=== PATIENT | female | born 1955 | race Caucasian/White ===

== ENCOUNTER 2022-05-11 20:21 | Inpatient (IN) | payer MEDICARE, BC ==
[~2022-05-11] VITALS: Ht 167.6 cm; Wt 77.1 kg
[2022-05-11] MEDS ORDERED: PROCHLORPERAZINE EDISYLATE 10 MG/2 ML VIAL ONE (20:45)
[2022-05-11] MEDS ORDERED: PROCHLORPERAZINE EDISYLATE 10 MG/2 ML VIAL IV ONE (20:45)
[2022-05-11] MEDS ORDERED: IV NORMAL SALINE 1000 ML BAG IV ONE (20:45)
[2022-05-11] MEDS ORDERED: HYDROMORPHONE 1 MG/1 ML DISP.SYRIN IV ONE ×3 (21:00→23:15)
[2022-05-11 21:30] LABS: CREATININE 0.9 mg/dL (0.6-1.3); POTASSIUM 3.1 mmol/L (3.5-5.1)
[2022-05-11 21:34] LABS: HEMATOCRIT 36.8 % (31.2-41.9); MEAN CORPUSCULAR HEMOGLOBIN 27.7 uug (24.7-32.8); PLATELET COUNT (AUTO) 163 K/uL (179-408)
[2022-05-11 21:37] LABS: BILIRUBIN,DIRECT 0.1 mg/dL (0.0-0.2); BILIRUBIN,TOTAL 0.2 mg/dL (0.2-1.0); TOTAL PROTEIN, SERUM 6.8 g/dL (6.4-8.2)
[2022-05-11] MEDS ORDERED: HYDROMORPHONE 1 MG/1 ML DISP.SYRIN ONE ×2 (21:37→22:16)
[2022-05-11] MEDS ORDERED: ONDANSETRON 4 MG/2 ML VIAL ONE ×2 (21:43→23:36)
[2022-05-11] MEDS ORDERED: IV NS 1000 ML 1,000 ML IV ONE (21:45)
[2022-05-11] MEDS ORDERED: ONDANSETRON 4 MG/2 ML VIAL IV ONE ×2 (21:45→23:15)
[2022-05-11] MEDS ORDERED: POTASSIUM CHLORIDE 50 ML ONE (22:02)
[2022-05-11] MEDS: POTASSIUM CHLORIDE 50 ML IV SCH ×4 (22:45→23:55)
[2022-05-11] MEDS ORDERED: POTASSIUM BICARBONATE/CIT AC 25 MEQ TABLET.EFF PO ONE (23:30)
[2022-05-11] MEDS ORDERED: POTASSIUM BICARBONATE/CIT AC 25 MEQ TABLET.EFF ONE (23:36)
[2022-05-11] MEDS ORDERED: HYDROMORPHONE 2 MG/1 ML DISP.SYRIN ONE (23:36)
[2022-05-12] MEDS ORDERED: HYDR4TAB4 PO (01:14)
[2022-05-12] MEDS ORDERED: ONDA4TAB5 PO ×2 (01:14→01:55)
[2022-05-12] MEDS ORDERED: METOCLOPRAMIDE HCL 10 MG/2 ML VIAL IV ONE (01:30)
[2022-05-12] MEDS ORDERED: HYDROMORPHONE 1 MG/1 ML DISP.SYRIN IV ONE (01:30)
[2022-05-12] MEDS ORDERED: METOCLOPRAMIDE HCL 10 MG/2 ML VIAL ONE (01:41)
[2022-05-12] MEDS ORDERED: HYDROMORPHONE 2 MG/1 ML DISP.SYRIN ONE (01:41)
[2022-05-12] MEDS ORDERED: MAGNESIUM HYDROXIDE 30 ML LIQUID UDC PO PRN (01:45)
[2022-05-12] MEDS ORDERED: TEMAZEPAM 15 MG CAPSULE PO PRN (01:45)
[2022-05-12] MEDS ORDERED: ACETAMINOPHEN 325 MG TABLET PO PRN (01:45)
[2022-05-12] MEDS ORDERED: REMEDY ESSENTIAL ZINC PASTE 113 GM TP PRN (01:45)
[2022-05-12] MEDS ORDERED: ONDANSETRON 4 MG/2 ML VIAL IV PRN ×2 (01:45→14:00)
[2022-05-12] MEDS ORDERED: RIZA10TA27 PO (01:55)
[2022-05-12] MEDS ORDERED: DICY20TA11 PO (01:55)
[2022-05-12] MEDS ORDERED: TRAZ-257 PO (01:55)
[2022-05-12] MEDS ORDERED: ESOM40CA PO (01:55)
[2022-05-12] MEDS ORDERED: VENL150C2 PO (01:55)
[2022-05-12] MEDS ORDERED: ATOR20TA PO (01:55)
[2022-05-12] MEDS ORDERED: CETI-90 PO (01:55)
[2022-05-12] MEDS ORDERED: LEVO75TA PO (01:55)
[2022-05-12] MEDS ORDERED: DIPH1TAB PO (01:55)
[2022-05-12] MEDS: IV NS 1000 ML 1,000 ML IV PRN (04:20)
[2022-05-12 04:39] VITALS: BP 132/56
[2022-05-12] MEDS: HYDROMORPHONE 1 MG/1 ML DISP.SYRIN IV PRN ×3 (04:57→13:20)
[2022-05-12] MEDS ORDERED: DEXAMETHASONE 4 MG TABLET PO PRN (14:15)
[2022-05-12 16:00] VITALS: BP 127/61
[2022-05-12] MEDS ORDERED: HYDROMORPHONE 1 MG/1 ML DISP.SYRIN IV PRN (17:15)
[2022-05-12 19:52] LABS: *BILIRUBIN,URIN NEGATIVE (NEGATIVE); *BLOOD, URINE NEGATIVE (NEGATIVE); *CLARITY,URINE CLEAR (CLEAR); *COLOR,URINE YELLOW (YELLOW); *KETONES,URINE NEGATIVE (NEGATIVE); *UROBILINOGEN,URINE 0.2 E.U./dl (NORMAL); LEUKOCYTE ESTERASE ,URINE NEGATIVE (NEGATIVE); NITRITE, URINE NEGATIVE (NEGATIVE); PH,URINE 6.5 (5.0-8.0); UGLUCOSE NEGATIVE (NEGATIVE)
[2022-05-12 20:00] VITALS: BP 137/61
[2022-05-12] MEDS: HYDROMORPHONE 2 MG/1 ML DISP.SYRIN IV PRN (22:42)
[2022-05-12] MEDS ORDERED: VENLAFAXINE 25 MG TABLET PO SCH (23:45)
[2022-05-13] MEDS ORDERED: VENLAFAXINE XR 75 MG TAB.ER.24H PO ONE (00:28)
[2022-05-13] MEDS: VENLAFAXINE XR 150 MG CAP.SR.24H PO SCH ×2 (00:28→00:32)
[2022-05-13] MEDS ORDERED: VENLAFAXINE XR 150 MG CAP.SR.24H PO ONE (00:30)
[2022-05-13] MEDS: HYDROMORPHONE 2 MG/1 ML DISP.SYRIN IV PRN ×6 (03:09→23:48)
[2022-05-13 04:00] VITALS: BP 134/78
[2022-05-13] MEDS: IV NS 1000 ML 1,000 ML IV PRN (05:16)
[2022-05-13 06:51] LABS: HEMATOCRIT 30.4 % (31.2-41.9); MEAN CORPUSCULAR HEMOGLOBIN 27.9 uug (24.7-32.8); MEAN CORPUSCULAR VOLUME 84.7 fL (75.5-95.3); PLATELET COUNT (AUTO) 171 K/uL (179-408)
[2022-05-13 07:09] LABS: CREATININE 0.7 mg/dL (0.6-1.3); MAGNESIUM 1.9 mg/dL (1.8-2.4); PHOSPHOROUS 3.9 mg/dL (2.5-4.9); POTASSIUM 4.2 mmol/L (3.5-5.1)
[2022-05-13] MEDS: VENLAFAXINE XR 75 MG TAB.ER.24H PO SCH ×2 (08:29→21:45)
[2022-05-13] MEDS ORDERED: DIPHENOXYLATE HCL/ATROP SULF TABLET PO PRN (10:30)
[2022-05-13] MEDS ORDERED: DICYCLOMINE HCL 20 MG TABLET PO PRN (10:30)
[2022-05-13] MEDS ORDERED: ONDANSETRON HCL 4 MG TABLET PO PRN (10:30)
[2022-05-13] MEDS ORDERED: RIZATRIPTAN BENZOATE PO SCH (10:30)
[2022-05-13] MEDS: CETIRIZINE HCL 10 MG TABLET PO SCH ×2 (10:57→11:17)
[2022-05-13] MEDS: LEVOTHYROXINE SODIUM 75 MCG TABLET PO SCH (10:57)
[2022-05-13] MEDS: PANTOPRAZOLE SODIUM 40 MG TABLET.DR PO SCH (10:57)
[2022-05-13] MEDS: ONDANSETRON 4 MG/2 ML VIAL IV PRN ×2 (11:05→17:06)
[2022-05-13] MEDS: CIPROFLOXACIN IV 200 MG in PREMIXED 1 EACH IV SCH ×2 (11:05→23:01)
[2022-05-13 11:52] VITALS: BP 115/58
[2022-05-13] MEDS: METRONIDAZOLE 500 MG/NS 100ML 500 MG in PREMIXED 1 EACH IV SCH ×2 (13:22→21:48)
[2022-05-13 16:11] VITALS: BP 131/73
[2022-05-13 20:09] VITALS: BP 129/82
[2022-05-13] MEDS ORDERED: TRAZODONE 100 MG TABLET PO ONE (21:00)
[2022-05-14 02:06] LABS: CANCER ANTIGEN 15-3 14.3 U/mL (0.0-25.0)
[2022-05-14] MEDS: HYDROMORPHONE 2 MG/1 ML DISP.SYRIN IV PRN ×5 (03:53→22:06)
[2022-05-14] MEDS: ONDANSETRON 4 MG/2 ML VIAL IV PRN (04:12)
[2022-05-14 04:31] VITALS: BP 126/83
[2022-05-14] MEDS: IV NS 1000 ML 1,000 ML IV PRN ×2 (04:43→22:15)
[2022-05-14] MEDS: METRONIDAZOLE 500 MG/NS 100ML 500 MG in PREMIXED 1 EACH IV SCH (05:01)
[2022-05-14] MEDS: PANTOPRAZOLE SODIUM 40 MG TABLET.DR PO SCH (06:17)
[2022-05-14] MEDS: LEVOTHYROXINE SODIUM 75 MCG TABLET PO SCH (06:17)
[2022-05-14 06:51] LABS: HEMATOCRIT 28.3 % (31.2-41.9); MEAN CORPUSCULAR HEMOGLOBIN 28.2 uug (24.7-32.8); PLATELET COUNT (AUTO) 177 K/uL (179-408)
[2022-05-14 07:00] LABS: CREATININE 0.8 mg/dL (0.6-1.3); MAGNESIUM 1.9 mg/dL (1.8-2.4); PHOSPHOROUS 3.4 mg/dL (2.5-4.9); POTASSIUM 4.3 mmol/L (3.5-5.1)
[2022-05-14] MEDS: VENLAFAXINE XR 75 MG TAB.ER.24H PO SCH ×2 (08:50→20:49)
[2022-05-14] MEDS ORDERED: HYDROCODONE/APAP 10-325 MG TABLET PO PRN (11:15)
[2022-05-14 11:45] VITALS: BP 115/35
[2022-05-14] MEDS: METOCLOPRAMIDE HCL 10 MG/2 ML VIAL IV SCH ×2 (11:51→17:10)
[2022-05-14] MEDS ORDERED: DICYCLOMINE HCL 20 MG TABLET PO PRN (12:19)
[2022-05-14] MEDS ORDERED: ONDANSETRON 4 MG/2 ML VIAL IV PRN (16:00)
[2022-05-14 16:43] VITALS: BP 129/47
[2022-05-14] MEDS ORDERED: SWABABLE VALVE TRANSFER SET EA MC ONE (16:57)
[2022-05-14] MEDS ORDERED: IOHEXOL 300MG/ML 50 ML VIAL ONE (16:57)
[2022-05-14] MEDS ORDERED: IV NORMAL SALINE 0 ML IV ONE (16:57)
[2022-05-14] MEDS: DEXAMETHASONE 4 MG TABLET PO SCH (16:58)
[2022-05-14 20:18] VITALS: BP 115/55
[2022-05-14] MEDS ORDERED: ATORVASTATIN 20 MG TABLET PO SCH (21:00)
[2022-05-15] MEDS: METOCLOPRAMIDE HCL 10 MG/2 ML VIAL IV SCH ×3 (00:02→11:53)
[2022-05-15] MEDS: HYDROMORPHONE 2 MG/1 ML DISP.SYRIN IV PRN ×3 (02:13→10:40)
[2022-05-15] MEDS: PANTOPRAZOLE SODIUM 40 MG TABLET.DR PO SCH (06:19)
[2022-05-15] MEDS: LEVOTHYROXINE SODIUM 75 MCG TABLET PO SCH (06:20)
[2022-05-15 06:57] VITALS: BP 136/78
[2022-05-15 07:15] LABS: HEMATOCRIT 30.1 % (31.2-41.9); MEAN CORPUSCULAR HEMOGLOBIN 28.2 uug (24.7-32.8); MEAN CORPUSCULAR VOLUME 84.7 fL (75.5-95.3); PLATELET COUNT (AUTO) 200 K/uL (179-408)
[2022-05-15] MEDS ORDERED: ONDANSETRON INJ 8 MG in IV NORMAL SALINE 50 ML IV PRN (07:15)
[2022-05-15 07:39] LABS: ALANINE AMINOTRANSFERASE 10 U/L (14-59); ALKALINE PHOSPHATASE 108 U/L (50-136); ASPARTATE AMINOTRANSFERASE < 5 U/L (15-37); BILIRUBIN,TOTAL 0.1 mg/dL (0.2-1.0); CARBON DIOXIDE 25 mmol/L (21-32); CHLORIDE 104 mmol/L (98-107); CREATININE 0.8 mg/dL (0.6-1.3); GLUCOSE 149 mg/dL (74-106); POTASSIUM 4.3 mmol/L (3.5-5.1); TOTAL PROTEIN, SERUM 6.6 g/dL (6.4-8.2); UREA NITROGEN, BLOOD 8 mg/dL (7-18)
[2022-05-15] MEDS ORDERED: CIPR-263 PO (10:05)
[2022-05-15] MEDS ORDERED: HYDR-3980 PO (10:05)
[2022-05-15] MEDS ORDERED: METR500T PO (10:05)
[2022-05-15] MEDS ORDERED: DOCU250C14 PO (10:05)
[2022-05-15] MEDS ORDERED: METO-295 PO (10:05)
[2022-05-15] MEDS ORDERED: L. A1TAB16 PO (10:05)
[2022-05-15] MEDS: VENLAFAXINE XR 75 MG TAB.ER.24H PO SCH (10:08)
[2022-05-15] MEDS: DEXAMETHASONE 4 MG TABLET PO SCH (10:08)
[2022-05-15] MEDS: CETIRIZINE HCL 10 MG TABLET PO SCH (10:09)
[2022-05-15 11:52] VITALS: BP 129/61
[2022-05-15] MEDS: IV NS 1000 ML 1,000 ML IV PRN (11:52)
[2022-05-15 15:54] VITALS: BP 135/48
[2022-05-15] MEDS ORDERED: TRAZODONE 100 MG TABLET PO SCH (21:00)
== END 2022-05-15 17:30 | disposition home or self-care (01) | DRG 372 ==
LOC: ER 20:28 → MEDSURG3 05-12 03:11
PROVIDERS: ADMIT Registered Nurse; ATTEND Registered Nurse
PROC: 05HB33Z Insertion of Infusion Device into Right Basilic Vein, Percutaneous Approach (ICD-10-PCS; principal; 2022-05-12)
DX: A04.9 Bacterial intestinal infection, unspecified (principal); C79.9 Secondary malignant neoplasm of unspecified site; C50.911 Malignant neoplasm of unspecified site of right female breast; D84.821 Immunodeficiency due to drugs; E87.6 Hypokalemia; D64.9 Anemia, unspecified; D69.59 Other secondary thrombocytopenia; Z20.822 Contact with and (suspected) exposure to COVID-19; Z92.21 Personal history of antineoplastic chemotherapy; E03.9 Hypothyroidism, unspecified; T45.1X5A Adverse effect of antineoplastic and immunosuppressive drugs, initial encounter; Y92.89 Other specified places as the place of occurrence of the external cause; E78.5 Hyperlipidemia, unspecified; Z17.0 Estrogen receptor positive status [ER+]; Z88.0 Allergy status to penicillin; Z88.2 Allergy status to sulfonamides; E78.00 Pure hypercholesterolemia, unspecified; Z90.49 Acquired absence of other specified parts of digestive tract; Z88.5 Allergy status to narcotic agent
CPT/HCPCS: 36415; 82378; 83605; 83690; 83735; 84100; 85025; 86300; 86803; 87040; 87086; 87806; 93005; A4663; G0378; J0780; J1170; J2405; J2765; J3480; J3490; J7040; J8540; Q0162; Q9967

== ENCOUNTER 2022-05-19 18:36 | Emergency (ER) | payer MEDICARE, BC ==
[~2022-05-19] VITALS: Ht 167.6 cm; Wt 77.1 kg
[~2022-05-19 18:36] MED LIST: ATOR20TA PO; CETI-90 PO; CIPR-263 PO; DICY20TA11 PO; DIPH1TAB PO; DOCU250C14 PO; ESOM40CA PO; HYDR-3980 PO; HYDR4TAB4 PO; L. A1TAB16 PO; LEVO75TA PO; METO-295 PO; METR500T PO; RIZA10TA27 PO; TRAZ-257 PO; VENL150C2 PO
[2022-05-19] MEDS ORDERED: METOCLOPRAMIDE HCL 10 MG/2 ML VIAL IV ONE (18:45)
[2022-05-19] MEDS ORDERED: IV NORMAL SALINE 1000 ML BAG IV ONE (18:45)
[2022-05-19] MEDS ORDERED: HYDROMORPHONE 1 MG/1 ML DISP.SYRIN IV ONE ×3 (18:45→23:00)
[2022-05-19 19:20] LABS: CARBON DIOXIDE 23 mmol/L (21-32); CHLORIDE 104 mmol/L (98-107); CREATININE 0.9 mg/dL (0.6-1.3); GLUCOSE 126 mg/dL (74-106); POTASSIUM 3.4 mmol/L (3.5-5.1); UREA NITROGEN, BLOOD 13 mg/dL (7-18)
[2022-05-19 19:23] LABS: MEAN CORPUSCULAR HEMOGLOBIN 26.9 uug (24.7-32.8); MEAN CORPUSCULAR VOLUME 84.3 fL (75.5-95.3); PLATELET COUNT (AUTO) 174 K/uL (179-408)
[2022-05-19] MEDS ORDERED: HYDROMORPHONE 2 MG/1 ML DISP.SYRIN ONE ×3 (19:26→23:21)
[2022-05-19] MEDS ORDERED: METOCLOPRAMIDE HCL 10 MG/2 ML VIAL ONE (19:26)
[2022-05-19 19:31] LABS: ALANINE AMINOTRANSFERASE 20 U/L (14-59); ALKALINE PHOSPHATASE 119 U/L (50-136); ASPARTATE AMINOTRANSFERASE 9 U/L (15-37); BILIRUBIN,TOTAL 0.2 mg/dL (0.2-1.0); LIPASE 43 U/L (73-393)
[2022-05-19 19:43] LABS: BILIRUBIN,DIRECT < 0.1 mg/dL (0.0-0.2)
[2022-05-19 20:35] LABS: *BILIRUBIN,URIN NEGATIVE (NEGATIVE); *BLOOD, URINE 1+ (NEGATIVE); *CLARITY,URINE CLEAR (CLEAR); *COLOR,URINE LIGHT YELLOW (YELLOW); *KETONES,URINE NEGATIVE (NEGATIVE); *UROBILINOGEN,URINE 0.2 E.U./dl (NORMAL); LEUKOCYTE ESTERASE ,URINE NEGATIVE (NEGATIVE); NITRITE, URINE NEGATIVE (NEGATIVE); UGLUCOSE NEGATIVE (NEGATIVE)
[2022-05-19] MEDS ORDERED: POTASSIUM BICARBONATE/CIT AC 25 MEQ TABLET.EFF PO ONE (21:00)
[2022-05-19 21:03] LABS: BACTERIA,URINE NONE SEEN /HPF (NONE SEEN); WBC,URINE NONE SEEN /HPF (0-3)
[2022-05-19 21:04] LABS: SQUAMOUS EPITHELIAL CELL,UR FEW /HPF (NONE SEEN)
[2022-05-19] MEDS ORDERED: POTASSIUM BICARBONATE/CIT AC 25 MEQ TABLET.EFF ONE (21:10)
[2022-05-19] MEDS ORDERED: HYDR4TAB4 PO (23:02)
--- NOTE | 2022-05-19 23:26 | NUR ---
Patient discharged to home in stable condition. Written and verbal after care instructions given. Patient verbalizes understanding of instructions. Stressed follow up or return to ER for worsening s/s. Patient out of ER with steady gait, no acute signs of distress, VSS, all belongings taken, IV site discontinued, instructed not to drive, to be driven home by via private vehicle.
[2022-05-19 23:29] VITALS: BP 104/69
== END 2022-05-19 23:36 | disposition home or self-care (01) ==
LOC: ER 18:36
DX: R10.30 Lower abdominal pain, unspecified (principal); R19.7 Diarrhea, unspecified; E87.6 Hypokalemia; C50.919 Malignant neoplasm of unspecified site of unspecified female breast; C79.9 Secondary malignant neoplasm of unspecified site; Z79.899 Other long term (current) drug therapy; E78.00 Pure hypercholesterolemia, unspecified; E03.9 Hypothyroidism, unspecified; Z88.0 Allergy status to penicillin; Z88.2 Allergy status to sulfonamides
CPT/HCPCS: 99285; 96374; 96361; 96375; 87426; 80076; 80048; 81001; 83690; 85025; 36415; 93005; 74018; 96376; 83605 ×2; J2765; J1170 ×3; J7040; A4663

== ENCOUNTER 2022-05-28 21:16 | Emergency (ER) | payer BC, MEDICARE ==
--- NOTE | 2022-05-29 02:00 | NUR ---
Patient was just called at this time to be triaged due to short staffing and high acuity (3 ICU patient) with a full ER, but patient was not present. PATIENT WAS NOT TRIAGED OR SEEN BY ERMD.
== END 2022-05-29 02:00 | disposition left against medical advice (07) ==
LOC: ER 21:18
DX: Z53.21 Procedure and treatment not carried out due to patient leaving prior to being seen by health care provider (principal)

== ENCOUNTER 2023-01-05 19:23 | Emergency (ER) | payer MEDICARE, BC ==
[~2023-01-05] VITALS: Ht 167.6 cm; Wt 74.8 kg
--- NOTE | 2023-01-05 20:08 | NUR ---
Dr. Cole at bedside for MSE.
[2023-01-05] MEDS ORDERED: PROCHLORPERAZINE EDISYLATE 10 MG/2 ML VIAL IV ONE (20:15)
[2023-01-05] MEDS ORDERED: PROCHLORPERAZINE EDISYLATE 10 MG/2 ML VIAL ONE (20:26)
[2023-01-05] MEDS ORDERED: HYDROMORPHONE 1 MG/1 ML DISP.SYRIN ONE ×2 (20:26→22:17)
[2023-01-05] MEDS ORDERED: ONDANSETRON 4 MG/2 ML VIAL ONE ×2 (20:30→22:17)
[2023-01-05] MEDS: IV NORMAL SALINE 1000 ML BAG IV ONE (20:37)
[2023-01-05] MEDS: HYDROMORPHONE 1 MG/1 ML DISP.SYRIN IV ONE ×2 (20:37→22:20)
[2023-01-05] MEDS: ONDANSETRON 4 MG/2 ML VIAL IV ONE ×2 (20:37→22:21)
[2023-01-05 20:59] LABS: HEMATOCRIT 37.5 % (31.2-41.9); MEAN CORPUSCULAR HEMOGLOBIN 29.2 uug (24.7-32.8); MEAN CORPUSCULAR VOLUME 89.9 fL (75.5-95.3); PLATELET COUNT (AUTO) 191 K/uL (179-408)
[2023-01-05 21:12] LABS: BILIRUBIN,DIRECT 0.1 mg/dL (0.0-0.2); BILIRUBIN,TOTAL 0.3 mg/dL (0.2-1.0); CREATININE 0.7 mg/dL (0.6-1.3); POTASSIUM 3.8 mmol/L (3.5-5.1); TOTAL PROTEIN, SERUM 6.6 g/dL (6.4-8.2)
--- NOTE | 2023-01-05 21:25 | NUR ---
Pt out of ER for CT.
[2023-01-05] MEDS ORDERED: IOHEXOL 300MG/ML 100 ML INFUS..BTL ONE (21:42)
[2023-01-05] MEDS ORDERED: SWABABLE VALVE TRANSFER SET EA MC ONE (21:42)
[2023-01-05] MEDS ORDERED: IV NORMAL SALINE 250 ML IV ONE (21:42)
--- NOTE | 2023-01-05 22:01 | NUR ---
Pt back to ER from CT.
[2023-01-05 22:22] LABS: *BILIRUBIN,URIN NEGATIVE (NEGATIVE); *CLARITY,URINE CLEAR (CLEAR); *COLOR,URINE YELLOW (YELLOW); *KETONES,URINE NEGATIVE (NEGATIVE); *UROBILINOGEN,URINE 0.2 E.U./dl (NORMAL); LEUKOCYTE ESTERASE ,URINE NEGATIVE (NEGATIVE); NITRITE, URINE NEGATIVE (NEGATIVE); UGLUCOSE NEGATIVE (NEGATIVE)
[2023-01-05 22:23] LABS: *BLOOD, URINE NEGATIVE (NEGATIVE)
[2023-01-05] MEDS: IV NS 1000 ML 1,000 ML IV ONE (22:54)
[2023-01-06] MEDS ORDERED: BISA10SU61 RC (00:29)
[2023-01-06] MEDS ORDERED: DOCU-141 PO (00:29)
[2023-01-06] MEDS ORDERED: BISA-79 PO (00:29)
[2023-01-06] MEDS ORDERED: HYDR-3980 PO (00:29)
[2023-01-06] MEDS ORDERED: HYDROMORPHONE 1 MG/1 ML DISP.SYRIN ONE (00:38)
[2023-01-06] MEDS: HYDROMORPHONE 1 MG/1 ML DISP.SYRIN IV ONE (00:43)
[2023-01-06] MEDS ORDERED: ONDANSETRON 4 MG/2 ML VIAL ONE (00:51)
[2023-01-06] MEDS: ONDANSETRON 4 MG/2 ML VIAL IV ONE (01:04)
--- NOTE | 2023-01-06 01:04 | NUR ---
Patient discharged to home in stable condition. Written and verbal after care instructions given. Patient verbalizes understanding of instructions. Stressed follow up or return to ER for worsening s/s. Patient out of ER with steady gait, no acute signs of distress, VSS, all belongings taken, provided with copies of lab and CT results, IV discontinued, instructed not to drive, to be driven home by family via private vehicle.
[2023-01-06 01:05] VITALS: BP 115/100
[2023-01-06] MEDS ORDERED: ONDA4TAB5 PO (12:17)
== END 2023-01-06 01:06 | disposition home or self-care (01) ==
LOC: ER 19:25
DX: R10.84 Generalized abdominal pain (principal); R11.2 Nausea with vomiting, unspecified; K59.00 Constipation, unspecified; E78.5 Hyperlipidemia, unspecified; E03.9 Hypothyroidism, unspecified; Z90.49 Acquired absence of other specified parts of digestive tract; Z90.710 Acquired absence of both cervix and uterus; Z88.0 Allergy status to penicillin; Z88.2 Allergy status to sulfonamides; Z88.5 Allergy status to narcotic agent; Z79.899 Other long term (current) drug therapy
CPT/HCPCS: 99285; 74177; 96374; 96361; 96375; 80076; 80048; 81003; 85025; 36415; 96376 ×2; 83605; J2405 ×3; Q9967; J0780; J1170 ×3; J7040 ×2; A4663

== ENCOUNTER 2023-01-06 11:25 | Emergency (ER) | payer MEDICARE, BC ==
[~2023-01-06] VITALS: Ht 167.6 cm; Wt 77.1 kg
[~2023-01-06 11:25] MED LIST changes: +BISA-79 PO; +BISA10SU61 RC; +DOCU-141 PO
[2023-01-06] MEDS ORDERED: ONDA4TAB5 PO (12:17)
--- NOTE | 2023-01-06 12:20 | NUR ---
Patient seen by physician.
[2023-01-06 13:09] LABS: HEMATOCRIT 32.6 % (31.2-41.9); MEAN CORPUSCULAR HEMOGLOBIN 29.6 uug (24.7-32.8); MEAN CORPUSCULAR VOLUME 87.8 fL (75.5-95.3); PLATELET COUNT (AUTO) 187 K/uL (179-408)
[2023-01-06 13:22] LABS: BILIRUBIN,DIRECT 0.1 mg/dL (0.0-0.2); BILIRUBIN,TOTAL 0.3 mg/dL (0.2-1.0); CREATININE 0.7 mg/dL (0.6-1.3); POTASSIUM 3.5 mmol/L (3.5-5.1); TOTAL PROTEIN, SERUM 6.6 g/dL (6.4-8.2)
[2023-01-06] MEDS ORDERED: ONDANSETRON 4 MG/2 ML VIAL ONE (13:28)
[2023-01-06] MEDS: ONDANSETRON 4 MG/2 ML VIAL IV ONE (13:34)
[2023-01-06] MEDS: DICYCLOMINE HCL 20 MG/2 ML AMPUL IM SCH (13:34)
--- NOTE | 2023-01-06 14:06 | NUR ---
Pt. with c/of unrelived pain and educated as recommend by physician to wait for Bentyl to work, and then if pain remains unrelived she can get Dilaudid as requested. Patient stated that she would rather have the IV line dcd and go to [facility]. Patient educated on possible consequences of leving AMA Dr. Stevens informed that pt. is willing to leave AMA. IV line dcd and pt. left AMA.
== END 2023-01-06 14:13 | disposition left against medical advice (07) ==
LOC: ER 11:25
DX: R10.30 Lower abdominal pain, unspecified (principal); R19.7 Diarrhea, unspecified; E78.5 Hyperlipidemia, unspecified; E03.9 Hypothyroidism, unspecified; Z90.49 Acquired absence of other specified parts of digestive tract; Z90.710 Acquired absence of both cervix and uterus; Z88.0 Allergy status to penicillin; Z88.2 Allergy status to sulfonamides; Z88.5 Allergy status to narcotic agent; Z79.899 Other long term (current) drug therapy; Z79.1 Long term (current) use of non-steroidal anti-inflammatories (NSAID); Z79.2 Long term (current) use of antibiotics
CPT/HCPCS: 99284; 96374; 80076; 80048; 83690; 85025; 36415; 96372; J0500; J2405; A4663

== ENCOUNTER 2023-01-31 11:50 | Inpatient (IN) | payer MEDICARE, BC ==
[~2023-01-31] VITALS: Ht 167.6 cm; Wt 74.8 kg
[~2023-01-31 11:50] MED LIST changes: -BISA-79 PO; -BISA10SU61 RC; -CIPR-263 PO; -DOCU-141 PO; -DOCU250C14 PO; -HYDR-3980 PO; -HYDR4TAB4 PO; -METO-295 PO; -METR500T PO; +ONDA4TAB5 PO; +OXYC-128 PO; +PROC-11 PO; +ZOLP10TA2 PO
--- NOTE | 2023-01-31 12:00 | NUR ---
Pt ambulatory to ER room 3. Pt c/o abdominal pain and nausea, pt states she recently started chemotherapy for breast cancer. Pt seen and evaluated by ER physician. VS: BP 125/89, HR 76, RR 18, PULSE OX 97%, Temp 98.0 (oral), PAIN 8/10.
[2023-01-31] MEDS ORDERED: HYDROMORPHONE 1 MG/1 ML DISP.SYRIN IV ONE ×2 (12:30→16:00)
[2023-01-31] MEDS ORDERED: ONDANSETRON 4 MG/2 ML VIAL IV ONE (12:30)
[2023-01-31] MEDS ORDERED: IV NORMAL SALINE 500 ML BAG IV ONE (12:30)
[2023-01-31] MEDS ORDERED: ONDANSETRON 4 MG/2 ML VIAL ONE ×2 (12:33→20:36)
[2023-01-31] MEDS ORDERED: HYDROMORPHONE 1 MG/1 ML DISP.SYRIN ONE ×2 (12:33→20:37)
[2023-01-31 12:49] LABS: HEMATOCRIT 39.9 % (31.2-41.9); MEAN CORPUSCULAR HEMOGLOBIN 29.9 uug (24.7-32.8); MEAN CORPUSCULAR VOLUME 89.8 fL (75.5-95.3); PLATELET COUNT (AUTO) 239 K/uL (179-408)
[2023-01-31 13:05] LABS: CREATININE 0.8 mg/dL (0.6-1.3); POTASSIUM 3.9 mmol/L (3.5-5.1)
[2023-01-31] MEDS ORDERED: diphenhydrAMINE 50 MG/1 ML VIAL ONE ×2 (13:09→16:30)
[2023-01-31] MEDS ORDERED: diphenhydrAMINE 50 MG/1 ML VIAL IV ONE ×2 (13:15→16:00)
[2023-01-31 13:17] LABS: BILIRUBIN,TOTAL 0.3 mg/dL (0.2-1.0); TOTAL PROTEIN, SERUM 7.9 g/dL (6.4-8.2)
--- NOTE | 2023-01-31 16:15 | NUR ---
Midline placed to RUE by Arron Masters DNP.
[2023-01-31] MEDS ORDERED: IV NS 1000 ML 1,000 ML IV PRN (16:30)
[2023-01-31] MEDS ORDERED: TEMAZEPAM 15 MG CAPSULE PO PRN (16:30)
[2023-01-31] MEDS ORDERED: REMEDY ESSENTIAL ZINC PASTE 113 GM TP PRN (16:30)
[2023-01-31] MEDS ORDERED: ACETAMINOPHEN 325 MG TABLET PO PRN (16:30)
[2023-01-31] MEDS ORDERED: MAGNESIUM HYDROXIDE 30 ML LIQUID UDC PO PRN (16:30)
[2023-01-31] MEDS ORDERED: PANTOPRAZOLE SODIUM IV 40 MG in IV DEXTROSE 5% 100 ML IV ONE (16:30)
--- NOTE | 2023-01-31 16:30 | NUR ---
Pt admitted to med/surg Accepting: DAVID Kahn Dx: Abd pain Bed assignment: pending Plan of care discussed with patient by ER physician and nursing staff.
[2023-01-31] MEDS ORDERED: PANTOPRAZOLE SODIUM 40 MG VIAL ONE (16:31)
[2023-01-31] MEDS ORDERED: OXYCODONE/APAP 5-325 MG TABLET PO PRN ×2 (17:30)
--- NOTE | 2023-01-31 19:19 | NUR ---
Nursing SBAR given to ER project associate Arjun, pending available medical-surgical floor bed & [email or web address] [email or web address]
[2023-01-31] MEDS: ONDANSETRON 4 MG/2 ML VIAL IV PRN (20:39)
[2023-01-31] MEDS: HYDROMORPHONE 1 MG/1 ML DISP.SYRIN IV PRN (20:39)
[2023-02-01] MEDS ORDERED: diphenhydrAMINE 50 MG/1 ML VIAL ONE ×2 (01:41→10:38)
[2023-02-01] MEDS ORDERED: ONDANSETRON 4 MG/2 ML VIAL ONE ×2 (01:41→10:37)
[2023-02-01] MEDS ORDERED: HYDROMORPHONE 1 MG/1 ML DISP.SYRIN ONE ×3 (01:42→10:38)
[2023-02-01] MEDS: HYDROMORPHONE 1 MG/1 ML DISP.SYRIN IV PRN ×6 (01:45→23:51)
[2023-02-01] MEDS: ONDANSETRON 4 MG/2 ML VIAL IV PRN ×3 (01:45→20:04)
[2023-02-01] MEDS: diphenhydrAMINE 50 MG/1 ML VIAL IV PRN ×3 (01:45→20:04)
[2023-02-01 06:07] LABS: HEMATOCRIT 35.4 % (31.2-41.9); MEAN CORPUSCULAR HEMOGLOBIN 30.2 uug (24.7-32.8); PLATELET COUNT (AUTO) 194 K/uL (179-408)
[2023-02-01 06:32] LABS: CREATININE 0.9 mg/dL (0.6-1.3); PHOSPHOROUS 3.5 mg/dL (2.5-4.9); POTASSIUM 4.3 mmol/L (3.5-5.1)
--- NOTE | 2023-02-01 06:38 | NUR ---
Shannan rees in ED - 02/01/23 at 0639 by ARSENIO Patient c/o 03/24 lower abd pain. Patient given dilaudid 1mg given.
--- NOTE | 2023-02-01 06:39 | NUR ---
Patient c/o 8/10 lower abd pain. Dilaudid 1mg given
[2023-02-01] MEDS ORDERED: PANTOPRAZOLE SODIUM 40 MG TABLET.DR PO ONE (07:02)
[2023-02-01] MEDS: PANTOPRAZOLE SODIUM 40 MG TABLET.DR PO SCH (07:05)
[2023-02-01] MEDS ORDERED: OXYCODONE/APAP 5-325 MG TABLET ONE ×2 (08:55→09:01)
--- NOTE | 2023-02-01 09:02 | NUR ---
Patient provided with a meal tray.
--- NOTE | 2023-02-01 10:33 | NUR ---
Report given to LESLIE Santana.
--- NOTE | 2023-02-01 11:15 | NUR ---
Pt. admitted to [facility], under care of Zach Betancourt NP [employer] brinda Santana RN aware of patients arrival to unit.
--- NOTE | 2023-02-01 11:20 | NUR ---
ADMISSION ENDORSEMENT: 1) Received, A0x4, no sign of SOB - RA, pain or discomfort ob served on arrival. 2) IV site dry, patent, clean and no sign of infection or inflammation observed. 3) No skin issues - self turning, BPR, call [facility] close by, room cleared of clutters, bed at a low position. 4) Admission intervention and care plans completed. 5) Discuss pain management plan and refilled water nd ice. 6) Will continue to assess, plan, implement, and treat accordingly
--- NOTE | 2023-02-01 14:13 | NUR ---
COMFORT - Offered iced water, pillow and made comfortable.
--- NOTE | 2023-02-01 15:48 | NUR ---
HYGIENE; Asked for toiletries and provided as needed
--- NOTE | 2023-02-01 18:55 | NUR ---
CITY [employer]ER ENDORSEMENT - WILL ENDORSE CARE TO NIGHT STAFF ACCORDINGLY.
[2023-02-01 20:32] VITALS: BP 132/65
[2023-02-02 04:05] VITALS: BP 151/78
[2023-02-02] MEDS: ONDANSETRON 4 MG/2 ML VIAL IV PRN (04:10)
[2023-02-02] MEDS: diphenhydrAMINE 50 MG/1 ML VIAL IV PRN (04:10)
[2023-02-02] MEDS: HYDROMORPHONE 1 MG/1 ML DISP.SYRIN IV PRN ×2 (04:11→06:49)
[2023-02-02] MEDS: PANTOPRAZOLE SODIUM 40 MG TABLET.DR PO SCH (06:34)
[2023-02-02] MEDS ORDERED: OXYC-133 PO (07:35)
--- NOTE | 2023-02-02 08:58 | NUR ---
DISCHARGE PLANNIN) Patient did not want to leave in the morning because has a meeting and no one to pick her up 2) Will inform casework manager
--- NOTE | 2023-02-02 09:13 | NUR ---
DISCHARGE PLANNIN) Case ,[employer] project manager will provide a voucher.
--- NOTE | 2023-02-02 09:21 | NUR ---
DISCHARGE PLANIN) Went to patient room to advise about taxi voucher - however, patient informed RN that she will Uber to [facility] in [place] 2) GAYLA informed
--- NOTE | 2023-02-02 09:27 | NUR ---
DISCHARGE PLANNIN) iv access removed - pressure applied, and no bleeding observed 2) Discharge papers completed, but patient left in a hurry - knowing that its being printed. 3) GAYLA informed
== END 2023-02-02 09:35 | disposition home or self-care (01) | DRG 395 ==
LOC: ER 11:50 → TRANSITION 19:46 → MED 02-01 10:56 → MEDSURG3 02-01 17:54
PROVIDERS: ADMIT Nurse Practitioner Acute Care; ATTEND Nurse Practitioner Acute Care
PROC: 05HB33Z Insertion of Infusion Device into Right Basilic Vein, Percutaneous Approach (ICD-10-PCS; principal; 2023-01-31)
DX: K52.1 Toxic gastroenteritis and colitis (principal); T45.1X5A Adverse effect of antineoplastic and immunosuppressive drugs, initial encounter; Y92.89 Other specified places as the place of occurrence of the external cause; G89.4 Chronic pain syndrome; C50.911 Malignant neoplasm of unspecified site of right female breast; E03.9 Hypothyroidism, unspecified; E78.5 Hyperlipidemia, unspecified; K21.9 Gastro-esophageal reflux disease without esophagitis; M79.7 Fibromyalgia; F32.A Depression, unspecified; Z88.2 Allergy status to sulfonamides; Z88.0 Allergy status to penicillin; Z79.890 Hormone replacement therapy; Z79.899 Other long term (current) drug therapy
CPT/HCPCS: 36415; 83690; 83735; 84100; 84484; 85025; A4663; C9113; G0378; J1170; J1200; J2405; J7040

== ENCOUNTER 2023-02-06 14:30 | Emergency (ER) | payer MEDICARE, BC ==
[~2023-02-06] VITALS: Ht 167.6 cm; Wt 79.4 kg
[~2023-02-06 14:30] MED LIST changes: +OXYC-133 PO
[2023-02-06] MEDS ORDERED: ONDANSETRON 4 MG/2 ML VIAL IV ONE (15:45)
[2023-02-06] MEDS ORDERED: IV NORMAL SALINE 1000 ML BAG IV ONE (15:45)
[2023-02-06] MEDS ORDERED: HYDROMORPHONE 1 MG/1 ML DISP.SYRIN IV ONE (15:45)
[2023-02-06] MEDS ORDERED: HYDROMORPHONE 1 MG/1 ML DISP.SYRIN ONE ×2 (15:48→17:53)
[2023-02-06] MEDS ORDERED: ONDANSETRON 4 MG/2 ML VIAL ONE (15:48)
[2023-02-06] MEDS ORDERED: diphenhydrAMINE 50 MG/1 ML VIAL ONE (16:10)
[2023-02-06] MEDS ORDERED: diphenhydrAMINE 50 MG/1 ML VIAL IV ONE (16:15)
[2023-02-06] MEDS ORDERED: HYDROMORPHONE 1 MG/1 ML DISP.SYRIN IM ONE (18:00)
--- NOTE | 2023-02-06 18:20 | NUR ---
Patient discharged to home in stable condition. Written and verbal after care instructions given. Patient verbalizes understanding of instructions. Stressed follow up or return to ER for worsening s/s.
--- NOTE | 2023-02-06 18:20 | NUR ---
IV removed. Catheter intact and site benign. Pressure and 4x4 gauze applied to site. No bleeding noted.
[2023-02-07] MEDS ORDERED: ONDA4TAB5 PO (14:53)
== END 2023-02-06 18:21 | disposition home or self-care (01) ==
LOC: ER 14:30
DX: R10.9 Unspecified abdominal pain (principal); R11.2 Nausea with vomiting, unspecified; T45.1X5A Adverse effect of antineoplastic and immunosuppressive drugs, initial encounter; E78.5 Hyperlipidemia, unspecified; Z90.49 Acquired absence of other specified parts of digestive tract; Z90.710 Acquired absence of both cervix and uterus; Z88.0 Allergy status to penicillin; Z88.2 Allergy status to sulfonamides; Z88.5 Allergy status to narcotic agent; Z79.899 Other long term (current) drug therapy; Y92.89 Other specified places as the place of occurrence of the external cause
CPT/HCPCS: 99284; 96374; 96375; 96361; 96372; J1200; J2405; J1170 ×2; J7040; A4663

== ENCOUNTER 2023-02-07 13:52 | Emergency (ER) | payer MEDICARE, BC ==
[~2023-02-07] VITALS: Ht 167.6 cm; Wt 79.4 kg
[2023-02-07] MEDS ORDERED: ONDANSETRON 4 MG/2 ML VIAL ONE (14:15)
[2023-02-07] MEDS ORDERED: diphenhydrAMINE 50 MG/1 ML VIAL IM ONE (14:15)
[2023-02-07] MEDS ORDERED: ONDANSETRON 4 MG/2 ML VIAL IM ONE (14:15)
[2023-02-07] MEDS ORDERED: diphenhydrAMINE 50 MG/1 ML VIAL ONE (14:15)
--- NOTE | 2023-02-07 14:20 | NUR ---
Pt seen by MD for bedside Eval. Safety measures in place. Will continue to monitor.
[2023-02-07] MEDS ORDERED: ONDA4TAB5 PO (14:53)
--- NOTE | 2023-02-07 15:01 | NUR ---
Patient discharged to home in stable condition. Patient did not want to wait for discharge information and left without signing. Stressed follow up or return to ER for worsening s/s.
[2023-02-07 15:02] VITALS: BP 153/94
== END 2023-02-07 15:02 | disposition home or self-care (01) ==
LOC: ER 13:52
DX: R11.2 Nausea with vomiting, unspecified (principal); E78.5 Hyperlipidemia, unspecified; Z90.49 Acquired absence of other specified parts of digestive tract; Z90.710 Acquired absence of both cervix and uterus; Z88.0 Allergy status to penicillin; Z88.2 Allergy status to sulfonamides; Z88.5 Allergy status to narcotic agent; Z79.899 Other long term (current) drug therapy
CPT/HCPCS: 99284; 96372 ×2; J1200; J2405; A4663

== ENCOUNTER 2023-06-08 03:07 | Inpatient (IN) | payer MEDICARE, BC ==
[~2023-06-08] VITALS: Ht 167.6 cm; Wt 77.1 kg
[2023-06-08] MEDS ORDERED: IV NORMAL SALINE 1000 ML BAG IV ONE (03:30)
[2023-06-08] MEDS ORDERED: HYDROMORPHONE 1 MG/1 ML DISP.SYRIN IV ONE (03:30)
[2023-06-08] MEDS ORDERED: diphenhydrAMINE 50 MG/1 ML VIAL ONE (03:55)
[2023-06-08] MEDS ORDERED: ONDANSETRON 4 MG/2 ML VIAL ONE ×2 (03:55→05:09)
[2023-06-08] MEDS ORDERED: HYDROMORPHONE 2 MG/1 ML DISP.SYRIN ONE ×2 (03:55→05:10)
[2023-06-08] MEDS ORDERED: diphenhydrAMINE 50 MG/1 ML VIAL IV ONE (04:00)
[2023-06-08] MEDS ORDERED: ONDANSETRON 4 MG/2 ML VIAL IV ONE ×2 (04:00→05:00)
[2023-06-08 04:28] LABS: CALCIUM 9.7 mg/dL (8.5-10.1); CREATININE 0.8 mg/dL (0.6-1.3); POTASSIUM 3.6 mmol/L (3.5-5.1)
[2023-06-08 04:32] LABS: BASOPHILS % (AUTO) 0.6 % (0.0-2.0); EOSINOPHILS # (AUTO) 0.2 K/uL (0.0-0.7); EOSINOPHILS % (AUTO) 2.6 % (0.0-7.0); HEMATOCRIT 34.2 % (31.2-41.9); HEMOGLOBIN 11.7 g/dL (10.9-14.3); LYMPHOCYTES # (AUTO) 1.8 K/uL (0.8-4.8); LYMPHOCYTES % (AUTO) 26.4 % (20.5-51.5); MEAN CORPUSCULAR HEMOGLOBIN 30.1 uug (24.7-32.8); MEAN CORPUSCULAR HGB CONC 34 g/dL (32.3-35.6); MEAN CORPUSCULAR VOLUME 87.8 fL (75.5-95.3); MONOCYTES # (AUTO) 0.6 K/uL (0.1-1.30); MONOCYTES % (AUTO) 8.3 % (0.0-11.0); NEUTROPHILS # (AUTO) 4.2 K/uL (1.8-8.9); NEUTROPHILS % (AUTO) 62.1 % (38.5-71.5); PLATELET COUNT (AUTO) 167 K/uL (179-408); RED CELL DISTRIBUTION WIDTH 15.4 % (12.3-17.7); WHITE BLOOD COUNT (AUTO) 6.7 K/uL (3.8-11.8)
[2023-06-08 04:35] LABS: DIFFERENTIAL COMMENT 1
[2023-06-08] MEDS ORDERED: HYDROMORPHONE 1 MG/1 ML DISP.SYRIN IM ONE (05:00)
[2023-06-08] MEDS ORDERED: RALO60TA PO (05:13)
[2023-06-08] MEDS ORDERED: ONDANSETRON 4 MG/2 ML VIAL IV PRN (06:00)
[2023-06-08] MEDS ORDERED: HYDROMORPHONE 1 MG/1 ML DISP.SYRIN IV PRN (06:00)
[2023-06-08] MEDS ORDERED: ACETAMINOPHEN 325 MG TABLET PO PRN (06:00)
[2023-06-08] MEDS ORDERED: OXYCODONE/APAP 5-325 MG TABLET PO PRN (06:00)
[2023-06-08] MEDS ORDERED: LEVOTHYROXINE SODIUM 75 MCG TABLET PO SCH (07:00)
[2023-06-08] MEDS ORDERED: LEVOTHYROXINE SODIUM 50 MCG TABLET ONE (07:27)
[2023-06-08] MEDS ORDERED: PANTOPRAZOLE SODIUM 40 MG TABLET.DR PO ONE (07:27)
[2023-06-08] MEDS ORDERED: LEVOTHYROXINE SODIUM 75 MCG TABLET ONE (07:29)
[2023-06-08] MEDS ORDERED: FAMOTIDINE 20 MG TABLET PO ONE (07:30)
[2023-06-08] MEDS: PANTOPRAZOLE SODIUM 40 MG TABLET.DR PO SCH (07:31)
[2023-06-08] MEDS: LEVOTHYROXINE SODIUM 75 MCG TABLET PO SCH (07:31)
[2023-06-08] MEDS ORDERED: FAMOTIDINE 20 MG TABLET ONE (07:32)
[2023-06-08] MEDS ORDERED: HYDROMORPHONE 1 MG/1 ML DISP.SYRIN ONE (09:11)
[2023-06-08 11:06] VITALS: BP 139/86; TEMP 98.2; O2SAT 97
[2023-06-08] MEDS: CETIRIZINE HCL 10 MG TABLET PO SCH (11:55)
[2023-06-08] MEDS: HYDROMORPHONE 1 MG/1 ML DISP.SYRIN IV PRN ×3 (13:35→22:19)
[2023-06-08] MEDS: VENLAFAXINE XR 150 MG CAP.SR.24H PO SCH ×2 (13:51→16:49)
[2023-06-08] MEDS: diphenhydrAMINE 50 MG/1 ML VIAL IV PRN ×2 (14:09→22:18)
[2023-06-08 15:07] VITALS: BP 101/37; TEMP 98.4; O2SAT 97
[2023-06-08] MEDS: RALOXIFENE HCL 60 MG TABLET PO SCH (21:00)
[2023-06-08] MEDS: TRAZODONE 100 MG TABLET PO SCH (21:54)
[2023-06-08] MEDS: ATORVASTATIN 20 MG TABLET PO SCH (21:57)
[2023-06-09] MEDS: HYDROMORPHONE 1 MG/1 ML DISP.SYRIN IV PRN ×4 (03:23→20:26)
[2023-06-09 05:28] VITALS: BP 111/52; TEMP 98.7; O2SAT 96
[2023-06-09 07:13] LABS: BASOPHILS # (AUTO) 0.1 K/UL (0.0-0.2); BASOPHILS % (AUTO) 1.1 % (0.0-2.0); EOSINOPHILS # (AUTO) 0.2 K/uL (0.0-0.7); HEMATOCRIT 29.4 % (31.2-41.9); LYMPHOCYTES # (AUTO) 1.8 K/uL (0.8-4.8); LYMPHOCYTES % (AUTO) 32.2 % (20.5-51.5); MEAN CORPUSCULAR HEMOGLOBIN 30.4 uug (24.7-32.8); MEAN CORPUSCULAR HGB CONC 34 g/dL (32.3-35.6); MEAN CORPUSCULAR VOLUME 89.6 fL (75.5-95.3); MONOCYTES # (AUTO) 0.6 K/uL (0.1-1.30); MONOCYTES % (AUTO) 10.3 % (0.0-11.0); NEUTROPHILS % (AUTO) 52.4 % (38.5-71.5); PLATELET COUNT (AUTO) 148 K/uL (179-408); RED BLOOD CELL COUNT(AUTO) 3.28 MIL/uL (3.63-4.92); RED CELL DISTRIBUTION WIDTH 15.6 % (12.3-17.7); WHITE BLOOD COUNT (AUTO) 5.7 K/uL (3.8-11.8)
[2023-06-09 07:16] LABS: DIFFERENTIAL COMMENT 1
[2023-06-09 07:43] LABS: ALBUMIN 2.9 g/dL (3.4-5.0); BILIRUBIN,TOTAL 0.2 mg/dL (0.2-1.0); CREATININE 0.9 mg/dL (0.6-1.3); PHOSPHOROUS 3.9 mg/dL (2.5-4.9); POTASSIUM 4.4 mmol/L (3.5-5.1); TOTAL PROTEIN, SERUM 5.8 g/dL (6.4-8.2)
[2023-06-09] MEDS: LEVOTHYROXINE SODIUM 75 MCG TABLET PO SCH (07:44)
[2023-06-09] MEDS: PANTOPRAZOLE SODIUM 40 MG TABLET.DR PO SCH (07:44)
[2023-06-09] MEDS: diphenhydrAMINE 50 MG/1 ML VIAL IV PRN ×2 (07:49→20:21)
[2023-06-09] MEDS: VENLAFAXINE XR 150 MG CAP.SR.24H PO SCH ×2 (09:00→16:21)
[2023-06-09] MEDS: CETIRIZINE HCL 10 MG TABLET PO SCH (09:00)
[2023-06-09 11:42] VITALS: BP 127/50; TEMP 97.7; O2SAT 96
[2023-06-09] MEDS: OXYCODONE/APAP 5-325 MG TABLET PO PRN ×3 (12:55→23:11)
[2023-06-09 15:38] VITALS: BP 118/44; TEMP 98.4; O2SAT 96
[2023-06-09] MEDS: MORPHINE SULFATE SR 30 MG TABLET.SA PO SCH ×2 (16:21→23:00)
[2023-06-09 20:07] VITALS: BP 104/82; TEMP 98.2; O2SAT 95
[2023-06-09] MEDS: ATORVASTATIN 20 MG TABLET PO SCH (20:43)
[2023-06-09] MEDS: RALOXIFENE HCL 60 MG TABLET PO SCH (20:43)
[2023-06-09] MEDS: TRAZODONE 100 MG TABLET PO SCH (20:44)
[2023-06-10 00:26] LABS: *BILIRUBIN,URIN NEGATIVE (NEGATIVE); *BLOOD, URINE NEGATIVE (NEGATIVE); *CLARITY,URINE CLEAR (CLEAR); *COLOR,URINE YELLOW (YELLOW); *KETONES,URINE NEGATIVE (NEGATIVE); *PROTEIN,URINE NEGATIVE (NEGATIVE); *UROBILINOGEN,URINE 0.2 E.U./dl (NORMAL); LEUKOCYTE ESTERASE ,URINE NEGATIVE (NEGATIVE); NITRITE, URINE NEGATIVE (NEGATIVE); PH,URINE 5.5 (5.0-8.0); UGLUCOSE NEGATIVE (NEGATIVE)
[2023-06-10] MEDS: HYDROMORPHONE 1 MG/1 ML DISP.SYRIN IV PRN ×5 (02:59→21:47)
[2023-06-10] MEDS: diphenhydrAMINE 50 MG/1 ML VIAL IV PRN ×3 (04:32→21:57)
[2023-06-10] MEDS: OXYCODONE/APAP 5-325 MG TABLET PO PRN ×4 (04:39→23:57)
[2023-06-10] MEDS: LEVOTHYROXINE SODIUM 75 MCG TABLET PO SCH (06:34)
[2023-06-10] MEDS: PANTOPRAZOLE SODIUM 40 MG TABLET.DR PO SCH (06:34)
[2023-06-10] MEDS: CETIRIZINE HCL 10 MG TABLET PO SCH (08:30)
[2023-06-10] MEDS: MORPHINE SULFATE SR 30 MG TABLET.SA PO SCH ×2 (08:30→20:55)
[2023-06-10] MEDS: VENLAFAXINE XR 150 MG CAP.SR.24H PO SCH ×2 (08:30→17:34)
[2023-06-10 11:30] VITALS: BP 128/45; TEMP 98; O2SAT 97
[2023-06-10 16:38] VITALS: BP 134/59; TEMP 97.9; O2SAT 98
[2023-06-10 20:00] VITALS: BP 110/80; TEMP 98.6; O2SAT 100
[2023-06-10] MEDS: TRAZODONE 100 MG TABLET PO SCH (20:55)
[2023-06-10] MEDS: ATORVASTATIN 20 MG TABLET PO SCH (20:55)
[2023-06-10] MEDS: RALOXIFENE HCL 60 MG TABLET PO SCH (21:01)
[2023-06-11] MEDS: HYDROMORPHONE 1 MG/1 ML DISP.SYRIN IV PRN ×5 (03:26→21:23)
[2023-06-11] MEDS: diphenhydrAMINE 50 MG/1 ML VIAL IV PRN ×3 (03:57→18:54)
[2023-06-11 04:20] VITALS: BP 141/74; TEMP 98.5; O2SAT 96
[2023-06-11] MEDS: PANTOPRAZOLE SODIUM 40 MG TABLET.DR PO SCH (06:14)
[2023-06-11] MEDS: LEVOTHYROXINE SODIUM 75 MCG TABLET PO SCH (06:14)
[2023-06-11] MEDS: VENLAFAXINE XR 150 MG CAP.SR.24H PO SCH ×2 (08:58→17:07)
[2023-06-11] MEDS: MORPHINE SULFATE SR 30 MG TABLET.SA PO SCH ×2 (08:59→20:51)
[2023-06-11] MEDS: CETIRIZINE HCL 10 MG TABLET PO SCH (08:59)
[2023-06-11] MEDS: OXYCODONE/APAP 5-325 MG TABLET PO PRN (09:48)
[2023-06-11 12:01] VITALS: BP 123/69; TEMP 98.7; O2SAT 98
[2023-06-11 16:07] VITALS: BP 133/39; TEMP 98.4; O2SAT 96
[2023-06-11 20:00] VITALS: BP 95/60; TEMP 98.6; O2SAT 96
[2023-06-11] MEDS: ATORVASTATIN 20 MG TABLET PO SCH (20:50)
[2023-06-11] MEDS: TRAZODONE 100 MG TABLET PO SCH (20:51)
[2023-06-11] MEDS: RALOXIFENE HCL 60 MG TABLET PO SCH (20:54)
[2023-06-12] MEDS: diphenhydrAMINE 50 MG/1 ML VIAL IV PRN ×3 (01:22→22:23)
[2023-06-12] MEDS: HYDROMORPHONE 1 MG/1 ML DISP.SYRIN IV PRN ×5 (01:28→22:22)
[2023-06-12] MEDS: OXYCODONE/APAP 5-325 MG TABLET PO PRN ×2 (03:59→18:38)
[2023-06-12 04:00] VITALS: BP 135/74; TEMP 98.4; O2SAT 96
[2023-06-12] MEDS: LEVOTHYROXINE SODIUM 75 MCG TABLET PO SCH (06:05)
[2023-06-12] MEDS: PANTOPRAZOLE SODIUM 40 MG TABLET.DR PO SCH (06:05)
[2023-06-12] MEDS: VENLAFAXINE XR 150 MG CAP.SR.24H PO SCH ×2 (08:52→16:10)
[2023-06-12] MEDS: CETIRIZINE HCL 10 MG TABLET PO SCH (08:52)
[2023-06-12] MEDS: MORPHINE SULFATE SR 30 MG TABLET.SA PO SCH ×3 (08:52→21:11)
[2023-06-12 11:30] VITALS: BP 96/50; TEMP 97.9; O2SAT 94
[2023-06-12 16:29] VITALS: BP 105/47; TEMP 97.8; O2SAT 98
[2023-06-12] MEDS: TRAZODONE 100 MG TABLET PO SCH (20:42)
[2023-06-12] MEDS: ATORVASTATIN 20 MG TABLET PO SCH (20:42)
[2023-06-12] MEDS: RALOXIFENE HCL 60 MG TABLET PO SCH (20:43)
[2023-06-12 20:45] VITALS: BP 112/45; TEMP 97.9; O2SAT 97
[2023-06-13] MEDS: OXYCODONE/APAP 5-325 MG TABLET PO PRN ×2 (00:42→08:53)
[2023-06-13] MEDS: diphenhydrAMINE 50 MG/1 ML VIAL IV PRN ×2 (04:48→11:00)
[2023-06-13] MEDS: HYDROMORPHONE 1 MG/1 ML DISP.SYRIN IV PRN ×2 (04:49→11:00)
[2023-06-13 05:00] VITALS: BP 109/49; TEMP 98; O2SAT 97
[2023-06-13] MEDS: LEVOTHYROXINE SODIUM 75 MCG TABLET PO SCH (06:31)
[2023-06-13] MEDS: PANTOPRAZOLE SODIUM 40 MG TABLET.DR PO SCH (06:31)
[2023-06-13] MEDS: MORPHINE SULFATE SR 30 MG TABLET.SA PO SCH ×2 (06:31→14:00)
[2023-06-13] MEDS: VENLAFAXINE XR 150 MG CAP.SR.24H PO SCH (08:53)
[2023-06-13] MEDS: CETIRIZINE HCL 10 MG TABLET PO SCH (08:53)
[2023-06-13 11:51] VITALS: BP 98/46; TEMP 98; O2SAT 96
[2023-06-13] MEDS ORDERED: RALO60TA PO (12:00)
[2023-06-13] MEDS ORDERED: MORP30TA59 PO (12:00)
[2023-06-13] MEDS ORDERED: OXYC-133 PO (12:00)
[2023-06-13] MEDS ORDERED: ACET325T53 PO (12:00)
[2023-06-13] MEDS ORDERED: LEVO75TA7 PO (12:00)
[2023-06-13] MEDS ORDERED: PANT40TA49 PO (12:00)
== END 2023-06-13 15:45 | disposition home or self-care (01) | DRG 394 ==
LOC: ER 03:10 → MEDSURG3 10:03
PROVIDERS: ADMIT Internal Medicine; ATTEND Nurse Practitioner Acute Care
DX: K52.1 Toxic gastroenteritis and colitis (principal); E44.0 Moderate protein-calorie malnutrition; T45.1X5A Adverse effect of antineoplastic and immunosuppressive drugs, initial encounter; Y92.89 Other specified places as the place of occurrence of the external cause; C50.911 Malignant neoplasm of unspecified site of right female breast; Z88.2 Allergy status to sulfonamides; Z88.0 Allergy status to penicillin; M79.7 Fibromyalgia; G89.4 Chronic pain syndrome; E03.9 Hypothyroidism, unspecified; E78.5 Hyperlipidemia, unspecified; F32.A Depression, unspecified; Z90.11 Acquired absence of right breast and nipple; R63.4 Abnormal weight loss; K21.9 Gastro-esophageal reflux disease without esophagitis; Z92.3 Personal history of irradiation; K59.03 Drug induced constipation; Z79.899 Other long term (current) drug therapy; Z68.27 Body mass index [BMI] 27.0-27.9, adult
CPT/HCPCS: 36415; 74018; 84100; 85025; A4663; G0378; J1170; J1200; J2405; J7040

== ENCOUNTER 2023-06-21 03:10 | Inpatient (IN) | payer MEDICARE, BC ==
[~2023-06-21] VITALS: Ht 167.6 cm; Wt 77.1 kg
[~2023-06-21 03:10] MED LIST changes: +ACET325T53 PO; -L. A1TAB16 PO; +LEVO75TA7 PO; +MORP30TA59 PO; -OXYC-128 PO; +PANT40TA49 PO; -PROC-11 PO; +RALO60TA PO; -ZOLP10TA2 PO
[2023-06-21] MEDS ORDERED: ONDANSETRON 4 MG/2 ML VIAL IV ONE ×2 (03:45→06:30)
[2023-06-21] MEDS ORDERED: IV NORMAL SALINE 1000 ML BAG IV ONE (03:45)
[2023-06-21] MEDS ORDERED: diphenhydrAMINE 50 MG/1 ML VIAL IV ONE ×4 (03:45→20:30)
[2023-06-21] MEDS ORDERED: KETAMINE HCL 500 MG/10 ML INJ IV ONE (03:45)
[2023-06-21] MEDS ORDERED: HYDROMORPHONE 1 MG/1 ML DISP.SYRIN IV ONE ×5 (03:45→20:30)
[2023-06-21] MEDS ORDERED: HYDROMORPHONE 2 MG/1 ML DISP.SYRIN ONE ×6 (04:06→20:19)
[2023-06-21] MEDS ORDERED: ONDANSETRON 4 MG/2 ML VIAL ONE ×3 (04:06→12:23)
[2023-06-21] MEDS ORDERED: diphenhydrAMINE 50 MG/1 ML VIAL ONE ×4 (04:06→20:35)
[2023-06-21 04:18] LABS: BASOPHILS # (AUTO) 0.1 K/UL (0.0-0.2); BASOPHILS % (AUTO) 0.8 % (0.0-2.0); EOSINOPHILS # (AUTO) 0.1 K/uL (0.0-0.7); EOSINOPHILS % (AUTO) 2.2 % (0.0-7.0); HEMATOCRIT 32.4 % (31.2-41.9); HEMOGLOBIN 10.9 g/dL (10.9-14.3); LYMPHOCYTES # (AUTO) 1.3 K/uL (0.8-4.8); LYMPHOCYTES % (AUTO) 19.5 % (20.5-51.5); MEAN CORPUSCULAR HEMOGLOBIN 29.6 uug (24.7-32.8); MEAN CORPUSCULAR HGB CONC 34 g/dL (32.3-35.6); MEAN CORPUSCULAR VOLUME 88.1 fL (75.5-95.3); MONOCYTES # (AUTO) 0.5 K/uL (0.1-1.30); MONOCYTES % (AUTO) 8.1 % (0.0-11.0); NEUTROPHILS # (AUTO) 4.7 K/uL (1.8-8.9); NEUTROPHILS % (AUTO) 69.4 % (38.5-71.5); PLATELET COUNT (AUTO) 167 K/uL (179-408); RED BLOOD CELL COUNT(AUTO) 3.67 MIL/uL (3.63-4.92); RED CELL DISTRIBUTION WIDTH 15.4 % (12.3-17.7); WHITE BLOOD COUNT (AUTO) 6.7 K/uL (3.8-11.8)
[2023-06-21 04:34] LABS: CALCIUM 9.3 mg/dL (8.5-10.1); CARBON DIOXIDE 24 mmol/L (21-32); CHLORIDE 106 mmol/L (98-107); CREATININE 0.8 mg/dL (0.6-1.3); GLUCOSE 110 mg/dL (74-106); POTASSIUM 3.2 mmol/L (3.5-5.1); SODIUM SERUM 140 mmol/L (136-145); UREA NITROGEN, BLOOD 8 mg/dL (7-18)
[2023-06-21 04:38] LABS: DIFFERENTIAL COMMENT 1
[2023-06-21 04:43] LABS: ALANINE AMINOTRANSFERASE 22 U/L (14-59); ALBUMIN 3.1 g/dL (3.4-5.0); ALKALINE PHOSPHATASE 79 U/L (50-136); ASPARTATE AMINOTRANSFERASE 17 U/L (15-37); BILIRUBIN,DIRECT 0.1 mg/dL (0.0-0.2); BILIRUBIN,TOTAL 0.3 mg/dL (0.2-1.0); TOTAL PROTEIN, SERUM 6.1 g/dL (6.4-8.2)
[2023-06-21] MEDS ORDERED: METOCLOPRAMIDE HCL 10 MG/2 ML VIAL ONE (05:28)
[2023-06-21] MEDS ORDERED: POTASSIUM CHLORIDE 50 ML IV SCH (06:30)
[2023-06-21] MEDS ORDERED: ONDANSETRON INJ 8 MG in IV NORMAL SALINE 50 ML IV PRN (07:30)
[2023-06-21] MEDS ORDERED: POTASSIUM CHLORIDE 20 MEQ TAB.PRT.SR PO ONE (07:30)
[2023-06-21] MEDS ORDERED: POTASSIUM CHLORIDE 20 MEQ TAB.PRT.SR ONE (08:06)
[2023-06-21] MEDS ORDERED: DIPHENOXYLATE HCL/ATROP SULF TABLET PO PRN (13:15)
[2023-06-21] MEDS ORDERED: ACETAMINOPHEN 325 MG TABLET PO PRN (13:15)
[2023-06-21] MEDS ORDERED: DICYCLOMINE HCL 20 MG TABLET PO PRN (13:15)
[2023-06-21] MEDS: HYDROMORPHONE 1 MG/1 ML DISP.SYRIN IV PRN (16:31)
[2023-06-21] MEDS: VENLAFAXINE XR 150 MG CAP.SR.24H PO SCH (17:00)
[2023-06-21] MEDS ORDERED: TRAZODONE 100 MG TABLET PO SCH (18:00)
[2023-06-21] MEDS ORDERED: TRAZODONE 50 MG TABLET ONE (18:10)
[2023-06-21] MEDS ORDERED: VENLAFAXINE XR 37.5 MG CAP.SR.24H ONE (20:19)
[2023-06-21] MEDS ORDERED: VENLAFAXINE 25 MG TABLET PO SCH (20:30)
[2023-06-21] MEDS ORDERED: VENLAFAXINE XR 150 MG CAP.SR.24H PO SCH (20:45)
[2023-06-22] MEDS ORDERED: HYDROMORPHONE 2 MG/1 ML DISP.SYRIN ONE ×3 (00:39→10:45)
[2023-06-22] MEDS ORDERED: diphenhydrAMINE 50 MG/1 ML VIAL ONE ×3 (00:39→10:55)
[2023-06-22] MEDS: HYDROMORPHONE 1 MG/1 ML DISP.SYRIN IV PRN ×5 (01:01→20:37)
[2023-06-22] MEDS: diphenhydrAMINE 50 MG/1 ML VIAL IV PRN ×3 (01:01→20:37)
[2023-06-22] MEDS ORDERED: PANTOPRAZOLE SODIUM 40 MG TABLET.DR PO ONE (05:32)
[2023-06-22] MEDS ORDERED: LEVOTHYROXINE SODIUM 75 MCG TABLET ONE (05:33)
[2023-06-22] MEDS: LEVOTHYROXINE SODIUM 75 MCG TABLET PO SCH (05:34)
[2023-06-22] MEDS: PANTOPRAZOLE SODIUM 40 MG TABLET.DR PO SCH (05:34)
[2023-06-22 06:47] LABS: BASOPHILS % (AUTO) 0.5 % (0.0-2.0); EOSINOPHILS # (AUTO) 0.2 K/uL (0.0-0.7); EOSINOPHILS % (AUTO) 4.5 % (0.0-7.0); HEMATOCRIT 29.7 % (31.2-41.9); HEMOGLOBIN 10.1 g/dL (10.9-14.3); LYMPHOCYTES # (AUTO) 1.5 K/uL (0.8-4.8); LYMPHOCYTES % (AUTO) 27.3 % (20.5-51.5); MEAN CORPUSCULAR HEMOGLOBIN 29.9 uug (24.7-32.8); MEAN CORPUSCULAR HGB CONC 34 g/dL (32.3-35.6); MEAN CORPUSCULAR VOLUME 88.4 fL (75.5-95.3); MONOCYTES # (AUTO) 0.5 K/uL (0.1-1.30); MONOCYTES % (AUTO) 9.2 % (0.0-11.0); NEUTROPHILS # (AUTO) 3.3 K/uL (1.8-8.9); NEUTROPHILS % (AUTO) 58.5 % (38.5-71.5); PLATELET COUNT (AUTO) 172 K/uL (179-408); RED BLOOD CELL COUNT(AUTO) 3.36 MIL/uL (3.63-4.92); RED CELL DISTRIBUTION WIDTH 15.5 % (12.3-17.7); WHITE BLOOD COUNT (AUTO) 5.6 K/uL (3.8-11.8)
[2023-06-22 06:55] LABS: DIFFERENTIAL COMMENT 1
[2023-06-22 07:14] LABS: BILIRUBIN,TOTAL 0.2 mg/dL (0.2-1.0); CALCIUM 9.3 mg/dL (8.5-10.1); CREATININE 0.9 mg/dL (0.6-1.3); PHOSPHOROUS 3.7 mg/dL (2.5-4.9); TOTAL PROTEIN, SERUM 6.2 g/dL (6.4-8.2)
[2023-06-22 08:06] LABS: *BILIRUBIN,URIN NEGATIVE (NEGATIVE); *BLOOD, URINE NEGATIVE (NEGATIVE); *CLARITY,URINE SLIGHTLY CLOUDY (CLEAR); *COLOR,URINE Other (YELLOW); *KETONES,URINE NEGATIVE (NEGATIVE); *PROTEIN,URINE NEGATIVE (NEGATIVE); *UROBILINOGEN,URINE 0.2 E.U./dl (NORMAL); LEUKOCYTE ESTERASE ,URINE NEGATIVE (NEGATIVE); NITRITE, URINE NEGATIVE (NEGATIVE); PH,URINE 5.5 (5.0-8.0); UGLUCOSE NEGATIVE (NEGATIVE)
[2023-06-22 08:22] LABS: RBC,URINE NONE SEEN /HPF (0-3); WBC,URINE 0-3 /HPF (0-3)
[2023-06-22 08:23] LABS: BACTERIA,URINE FEW /HPF (NONE SEEN); SQUAMOUS EPITHELIAL CELL,UR MODERATE /HPF (NONE SEEN)
[2023-06-22] MEDS ORDERED: ATORVASTATIN 20 MG TABLET PO SCH (09:00)
[2023-06-22] MEDS: CETIRIZINE HCL 10 MG TABLET PO SCH (10:50)
[2023-06-22] MEDS: VENLAFAXINE XR 150 MG CAP.SR.24H PO SCH ×2 (10:50→17:03)
[2023-06-22] MEDS ORDERED: CETIRIZINE HCL 10 MG TABLET ONE (10:52)
[2023-06-22] MEDS ORDERED: diphenhydrAMINE 50 MG/1 ML VIAL IV PRN (11:30)
[2023-06-22] MEDS: ONDANSETRON 4 MG/2 ML VIAL IV PRN (15:58)
[2023-06-22 16:02] VITALS: BP 121/56; TEMP 98.4; O2SAT 98
[2023-06-22] MEDS: ATORVASTATIN 20 MG TABLET PO SCH (20:36)
[2023-06-22 20:54] VITALS: BP 101/40; TEMP 98.2
[2023-06-22] MEDS: TRAZODONE 100 MG TABLET PO SCH (22:30)
[2023-06-23] MEDS: HYDROMORPHONE 1 MG/1 ML DISP.SYRIN IV PRN ×7 (00:05→21:35)
[2023-06-23 06:17] VITALS: BP 125/92; TEMP 98; O2SAT 99
[2023-06-23] MEDS: LEVOTHYROXINE SODIUM 75 MCG TABLET PO SCH (07:08)
[2023-06-23] MEDS: PANTOPRAZOLE SODIUM 40 MG TABLET.DR PO SCH (07:08)
[2023-06-23] MEDS: diphenhydrAMINE 50 MG/1 ML VIAL IV PRN ×2 (07:10→18:35)
[2023-06-23] MEDS: RALOXIFENE HCL 60 MG TABLET PO SCH (09:07)
[2023-06-23] MEDS: CETIRIZINE HCL 10 MG TABLET PO SCH (09:07)
[2023-06-23] MEDS: VENLAFAXINE XR 150 MG CAP.SR.24H PO SCH ×2 (09:08→16:59)
[2023-06-23 09:41] VITALS: BP 111/49; TEMP 98.2
[2023-06-23 10:34] VITALS: BP 113/46; TEMP 98.6; O2SAT 95
[2023-06-23 16:00] VITALS: TEMP 98.2
[2023-06-23 17:53] VITALS: BP 109/46; TEMP 98.2; O2SAT 100
[2023-06-23 20:00] VITALS: BP 106/56; TEMP 98.4; O2SAT 95
[2023-06-23] MEDS: TRAZODONE 100 MG TABLET PO SCH (21:10)
[2023-06-23] MEDS: ATORVASTATIN 20 MG TABLET PO SCH (21:10)
[2023-06-24] MEDS: HYDROMORPHONE 1 MG/1 ML DISP.SYRIN IV PRN ×7 (00:37→23:26)
[2023-06-24 04:00] VITALS: BP 101/55; TEMP 98.1; O2SAT 98
[2023-06-24] MEDS: diphenhydrAMINE 50 MG/1 ML VIAL IV PRN ×2 (04:21→16:15)
[2023-06-24] MEDS: LEVOTHYROXINE SODIUM 75 MCG TABLET PO SCH (06:19)
[2023-06-24] MEDS: PANTOPRAZOLE SODIUM 40 MG TABLET.DR PO SCH (06:19)
[2023-06-24] MEDS: RALOXIFENE HCL 60 MG TABLET PO SCH (08:20)
[2023-06-24] MEDS: CETIRIZINE HCL 10 MG TABLET PO SCH (08:20)
[2023-06-24] MEDS: VENLAFAXINE XR 150 MG CAP.SR.24H PO SCH ×2 (08:20→16:11)
[2023-06-24 12:00] VITALS: BP 127/46; TEMP 98.6; O2SAT 97
[2023-06-24] MEDS: ONDANSETRON 4 MG/2 ML VIAL IV PRN (12:28)
[2023-06-24] MEDS ORDERED: MIRALAX 17 GM POWD.PACK PO ONE (13:00)
[2023-06-24] MEDS ORDERED: BISACODYL 10 MG SUPP.RECT RC PRN ×2 (13:00)
[2023-06-24 16:00] VITALS: BP 103/35; TEMP 99.9; O2SAT 97
[2023-06-24] MEDS ORDERED: HYDROMORPHONE 1 MG/1 ML DISP.SYRIN IV PRN (19:30)
[2023-06-24] MEDS: TRAZODONE 100 MG TABLET PO SCH (21:54)
[2023-06-24] MEDS: ATORVASTATIN 20 MG TABLET PO SCH (21:59)
[2023-06-25] MEDS: HYDROMORPHONE 1 MG/1 ML DISP.SYRIN IV PRN ×4 (02:41→13:07)
[2023-06-25] MEDS: diphenhydrAMINE 50 MG/1 ML VIAL IV PRN (02:51)
[2023-06-25] MEDS: PANTOPRAZOLE SODIUM 40 MG TABLET.DR PO SCH (06:06)
[2023-06-25] MEDS: LEVOTHYROXINE SODIUM 75 MCG TABLET PO SCH (06:07)
[2023-06-25 07:44] LABS: BASOPHILS % (AUTO) 0.6 % (0.0-2.0); EOSINOPHILS # (AUTO) 0.3 K/uL (0.0-0.7); EOSINOPHILS % (AUTO) 4.2 % (0.0-7.0); HEMATOCRIT 30.5 % (31.2-41.9); HEMOGLOBIN 10.4 g/dL (10.9-14.3); LYMPHOCYTES # (AUTO) 1.7 K/uL (0.8-4.8); LYMPHOCYTES % (AUTO) 27.1 % (20.5-51.5); MEAN CORPUSCULAR HGB CONC 34 g/dL (32.3-35.6); MEAN CORPUSCULAR VOLUME 87.9 fL (75.5-95.3); MONOCYTES # (AUTO) 0.6 K/uL (0.1-1.30); MONOCYTES % (AUTO) 10.1 % (0.0-11.0); NEUTROPHILS # (AUTO) 3.6 K/uL (1.8-8.9); PLATELET COUNT (AUTO) 182 K/uL (179-408); RED BLOOD CELL COUNT(AUTO) 3.47 MIL/uL (3.63-4.92); WHITE BLOOD COUNT (AUTO) 6.1 K/uL (3.8-11.8)
[2023-06-25 08:11] LABS: THYROID STIMULATING HORMONE 2.081 mIU/mL (0.358-3.740)
[2023-06-25 08:12] LABS: DIFFERENTIAL COMMENT 1
[2023-06-25 08:28] LABS: CALCIUM 9.5 mg/dL (8.5-10.1); CREATININE 0.8 mg/dL (0.6-1.3); MAGNESIUM 2.2 mg/dL (1.8-2.4); POTASSIUM 4.2 mmol/L (3.5-5.1)
[2023-06-25 08:50] VITALS: TEMP 98.3
[2023-06-25 09:20] LABS: BILIRUBIN,TOTAL 0.2 mg/dL (0.2-1.0); PHOSPHOROUS 4.1 mg/dL (2.5-4.9); TOTAL PROTEIN, SERUM 6.1 g/dL (6.4-8.2)
[2023-06-25] MEDS: CETIRIZINE HCL 10 MG TABLET PO SCH (09:27)
[2023-06-25] MEDS: RALOXIFENE HCL 60 MG TABLET PO SCH (09:27)
[2023-06-25] MEDS: VENLAFAXINE XR 150 MG CAP.SR.24H PO SCH (09:27)
[2023-06-25 13:00] VITALS: TEMP 98.5
[2023-06-25] MEDS ORDERED: BISA10SU12 RC (14:32)
[2023-06-25] MEDS ORDERED: ATOR20TA PO (14:32)
[2023-06-25 15:07] LABS: *BILIRUBIN,URIN NEGATIVE (NEGATIVE); *BLOOD, URINE NEGATIVE (NEGATIVE); *CLARITY,URINE CLEAR (CLEAR); *COLOR,URINE YELLOW (YELLOW); *KETONES,URINE NEGATIVE (NEGATIVE); *PROTEIN,URINE NEGATIVE (NEGATIVE); *UROBILINOGEN,URINE 0.2 E.U./dl (NORMAL); LEUKOCYTE ESTERASE ,URINE NEGATIVE (NEGATIVE); NITRITE, URINE NEGATIVE (NEGATIVE); PH,URINE 7.5 (5.0-8.0); UGLUCOSE NEGATIVE (NEGATIVE)
== END 2023-06-25 18:32 | disposition home or self-care (01) | DRG 389 ==
LOC: ER 03:12 → TRANSITION 20:19 → TELE3 06-22 14:35 → MEDSURG3 06-22 15:15
PROVIDERS: ADMIT Internal Medicine; ATTEND Internal Medicine
PROC: 05H633Z Insertion of Infusion Device into Left Subclavian Vein, Percutaneous Approach (ICD-10-PCS; principal; 2023-06-21)
PROC: B547ZZA Ultrasonography of Left Subclavian Vein, Guidance (ICD-10-PCS; 2023-06-21)
DX: K56.41 Fecal impaction (principal); E44.1 Mild protein-calorie malnutrition; C50.919 Malignant neoplasm of unspecified site of unspecified female breast; E87.6 Hypokalemia; E88.09 Other disorders of plasma-protein metabolism, not elsewhere classified; E66.9 Obesity, unspecified; E03.9 Hypothyroidism, unspecified; D64.9 Anemia, unspecified; E78.5 Hyperlipidemia, unspecified; Z79.891 Long term (current) use of opiate analgesic; G89.4 Chronic pain syndrome; M79.7 Fibromyalgia; Z88.2 Allergy status to sulfonamides; Z79.899 Other long term (current) drug therapy; F32.A Depression, unspecified; Z68.27 Body mass index [BMI] 27.0-27.9, adult; Z88.0 Allergy status to penicillin
CPT/HCPCS: 36415; 74018; 83550; 83735; 84100; 84443; 84484; 85025; 93005; G0378; J1170; J1200; J2405; J2765; J7040

== ENCOUNTER 2023-08-24 09:30 | Inpatient (IN) | payer MEDICARE, BC ==
[~2023-08-24] VITALS: Ht 165.1 cm; Wt 72.6 kg
[~2023-08-24 09:30] MED LIST changes: -ACET325T53 PO; +BISA10SU12 RC; -LEVO75TA7 PO; -MORP30TA59 PO; -OXYC-133 PO; -PANT40TA49 PO
[2023-08-24] MEDS ORDERED: ONDANSETRON 4 MG/2 ML VIAL IV ONE ×2 (10:00→11:15)
[2023-08-24] MEDS ORDERED: HYDROMORPHONE 1 MG/1 ML DISP.SYRIN IV ONE ×2 (10:00→11:15)
[2023-08-24] MEDS ORDERED: DICYCLOMINE HCL 20 MG TABLET ONE (10:16)
[2023-08-24] MEDS ORDERED: ONDANSETRON 4 MG/2 ML VIAL ONE ×3 (10:16→18:15)
[2023-08-24] MEDS ORDERED: HYDROMORPHONE 1 MG/1 ML DISP.SYRIN ONE ×4 (10:17→19:46)
[2023-08-24 10:43] LABS: BASOPHILS % (AUTO) 0.3 % (0.0-2.0); DIFFERENTIAL COMMENT 0; EOSINOPHILS # (AUTO) 0.1 K/uL (0.0-0.7); EOSINOPHILS % (AUTO) 1.1 % (0.0-7.0); HEMATOCRIT 39.9 % (31.2-41.9); HEMOGLOBIN 12.9 g/dL (10.9-14.3); LYMPHOCYTES # (AUTO) 1.4 K/uL (0.8-4.8); LYMPHOCYTES % (AUTO) 15.5 % (20.5-51.5); MEAN CORPUSCULAR HGB CONC 33 g/dL (32.3-35.6); MEAN CORPUSCULAR VOLUME 86.4 fL (75.5-95.3); MONOCYTES # (AUTO) 0.6 K/uL (0.1-1.30); MONOCYTES % (AUTO) 6.9 % (0.0-11.0); NEUTROPHILS % (AUTO) 76.2 % (38.5-71.5); PLATELET COUNT (AUTO) 294 K/uL (179-408); RED BLOOD CELL COUNT(AUTO) 4.61 MIL/uL (3.63-4.92); RED CELL DISTRIBUTION WIDTH 16.1 % (12.3-17.7); WHITE BLOOD COUNT (AUTO) 9.2 K/uL (3.8-11.8)
[2023-08-24] MEDS: DICYCLOMINE HCL 20 MG/2 ML AMPUL IM SCH ×2 (10:45→11:25)
[2023-08-24 11:03] LABS: ALBUMIN 3.8 g/dL (3.4-5.0); BILIRUBIN,TOTAL 0.5 mg/dL (0.2-1.0); CALCIUM 10.3 mg/dL (8.5-10.1); POTASSIUM 3.7 mmol/L (3.5-5.1); TOTAL PROTEIN, SERUM 7.6 g/dL (6.4-8.2)
[2023-08-24 11:11] LABS: *BILIRUBIN,URIN NEGATIVE (NEGATIVE); *BLOOD, URINE NEGATIVE (NEGATIVE); *CLARITY,URINE CLEAR (CLEAR); *COLOR,URINE YELLOW (YELLOW); *KETONES,URINE NEGATIVE (NEGATIVE); *PROTEIN,URINE NEGATIVE (NEGATIVE); LEUKOCYTE ESTERASE ,URINE NEGATIVE (NEGATIVE); NITRITE, URINE NEGATIVE (NEGATIVE); PH,URINE 6.5 (5.0-8.0); UGLUCOSE NEGATIVE (NEGATIVE)
[2023-08-24 11:18] LABS: LACTIC ACID 3.2 mmol/L (0.4-2.0)
[2023-08-24] MEDS ORDERED: levoFLOXacin 500 MG/D5W 100ML PIGGYBACK IV ONE (11:30)
[2023-08-24] MEDS ORDERED: IV NORMAL SALINE 1000 ML BAG IV ONE (11:30)
[2023-08-24] MEDS ORDERED: levoFLOXacin 500 MG/D5W 100 ML ONE (12:24)
[2023-08-24] MEDS ORDERED: ACETAMINOPHEN 325 MG TABLET PO PRN (13:45)
[2023-08-24] MEDS ORDERED: MAGNESIUM HYDROXIDE 30 ML LIQUID UDC PO PRN (13:45)
[2023-08-24] MEDS ORDERED: REMEDY ESSENTIAL ZINC PASTE 113 GM TP PRN (13:45)
[2023-08-24 14:11] LABS: BACTERIA,URINE NONE SEEN /HPF (NONE SEEN); RBC,URINE 0-3 /HPF (0-3); SQUAMOUS EPITHELIAL CELL,UR MODERATE /HPF (NONE SEEN); WBC,URINE 0-3 /HPF (0-3)
[2023-08-24] MEDS: HYDROMORPHONE 1 MG/1 ML DISP.SYRIN IV PRN ×2 (16:00→19:49)
[2023-08-24] MEDS ORDERED: PANTOPRAZOLE SODIUM 40 MG VIAL ONE (18:15)
[2023-08-24] MEDS: ONDANSETRON 4 MG/2 ML VIAL IV PRN (18:24)
[2023-08-24] MEDS ORDERED: PANTOPRAZOLE SODIUM 40 MG VIAL IV SCH (18:30)
[2023-08-24 22:00] VITALS: BP 150/66; TEMP 98.2; O2SAT 94
[2023-08-24] MEDS: OXYCODONE/APAP 5-325 MG TABLET PO PRN (22:06)
[2023-08-25] MEDS: HYDROMORPHONE 1 MG/1 ML DISP.SYRIN IV PRN ×6 (00:01→22:28)
[2023-08-25] MEDS: ONDANSETRON 4 MG/2 ML VIAL IV PRN ×2 (00:09→13:58)
[2023-08-25 04:00] VITALS: BP 122/90; TEMP 98.7; O2SAT 95
[2023-08-25] MEDS: OXYCODONE/APAP 5-325 MG TABLET PO PRN ×3 (06:02→20:16)
[2023-08-25] MEDS: PANTOPRAZOLE SODIUM 40 MG TABLET.DR PO SCH (06:02)
[2023-08-25 06:56] LABS: BASOPHILS # (AUTO) 0.1 K/UL (0.0-0.2); BASOPHILS % (AUTO) 1.2 % (0.0-2.0); EOSINOPHILS # (AUTO) 0.3 K/uL (0.0-0.7); EOSINOPHILS % (AUTO) 3.4 % (0.0-7.0); HEMATOCRIT 33.7 % (31.2-41.9); HEMOGLOBIN 11.1 g/dL (10.9-14.3); LYMPHOCYTES # (AUTO) 2.6 K/uL (0.8-4.8); LYMPHOCYTES % (AUTO) 29.9 % (20.5-51.5); MEAN CORPUSCULAR HEMOGLOBIN 27.9 uug (24.7-32.8); MEAN CORPUSCULAR HGB CONC 33 g/dL (32.3-35.6); MONOCYTES # (AUTO) 0.8 K/uL (0.1-1.30); MONOCYTES % (AUTO) 9.2 % (0.0-11.0); NEUTROPHILS # (AUTO) 4.8 K/uL (1.8-8.9); NEUTROPHILS % (AUTO) 56.3 % (38.5-71.5); PLATELET COUNT (AUTO) 220 K/uL (179-408); RED BLOOD CELL COUNT(AUTO) 3.96 MIL/uL (3.63-4.92); RED CELL DISTRIBUTION WIDTH 16.1 % (12.3-17.7); WHITE BLOOD COUNT (AUTO) 8.6 K/uL (3.8-11.8)
[2023-08-25 07:02] LABS: DIFFERENTIAL COMMENT 1
[2023-08-25 07:09] LABS: CALCIUM 9.6 mg/dL (8.5-10.1); PHOSPHOROUS 3.2 mg/dL (2.5-4.9); POTASSIUM 3.6 mmol/L (3.5-5.1)
[2023-08-25] MEDS ORDERED: POLYVINYL ALCOHOL OPHT DROPS 15 ML BOTTLE EACHEYE PRN (08:30)
[2023-08-25 11:31] VITALS: BP 107/47; TEMP 98.2; O2SAT 99
[2023-08-25 15:50] VITALS: BP 137/50; TEMP 98.3; O2SAT 98
[2023-08-25] MEDS ORDERED: HOME MED MISCELLANEOUS XX SCH (17:00)
[2023-08-25] MEDS ORDERED: DICYCLOMINE HCL 20 MG TABLET PO PRN (17:00)
[2023-08-25] MEDS: VENLAFAXINE XR 150 MG CAP.SR.24H PO SCH (17:56)
[2023-08-25] MEDS ORDERED: SUMATRIPTAN SUCCINATE 50 MG TABLET PO PRN (18:30)
[2023-08-25 20:00] VITALS: BP 128/64; TEMP 98.6; O2SAT 97
[2023-08-25] MEDS ORDERED: ATORVASTATIN 20 MG TABLET PO SCH (21:00)
[2023-08-25] MEDS ORDERED: TRAZODONE 50 MG TABLET PO SCH (21:00)
[2023-08-26] MEDS: OXYCODONE/APAP 5-325 MG TABLET PO PRN ×2 (02:19→08:35)
[2023-08-26] MEDS: HYDROMORPHONE 1 MG/1 ML DISP.SYRIN IV PRN ×2 (03:36→10:01)
[2023-08-26 04:00] VITALS: BP 102/64; TEMP 97.7; O2SAT 97
[2023-08-26] MEDS ORDERED: LEVOTHYROXINE SODIUM 75 MCG TABLET PO SCH (06:00)
[2023-08-26] MEDS: PANTOPRAZOLE SODIUM 40 MG TABLET.DR PO SCH (06:54)
[2023-08-26] MEDS: VENLAFAXINE XR 150 MG CAP.SR.24H PO SCH (08:34)
[2023-08-26] MEDS ORDERED: CETIRIZINE HCL 10 MG TABLET PO SCH (09:00)
[2023-08-26] MEDS ORDERED: RALOXIFENE HCL 60 MG TABLET PO SCH (09:00)
[2023-08-26 11:33] VITALS: BP 105/61; TEMP 97.7; O2SAT 96
[2023-08-26] MEDS ORDERED: HYDROMORPHONE 1 MG/1 ML DISP.SYRIN IV ONE (13:15)
[2023-09-01] MEDS ORDERED: TRAM100T23 PO (08:50)
== END 2023-08-26 14:45 | disposition home or self-care (01) | DRG 392 ==
LOC: ER 09:32 → TRANSITION 15:05 → MEDSURG3 21:15
PROVIDERS: ADMIT Nurse Practitioner Acute Care; ATTEND Nurse Practitioner Acute Care
PROC: 05HB33Z Insertion of Infusion Device into Right Basilic Vein, Percutaneous Approach (ICD-10-PCS; principal; 2023-08-24)
DX: R10.84 Generalized abdominal pain (principal); T45.1X5A Adverse effect of antineoplastic and immunosuppressive drugs, initial encounter; Y92.89 Other specified places as the place of occurrence of the external cause; C50.911 Malignant neoplasm of unspecified site of right female breast; M79.7 Fibromyalgia; G89.4 Chronic pain syndrome; K21.9 Gastro-esophageal reflux disease without esophagitis; E03.9 Hypothyroidism, unspecified; Z79.899 Other long term (current) drug therapy; S32.10XD Unspecified fracture of sacrum, subsequent encounter for fracture with routine healing; W19.XXXD Unspecified fall, subsequent encounter; Z88.2 Allergy status to sulfonamides; Z88.0 Allergy status to penicillin; F32.A Depression, unspecified; E78.5 Hyperlipidemia, unspecified; Z79.890 Hormone replacement therapy
CPT/HCPCS: 36415; 71045; 83605; 83690; 83735; 84100; 84484; 85025; 87040; A4606; A4663; C9113; G0378; J0500; J1170; J1956; J2405; J7040

== ENCOUNTER 2023-08-29 16:32 | Inpatient (IN) | payer MEDICARE, BC ==
[~2023-08-29] VITALS: Ht 162.6 cm; Wt 77.1 kg
[~2023-08-29 16:32] MED LIST changes: -BISA10SU12 RC
[2023-08-29] MEDS ORDERED: IV NORMAL SALINE 1000 ML BAG IV ONE (19:45)
[2023-08-29] MEDS ORDERED: HYDROMORPHONE 1 MG/1 ML DISP.SYRIN IV ONE (19:45)
[2023-08-29] MEDS ORDERED: ONDANSETRON 4 MG/2 ML VIAL IV ONE (19:45)
[2023-08-29 20:51] LABS: BASOPHILS # (AUTO) 0.1 K/UL (0.0-0.2); BASOPHILS % (AUTO) 0.7 % (0.0-2.0); EOSINOPHILS # (AUTO) 0.2 K/uL (0.0-0.7); EOSINOPHILS % (AUTO) 2.6 % (0.0-7.0); HEMATOCRIT 32.4 % (31.2-41.9); HEMOGLOBIN 10.8 g/dL (10.9-14.3); LYMPHOCYTES # (AUTO) 2.4 K/uL (0.8-4.8); LYMPHOCYTES % (AUTO) 30.1 % (20.5-51.5); MEAN CORPUSCULAR HEMOGLOBIN 28.3 uug (24.7-32.8); MEAN CORPUSCULAR HGB CONC 33 g/dL (32.3-35.6); MEAN CORPUSCULAR VOLUME 84.6 fL (75.5-95.3); MONOCYTES # (AUTO) 0.6 K/uL (0.1-1.30); MONOCYTES % (AUTO) 7.9 % (0.0-11.0); NEUTROPHILS # (AUTO) 4.7 K/uL (1.8-8.9); NEUTROPHILS % (AUTO) 58.7 % (38.5-71.5); PLATELET COUNT (AUTO) 249 K/uL (179-408); RED BLOOD CELL COUNT(AUTO) 3.83 MIL/uL (3.63-4.92); WHITE BLOOD COUNT (AUTO) 8.1 K/uL (3.8-11.8)
[2023-08-29] MEDS ORDERED: diphenhydrAMINE 50 MG/1 ML VIAL ONE (21:08)
[2023-08-29 21:15] LABS: DIFFERENTIAL COMMENT 1
[2023-08-29] MEDS ORDERED: diphenhydrAMINE 50 MG/1 ML VIAL IV ONE (21:15)
[2023-08-29 21:20] LABS: CALCIUM 9.4 mg/dL (8.5-10.1); CREATININE 0.8 mg/dL (0.6-1.3)
[2023-08-29 21:38] LABS: POTASSIUM 3.8 mmol/L (3.5-5.1)
[2023-08-29] MEDS ORDERED: MAGNESIUM HYDROXIDE 30 ML LIQUID UDC PO PRN (23:30)
[2023-08-29] MEDS ORDERED: IV NS 1000 ML 1,000 ML IV PRN (23:30)
[2023-08-29] MEDS ORDERED: REMEDY ESSENTIAL ZINC PASTE 113 GM TP PRN (23:30)
[2023-08-29] MEDS ORDERED: DEXAMETHASONE 4 MG TABLET PO ONE (23:30)
[2023-08-29] MEDS ORDERED: ACETAMINOPHEN 325 MG TABLET PO PRN (23:30)
[2023-08-29] MEDS ORDERED: DIPHENOXYLATE HCL/ATROP SULF TABLET PO PRN (23:45)
[2023-08-29] MEDS ORDERED: DICYCLOMINE HCL 20 MG TABLET PO PRN (23:45)
[2023-08-30] MEDS: ENOXAPARIN SODIUM 40 MG/0.4 ML DISP.SYRIN SQ SCH ×2 (00:21→20:10)
[2023-08-30] MEDS: HYDROMORPHONE 1 MG/1 ML DISP.SYRIN IV PRN ×8 (00:22→23:44)
[2023-08-30] MEDS: LEVOTHYROXINE SODIUM 75 MCG TABLET PO SCH (03:40)
[2023-08-30] MEDS ORDERED: ONDANSETRON 4 MG/2 ML VIAL ONE (04:03)
[2023-08-30] MEDS ORDERED: DICYCLOMINE HCL 20 MG TABLET ONE (04:03)
[2023-08-30] MEDS: ONDANSETRON 4 MG/2 ML VIAL IV PRN (04:19)
[2023-08-30] MEDS ORDERED: HYDROMORPHONE 1 MG/1 ML DISP.SYRIN ONE ×2 (04:22→08:24)
[2023-08-30 07:23] LABS: BASOPHILS % (AUTO) 0.6 % (0.0-2.0); EOSINOPHILS % (AUTO) 0.1 % (0.0-7.0); HEMATOCRIT 32.5 % (31.2-41.9); HEMOGLOBIN 10.7 g/dL (10.9-14.3); LYMPHOCYTES # (AUTO) 0.6 K/uL (0.8-4.8); MEAN CORPUSCULAR HEMOGLOBIN 28.2 uug (24.7-32.8); MEAN CORPUSCULAR HGB CONC 33 g/dL (32.3-35.6); MONOCYTES % (AUTO) 0.5 % (0.0-11.0); NEUTROPHILS # (AUTO) 4.4 K/uL (1.8-8.9); NEUTROPHILS % (AUTO) 86.8 % (38.5-71.5); PLATELET COUNT (AUTO) 210 K/uL (179-408); RED BLOOD CELL COUNT(AUTO) 3.78 MIL/uL (3.63-4.92); RED CELL DISTRIBUTION WIDTH 15.9 % (12.3-17.7); WHITE BLOOD COUNT (AUTO) 5.1 K/uL (3.8-11.8)
[2023-08-30 07:31] LABS: DIFFERENTIAL COMMENT 1
[2023-08-30 07:38] LABS: CALCIUM 9.1 mg/dL (8.5-10.1); MAGNESIUM 1.8 mg/dL (1.8-2.4); PHOSPHOROUS 2.2 mg/dL (2.5-4.9); POTASSIUM 4.2 mmol/L (3.5-5.1)
[2023-08-30 09:00] VITALS: BP 123/58; TEMP 98; O2SAT 95
[2023-08-30] MEDS: PANTOPRAZOLE SODIUM 40 MG VIAL IV SCH (09:42)
[2023-08-30] MEDS: IV NS 1000 ML 1,000 ML IV SCH ×2 (09:48→17:57)
[2023-08-30] MEDS: CETIRIZINE HCL 10 MG TABLET PO SCH (10:16)
[2023-08-30] MEDS: VENLAFAXINE XR 150 MG CAP.SR.24H PO SCH ×2 (10:16→17:56)
[2023-08-30] MEDS ORDERED: NEUTRA PHOS PACKET PO ONE (16:00)
[2023-08-30] MEDS: TRAZODONE 100 MG TABLET PO SCH (18:01)
[2023-08-30] MEDS: diphenhydrAMINE 50 MG/1 ML VIAL IV PRN (18:24)
[2023-08-30 20:00] VITALS: BP 138/76; TEMP 98.5; O2SAT 97
[2023-08-30] MEDS: ATORVASTATIN 20 MG TABLET PO SCH (20:13)
[2023-08-31] MEDS: HYDROMORPHONE 1 MG/1 ML DISP.SYRIN IV PRN ×7 (04:05→22:32)
[2023-08-31] MEDS: IV NS 1000 ML 1,000 ML IV SCH ×2 (04:24→13:54)
[2023-08-31 06:00] VITALS: BP 135/75; TEMP 98; O2SAT 99
[2023-08-31] MEDS: LEVOTHYROXINE SODIUM 75 MCG TABLET PO SCH (06:14)
[2023-08-31 07:15] LABS: BASOPHILS % (AUTO) 0.3 % (0.0-2.0); EOSINOPHILS % (AUTO) 0.6 % (0.0-7.0); HEMOGLOBIN 10.8 g/dL (10.9-14.3); LYMPHOCYTES # (AUTO) 2.3 K/uL (0.8-4.8); LYMPHOCYTES % (AUTO) 26.7 % (20.5-51.5); MEAN CORPUSCULAR HEMOGLOBIN 28.1 uug (24.7-32.8); MEAN CORPUSCULAR HGB CONC 33 g/dL (32.3-35.6); MEAN CORPUSCULAR VOLUME 85.7 fL (75.5-95.3); MONOCYTES # (AUTO) 0.8 K/uL (0.1-1.30); MONOCYTES % (AUTO) 9.2 % (0.0-11.0); NEUTROPHILS # (AUTO) 5.4 K/uL (1.8-8.9); NEUTROPHILS % (AUTO) 63.2 % (38.5-71.5); PLATELET COUNT (AUTO) 236 K/uL (179-408); RED BLOOD CELL COUNT(AUTO) 3.85 MIL/uL (3.63-4.92); WHITE BLOOD COUNT (AUTO) 8.5 K/uL (3.8-11.8)
[2023-08-31 07:29] LABS: CALCIUM 9.4 mg/dL (8.5-10.1); CREATININE 0.7 mg/dL (0.6-1.3); PHOSPHOROUS 3.8 mg/dL (2.5-4.9); POTASSIUM 3.7 mmol/L (3.5-5.1)
[2023-08-31 07:35] LABS: DIFFERENTIAL COMMENT 1
[2023-08-31] MEDS: diphenhydrAMINE 50 MG/1 ML VIAL IV PRN ×3 (08:36→22:30)
[2023-08-31] MEDS: ONDANSETRON 4 MG/2 ML VIAL IV PRN (08:36)
[2023-08-31] MEDS: PANTOPRAZOLE SODIUM 40 MG VIAL IV SCH (08:36)
[2023-08-31] MEDS: VENLAFAXINE XR 150 MG CAP.SR.24H PO SCH ×2 (08:37→17:39)
[2023-08-31] MEDS: CETIRIZINE HCL 10 MG TABLET PO SCH (08:37)
[2023-08-31 11:58] VITALS: BP 118/49; TEMP 97.6; O2SAT 92
[2023-08-31 12:12] VITALS: BP 117/63; TEMP 97.2; O2SAT 97
[2023-08-31 12:58] VITALS: BP 117/63
[2023-08-31 15:31] VITALS: BP_SYST 111; BP_SYST 129; BP_DIAS 59; BP_DIAS 64; TEMP 98.8; O2SAT 94; O2SAT 98
[2023-08-31] MEDS: TRAZODONE 100 MG TABLET PO SCH (17:39)
[2023-08-31 19:40] VITALS: BP 116/70; TEMP 98.1; O2SAT 99
[2023-08-31] MEDS: ENOXAPARIN SODIUM 40 MG/0.4 ML DISP.SYRIN SQ SCH (21:00)
[2023-08-31] MEDS: ATORVASTATIN 20 MG TABLET PO SCH (22:27)
[2023-09-01] MEDS: HYDROMORPHONE 1 MG/1 ML DISP.SYRIN IV PRN ×6 (05:49→22:48)
[2023-09-01] MEDS: diphenhydrAMINE 50 MG/1 ML VIAL IV PRN ×4 (05:49→22:53)
[2023-09-01 06:00] VITALS: BP 102/72; TEMP 97.4; O2SAT 99
[2023-09-01] MEDS: PANTOPRAZOLE SODIUM 40 MG TABLET.DR PO SCH (06:31)
[2023-09-01] MEDS: LEVOTHYROXINE SODIUM 75 MCG TABLET PO SCH (06:31)
[2023-09-01] MEDS ORDERED: TRAM100T23 PO (08:50)
[2023-09-01] MEDS: CETIRIZINE HCL 10 MG TABLET PO SCH (08:54)
[2023-09-01] MEDS: VENLAFAXINE XR 150 MG CAP.SR.24H PO SCH ×2 (08:54→17:32)
[2023-09-01] MEDS: IV NS 1000 ML 1,000 ML IV SCH ×3 (10:00→22:00)
[2023-09-01] MEDS: TRAZODONE 100 MG TABLET PO SCH (17:29)
[2023-09-01 20:32] VITALS: BP 105/42; TEMP 98.3; O2SAT 92
[2023-09-01] MEDS: ATORVASTATIN 20 MG TABLET PO SCH (22:45)
[2023-09-01] MEDS: ENOXAPARIN SODIUM 40 MG/0.4 ML DISP.SYRIN SQ SCH (22:48)
[2023-09-02] MEDS: HYDROMORPHONE 1 MG/1 ML DISP.SYRIN IV PRN ×4 (01:34→12:06)
[2023-09-02 04:30] VITALS: BP 146/51; TEMP 98; O2SAT 98
[2023-09-02] MEDS: diphenhydrAMINE 50 MG/1 ML VIAL IV PRN ×2 (04:40→12:13)
[2023-09-02] MEDS: IV NS 1000 ML 1,000 ML IV SCH (06:00)
[2023-09-02] MEDS: LEVOTHYROXINE SODIUM 75 MCG TABLET PO SCH (06:22)
[2023-09-02] MEDS: PANTOPRAZOLE SODIUM 40 MG TABLET.DR PO SCH (06:22)
[2023-09-02] MEDS: VENLAFAXINE XR 150 MG CAP.SR.24H PO SCH (08:31)
[2023-09-02] MEDS: CETIRIZINE HCL 10 MG TABLET PO SCH (08:31)
[2023-09-02 12:00] VITALS: BP 133/59; TEMP 98; O2SAT 98
== END 2023-09-02 14:15 | disposition home or self-care (01) | DRG 948 ==
LOC: ER 16:32 → TRANSITION 08-30 00:08 → MED 08-30 08:18 → MEDSURG3 08-31 07:17
PROVIDERS: ADMIT Nurse Practitioner Family; ATTEND Internal Medicine
DX: G89.3 Neoplasm related pain (acute) (chronic) (principal); C78.7 Secondary malignant neoplasm of liver and intrahepatic bile duct; C50.911 Malignant neoplasm of unspecified site of right female breast; E03.9 Hypothyroidism, unspecified; F32.9 Major depressive disorder, single episode, unspecified; G89.4 Chronic pain syndrome; E78.5 Hyperlipidemia, unspecified; M79.7 Fibromyalgia; Z88.2 Allergy status to sulfonamides; Z88.0 Allergy status to penicillin; Z88.5 Allergy status to narcotic agent; Z90.49 Acquired absence of other specified parts of digestive tract; Z79.890 Hormone replacement therapy; Z79.899 Other long term (current) drug therapy
CPT/HCPCS: 36415; 83735; 84100; 85025; C9113; G0378; J1170; J1200; J1650; J2405; J7040; J8540

== ENCOUNTER 2023-09-08 11:42 | Emergency (ER) | payer MEDICARE, BC ==
[~2023-09-08] VITALS: Ht 167.6 cm; Wt 77.1 kg
[~2023-09-08 11:42] MED LIST changes: +TRAM100T23 PO
[2023-09-08] MEDS ORDERED: ONDANSETRON 4 MG/2 ML VIAL IV ONE (12:15)
[2023-09-08] MEDS ORDERED: IV NORMAL SALINE 500 ML BAG IV ONE (12:15)
[2023-09-08] MEDS ORDERED: diphenhydrAMINE 50 MG/1 ML VIAL IV ONE (12:15)
[2023-09-08] MEDS ORDERED: HYDROMORPHONE 1 MG/1 ML DISP.SYRIN IV ONE ×2 (12:15→17:15)
[2023-09-08] MEDS ORDERED: LORAZEPAM 2 MG/1 ML VIAL IV ONE (12:15)
[2023-09-08 12:47] LABS: BASOPHILS # (AUTO) 0.1 K/UL (0.0-0.2); BASOPHILS % (AUTO) 0.7 % (0.0-2.0); DIFFERENTIAL COMMENT 0; EOSINOPHILS # (AUTO) 0.1 K/uL (0.0-0.7); HEMATOCRIT 39.1 % (31.2-41.9); HEMOGLOBIN 12.8 g/dL (10.9-14.3); LYMPHOCYTES % (AUTO) 25.2 % (20.5-51.5); MEAN CORPUSCULAR HEMOGLOBIN 27.8 uug (24.7-32.8); MEAN CORPUSCULAR HGB CONC 33 g/dL (32.3-35.6); MONOCYTES # (AUTO) 0.7 K/uL (0.1-1.30); MONOCYTES % (AUTO) 9.4 % (0.0-11.0); NEUTROPHILS % (AUTO) 63.7 % (38.5-71.5); PLATELET COUNT (AUTO) 204 K/uL (179-408); WHITE BLOOD COUNT (AUTO) 7.8 K/uL (3.8-11.8)
[2023-09-08 12:59] LABS: ALANINE AMINOTRANSFERASE 25 U/L (14-59); ALBUMIN 3.8 g/dL (3.4-5.0); ALKALINE PHOSPHATASE 164 U/L (50-136); ASPARTATE AMINOTRANSFERASE 23 U/L (15-37); BILIRUBIN,TOTAL 0.4 mg/dL (0.2-1.0); CALCIUM 10.1 mg/dL (8.5-10.1); CARBON DIOXIDE 20 mmol/L (21-32); CREATININE 0.8 mg/dL (0.6-1.3); GLUCOSE 114 mg/dL (74-106); TOTAL PROTEIN, SERUM 7.7 g/dL (6.4-8.2); UREA NITROGEN, BLOOD 12 mg/dL (7-18)
[2023-09-08] MEDS ORDERED: LIDOCAINE 1%-EPI 1:100,000 20 ML VIAL ONE (13:00)
[2023-09-08] MEDS ORDERED: LIDOCAINE 2%-EPI 1:100,000 20 ML VIAL IJ ONE (13:00)
[2023-09-08] MEDS ORDERED: ONDANSETRON 4 MG/2 ML VIAL ONE (13:24)
[2023-09-08] MEDS ORDERED: LORAZEPAM 2 MG/1 ML VIAL ONE (13:25)
[2023-09-08] MEDS ORDERED: diphenhydrAMINE 50 MG/1 ML VIAL ONE (13:25)
[2023-09-08] MEDS ORDERED: HYDROMORPHONE 1 MG/1 ML DISP.SYRIN ONE ×2 (13:25→17:18)
[2023-09-08 13:39] LABS: BILIRUBIN,DIRECT < 0.1 mg/dL (0.0-0.2); CHLORIDE 104 mmol/L (98-107); POTASSIUM 4.5 mmol/L (3.5-5.1); SODIUM SERUM 138 mmol/L (136-145)
[2023-09-08] MEDS ORDERED: ONDA4TAB5 PO (17:09)
[2023-09-08] MEDS ORDERED: OXYC-133 PO (17:09)
[2023-09-08] MEDS ORDERED: ONDANSETRON ODT 4 MG TAB.RAPDIS SL ONE (17:15)
[2023-09-08] MEDS ORDERED: OXYCODONE/APAP 5-325 MG TABLET PO ONE (17:15)
[2023-09-08] MEDS ORDERED: ONDANSETRON ODT 4 MG TAB.RAPDIS ONE (17:17)
[2023-09-08] MEDS ORDERED: OXYCODONE/APAP 5-325 MG TABLET ONE (17:18)
[2023-09-08 17:37] VITALS: BP 139/71; O2SAT 98
== END 2023-09-08 17:38 | disposition home or self-care (01) ==
LOC: ER 11:44
DX: R10.13 Epigastric pain (principal); F32.A Depression, unspecified; Z98.890 Other specified postprocedural states; Z79.899 Other long term (current) drug therapy; Z60.2 Problems related to living alone; Z88.2 Allergy status to sulfonamides; Z88.5 Allergy status to narcotic agent; Z88.0 Allergy status to penicillin
CPT/HCPCS: 99284; 96374; 96375; 80076; 80048; 85025; 36415; 74018; 96376; J1200; J2060; J2405; J1170 ×2; J7040; A4606; A4663; J3490; Q0162

== ENCOUNTER 2023-09-17 14:27 | Emergency (ER) | payer MEDICARE, BC ==
[~2023-09-17] VITALS: Ht 167.6 cm; Wt 77.1 kg
[~2023-09-17 14:27] MED LIST changes: +OXYC-133 PO; -RALO60TA PO
[2023-09-17 15:31] VITALS: O2SAT 96
== END 2023-09-17 21:35 | disposition left against medical advice (07) ==
LOC: ER 14:33
DX: R10.9 Unspecified abdominal pain (principal); R11.2 Nausea with vomiting, unspecified; Z53.21 Procedure and treatment not carried out due to patient leaving prior to being seen by health care provider
CPT/HCPCS: A4606; A4663

== ENCOUNTER 2023-09-18 16:44 | Inpatient (IN) | payer MEDICARE, BC ==
[~2023-09-18] VITALS: Ht 165.1 cm; Wt 77.1 kg
[2023-09-18] MEDS ORDERED: ONDANSETRON 4 MG/2 ML VIAL IV ONE (19:30)
[2023-09-18] MEDS ORDERED: FAMOTIDINE. 20 MG/2 ML VIAL IV ONE ×2 (19:30→19:58)
[2023-09-18] MEDS ORDERED: HYDROMORPHONE 1 MG/1 ML DISP.SYRIN IV ONE ×2 (19:30→22:15)
[2023-09-18] MEDS ORDERED: IV NORMAL SALINE 1000 ML BAG IV ONE (19:30)
[2023-09-18] MEDS ORDERED: ONDANSETRON 4 MG/2 ML VIAL ONE (19:58)
[2023-09-18] MEDS ORDERED: HYDROMORPHONE 2 MG/1 ML DISP.SYRIN ONE ×2 (19:58→22:10)
[2023-09-18 20:29] LABS: BASOPHILS % (AUTO) 0.5 % (0.0-2.0); DIFFERENTIAL COMMENT 0; EOSINOPHILS # (AUTO) 0.1 K/uL (0.0-0.7); EOSINOPHILS % (AUTO) 1.6 % (0.0-7.0); HEMATOCRIT 34.7 % (31.2-41.9); HEMOGLOBIN 11.6 g/dL (10.9-14.3); LYMPHOCYTES % (AUTO) 26.8 % (20.5-51.5); MEAN CORPUSCULAR HEMOGLOBIN 28.1 uug (24.7-32.8); MEAN CORPUSCULAR HGB CONC 33 g/dL (32.3-35.6); MEAN CORPUSCULAR VOLUME 84.1 fL (75.5-95.3); MONOCYTES # (AUTO) 0.6 K/uL (0.1-1.30); MONOCYTES % (AUTO) 7.5 % (0.0-11.0); NEUTROPHILS # (AUTO) 4.7 K/uL (1.8-8.9); NEUTROPHILS % (AUTO) 63.6 % (38.5-71.5); PLATELET COUNT (AUTO) 171 K/uL (179-408); RED BLOOD CELL COUNT(AUTO) 4.13 MIL/uL (3.63-4.92); RED CELL DISTRIBUTION WIDTH 15.7 % (12.3-17.7); WHITE BLOOD COUNT (AUTO) 7.4 K/uL (3.8-11.8)
[2023-09-18 20:29] LABS: CALCIUM 9.7 mg/dL (8.5-10.1); CREATININE 0.7 mg/dL (0.6-1.3); POTASSIUM 3.6 mmol/L (3.5-5.1)
[2023-09-18] MEDS ORDERED: diphenhydrAMINE 50 MG/1 ML VIAL IV ONE (20:30)
[2023-09-18 20:35] LABS: ALBUMIN 3.5 g/dL (3.4-5.0); BILIRUBIN,DIRECT 0.1 mg/dL (0.0-0.2); BILIRUBIN,TOTAL 0.2 mg/dL (0.2-1.0)
[2023-09-18] MEDS ORDERED: diphenhydrAMINE 50 MG/1 ML VIAL ONE (20:45)
[2023-09-18] MEDS ORDERED: ONDANSETRON 4 MG/2 ML VIAL IV PRN (21:30)
[2023-09-18] MEDS ORDERED: HYDROCODONE/APAP 5-325MG TABLET PO PRN (21:30)
[2023-09-18] MEDS ORDERED: DICYCLOMINE HCL 20 MG TABLET PO PRN (21:30)
[2023-09-18] MEDS ORDERED: ACETAMINOPHEN 325 MG TABLET PO PRN (21:30)
[2023-09-18 23:47] VITALS: BP 101/73; TEMP 98.1; O2SAT 96
[2023-09-19] VITALS: BP 111/63; TEMP 98.6; O2SAT 97
[2023-09-19] MEDS: HYDROMORPHONE 1 MG/1 ML DISP.SYRIN IV PRN ×6 (01:25→21:15)
[2023-09-19 04:00] VITALS: BP 114/33; TEMP 98.6; O2SAT 96
[2023-09-19] MEDS ORDERED: ONDANSETRON INJ 8 MG in IV NORMAL SALINE 50 ML IV PRN (06:00)
[2023-09-19 06:13] LABS: BASOPHILS % (AUTO) 0.5 % (0.0-2.0); EOSINOPHILS # (AUTO) 0.1 K/uL (0.0-0.7); EOSINOPHILS % (AUTO) 2.5 % (0.0-7.0); HEMATOCRIT 29.1 % (31.2-41.9); HEMOGLOBIN 9.7 g/dL (10.9-14.3); LYMPHOCYTES # (AUTO) 1.9 K/uL (0.8-4.8); LYMPHOCYTES % (AUTO) 32.1 % (20.5-51.5); MEAN CORPUSCULAR HEMOGLOBIN 28.3 uug (24.7-32.8); MEAN CORPUSCULAR HGB CONC 34 g/dL (32.3-35.6); MEAN CORPUSCULAR VOLUME 84.5 fL (75.5-95.3); MONOCYTES # (AUTO) 0.5 K/uL (0.1-1.30); NEUTROPHILS # (AUTO) 3.3 K/uL (1.8-8.9); NEUTROPHILS % (AUTO) 56.9 % (38.5-71.5); PLATELET COUNT (AUTO) 141 K/uL (179-408); RED BLOOD CELL COUNT(AUTO) 3.45 MIL/uL (3.63-4.92); RED CELL DISTRIBUTION WIDTH 15.7 % (12.3-17.7); WHITE BLOOD COUNT (AUTO) 5.8 K/uL (3.8-11.8)
[2023-09-19 06:29] LABS: DIFFERENTIAL COMMENT 1
[2023-09-19 06:49] LABS: ALBUMIN 2.7 g/dL (3.4-5.0); BILIRUBIN,TOTAL 0.3 mg/dL (0.2-1.0); CALCIUM 8.8 mg/dL (8.5-10.1); CREATININE 0.9 mg/dL (0.6-1.3); MAGNESIUM 2.1 mg/dL (1.8-2.4); PHOSPHOROUS 4.3 mg/dL (2.5-4.9); POTASSIUM 3.7 mmol/L (3.5-5.1); TOTAL PROTEIN, SERUM 5.9 g/dL (6.4-8.2)
[2023-09-19] MEDS ORDERED: LEVOTHYROXINE SODIUM 75 MCG TABLET PO SCH (07:30)
[2023-09-19] MEDS: CETIRIZINE HCL 10 MG TABLET PO SCH (08:18)
[2023-09-19] MEDS: PANTOPRAZOLE SODIUM 40 MG VIAL IV SCH (08:18)
[2023-09-19] MEDS: VENLAFAXINE XR 150 MG CAP.SR.24H PO SCH ×2 (08:18→17:02)
[2023-09-19] MEDS: LEVOTHYROXINE SODIUM 75 MCG TABLET PO SCH (11:25)
[2023-09-19] MEDS ORDERED: HYDROMORPHONE 1 MG/1 ML DISP.SYRIN IV PRN (11:30)
[2023-09-19 11:51] VITALS: BP 113/38; TEMP 98.2; O2SAT 98
[2023-09-19] MEDS: diphenhydrAMINE 50 MG/1 ML VIAL IV PRN ×2 (14:54→21:14)
[2023-09-19 20:18] VITALS: BP 102/39; TEMP 98.9; O2SAT 98
[2023-09-19] MEDS ORDERED: TRAZODONE 100 MG TABLET PO SCH (21:00)
[2023-09-20] MEDS: HYDROMORPHONE 1 MG/1 ML DISP.SYRIN IV PRN ×5 (00:22→14:50)
[2023-09-20] MEDS: diphenhydrAMINE 50 MG/1 ML VIAL IV PRN ×3 (03:42→14:50)
[2023-09-20 04:10] VITALS: BP 102/42; TEMP 98.1; O2SAT 98
[2023-09-20] MEDS: LEVOTHYROXINE SODIUM 75 MCG TABLET PO SCH (06:13)
[2023-09-20 08:16] VITALS: TEMP 98.7
[2023-09-20] MEDS: CETIRIZINE HCL 10 MG TABLET PO SCH (08:54)
[2023-09-20] MEDS: VENLAFAXINE XR 150 MG CAP.SR.24H PO SCH (08:54)
[2023-09-20] MEDS: PANTOPRAZOLE SODIUM 40 MG VIAL IV SCH (09:30)
== END 2023-09-20 16:12 | disposition home or self-care (01) | DRG 948 ==
LOC: ER 16:47 → MEDSURG3 23:32
PROVIDERS: ADMIT Internal Medicine; ATTEND Nurse Practitioner Acute Care
DX: G89.3 Neoplasm related pain (acute) (chronic) (principal); C78.7 Secondary malignant neoplasm of liver and intrahepatic bile duct; E44.0 Moderate protein-calorie malnutrition; R11.2 Nausea with vomiting, unspecified; G89.4 Chronic pain syndrome; M79.7 Fibromyalgia; E88.09 Other disorders of plasma-protein metabolism, not elsewhere classified; E03.9 Hypothyroidism, unspecified; E78.00 Pure hypercholesterolemia, unspecified; T45.1X5A Adverse effect of antineoplastic and immunosuppressive drugs, initial encounter; Y92.009 Unspecified place in unspecified non-institutional (private) residence as the place of occurrence of the external cause; R62.7 Adult failure to thrive; Z85.3 Personal history of malignant neoplasm of breast; Z79.890 Hormone replacement therapy; Z88.0 Allergy status to penicillin; Z88.2 Allergy status to sulfonamides; Z88.5 Allergy status to narcotic agent; Z90.11 Acquired absence of right breast and nipple; Z90.710 Acquired absence of both cervix and uterus; Z90.49 Acquired absence of other specified parts of digestive tract; F32.9 Major depressive disorder, single episode, unspecified; Z68.28 Body mass index [BMI] 28.0-28.9, adult
CPT/HCPCS: 36415; 71045; 83690; 83735; 84100; 85025; A4663; C9113; G0378; J1170; J1200; J2405; J3490; J7040

== ENCOUNTER 2023-09-30 14:58 | Inpatient (IN) | payer MEDICARE, BC ==
[~2023-09-30] VITALS: Ht 167.6 cm; Wt 77.1 kg
[2023-09-30] MEDS ORDERED: HYDROMORPHONE 1 MG/1 ML DISP.SYRIN IM ONE (16:30)
[2023-09-30] MEDS ORDERED: diphenhydrAMINE 50 MG/1 ML VIAL IM ONE (16:30)
[2023-09-30] MEDS ORDERED: HYDROMORPHONE 2 MG/1 ML DISP.SYRIN ONE ×2 (16:58→18:17)
[2023-09-30] MEDS ORDERED: diphenhydrAMINE 50 MG/1 ML VIAL ONE ×3 (16:58→21:55)
[2023-09-30] MEDS ORDERED: PANTOPRAZOLE SODIUM 40 MG VIAL ONE (17:22)
[2023-09-30] MEDS ORDERED: ONDANSETRON 4 MG/2 ML VIAL ONE ×3 (17:22→21:47)
[2023-09-30] MEDS ORDERED: PANTOPRAZOLE SODIUM 40 MG VIAL IV ONE (17:30)
[2023-09-30] MEDS ORDERED: ONDANSETRON 4 MG/2 ML VIAL IV ONE ×3 (17:30→21:00)
[2023-09-30] MEDS ORDERED: IV NORMAL SALINE 1000 ML BAG IV ONE (17:30)
[2023-09-30] MEDS ORDERED: diphenhydrAMINE 50 MG/1 ML VIAL IV ONE ×2 (18:15→22:00)
[2023-09-30] MEDS ORDERED: HYDROMORPHONE 1 MG/1 ML DISP.SYRIN IV ONE ×2 (18:15→21:00)
[2023-09-30 21:14] LABS: BASOPHILS % (AUTO) 0.3 % (0.0-2.0); EOSINOPHILS # (AUTO) 0.1 K/uL (0.0-0.7); EOSINOPHILS % (AUTO) 1.5 % (0.0-7.0); HEMATOCRIT 32.5 % (31.2-41.9); HEMOGLOBIN 10.8 g/dL (10.9-14.3); LYMPHOCYTES # (AUTO) 1.9 K/uL (0.8-4.8); LYMPHOCYTES % (AUTO) 24.7 % (20.5-51.5); MEAN CORPUSCULAR HEMOGLOBIN 27.8 uug (24.7-32.8); MEAN CORPUSCULAR HGB CONC 33 g/dL (32.3-35.6); MEAN CORPUSCULAR VOLUME 83.6 fL (75.5-95.3); MONOCYTES # (AUTO) 0.7 K/uL (0.1-1.30); MONOCYTES % (AUTO) 8.7 % (0.0-11.0); NEUTROPHILS % (AUTO) 64.8 % (38.5-71.5); PLATELET COUNT (AUTO) 212 K/uL (179-408); RED BLOOD CELL COUNT(AUTO) 3.89 MIL/uL (3.63-4.92); RED CELL DISTRIBUTION WIDTH 16.1 % (12.3-17.7); WHITE BLOOD COUNT (AUTO) 7.7 K/uL (3.8-11.8)
[2023-09-30 21:18] LABS: DIFFERENTIAL COMMENT 1
[2023-09-30 21:25] LABS: CALCIUM 9.2 mg/dL (8.5-10.1); CARBON DIOXIDE 23 mmol/L (21-32); CHLORIDE 106 mmol/L (98-107); CREATININE 0.9 mg/dL (0.6-1.3); GLUCOSE 102 mg/dL (74-106); POTASSIUM 3.3 mmol/L (3.5-5.1); SODIUM SERUM 140 mmol/L (136-145); UREA NITROGEN, BLOOD 9 mg/dL (7-18)
[2023-09-30 21:43] LABS: ALANINE AMINOTRANSFERASE 16 U/L (14-59); ALBUMIN 3.3 g/dL (3.4-5.0); ALKALINE PHOSPHATASE 123 U/L (50-136); ASPARTATE AMINOTRANSFERASE 15 U/L (15-37); BILIRUBIN,TOTAL 0.2 mg/dL (0.2-1.0); LIPASE < 10 U/L (16-77); TOTAL PROTEIN, SERUM 6.7 g/dL (6.4-8.2)
[2023-09-30] MEDS ORDERED: HYDROMORPHONE 1 MG/1 ML DISP.SYRIN ONE ×2 (21:47→21:48)
[2023-09-30] MEDS ORDERED: POTASSIUM CHLORIDE 20 MEQ TAB.PRT.SR PO ONE (22:30)
[2023-09-30] MEDS ORDERED: POTASSIUM CHLORIDE 20 MEQ TAB.PRT.SR ONE (23:17)
[2023-10-01] MEDS ORDERED: HYDROMORPHONE 1 MG/1 ML DISP.SYRIN IV ONE (02:00)
[2023-10-01] MEDS ORDERED: diphenhydrAMINE 50 MG/1 ML VIAL IV ONE (02:00)
[2023-10-01] MEDS ORDERED: diphenhydrAMINE 50 MG/1 ML VIAL ONE (02:08)
[2023-10-01] MEDS ORDERED: HYDROMORPHONE 1 MG/1 ML DISP.SYRIN ONE (02:09)
[2023-10-01] MEDS ORDERED: HYDROMORPHONE 1 MG/1 ML DISP.SYRIN IV PRN (03:30)
[2023-10-01] MEDS ORDERED: REMEDY ESSENTIAL ZINC PASTE 113 GM TP PRN (03:30)
[2023-10-01] MEDS ORDERED: IV NS 1000 ML 1,000 ML IV PRN (03:30)
[2023-10-01] MEDS ORDERED: MAGNESIUM HYDROXIDE 30 ML LIQUID UDC PO PRN (03:30)
[2023-10-01] MEDS ORDERED: ACETAMINOPHEN 325 MG TABLET PO PRN (03:30)
[2023-10-01] MEDS ORDERED: ONDANSETRON 4 MG/2 ML VIAL IV PRN (03:30)
[2023-10-01] MEDS ORDERED: DICYCLOMINE HCL 20 MG TABLET PO PRN (03:30)
[2023-10-01 05:14] VITALS: O2SAT 97
[2023-10-01] MEDS ORDERED: LEVOTHYROXINE SODIUM 75 MCG TABLET PO SCH (07:00)
[2023-10-01] MEDS ORDERED: PANTOPRAZOLE SODIUM 40 MG VIAL IV SCH (09:00)
[2023-10-01] MEDS ORDERED: VENLAFAXINE XR 150 MG CAP.SR.24H PO SCH (09:00)
[2023-10-01] MEDS ORDERED: TRAZODONE 50 MG TABLET PO SCH (21:00)
== END 2023-10-01 06:00 | disposition left against medical advice (07) | DRG 948 ==
LOC: ER 14:58 → TRANSITION 10-01 04:19
PROVIDERS: ADMIT Nurse Practitioner Acute Care; ATTEND Nurse Practitioner Acute Care
DX: G89.3 Neoplasm related pain (acute) (chronic) (principal); C78.7 Secondary malignant neoplasm of liver and intrahepatic bile duct; E44.0 Moderate protein-calorie malnutrition; F11.20 Opioid dependence, uncomplicated; R10.30 Lower abdominal pain, unspecified; R11.15 Cyclical vomiting syndrome unrelated to migraine; Z79.899 Other long term (current) drug therapy; G89.4 Chronic pain syndrome; Z53.29 Procedure and treatment not carried out because of patient's decision for other reasons; E88.09 Other disorders of plasma-protein metabolism, not elsewhere classified; E87.6 Hypokalemia; F32.9 Major depressive disorder, single episode, unspecified; M79.7 Fibromyalgia; Z85.3 Personal history of malignant neoplasm of breast; Z90.710 Acquired absence of both cervix and uterus; Z88.2 Allergy status to sulfonamides; Z88.5 Allergy status to narcotic agent; Z88.0 Allergy status to penicillin; E03.9 Hypothyroidism, unspecified; Z79.890 Hormone replacement therapy; E78.00 Pure hypercholesterolemia, unspecified
CPT/HCPCS: 36415; 83605; 83690; 85025; C9113; G0378; J1170; J1200; J2405; J7040

== ENCOUNTER 2023-10-03 03:52 | Emergency (ER) | payer MEDICARE, BC ==
[~2023-10-03] VITALS: Ht 167.6 cm; Wt 77.1 kg
[2023-10-03] MEDS ORDERED: ONDANSETRON 4 MG/2 ML VIAL IV ONE (05:00)
[2023-10-03] MEDS ORDERED: HYDROMORPHONE 1 MG/1 ML DISP.SYRIN IV ONE (05:00)
[2023-10-03] MEDS ORDERED: diphenhydrAMINE 50 MG/1 ML VIAL IV ONE (05:00)
[2023-10-03] MEDS ORDERED: HYDROMORPHONE 1 MG/1 ML DISP.SYRIN ONE (05:16)
[2023-10-03] MEDS ORDERED: diphenhydrAMINE 50 MG/1 ML VIAL ONE (05:16)
[2023-10-03] MEDS ORDERED: ONDANSETRON 4 MG/2 ML VIAL ONE (05:16)
[2023-10-03 05:34] LABS: BASOPHILS # (AUTO) 0.1 K/UL (0.0-0.2); BASOPHILS % (AUTO) 0.7 % (0.0-2.0); EOSINOPHILS # (AUTO) 0.1 K/uL (0.0-0.7); EOSINOPHILS % (AUTO) 1.2 % (0.0-7.0); HEMATOCRIT 32.6 % (31.2-41.9); HEMOGLOBIN 11.1 g/dL (10.9-14.3); LYMPHOCYTES # (AUTO) 1.9 K/uL (0.8-4.8); LYMPHOCYTES % (AUTO) 22.1 % (20.5-51.5); MEAN CORPUSCULAR HGB CONC 34 g/dL (32.3-35.6); MEAN CORPUSCULAR VOLUME 82.2 fL (75.5-95.3); MONOCYTES # (AUTO) 0.8 K/uL (0.1-1.30); MONOCYTES % (AUTO) 9.2 % (0.0-11.0); NEUTROPHILS # (AUTO) 5.8 K/uL (1.8-8.9); NEUTROPHILS % (AUTO) 66.8 % (38.5-71.5); PLATELET COUNT (AUTO) 196 K/uL (179-408); RED BLOOD CELL COUNT(AUTO) 3.96 MIL/uL (3.63-4.92); RED CELL DISTRIBUTION WIDTH 15.9 % (12.3-17.7); WHITE BLOOD COUNT (AUTO) 8.7 K/uL (3.8-11.8)
[2023-10-03 05:41] LABS: DIFFERENTIAL COMMENT 1
[2023-10-03 06:05] LABS: CALCIUM 9.4 mg/dL (8.5-10.1); CREATININE 0.8 mg/dL (0.6-1.3); POTASSIUM 3.6 mmol/L (3.5-5.1)
[2023-10-03 06:11] LABS: ALBUMIN 3.5 g/dL (3.4-5.0); BILIRUBIN,DIRECT 0.1 mg/dL (0.0-0.2); BILIRUBIN,TOTAL 0.3 mg/dL (0.2-1.0); TOTAL PROTEIN, SERUM 6.9 g/dL (6.4-8.2)
[2023-10-03 06:13] VITALS: O2SAT 99
[2023-10-03] MEDS ORDERED: IV NORMAL SALINE 1000 ML BAG IV ONE (06:30)
[2023-10-03] MEDS ORDERED: KETOROLAC TROMETHAMINE 30 MG INJ IVP ONE (06:30)
[2023-10-03] MEDS ORDERED: KETOROLAC TROMETHAMINE 30 MG INJ ONE (06:32)
== END 2023-10-03 07:59 | disposition home or self-care (01) ==
LOC: ER 03:54
DX: R10.9 Unspecified abdominal pain (principal); R11.2 Nausea with vomiting, unspecified; R19.7 Diarrhea, unspecified; E78.00 Pure hypercholesterolemia, unspecified; F32.A Depression, unspecified; Z79.899 Other long term (current) drug therapy; Z98.890 Other specified postprocedural states; Z60.2 Problems related to living alone; Z88.0 Allergy status to penicillin; Z88.2 Allergy status to sulfonamides; Z88.5 Allergy status to narcotic agent
CPT/HCPCS: 99284; 96374; 96375; 80076; 80048; 83690; 85025; 36415; J1200; J1885; J2405; J1170; J7040; A4606; A4663

== ENCOUNTER 2023-11-17 12:52 | Emergency (ER) | payer MEDICARE, BC ==
[~2023-11-17] VITALS: Ht 167.6 cm; Wt 77.1 kg
[2023-11-17] MEDS ORDERED: ONDANSETRON 4 MG/2 ML VIAL ONE (13:26)
[2023-11-17] MEDS: IV NORMAL SALINE 1000 ML BAG IV ONE (13:26)
[2023-11-17] MEDS ORDERED: HYDROMORPHONE 2 MG/1 ML DISP.SYRIN ONE ×2 (13:26→14:15)
[2023-11-17] MEDS: ONDANSETRON 4 MG/2 ML VIAL IV ONE (13:26)
[2023-11-17] MEDS: HYDROMORPHONE 1 MG/1 ML DISP.SYRIN IV ONE ×3 (13:28→15:16)
[2023-11-17] MEDS ORDERED: diphenhydrAMINE 50 MG/1 ML VIAL ONE ×2 (13:42→14:14)
[2023-11-17 13:43] LABS: BASOPHILS % (AUTO) 0.3 % (0.0-2.0); EOSINOPHILS # (AUTO) 0.1 K/uL (0.0-0.7); EOSINOPHILS % (AUTO) 1.1 % (0.0-7.0); HEMATOCRIT 32.9 % (31.2-41.9); LYMPHOCYTES # (AUTO) 1.1 K/uL (0.8-4.8); LYMPHOCYTES % (AUTO) 15.4 % (20.5-51.5); MEAN CORPUSCULAR HEMOGLOBIN 27.7 uug (24.7-32.8); MEAN CORPUSCULAR HGB CONC 33 g/dL (32.3-35.6); MEAN CORPUSCULAR VOLUME 82.7 fL (75.5-95.3); MONOCYTES # (AUTO) 0.6 K/uL (0.1-1.30); MONOCYTES % (AUTO) 8.6 % (0.0-11.0); NEUTROPHILS # (AUTO) 5.5 K/uL (1.8-8.9); NEUTROPHILS % (AUTO) 74.6 % (38.5-71.5); PLATELET COUNT (AUTO) 192 K/uL (179-408); RED BLOOD CELL COUNT(AUTO) 3.98 MIL/uL (3.63-4.92); RED CELL DISTRIBUTION WIDTH 16.8 % (12.3-17.7); WHITE BLOOD COUNT (AUTO) 7.3 K/uL (3.8-11.8)
[2023-11-17 13:45] LABS: DIFFERENTIAL COMMENT 1
[2023-11-17] MEDS: diphenhydrAMINE 50 MG/1 ML VIAL IV ONE ×2 (13:45→14:15)
[2023-11-17 13:56] LABS: CALCIUM 9.4 mg/dL (8.5-10.1); CARBON DIOXIDE 22 mmol/L (21-32); CHLORIDE 105 mmol/L (98-107); CREATININE 0.9 mg/dL (0.6-1.3); GLUCOSE 115 mg/dL (74-106); POTASSIUM 3.3 mmol/L (3.5-5.1); SODIUM SERUM 140 mmol/L (136-145); UREA NITROGEN, BLOOD 8 mg/dL (7-18)
[2023-11-17 14:04] LABS: ALANINE AMINOTRANSFERASE 21 U/L (14-59); ALBUMIN 3.5 g/dL (3.4-5.0); ALKALINE PHOSPHATASE 115 U/L (50-136); ASPARTATE AMINOTRANSFERASE 12 U/L (15-37); BILIRUBIN,DIRECT 0.1 mg/dL (0.0-0.2); BILIRUBIN,TOTAL 0.3 mg/dL (0.2-1.0); LIPASE 10 U/L (16-77); TOTAL PROTEIN, SERUM 6.8 g/dL (6.4-8.2)
[2023-11-17] MEDS ORDERED: POTASSIUM BICARBONATE/CIT AC 25 MEQ TABLET.EFF ONE (14:14)
[2023-11-17] MEDS: POTASSIUM BICARBONATE/CIT AC 25 MEQ TABLET.EFF PO ONE (14:15)
[2023-11-17] MEDS ORDERED: HYDR4TAB4 PO (14:18)
[2023-11-17] MEDS ORDERED: POTA25TA7 PO (14:18)
[2023-11-17 15:15] VITALS: O2SAT 99
[2023-11-17] MEDS ORDERED: HYDROMORPHONE 1 MG/1 ML DISP.SYRIN ONE (15:16)
== END 2023-11-17 15:32 | disposition home or self-care (01) ==
LOC: ER 12:52
DX: R10.30 Lower abdominal pain, unspecified (principal); T66.XXXA Radiation sickness, unspecified, initial encounter; E78.00 Pure hypercholesterolemia, unspecified; F32.A Depression, unspecified; Z79.899 Other long term (current) drug therapy; Z98.890 Other specified postprocedural states; Z60.2 Problems related to living alone; Z88.0 Allergy status to penicillin; Z88.2 Allergy status to sulfonamides; Y84.2 Radiological procedure and radiotherapy as the cause of abnormal reaction of the patient, or of later complication, without mention of misadventure at the time of the procedure; Y92.89 Other specified places as the place of occurrence of the external cause
CPT/HCPCS: 99284; 96374; 96361; 96375; 80076; 80048; 83690; 85025; 84484; 93005; 96376; J1200 ×2; J2405; J1170 ×3; J7040; 36415; A4606; A4663

== ENCOUNTER → 2023-12-11 | Emergency (ER) | payer MEDICARE, BC ==
[~2023-12-11] MED LIST changes: -DICY20TA11 PO; -DIPH1TAB PO; +HYDR4TAB4 PO; +HYDROMORPHONE 2 MG/1 ML DISP.SYRIN ONE; -ONDA4TAB5 PO; +ONDANSETRON ODT 4 MG TAB.RAPDIS ONE; -RIZA10TA27 PO; -TRAM100T23 PO; +diphenhydrAMINE 50 MG/1 ML VIAL ONE
== END | disposition home or self-care (01) ==
LOC: ER 09:52
DX: G89.4 Chronic pain syndrome (principal); G89.18 Other acute postprocedural pain
CPT/HCPCS: 99284; 96372 ×2; J1200; J1170; Q0162

== ENCOUNTER 2023-12-26 18:44 | Inpatient (IN) | payer MEDICARE, BC ==
[~2023-12-26] VITALS: Ht 167.6 cm; Wt 77.1 kg
[~2023-12-26 18:44] MED LIST changes: -HYDROMORPHONE 2 MG/1 ML DISP.SYRIN ONE; -ONDANSETRON ODT 4 MG TAB.RAPDIS ONE; -diphenhydrAMINE 50 MG/1 ML VIAL ONE
[2023-12-26] MEDS ORDERED: diphenhydrAMINE 50 MG/1 ML VIAL ONE (19:40)
[2023-12-26] MEDS ORDERED: ONDANSETRON ODT 4 MG TAB.RAPDIS ONE (19:40)
[2023-12-26] MEDS ORDERED: HYDROMORPHONE 2 MG/1 ML DISP.SYRIN ONE (19:41)
[2023-12-26] MEDS: diphenhydrAMINE 50 MG/1 ML VIAL IM ONE (19:53)
[2023-12-26] MEDS: HYDROMORPHONE 1 MG/1 ML DISP.SYRIN IM ONE (19:54)
[2023-12-26] MEDS: ONDANSETRON ODT 4 MG TAB.RAPDIS SL ONE (19:54)
[2023-12-26 19:55] LABS: *BILIRUBIN,URIN NEGATIVE (NEGATIVE); *BLOOD, URINE NEGATIVE (NEGATIVE); *CLARITY,URINE CLEAR (CLEAR); *COLOR,URINE YELLOW (YELLOW); *KETONES,URINE NEGATIVE (NEGATIVE); *PROTEIN,URINE NEGATIVE (NEGATIVE); *UROBILINOGEN,URINE 0.2 E.U./dl (NORMAL); LEUKOCYTE ESTERASE ,URINE NEGATIVE (NEGATIVE); NITRITE, URINE NEGATIVE (NEGATIVE); UGLUCOSE NEGATIVE (NEGATIVE)
[2023-12-26] MEDS: IV D5/ 0.9% NACL 1,000 ML IV ONE (20:24)
[2023-12-26 20:27] LABS: CALCIUM 9.4 mg/dL (8.5-10.1); CREATININE 0.8 mg/dL (0.6-1.3); POTASSIUM 3.8 mmol/L (3.5-5.1)
[2023-12-26 20:28] LABS: BASOPHILS % (AUTO) 0.6 % (0.0-2.0); DIFFERENTIAL COMMENT 0; EOSINOPHILS # (AUTO) 0.2 K/uL (0.0-0.7); HEMATOCRIT 30.6 % (31.2-41.9); LYMPHOCYTES # (AUTO) 1.8 K/uL (0.8-4.8); LYMPHOCYTES % (AUTO) 28.4 % (20.5-51.5); MEAN CORPUSCULAR HGB CONC 33 g/dL (32.3-35.6); MEAN CORPUSCULAR VOLUME 82.5 fL (75.5-95.3); MONOCYTES # (AUTO) 0.5 K/uL (0.1-1.30); MONOCYTES % (AUTO) 7.5 % (0.0-11.0); NEUTROPHILS # (AUTO) 3.8 K/uL (1.8-8.9); NEUTROPHILS % (AUTO) 60.5 % (38.5-71.5); PLATELET COUNT (AUTO) 209 K/uL (179-408); RED BLOOD CELL COUNT(AUTO) 3.71 MIL/uL (3.63-4.92); RED CELL DISTRIBUTION WIDTH 16.1 % (12.3-17.7); WHITE BLOOD COUNT (AUTO) 6.2 K/uL (3.8-11.8)
[2023-12-26 20:32] LABS: ALBUMIN 3.5 g/dL (3.4-5.0); BILIRUBIN,TOTAL 0.2 mg/dL (0.2-1.0)
[2023-12-26] MEDS ORDERED: HYDROMORPHONE 1 MG/1 ML DISP.SYRIN ONE (21:07)
[2023-12-26] MEDS ORDERED: ONDANSETRON 4 MG/2 ML VIAL ONE (21:07)
[2023-12-26] MEDS: ONDANSETRON 4 MG/2 ML VIAL IV ONE (21:08)
[2023-12-26] MEDS: HYDROMORPHONE 1 MG/1 ML DISP.SYRIN IV ONE (21:09)
[2023-12-26] MEDS ORDERED: ACETAMINOPHEN 325 MG TABLET PO PRN (22:00)
[2023-12-26] MEDS ORDERED: ONDANSETRON 4 MG/2 ML VIAL IV PRN (22:00)
[2023-12-26] MEDS ORDERED: HYDROMORPHONE 1 MG/1 ML DISP.SYRIN IV PRN (22:00)
[2023-12-26] MEDS ORDERED: IV D5W-0.45% NS +20 KCL 1,000 ML IV PRN (22:00)
[2023-12-26] MEDS ORDERED: MAGNESIUM HYDROXIDE 30 ML LIQUID UDC PO PRN (22:00)
[2023-12-26] MEDS ORDERED: REMEDY ESSENTIAL ZINC PASTE 113 GM TP PRN (22:00)
[2023-12-27 00:09] VITALS: BP 122/67; TEMP 98.7; O2SAT 97
[2023-12-27] MEDS ORDERED: LEVOTHYROXINE SODIUM 75 MCG TABLET PO SCH (06:00)
[2023-12-27] MEDS ORDERED: ENOXAPARIN SODIUM 40 MG/0.4 ML DISP.SYRIN SQ SCH (09:00)
[2023-12-27] MEDS ORDERED: PANTOPRAZOLE SODIUM 40 MG VIAL IV SCH (09:00)
== END 2023-12-27 01:35 | disposition left against medical advice (07) | DRG 392 ==
LOC: ER 18:45 → MEDSURG3 21:00
PROVIDERS: ADMIT Nurse Practitioner Acute Care; ATTEND Nurse Practitioner Acute Care
DX: R10.84 Generalized abdominal pain (principal); C79.9 Secondary malignant neoplasm of unspecified site; R11.2 Nausea with vomiting, unspecified; T45.1X5A Adverse effect of antineoplastic and immunosuppressive drugs, initial encounter; Y92.89 Other specified places as the place of occurrence of the external cause; G89.3 Neoplasm related pain (acute) (chronic); M79.7 Fibromyalgia; D64.9 Anemia, unspecified; E78.00 Pure hypercholesterolemia, unspecified; E03.9 Hypothyroidism, unspecified; G89.4 Chronic pain syndrome; C50.911 Malignant neoplasm of unspecified site of right female breast; Z90.710 Acquired absence of both cervix and uterus; Z88.5 Allergy status to narcotic agent; Z88.0 Allergy status to penicillin; Z88.2 Allergy status to sulfonamides; Z90.11 Acquired absence of right breast and nipple; Z79.890 Hormone replacement therapy; Z79.899 Other long term (current) drug therapy
CPT/HCPCS: 36415; 83690; 85025; A4663; G0378; J1170; J1200; J2405; J7042; Q0162

== ENCOUNTER 2023-12-30 12:44 | Emergency (ER) | payer MEDICARE, BC ==
[~2023-12-30] VITALS: Ht 160 cm; Wt 68.0 kg
[2023-12-30] MEDS ORDERED: diphenhydrAMINE 50 MG/1 ML VIAL ONE (13:03)
[2023-12-30] MEDS ORDERED: ONDANSETRON 4 MG/2 ML VIAL ONE (13:03)
[2023-12-30] MEDS ORDERED: HYDROMORPHONE 1 MG/1 ML DISP.SYRIN ONE (13:03)
[2023-12-30] MEDS: IV NORMAL SALINE 1000 ML BAG IV ONE (13:06)
[2023-12-30] MEDS: ONDANSETRON 4 MG/2 ML VIAL IV ONE (13:06)
[2023-12-30] MEDS: HYDROMORPHONE 1 MG/1 ML DISP.SYRIN IV ONE (13:07)
[2023-12-30] MEDS: diphenhydrAMINE 50 MG/1 ML VIAL IV ONE (13:07)
[2023-12-30 13:20] LABS: BASOPHILS # (AUTO) 0.2 K/UL (0.0-0.2); BASOPHILS % (AUTO) 2.7 % (0.0-2.0); DIFFERENTIAL COMMENT 1; EOSINOPHILS # (AUTO) 0.2 K/uL (0.0-0.7); EOSINOPHILS % (AUTO) 3.5 % (0.0-7.0); HEMATOCRIT 28.1 % (31.2-41.9); HEMOGLOBIN 9.4 g/dL (10.9-14.3); LYMPHOCYTES # (AUTO) 0.6 K/uL (0.8-4.8); MEAN CORPUSCULAR HGB CONC 34 g/dL (32.3-35.6); MEAN CORPUSCULAR VOLUME 80.5 fL (75.5-95.3); MONOCYTES # (AUTO) 0.4 K/uL (0.1-1.30); MONOCYTES % (AUTO) 6.9 % (0.0-11.0); NEUTROPHILS # (AUTO) 4.9 K/uL (1.8-8.9); NEUTROPHILS % (AUTO) 77.9 % (38.5-71.5); PLATELET COUNT (AUTO) 189 K/uL (179-408); RED BLOOD CELL COUNT(AUTO) 3.49 MIL/uL (3.63-4.92); RED CELL DISTRIBUTION WIDTH 16.4 % (12.3-17.7); WHITE BLOOD COUNT (AUTO) 6.3 K/uL (3.8-11.8)
[2023-12-30 13:30] LABS: CALCIUM 8.9 mg/dL (8.5-10.1); CARBON DIOXIDE 24 mmol/L (21-32); CHLORIDE 108 mmol/L (98-107); CREATININE 0.7 mg/dL (0.6-1.3); GLUCOSE 102 mg/dL (74-106); POTASSIUM 3.6 mmol/L (3.5-5.1); SODIUM SERUM 141 mmol/L (136-145); UREA NITROGEN, BLOOD 7 mg/dL (7-18)
[2023-12-30 13:35] LABS: ALANINE AMINOTRANSFERASE 15 U/L (14-59); ALBUMIN 3.2 g/dL (3.4-5.0); ALKALINE PHOSPHATASE 98 U/L (50-136); ASPARTATE AMINOTRANSFERASE < 5 U/L (15-37); BILIRUBIN,TOTAL 0.3 mg/dL (0.2-1.0); LIPASE 10 U/L (16-77); TOTAL PROTEIN, SERUM 6.4 g/dL (6.4-8.2)
[2023-12-30 13:39] LABS: BILIRUBIN,DIRECT < 0.1 mg/dL (0.0-0.2)
[2023-12-30 14:31] VITALS: BP 156/46; O2SAT 97
[2023-12-30 15:05] LABS: ANISOCYTOSIS 1+; EOSINOPHILS % (MANUAL) 2 % (0-8); LYMPHOCYTES % (MANUAL) 12 % (20-40); MONOCYTES % (MANUAL) 9 % (2-10); NEUTROPHILS % (MANUAL) 77 % (42-75); PLATELET ESTIMATE ADEQUATE
== END 2023-12-30 14:32 | disposition home or self-care (01) ==
LOC: ER 12:44
DX: T88.7XXA Unspecified adverse effect of drug or medicament, initial encounter (principal); Z79.899 Other long term (current) drug therapy; Y92.89 Other specified places as the place of occurrence of the external cause; Z88.0 Allergy status to penicillin; Z88.2 Allergy status to sulfonamides; Z88.5 Allergy status to narcotic agent
CPT/HCPCS: 99284; 96374; 96375; 96361; 80076; 80048; 83690; 85025; 36415; 85007; J1200; J2405; J1170; J7040; 70030-TC; A4606; A4663

== ENCOUNTER 2024-01-03 09:24 | Emergency (ER) | payer MEDICARE, BC ==
[~2024-01-03] VITALS: Ht 167.6 cm; Wt 77.1 kg
[2024-01-03] MEDS ORDERED: ONDANSETRON HCL 4 MG TABLET ONE (10:19)
[2024-01-03] MEDS ORDERED: HYDROMORPHONE 1 MG/1 ML DISP.SYRIN ONE (10:20)
[2024-01-03] MEDS ORDERED: diphenhydrAMINE 50 MG/1 ML VIAL ONE ×2 (10:20→12:24)
[2024-01-03] MEDS ORDERED: HYDROMORPHONE 2 MG/1 ML DISP.SYRIN ONE ×2 (10:33→12:23)
[2024-01-03] MEDS: diphenhydrAMINE 50 MG/1 ML VIAL IM ONE (11:04)
[2024-01-03] MEDS: HYDROMORPHONE 1 MG/1 ML DISP.SYRIN IM ONE (11:06)
[2024-01-03] MEDS: ONDANSETRON ODT 4 MG TAB.RAPDIS SL ONE (11:06)
[2024-01-03] MEDS: IV NS 1000 ML 1,000 ML IV ONE (11:06)
[2024-01-03 11:11] LABS: BASOPHILS % (AUTO) 0.7 % (0.0-2.0); EOSINOPHILS # (AUTO) 0.3 K/uL (0.0-0.7); EOSINOPHILS % (AUTO) 5.7 % (0.0-7.0); HEMATOCRIT 26.3 % (31.2-41.9); HEMOGLOBIN 8.7 g/dL (10.9-14.3); LYMPHOCYTES # (AUTO) 0.9 K/uL (0.8-4.8); LYMPHOCYTES % (AUTO) 19.7 % (20.5-51.5); MEAN CORPUSCULAR HEMOGLOBIN 27.2 uug (24.7-32.8); MEAN CORPUSCULAR HGB CONC 33 g/dL (32.3-35.6); MEAN CORPUSCULAR VOLUME 81.9 fL (75.5-95.3); MONOCYTES # (AUTO) 0.5 K/uL (0.1-1.30); MONOCYTES % (AUTO) 10.1 % (0.0-11.0); NEUTROPHILS # (AUTO) 2.9 K/uL (1.8-8.9); NEUTROPHILS % (AUTO) 63.8 % (38.5-71.5); PLATELET COUNT (AUTO) 174 K/uL (179-408); RED BLOOD CELL COUNT(AUTO) 3.21 MIL/uL (3.63-4.92); RED CELL DISTRIBUTION WIDTH 16.7 % (12.3-17.7); WHITE BLOOD COUNT (AUTO) 4.5 K/uL (3.8-11.8)
[2024-01-03 11:14] LABS: DIFFERENTIAL COMMENT 1
[2024-01-03] MEDS: ONDANSETRON 4 MG/2 ML VIAL IV ONE (11:15)
[2024-01-03 11:18] LABS: CALCIUM 8.6 mg/dL (8.5-10.1); CREATININE 0.7 mg/dL (0.6-1.3); POTASSIUM 3.6 mmol/L (3.5-5.1)
[2024-01-03] MEDS ORDERED: ONDANSETRON 4 MG/2 ML VIAL ONE (12:01)
[2024-01-03] MEDS: diphenhydrAMINE 50 MG/1 ML VIAL IV ONE (12:25)
[2024-01-03] MEDS: HYDROMORPHONE 1 MG/1 ML DISP.SYRIN IV ONE (12:25)
[2024-01-03] MEDS ORDERED: ONDA4TAB5 PO (12:27)
[2024-01-03] MEDS ORDERED: HYDR-3980 PO (12:27)
[2024-01-03 13:24] VITALS: BP 153/81; TEMP 207.7; O2SAT 96
== END 2024-01-03 13:25 | disposition home or self-care (01) ==
LOC: ER 09:25
DX: R10.30 Lower abdominal pain, unspecified (principal); C50.919 Malignant neoplasm of unspecified site of unspecified female breast; C78.7 Secondary malignant neoplasm of liver and intrahepatic bile duct; R11.2 Nausea with vomiting, unspecified; F11.90 Opioid use, unspecified, uncomplicated; E78.00 Pure hypercholesterolemia, unspecified; F32.A Depression, unspecified; E03.9 Hypothyroidism, unspecified; D64.9 Anemia, unspecified; Z90.49 Acquired absence of other specified parts of digestive tract; Z79.899 Other long term (current) drug therapy; Z60.2 Problems related to living alone; Z88.0 Allergy status to penicillin; Z88.2 Allergy status to sulfonamides
CPT/HCPCS: 99284; 96374; 96375; 96361; 80048; 85025; 36415; 96372; J1200 ×2; J2405; J1170 ×2; J7040; A4606; A4663; Q0162

== ENCOUNTER 2024-01-05 02:02 | Emergency (ER) | payer MEDICARE, BC ==
[~2024-01-05] VITALS: Ht 167.6 cm; Wt 77.1 kg
[~2024-01-05 02:02] MED LIST changes: +HYDR-3980 PO; +ONDA4TAB5 PO
[2024-01-05] MEDS ORDERED: diphenhydrAMINE 50 MG/1 ML VIAL ONE (02:43)
[2024-01-05] MEDS ORDERED: ONDANSETRON 4 MG/2 ML VIAL ONE (02:43)
[2024-01-05] MEDS ORDERED: HYDROMORPHONE 1 MG/1 ML DISP.SYRIN ONE (02:44)
[2024-01-05 02:47] LABS: BASOPHILS # (AUTO) 0.1 K/UL (0.0-0.2); BASOPHILS % (AUTO) 0.6 % (0.0-2.0); EOSINOPHILS % (AUTO) 0.2 % (0.0-7.0); HEMATOCRIT 25.6 % (31.2-41.9); HEMOGLOBIN 8.7 g/dL (10.9-14.3); LYMPHOCYTES # (AUTO) 1.2 K/uL (0.8-4.8); LYMPHOCYTES % (AUTO) 14.3 % (20.5-51.5); MEAN CORPUSCULAR HGB CONC 34 g/dL (32.3-35.6); MEAN CORPUSCULAR VOLUME 79.9 fL (75.5-95.3); MONOCYTES # (AUTO) 0.5 K/uL (0.1-1.30); MONOCYTES % (AUTO) 5.6 % (0.0-11.0); NEUTROPHILS # (AUTO) 6.7 K/uL (1.8-8.9); NEUTROPHILS % (AUTO) 79.3 % (38.5-71.5); PLATELET COUNT (AUTO) 203 K/uL (179-408); RED BLOOD CELL COUNT(AUTO) 3.21 MIL/uL (3.63-4.92); RED CELL DISTRIBUTION WIDTH 16.5 % (12.3-17.7); WHITE BLOOD COUNT (AUTO) 8.4 K/uL (3.8-11.8)
[2024-01-05] MEDS: diphenhydrAMINE 50 MG/1 ML VIAL IV ONE (02:54)
[2024-01-05] MEDS: HYDROMORPHONE 1 MG/1 ML DISP.SYRIN IV ONE (02:54)
[2024-01-05] MEDS: ONDANSETRON 4 MG/2 ML VIAL IV ONE (02:54)
[2024-01-05] MEDS: IV NS 1000 ML 1,000 ML IV ONE (02:55)
[2024-01-05 03:08] LABS: DIFFERENTIAL COMMENT 1
[2024-01-05 03:15] LABS: CALCIUM 9.6 mg/dL (8.5-10.1); CREATININE 0.8 mg/dL (0.6-1.3); POTASSIUM 3.9 mmol/L (3.5-5.1)
[2024-01-05 04:05] VITALS: BP 140/82; TEMP 98; O2SAT 99
[2024-01-05 04:31] LABS: *BILIRUBIN,URIN NEGATIVE (NEGATIVE); *CLARITY,URINE CLEAR (CLEAR); *COLOR,URINE YELLOW (YELLOW); *KETONES,URINE NEGATIVE (NEGATIVE); *PROTEIN,URINE NEGATIVE (NEGATIVE); *UROBILINOGEN,URINE 0.2 E.U./dl (NORMAL); LEUKOCYTE ESTERASE ,URINE NEGATIVE (NEGATIVE); NITRITE, URINE NEGATIVE (NEGATIVE); UGLUCOSE NEGATIVE (NEGATIVE)
[2024-01-05 06:01] LABS: *BLOOD, URINE NEGATIVE (NEGATIVE)
== END 2024-01-05 04:05 | disposition home or self-care (01) ==
LOC: ER 02:06
DX: R10.84 Generalized abdominal pain (principal); E78.00 Pure hypercholesterolemia, unspecified; F32.A Depression, unspecified; E03.9 Hypothyroidism, unspecified; D64.9 Anemia, unspecified; Z79.899 Other long term (current) drug therapy; Z60.2 Problems related to living alone; Z88.0 Allergy status to penicillin; Z88.2 Allergy status to sulfonamides; Z88.5 Allergy status to narcotic agent
CPT/HCPCS: 99284; 96374; 96375; 96361; 80048; 81003; 85025; 36415; J1200; J2405; J1170; J7040; A4606; A4663

== ENCOUNTER 2024-01-29 20:14 | Emergency (ER) | payer MEDICARE, BC ==
[~2024-01-29] VITALS: Ht 167.6 cm; Wt 77.1 kg
[~2024-01-29 20:14] MED LIST changes: +DICY20TA11 PO; +TAMO10TA6 PO
[2024-01-29 20:27] VITALS: O2SAT 96
[2024-01-29] MEDS ORDERED: ONDANSETRON ODT 4 MG TAB.RAPDIS ONE (21:10)
[2024-01-29] MEDS ORDERED: HYDROMORPHONE HCL 2 MG TABLET ONE (21:10)
[2024-01-29] MEDS: HYDROMORPHONE HCL 2 MG TABLET PO ONE (21:13)
[2024-01-29] MEDS ORDERED: ONDANSETRON 4 MG/2 ML VIAL ONE (21:14)
[2024-01-29] MEDS ORDERED: ONDANSETRON ODT 4 MG TAB.RAPDIS SL ONE (21:15)
[2024-01-29] MEDS: ONDANSETRON 4 MG/2 ML VIAL IM ONE (21:23)
== END 2024-01-29 21:40 | disposition left against medical advice (07) ==
LOC: ER 20:16
DX: G89.29 Other chronic pain (principal); R10.9 Unspecified abdominal pain; R11.2 Nausea with vomiting, unspecified; F11.20 Opioid dependence, uncomplicated; Z76.5 Malingerer [conscious simulation]; E78.00 Pure hypercholesterolemia, unspecified; F32.A Depression, unspecified; E03.9 Hypothyroidism, unspecified; D64.9 Anemia, unspecified; Z98.890 Other specified postprocedural states; Z79.899 Other long term (current) drug therapy; Z60.2 Problems related to living alone
CPT/HCPCS: 99283; 96372; J2405; A4606; A4663; Q0162

== ENCOUNTER 2024-02-16 02:35 | Emergency (ER) | payer MEDICARE, BC ==
[~2024-02-16] VITALS: Ht 167.6 cm; Wt 77.1 kg
[2024-02-16] MEDS ORDERED: diphenhydrAMINE 50 MG/1 ML VIAL ONE (03:36)
[2024-02-16] MEDS ORDERED: ONDANSETRON 4 MG/2 ML VIAL ONE (03:36)
[2024-02-16] MEDS ORDERED: HYDROMORPHONE 1 MG/1 ML DISP.SYRIN ONE (03:37)
[2024-02-16 03:47] LABS: BASOPHILS % (AUTO) 0.6 % (0.0-2.0); DIFFERENTIAL COMMENT 0; EOSINOPHILS # (AUTO) 0.2 K/uL (0.0-0.7); EOSINOPHILS % (AUTO) 2.8 % (0.0-7.0); HEMATOCRIT 35.8 % (31.2-41.9); HEMOGLOBIN 11.9 g/dL (10.9-14.3); LYMPHOCYTES # (AUTO) 2.1 K/uL (0.8-4.8); LYMPHOCYTES % (AUTO) 24.6 % (20.5-51.5); MEAN CORPUSCULAR HEMOGLOBIN 28.2 uug (24.7-32.8); MEAN CORPUSCULAR HGB CONC 33 g/dL (32.3-35.6); MEAN CORPUSCULAR VOLUME 84.8 fL (75.5-95.3); MONOCYTES # (AUTO) 0.7 K/uL (0.1-1.30); MONOCYTES % (AUTO) 7.8 % (0.0-11.0); NEUTROPHILS # (AUTO) 5.4 K/uL (1.8-8.9); NEUTROPHILS % (AUTO) 64.2 % (38.5-71.5); PLATELET COUNT (AUTO) 180 K/uL (179-408); RED BLOOD CELL COUNT(AUTO) 4.22 MIL/uL (3.63-4.92); RED CELL DISTRIBUTION WIDTH 20.3 % (12.3-17.7); WHITE BLOOD COUNT (AUTO) 8.4 K/uL (3.8-11.8)
[2024-02-16] MEDS: HYDROMORPHONE 1 MG/1 ML DISP.SYRIN IV ONE (04:01)
[2024-02-16] MEDS: diphenhydrAMINE 50 MG/1 ML VIAL IV ONE (04:01)
[2024-02-16] MEDS: ONDANSETRON 4 MG/2 ML VIAL IV ONE (04:01)
[2024-02-16] MEDS: IV NS 1000 ML 1,000 ML IV ONE (04:01)
[2024-02-16 04:21] LABS: CALCIUM 9.5 mg/dL (8.5-10.1); CREATININE 0.9 mg/dL (0.6-1.3); POTASSIUM 3.6 mmol/L (3.5-5.1)
[2024-02-16 04:26] LABS: ALBUMIN 3.6 g/dL (3.4-5.0); BILIRUBIN,TOTAL 0.3 mg/dL (0.2-1.0); TOTAL PROTEIN, SERUM 7.1 g/dL (6.4-8.2)
[2024-02-16 07:39] VITALS: BP 131/68; TEMP 98.3; O2SAT 97
== END 2024-02-16 07:41 | disposition home or self-care (01) ==
LOC: ER 02:45
DX: R10.9 Unspecified abdominal pain (principal); E03.9 Hypothyroidism, unspecified; Z79.899 Other long term (current) drug therapy; Z60.2 Problems related to living alone; E88.2 Lipomatosis, not elsewhere classified; Z88.0 Allergy status to penicillin; Z88.5 Allergy status to narcotic agent
CPT/HCPCS: 99284; 96374; 96361; 96375; 80053; 83690; 85025; 36415; J1200; J2405; J1170; J7040; A4606; A4663

== ENCOUNTER 2024-02-18 09:49 | Emergency (ER) | payer MEDICARE, BC ==
[~2024-02-18] VITALS: Ht 167.6 cm; Wt 77.1 kg
[2024-02-18] MEDS ORDERED: HYDROMORPHONE 2 MG/1 ML DISP.SYRIN ONE ×3 (10:46→14:32)
[2024-02-18] MEDS ORDERED: diphenhydrAMINE 50 MG/1 ML VIAL ONE ×3 (10:47→17:30)
[2024-02-18] MEDS ORDERED: ONDANSETRON 4 MG/2 ML VIAL ONE ×2 (10:47→14:32)
[2024-02-18] MEDS: ONDANSETRON 4 MG/2 ML VIAL IV ONE ×2 (10:52→14:33)
[2024-02-18] MEDS: diphenhydrAMINE 50 MG/1 ML VIAL IV ONE ×3 (10:52→17:31)
[2024-02-18] MEDS: IV NS 1000 ML 1,000 ML IV ONE (10:52)
[2024-02-18] MEDS: HYDROMORPHONE 1 MG/1 ML DISP.SYRIN IV ONE ×4 (10:52→17:31)
[2024-02-18 11:07] LABS: BASOPHILS % (AUTO) 0.4 % (0.0-2.0); EOSINOPHILS # (AUTO) 0.2 K/uL (0.0-0.7); EOSINOPHILS % (AUTO) 2.8 % (0.0-7.0); HEMATOCRIT 30.9 % (31.2-41.9); LYMPHOCYTES # (AUTO) 1.6 K/uL (0.8-4.8); LYMPHOCYTES % (AUTO) 22.6 % (20.5-51.5); MEAN CORPUSCULAR HEMOGLOBIN 27.7 uug (24.7-32.8); MEAN CORPUSCULAR HGB CONC 32 g/dL (32.3-35.6); MEAN CORPUSCULAR VOLUME 85.4 fL (75.5-95.3); MONOCYTES # (AUTO) 0.6 K/uL (0.1-1.30); NEUTROPHILS # (AUTO) 4.7 K/uL (1.8-8.9); NEUTROPHILS % (AUTO) 65.2 % (38.5-71.5); PLATELET COUNT (AUTO) 157 K/uL (179-408); RED BLOOD CELL COUNT(AUTO) 3.62 MIL/uL (3.63-4.92); RED CELL DISTRIBUTION WIDTH 20.6 % (12.3-17.7); WHITE BLOOD COUNT (AUTO) 7.2 K/uL (3.8-11.8)
[2024-02-18 11:14] LABS: CALCIUM 8.5 mg/dL (8.5-10.1); CREATININE 0.6 mg/dL (0.6-1.3); POTASSIUM 3.6 mmol/L (3.5-5.1)
[2024-02-18 11:58] LABS: DIFFERENTIAL COMMENT 1
[2024-02-18] MEDS ORDERED: HYDROMORPHONE 1 MG/1 ML DISP.SYRIN ONE ×2 (17:30→17:31)
[2024-02-18 18:45] VITALS: O2SAT 98
== END 2024-02-18 18:54 | disposition home or self-care (01) ==
LOC: ER 09:49
DX: R10.30 Lower abdominal pain, unspecified (principal); R11.0 Nausea; R19.7 Diarrhea, unspecified; T45.1X5A Adverse effect of antineoplastic and immunosuppressive drugs, initial encounter; R63.0 Anorexia; E03.9 Hypothyroidism, unspecified; Z68.27 Body mass index [BMI] 27.0-27.9, adult; Z86.2 Personal history of diseases of the blood and blood-forming organs and certain disorders involving the immune mechanism; Z88.0 Allergy status to penicillin; Z88.2 Allergy status to sulfonamides; Z88.5 Allergy status to narcotic agent; Z79.899 Other long term (current) drug therapy; Y92.89 Other specified places as the place of occurrence of the external cause
CPT/HCPCS: 36415; 83735; 85025; A4606; A4663; J1170; J1200; J2405; J7040

== ENCOUNTER 2024-02-23 03:36 | Emergency (ER) | payer MEDICARE, BC ==
[~2024-02-23] VITALS: Ht 167.6 cm; Wt 77.1 kg
[2024-02-23] MEDS: IV NORMAL SALINE 1000 ML BAG IV ONE (04:38)
[2024-02-23] MEDS ORDERED: diphenhydrAMINE 50 MG/1 ML VIAL ONE (04:41)
[2024-02-23] MEDS ORDERED: ONDANSETRON 4 MG/2 ML VIAL ONE (04:41)
[2024-02-23] MEDS ORDERED: HYDROMORPHONE 1 MG/1 ML DISP.SYRIN ONE (04:41)
[2024-02-23] MEDS: diphenhydrAMINE 50 MG/1 ML VIAL IV ONE (04:43)
[2024-02-23] MEDS: HYDROMORPHONE 1 MG/1 ML DISP.SYRIN IV ONE (04:46)
[2024-02-23] MEDS: ONDANSETRON 4 MG/2 ML VIAL IV ONE (04:47)
[2024-02-23 04:52] LABS: BASOPHILS % (AUTO) 0.8 % (0.0-2.0); EOSINOPHILS # (AUTO) 0.2 K/uL (0.0-0.7); EOSINOPHILS % (AUTO) 4.5 % (0.0-7.0); HEMOGLOBIN 10.7 g/dL (10.9-14.3); LYMPHOCYTES # (AUTO) 1.4 K/uL (0.8-4.8); LYMPHOCYTES % (AUTO) 25.9 % (20.5-51.5); MEAN CORPUSCULAR HEMOGLOBIN 28.7 uug (24.7-32.8); MEAN CORPUSCULAR HGB CONC 34 g/dL (32.3-35.6); MEAN CORPUSCULAR VOLUME 85.8 fL (75.5-95.3); MONOCYTES # (AUTO) 0.5 K/uL (0.1-1.30); MONOCYTES % (AUTO) 9.9 % (0.0-11.0); NEUTROPHILS # (AUTO) 3.2 K/uL (1.8-8.9); NEUTROPHILS % (AUTO) 58.9 % (38.5-71.5); PLATELET COUNT (AUTO) 174 K/uL (179-408); RED BLOOD CELL COUNT(AUTO) 3.73 MIL/uL (3.63-4.92); RED CELL DISTRIBUTION WIDTH 20.8 % (12.3-17.7); WHITE BLOOD COUNT (AUTO) 5.4 K/uL (3.8-11.8)
[2024-02-23 05:09] LABS: CALCIUM 9.1 mg/dL (8.5-10.1); CREATININE 0.8 mg/dL (0.6-1.3); POTASSIUM 3.6 mmol/L (3.5-5.1)
[2024-02-23 05:15] LABS: ALBUMIN 3.3 g/dL (3.4-5.0); BILIRUBIN,DIRECT 0.1 mg/dL (0.0-0.2); BILIRUBIN,TOTAL 0.3 mg/dL (0.2-1.0); DIFFERENTIAL COMMENT 1; TOTAL PROTEIN, SERUM 6.7 g/dL (6.4-8.2)
[2024-02-23 06:16] LABS: *BILIRUBIN,URIN NEGATIVE (NEGATIVE); *CLARITY,URINE CLEAR (CLEAR); *COLOR,URINE YELLOW (YELLOW); *KETONES,URINE NEGATIVE (NEGATIVE); *PROTEIN,URINE NEGATIVE (NEGATIVE); *UROBILINOGEN,URINE 0.2 E.U./dl (NORMAL); LEUKOCYTE ESTERASE ,URINE NEGATIVE (NEGATIVE); NITRITE, URINE NEGATIVE (NEGATIVE); UGLUCOSE NEGATIVE (NEGATIVE)
[2024-02-23 06:20] LABS: *BLOOD, URINE NEGATIVE (NEGATIVE)
[2024-02-23 08:04] VITALS: BP 144/95; TEMP 208.2; O2SAT 97
== END 2024-02-23 08:05 | disposition home or self-care (01) ==
LOC: ER 03:44
DX: G89.29 Other chronic pain (principal); R10.9 Unspecified abdominal pain; T66.XXXA Radiation sickness, unspecified, initial encounter; Z76.5 Malingerer [conscious simulation]; R03.0 Elevated blood-pressure reading, without diagnosis of hypertension; E03.9 Hypothyroidism, unspecified; D64.9 Anemia, unspecified; Z79.899 Other long term (current) drug therapy; Z60.2 Problems related to living alone; Z88.0 Allergy status to penicillin; Z88.2 Allergy status to sulfonamides; Z88.5 Allergy status to narcotic agent
CPT/HCPCS: 99285; 74176; 96374; 96375; 96361; 80076; 80048; 81003; 83690; 85025; 85730; 36415; J1200; J2405; J1170; J7040; A4606; A4663

== ENCOUNTER 2024-02-29 13:42 | Emergency (ER) | payer MEDICARE, BC ==
[~2024-02-29] VITALS: Ht 167.6 cm; Wt 77.1 kg
[2024-02-29 13:44] VITALS: O2SAT 99
== END 2024-02-29 15:02 | disposition left against medical advice (07) ==
LOC: ER 13:45
DX: G89.4 Chronic pain syndrome (principal); Z53.21 Procedure and treatment not carried out due to patient leaving prior to being seen by health care provider; E78.5 Hyperlipidemia, unspecified; E03.9 Hypothyroidism, unspecified; Z79.899 Other long term (current) drug therapy; Z60.2 Problems related to living alone; Z88.0 Allergy status to penicillin; Z88.2 Allergy status to sulfonamides
CPT/HCPCS: A4606; A4663

== ENCOUNTER 2024-03-15 06:00 | Emergency (ER) | payer MEDICARE, BC ==
[~2024-03-15] VITALS: Ht 167.6 cm; Wt 77.1 kg
[2024-03-15] MEDS ORDERED: diphenhydrAMINE 50 MG/1 ML VIAL ONE ×3 (07:17→12:14)
[2024-03-15] MEDS ORDERED: ONDANSETRON 4 MG/2 ML VIAL ONE ×2 (07:17→10:28)
[2024-03-15] MEDS ORDERED: HYDROMORPHONE 1 MG/1 ML DISP.SYRIN ONE ×2 (07:18→08:55)
[2024-03-15] MEDS: diphenhydrAMINE 50 MG/1 ML VIAL IV ONE ×3 (07:49→12:20)
[2024-03-15] MEDS: IV NORMAL SALINE 1000 ML BAG IV ONE (07:49)
[2024-03-15] MEDS: ONDANSETRON 4 MG/2 ML VIAL IV ONE ×2 (07:50→10:33)
[2024-03-15] MEDS: HYDROMORPHONE 1 MG/1 ML DISP.SYRIN IV ONE ×3 (07:51→12:20)
[2024-03-15 08:17] LABS: *BILIRUBIN,URIN NEGATIVE (NEGATIVE); *CLARITY,URINE CLEAR (CLEAR); *COLOR,URINE YELLOW (YELLOW); *KETONES,URINE NEGATIVE (NEGATIVE); *PROTEIN,URINE NEGATIVE (NEGATIVE); *UROBILINOGEN,URINE 0.2 E.U./dl (NORMAL); LEUKOCYTE ESTERASE ,URINE NEGATIVE (NEGATIVE); NITRITE, URINE NEGATIVE (NEGATIVE); PH,URINE 5.5 (5.0-8.0); UGLUCOSE NEGATIVE (NEGATIVE)
[2024-03-15 08:20] LABS: *BLOOD, URINE TRACE (NEGATIVE)
[2024-03-15 08:26] LABS: RBC,URINE 0-3 /HPF (0-3); WBC,URINE 0-3 /HPF (0-3)
[2024-03-15 08:27] LABS: BACTERIA,URINE NONE SEEN /HPF (NONE SEEN); SQUAMOUS EPITHELIAL CELL,UR FEW /HPF (NONE SEEN)
[2024-03-15] MEDS ORDERED: OXYC-133 PO (10:25)
[2024-03-15] MEDS ORDERED: FLAS1EAC2 TP (11:54)
[2024-03-15] MEDS ORDERED: FLAS1KIT2 TP (11:54)
[2024-03-15] MEDS ORDERED: HYDROMORPHONE 2 MG/1 ML DISP.SYRIN ONE (12:15)
[2024-03-15 12:30] VITALS: BP 123/92; TEMP 98.5; O2SAT 98
== END 2024-03-15 13:00 | disposition home or self-care (01) ==
LOC: ER 06:03
DX: G89.4 Chronic pain syndrome (principal); T45.1X5A Adverse effect of antineoplastic and immunosuppressive drugs, initial encounter; C79.81 Secondary malignant neoplasm of breast; E78.5 Hyperlipidemia, unspecified; E03.9 Hypothyroidism, unspecified; Z86.2 Personal history of diseases of the blood and blood-forming organs and certain disorders involving the immune mechanism; Z88.0 Allergy status to penicillin; Z88.2 Allergy status to sulfonamides; Z88.5 Allergy status to narcotic agent; Z79.899 Other long term (current) drug therapy; Y92.89 Other specified places as the place of occurrence of the external cause
CPT/HCPCS: 99284; 96374; 96375; 96361; 81001; 96376; J1200 ×3; J2405 ×2; J1170 ×3; J7040; A4606; A4663

== ENCOUNTER 2024-03-28 17:57 | Emergency (ER) | payer MEDICARE, BC ==
[~2024-03-28] VITALS: Ht 167.6 cm; Wt 77.1 kg
[~2024-03-28 17:57] MED LIST changes: +FLAS1EAC2 TP; +FLAS1KIT2 TP
[2024-03-28 18:17] VITALS: O2SAT 98
[2024-03-28] MEDS ORDERED: ONDANSETRON ODT 4 MG TAB.RAPDIS ONE (19:35)
[2024-03-28] MEDS ORDERED: LOPERAMIDE HCL 2 MG CAPSULE ONE (19:36)
[2024-03-28] MEDS ORDERED: OXYCODONE/APAP 5-325 MG TABLET ONE (19:36)
[2024-03-28] MEDS: ONDANSETRON ODT 4 MG TAB.RAPDIS SL ONE (19:38)
[2024-03-28] MEDS: OXYCODONE/APAP 5-325 MG TABLET PO ONE (19:38)
[2024-03-28] MEDS ORDERED: OXYC-128 PO (19:38)
[2024-03-28] MEDS: LOPERAMIDE HCL 2 MG CAPSULE PO ONE (19:38)
== END 2024-03-28 19:40 | disposition left against medical advice (07) ==
LOC: ER 18:01
DX: G89.4 Chronic pain syndrome (principal); E78.5 Hyperlipidemia, unspecified; E03.9 Hypothyroidism, unspecified; D64.9 Anemia, unspecified; Z98.890 Other specified postprocedural states; Z79.899 Other long term (current) drug therapy; Z79.891 Long term (current) use of opiate analgesic; Z60.2 Problems related to living alone; Z88.2 Allergy status to sulfonamides; Z88.0 Allergy status to penicillin
CPT/HCPCS: A4606; A4663; Q0162

== ENCOUNTER 2024-04-18 13:57 | Emergency (ER) | payer MEDICARE, BC ==
[~2024-04-18] VITALS: Ht 167.6 cm; Wt 77.1 kg
[~2024-04-18 13:57] MED LIST changes: +OXYC-128 PO; -OXYC-133 PO
[2024-04-18] MEDS ORDERED: ONDANSETRON 4 MG/2 ML VIAL ONE (15:14)
[2024-04-18] MEDS ORDERED: HYDROMORPHONE 2 MG/1 ML DISP.SYRIN ONE ×2 (15:15→17:17)
[2024-04-18] MEDS ORDERED: diphenhydrAMINE 50 MG/1 ML VIAL ONE ×2 (15:15→17:17)
[2024-04-18] MEDS: diphenhydrAMINE 50 MG/1 ML VIAL IV ONE ×2 (15:22→17:21)
[2024-04-18] MEDS: HYDROMORPHONE 1 MG/1 ML DISP.SYRIN IV ONE ×3 (15:22→18:25)
[2024-04-18] MEDS: ONDANSETRON 4 MG/2 ML VIAL IV ONE (15:22)
[2024-04-18 15:43] LABS: BASOPHILS % (AUTO) 0.5 % (0.0-2.0); DIFFERENTIAL COMMENT 1; EOSINOPHILS # (AUTO) 0.2 K/uL (0.0-0.7); EOSINOPHILS % (AUTO) 3.3 % (0.0-7.0); HEMATOCRIT 34.1 % (31.2-41.9); LYMPHOCYTES # (AUTO) 1.7 K/uL (0.8-4.8); LYMPHOCYTES % (AUTO) 23.1 % (20.5-51.5); MEAN CORPUSCULAR HEMOGLOBIN 28.8 uug (24.7-32.8); MEAN CORPUSCULAR HGB CONC 32 g/dL (32.3-35.6); MEAN CORPUSCULAR VOLUME 89.1 fL (75.5-95.3); MONOCYTES # (AUTO) 0.7 K/uL (0.1-1.30); MONOCYTES % (AUTO) 9.7 % (0.0-11.0); NEUTROPHILS # (AUTO) 4.8 K/uL (1.8-8.9); NEUTROPHILS % (AUTO) 63.4 % (38.5-71.5); PLATELET COUNT (AUTO) 162 K/uL (179-408); RED BLOOD CELL COUNT(AUTO) 3.83 MIL/uL (3.63-4.92); RED CELL DISTRIBUTION WIDTH 15.4 % (12.3-17.7); WHITE BLOOD COUNT (AUTO) 7.5 K/uL (3.8-11.8)
[2024-04-18 15:52] LABS: CALCIUM 9.3 mg/dL (8.5-10.1); CREATININE 0.7 mg/dL (0.6-1.3); POTASSIUM 4.6 mmol/L (3.5-5.1)
[2024-04-18] MEDS ORDERED: HYDR-3980 PO (18:13)
[2024-04-18] MEDS ORDERED: HYDROMORPHONE 1 MG/1 ML DISP.SYRIN ONE (18:17)
[2024-04-18 18:26] VITALS: O2SAT 99
== END 2024-04-18 18:28 | disposition home or self-care (01) ==
LOC: ER 13:59
DX: R10.30 Lower abdominal pain, unspecified (principal); E78.5 Hyperlipidemia, unspecified; E03.9 Hypothyroidism, unspecified; D64.9 Anemia, unspecified; Z98.890 Other specified postprocedural states; Z88.2 Allergy status to sulfonamides; Z88.5 Allergy status to narcotic agent; Z88.0 Allergy status to penicillin; Z60.2 Problems related to living alone; Z79.891 Long term (current) use of opiate analgesic; Z79.899 Other long term (current) drug therapy
CPT/HCPCS: 99284; 96374; 96375; 80048; 85025; 36415; 96376; J1200 ×2; J2405; J1170 ×3; A4606; A4663

== ENCOUNTER 2024-04-26 07:02 | Emergency (ER) | payer MEDICARE, BC ==
[~2024-04-26] VITALS: Ht 167.6 cm; Wt 77.1 kg
[2024-04-26] MEDS ORDERED: HYDROMORPHONE 2 MG/1 ML DISP.SYRIN ONE ×5 (07:36→14:17)
[2024-04-26] MEDS ORDERED: ONDANSETRON 4 MG/2 ML VIAL ONE ×3 (07:36→11:23)
[2024-04-26] MEDS ORDERED: diphenhydrAMINE 50 MG/1 ML VIAL ONE ×4 (07:36→14:17)
[2024-04-26] MEDS: diphenhydrAMINE 50 MG/1 ML VIAL IV ONE ×4 (07:42→14:21)
[2024-04-26] MEDS: HYDROMORPHONE 1 MG/1 ML DISP.SYRIN IV ONE ×5 (07:43→14:22)
[2024-04-26] MEDS: IV NORMAL SALINE 1000 ML BAG IV ONE (07:43)
[2024-04-26] MEDS: ONDANSETRON 4 MG/2 ML VIAL IV ONE ×3 (07:43→11:31)
[2024-04-26 08:07] LABS: BASOPHILS % (AUTO) 0.4 % (0.0-2.0); EOSINOPHILS # (AUTO) 0.2 K/uL (0.0-0.7); EOSINOPHILS % (AUTO) 3.9 % (0.0-7.0); HEMATOCRIT 31.4 % (31.2-41.9); HEMOGLOBIN 10.4 g/dL (10.9-14.3); LYMPHOCYTES # (AUTO) 0.9 K/uL (0.8-4.8); LYMPHOCYTES % (AUTO) 15.3 % (20.5-51.5); MEAN CORPUSCULAR HEMOGLOBIN 29.1 uug (24.7-32.8); MEAN CORPUSCULAR HGB CONC 33 g/dL (32.3-35.6); MEAN CORPUSCULAR VOLUME 87.8 fL (75.5-95.3); MONOCYTES # (AUTO) 0.5 K/uL (0.1-1.30); MONOCYTES % (AUTO) 7.9 % (0.0-11.0); NEUTROPHILS # (AUTO) 4.2 K/uL (1.8-8.9); NEUTROPHILS % (AUTO) 72.5 % (38.5-71.5); PLATELET COUNT (AUTO) 179 K/uL (179-408); RED BLOOD CELL COUNT(AUTO) 3.57 MIL/uL (3.63-4.92); RED CELL DISTRIBUTION WIDTH 15.5 % (12.3-17.7); WHITE BLOOD COUNT (AUTO) 5.8 K/uL (3.8-11.8)
[2024-04-26 08:12] LABS: DIFFERENTIAL COMMENT 1
[2024-04-26 08:17] LABS: CALCIUM 9.1 mg/dL (8.5-10.1); CREATININE 0.8 mg/dL (0.6-1.3); POTASSIUM 3.6 mmol/L (3.5-5.1)
[2024-04-26 14:38] VITALS: O2SAT 97
== END 2024-04-26 14:53 | disposition home or self-care (01) ==
LOC: ER 07:02
DX: R10.9 Unspecified abdominal pain (principal); E78.5 Hyperlipidemia, unspecified; E03.9 Hypothyroidism, unspecified; D64.9 Anemia, unspecified; Z88.2 Allergy status to sulfonamides; Z88.0 Allergy status to penicillin; Z88.5 Allergy status to narcotic agent; Z60.2 Problems related to living alone; Z79.899 Other long term (current) drug therapy; Z79.891 Long term (current) use of opiate analgesic
CPT/HCPCS: 36415; 85025; A4606; A4663; J1170; J1200; J2405; J7040

== ENCOUNTER 2024-05-10 09:08 | Emergency (ER) | payer MEDICARE, BC ==
[~2024-05-10] VITALS: Ht 167.6 cm; Wt 77.1 kg
[2024-05-10] MEDS: HYDROMORPHONE 1 MG/1 ML DISP.SYRIN IV ONE ×3 (09:57→15:31)
[2024-05-10] MEDS: ONDANSETRON 4 MG/2 ML VIAL IV ONE ×3 (09:58→15:31)
[2024-05-10] MEDS ORDERED: ONDANSETRON 4 MG/2 ML VIAL ONE ×3 (09:58→15:17)
[2024-05-10] MEDS: IV NORMAL SALINE 1000 ML BAG IV ONE (09:58)
[2024-05-10] MEDS ORDERED: HYDROMORPHONE 2 MG/1 ML DISP.SYRIN ONE ×4 (09:58→15:20)
[2024-05-10] MEDS: diphenhydrAMINE 50 MG/1 ML VIAL IV ONE ×3 (10:15→15:31)
[2024-05-10] MEDS ORDERED: diphenhydrAMINE 50 MG/1 ML VIAL ONE ×3 (10:17→15:24)
[2024-05-10 10:18] LABS: CALCIUM 9.2 mg/dL (8.5-10.1); CREATININE 0.8 mg/dL (0.6-1.3); POTASSIUM 3.9 mmol/L (3.5-5.1)
[2024-05-10 10:27] LABS: BASOPHILS % (AUTO) 0.5 % (0.0-2.0); EOSINOPHILS # (AUTO) 0.2 K/uL (0.0-0.7); EOSINOPHILS % (AUTO) 2.6 % (0.0-7.0); HEMATOCRIT 27.3 % (31.2-41.9); LYMPHOCYTES # (AUTO) 1.2 K/uL (0.8-4.8); LYMPHOCYTES % (AUTO) 17.9 % (20.5-51.5); MEAN CORPUSCULAR HEMOGLOBIN 29.2 uug (24.7-32.8); MEAN CORPUSCULAR HGB CONC 33 g/dL (32.3-35.6); MEAN CORPUSCULAR VOLUME 88.4 fL (75.5-95.3); MONOCYTES # (AUTO) 0.6 K/uL (0.1-1.30); NEUTROPHILS # (AUTO) 4.8 K/uL (1.8-8.9); PLATELET COUNT (AUTO) 150 K/uL (179-408); RED BLOOD CELL COUNT(AUTO) 3.09 MIL/uL (3.63-4.92); RED CELL DISTRIBUTION WIDTH 14.7 % (12.3-17.7); WHITE BLOOD COUNT (AUTO) 6.8 K/uL (3.8-11.8)
[2024-05-10 10:36] LABS: DIFFERENTIAL COMMENT 1
[2024-05-10 12:27] LABS: *BILIRUBIN,URIN NEGATIVE (NEGATIVE); *BLOOD, URINE NEGATIVE (NEGATIVE); *CLARITY,URINE CLEAR (CLEAR); *COLOR,URINE YELLOW (YELLOW); *KETONES,URINE NEGATIVE (NEGATIVE); *PROTEIN,URINE NEGATIVE (NEGATIVE); *UROBILINOGEN,URINE 0.2 E.U./dl (NORMAL); LEUKOCYTE ESTERASE ,URINE NEGATIVE (NEGATIVE); NITRITE, URINE NEGATIVE (NEGATIVE); UGLUCOSE NEGATIVE (NEGATIVE)
[2024-05-10 15:45] VITALS: O2SAT 99
== END 2024-05-10 16:09 | disposition home or self-care (01) ==
LOC: ER 09:08
DX: R10.31 Right lower quadrant pain (principal); R10.32 Left lower quadrant pain; E78.5 Hyperlipidemia, unspecified; E03.9 Hypothyroidism, unspecified; D64.9 Anemia, unspecified; Z79.891 Long term (current) use of opiate analgesic; Z79.899 Other long term (current) drug therapy; Z60.2 Problems related to living alone; Z88.2 Allergy status to sulfonamides; Z88.5 Allergy status to narcotic agent; Z88.1 Allergy status to other antibiotic agents
CPT/HCPCS: 99284; 96374; 96375; 96361; 80048; 81003; 85025; 36415; 96376; J1200 ×3; J2405 ×3; J1170 ×3; J7040; A4606; A4663

== ENCOUNTER 2024-05-13 11:14 | Emergency (ER) | payer MEDICARE, BC ==
--- NOTE | 2024-05-13 11:36 | NUR ---
I called the patient for triage. While patient and I were walking towards ER room 2A, this patient asked,"Who is the ER doctor today?" I gave the ER doctor's name. Patient said, "I'm not going to stay." Patient walked out of ER immediately.
== END 2024-05-13 11:37 | disposition left against medical advice (07) ==
LOC: ER 11:14
DX: I11.0 Hypertensive heart disease with heart failure (principal); Z53.21 Procedure and treatment not carried out due to patient leaving prior to being seen by health care provider

== ENCOUNTER 2024-05-29 17:17 | Emergency (ER) | payer MEDICARE, BC ==
[~2024-05-29] VITALS: Ht 167.6 cm; Wt 77.1 kg
[2024-05-29] MEDS: IV NORMAL SALINE 1000 ML BAG IV ONE (17:42)
[2024-05-29] MEDS ORDERED: HYDROMORPHONE 1 MG/1 ML DISP.SYRIN ONE ×2 (17:51→18:15)
[2024-05-29] MEDS ORDERED: ONDANSETRON 4 MG/2 ML VIAL ONE (17:51)
[2024-05-29] MEDS ORDERED: diphenhydrAMINE 50 MG/1 ML VIAL ONE ×2 (17:51→18:15)
[2024-05-29] MEDS: diphenhydrAMINE 50 MG/1 ML VIAL IV ONE ×2 (17:53→18:27)
[2024-05-29] MEDS: HYDROMORPHONE 1 MG/1 ML DISP.SYRIN IV ONE ×2 (17:53→18:27)
[2024-05-29] MEDS: ONDANSETRON 4 MG/2 ML VIAL IV ONE (17:53)
[2024-05-29 18:10] LABS: CALCIUM 9.6 mg/dL (8.5-10.1); CREATININE 0.7 mg/dL (0.6-1.3); POTASSIUM 3.8 mmol/L (3.5-5.1)
[2024-05-29 18:16] LABS: ALBUMIN 3.4 g/dL (3.4-5.0); BILIRUBIN,TOTAL 0.3 mg/dL (0.2-1.0)
[2024-05-29 18:17] LABS: BASOPHILS % (AUTO) 0.5 % (0.0-2.0); DIFFERENTIAL COMMENT 0; EOSINOPHILS # (AUTO) 0.1 K/uL (0.0-0.7); EOSINOPHILS % (AUTO) 1.3 % (0.0-7.0); HEMATOCRIT 26.6 % (31.2-41.9); HEMOGLOBIN 8.7 g/dL (10.9-14.3); LYMPHOCYTES # (AUTO) 1.5 K/uL (0.8-4.8); LYMPHOCYTES % (AUTO) 19.5 % (20.5-51.5); MEAN CORPUSCULAR HEMOGLOBIN 27.7 uug (24.7-32.8); MEAN CORPUSCULAR HGB CONC 33 g/dL (32.3-35.6); MEAN CORPUSCULAR VOLUME 84.6 fL (75.5-95.3); MONOCYTES # (AUTO) 0.7 K/uL (0.1-1.30); MONOCYTES % (AUTO) 8.7 % (0.0-11.0); NEUTROPHILS # (AUTO) 5.4 K/uL (1.8-8.9); PLATELET COUNT (AUTO) 197 K/uL (179-408); RED BLOOD CELL COUNT(AUTO) 3.15 MIL/uL (3.63-4.92); RED CELL DISTRIBUTION WIDTH 15.2 % (12.3-17.7); WHITE BLOOD COUNT (AUTO) 7.7 K/uL (3.8-11.8)
[2024-05-29] MEDS ORDERED: OXYC-133 PO (18:33)
[2024-05-29 18:47] VITALS: BP 133/80; O2SAT 98
== END 2024-05-29 19:01 | disposition home or self-care (01) ==
LOC: ER 17:18
DX: R10.9 Unspecified abdominal pain (principal); E78.5 Hyperlipidemia, unspecified; E03.9 Hypothyroidism, unspecified; Z98.890 Other specified postprocedural states; Z79.891 Long term (current) use of opiate analgesic; Z79.899 Other long term (current) drug therapy; Z60.2 Problems related to living alone; Z88.0 Allergy status to penicillin; Z88.2 Allergy status to sulfonamides; Z88.5 Allergy status to narcotic agent
CPT/HCPCS: 99284; 96374; 96375; 96361; 80053; 83690; 85025; 36415; 96376; J1200 ×2; J2405; J1170 ×2; J7040; A4606; A4663

== ENCOUNTER 2024-05-31 08:43 | Emergency (ER) | payer MEDICARE, BC ==
[~2024-05-31] VITALS: Ht 167.6 cm; Wt 77.1 kg
[~2024-05-31 08:43] MED LIST changes: +OXYC-133 PO
[2024-05-31] MEDS ORDERED: diphenhydrAMINE 50 MG/1 ML VIAL ONE ×4 (09:27→12:22)
[2024-05-31] MEDS ORDERED: HYDROMORPHONE 2 MG/1 ML DISP.SYRIN ONE ×4 (09:27→12:22)
[2024-05-31] MEDS ORDERED: ONDANSETRON 4 MG/2 ML VIAL ONE (09:27)
[2024-05-31] MEDS: diphenhydrAMINE 50 MG/1 ML VIAL IV ONE ×4 (09:34→12:19)
[2024-05-31] MEDS: HYDROMORPHONE 1 MG/1 ML DISP.SYRIN IV ONE ×4 (09:34→12:19)
[2024-05-31] MEDS: ONDANSETRON 4 MG/2 ML VIAL IV ONE (09:35)
[2024-05-31 12:24] VITALS: O2SAT 98
== END 2024-05-31 12:25 | disposition home or self-care (01) ==
LOC: ER 08:43
DX: R10.31 Right lower quadrant pain (principal); R10.32 Left lower quadrant pain; F11.20 Opioid dependence, uncomplicated; E78.5 Hyperlipidemia, unspecified; E03.9 Hypothyroidism, unspecified; D64.9 Anemia, unspecified; Z79.899 Other long term (current) drug therapy; Z60.2 Problems related to living alone; Z88.0 Allergy status to penicillin; Z88.2 Allergy status to sulfonamides; Z88.5 Allergy status to narcotic agent
CPT/HCPCS: 99285; 96374; 96375; 96376; J1200 ×4; J2405; J1170 ×4; J7040; A4606; A4663

== ENCOUNTER 2024-06-12 07:20 | Emergency (ER) | payer MEDICARE, BC ==
[~2024-06-12] VITALS: Ht 170.2 cm; Wt 77.1 kg
[2024-06-12] MEDS ORDERED: ONDANSETRON 4 MG/2 ML VIAL ONE ×3 (07:46→11:25)
[2024-06-12] MEDS ORDERED: diphenhydrAMINE 50 MG/1 ML VIAL ONE ×4 (07:47→12:57)
[2024-06-12] MEDS ORDERED: HYDROMORPHONE 2 MG/1 ML DISP.SYRIN ONE ×4 (07:47→12:58)
[2024-06-12] MEDS: diphenhydrAMINE 50 MG/1 ML VIAL IV ONE ×4 (08:33→12:58)
[2024-06-12] MEDS: ONDANSETRON 4 MG/2 ML VIAL IV ONE ×3 (08:33→11:32)
[2024-06-12] MEDS: HYDROMORPHONE 1 MG/1 ML DISP.SYRIN IV ONE ×4 (08:33→12:58)
[2024-06-12] MEDS: IV NS 1000 ML 1,000 ML IV ONE ×2 (08:34)
[2024-06-12] MEDS ORDERED: OXYC-133 PO (13:05)
[2024-06-12 13:09] VITALS: O2SAT 97
== END 2024-06-12 13:19 | disposition home or self-care (01) ==
LOC: ER 07:21
DX: R10.31 Right lower quadrant pain (principal); R10.32 Left lower quadrant pain; R19.7 Diarrhea, unspecified; R11.2 Nausea with vomiting, unspecified; E78.5 Hyperlipidemia, unspecified; M79.7 Fibromyalgia; E03.9 Hypothyroidism, unspecified; D64.9 Anemia, unspecified; Z79.891 Long term (current) use of opiate analgesic; Z98.890 Other specified postprocedural states; Z79.899 Other long term (current) drug therapy; Z60.2 Problems related to living alone; Z88.0 Allergy status to penicillin; Z88.5 Allergy status to narcotic agent; Z88.2 Allergy status to sulfonamides
CPT/HCPCS: 99285; 96374; 96375; 96361; 96376; J1200 ×4; J2405 ×3; J1170 ×4; J7040 ×2; A4606; A4663

== ENCOUNTER 2024-06-16 10:38 | Emergency (ER) | payer MEDICARE, BC ==
[~2024-06-16] VITALS: Ht 167.6 cm; Wt 77.1 kg
[2024-06-16] MEDS ORDERED: diphenhydrAMINE 50 MG/1 ML VIAL ONE ×4 (11:04→14:22)
[2024-06-16] MEDS ORDERED: HYDROMORPHONE 2 MG/1 ML DISP.SYRIN ONE ×4 (11:04→14:23)
[2024-06-16] MEDS ORDERED: ONDANSETRON 4 MG/2 ML VIAL ONE ×2 (11:04→14:22)
[2024-06-16] MEDS: IV NS 1000 ML 1,000 ML IV ONE (11:08)
[2024-06-16] MEDS: ONDANSETRON 4 MG/2 ML VIAL IV ONE ×2 (11:08→14:23)
[2024-06-16] MEDS: diphenhydrAMINE 50 MG/1 ML VIAL IV ONE ×4 (11:09→14:23)
[2024-06-16] MEDS: HYDROMORPHONE 1 MG/1 ML DISP.SYRIN IV ONE ×4 (11:09→14:23)
[2024-06-16 11:39] LABS: ALBUMIN 3.5 g/dL (3.4-5.0); BILIRUBIN,DIRECT 0.1 mg/dL (0.0-0.2); BILIRUBIN,TOTAL 0.4 mg/dL (0.2-1.0); CALCIUM 9.2 mg/dL (8.5-10.1); CREATININE 0.9 mg/dL (0.6-1.3); POTASSIUM 3.7 mmol/L (3.5-5.1); TOTAL PROTEIN, SERUM 6.8 g/dL (6.4-8.2)
[2024-06-16 11:43] LABS: BASOPHILS # (AUTO) 0.1 K/UL (0.0-0.2); BASOPHILS % (AUTO) 2.4 % (0.0-2.0); DIFFERENTIAL COMMENT 0; EOSINOPHILS # (AUTO) 0.1 K/uL (0.0-0.7); HEMATOCRIT 25.6 % (31.2-41.9); HEMOGLOBIN 8.2 g/dL (10.9-14.3); LYMPHOCYTES # (AUTO) 0.6 K/uL (0.8-4.8); LYMPHOCYTES % (AUTO) 10.9 % (20.5-51.5); MEAN CORPUSCULAR HEMOGLOBIN 25.8 uug (24.7-32.8); MEAN CORPUSCULAR HGB CONC 32 g/dL (32.3-35.6); MEAN CORPUSCULAR VOLUME 80.4 fL (75.5-95.3); MONOCYTES # (AUTO) 0.3 K/uL (0.1-1.30); MONOCYTES % (AUTO) 5.6 % (0.0-11.0); NEUTROPHILS # (AUTO) 4.4 K/uL (1.8-8.9); NEUTROPHILS % (AUTO) 79.1 % (38.5-71.5); PLATELET COUNT (AUTO) 187 K/uL (179-408); RED BLOOD CELL COUNT(AUTO) 3.19 MIL/uL (3.63-4.92); RED CELL DISTRIBUTION WIDTH 16.7 % (12.3-17.7); WHITE BLOOD COUNT (AUTO) 5.6 K/uL (3.8-11.8)
[2024-06-16] MEDS ORDERED: PANTOPRAZOLE SODIUM 40 MG VIAL ONE (11:46)
[2024-06-16] MEDS ORDERED: MAG HYDROX/AL HYDROX/SIMETH 30 ML LIQUID UDC ONE (11:46)
[2024-06-16] MEDS ORDERED: LIDOCAINE VISCUS 2% 15 ML UDC ONE (11:46)
[2024-06-16] MEDS: LIDOCAINE VISCUS 2% 15 ML UDC MM ONE (11:53)
[2024-06-16] MEDS: MAG HYDROX/AL HYDROX/SIMETH 30 ML LIQUID UDC PO ONE (11:53)
[2024-06-16] MEDS: PANTOPRAZOLE SODIUM 40 MG VIAL IV ONE (12:01)
[2024-06-16 15:35] VITALS: O2SAT 98
[2024-06-16] MEDS ORDERED: PANT20TA2 PO (15:35)
[2024-06-16] MEDS ORDERED: PROC-11 PO (15:35)
[2024-06-16] MEDS ORDERED: COMPAZINE RC (15:35)
== END 2024-06-16 15:39 | disposition home or self-care (01) ==
LOC: ER 10:38
DX: G89.29 Other chronic pain (principal); R10.31 Right lower quadrant pain; R10.32 Left lower quadrant pain; R10.13 Epigastric pain; R19.7 Diarrhea, unspecified; E78.5 Hyperlipidemia, unspecified; M79.7 Fibromyalgia; E03.9 Hypothyroidism, unspecified; D64.9 Anemia, unspecified; Z85.3 Personal history of malignant neoplasm of breast; Z90.11 Acquired absence of right breast and nipple; Z88.0 Allergy status to penicillin; Z88.2 Allergy status to sulfonamides; Z88.5 Allergy status to narcotic agent
CPT/HCPCS: 99285; 96374; 96375; 96361; 80076; 80048; 85025; 36415; 96376; J1200 ×4; J2405 ×2; J2470; J1171 ×4; J7040; A4606; A4663

== ENCOUNTER 2024-06-26 09:28 | Emergency (ER) | payer MEDICARE, BC ==
[~2024-06-26] VITALS: Ht 167.6 cm; Wt 77.1 kg
[~2024-06-26 09:28] MED LIST changes: +COMPAZINE RC; +PANT20TA2 PO; +PROC-11 PO
[2024-06-26 10:15] LABS: BASOPHILS % (AUTO) 0.3 % (0.0-2.0); EOSINOPHILS # (AUTO) 0.2 K/uL (0.0-0.7); EOSINOPHILS % (AUTO) 2.9 % (0.0-7.0); HEMATOCRIT 34.2 % (31.2-41.9); HEMOGLOBIN 10.9 g/dL (10.9-14.3); LYMPHOCYTES # (AUTO) 0.8 K/uL (0.8-4.8); LYMPHOCYTES % (AUTO) 13.7 % (20.5-51.5); MEAN CORPUSCULAR HEMOGLOBIN 26.7 uug (24.7-32.8); MEAN CORPUSCULAR HGB CONC 32 g/dL (32.3-35.6); MEAN CORPUSCULAR VOLUME 83.6 fL (75.5-95.3); MONOCYTES # (AUTO) 0.5 K/uL (0.1-1.30); MONOCYTES % (AUTO) 7.4 % (0.0-11.0); NEUTROPHILS # (AUTO) 4.6 K/uL (1.8-8.9); NEUTROPHILS % (AUTO) 75.7 % (38.5-71.5); PLATELET COUNT (AUTO) 166 K/uL (179-408); RED BLOOD CELL COUNT(AUTO) 4.09 MIL/uL (3.63-4.92); RED CELL DISTRIBUTION WIDTH 16.9 % (12.3-17.7); WHITE BLOOD COUNT (AUTO) 6.1 K/uL (3.8-11.8)
[2024-06-26 10:24] LABS: DIFFERENTIAL COMMENT 1
[2024-06-26] MEDS ORDERED: ONDANSETRON 4 MG/2 ML VIAL ONE (10:27)
[2024-06-26] MEDS ORDERED: diphenhydrAMINE 50 MG/1 ML VIAL ONE ×2 (10:27→12:22)
[2024-06-26] MEDS ORDERED: HYDROMORPHONE 1 MG/1 ML DISP.SYRIN ONE ×2 (10:28→12:23)
[2024-06-26] MEDS: ONDANSETRON 4 MG/2 ML VIAL IV ONE (10:33)
[2024-06-26] MEDS: diphenhydrAMINE 50 MG/1 ML VIAL IV ONE ×2 (10:33→12:31)
[2024-06-26 10:37] LABS: ALBUMIN 3.3 g/dL (3.4-5.0); BILIRUBIN,DIRECT 0.1 mg/dL (0.0-0.2); BILIRUBIN,TOTAL 0.3 mg/dL (0.2-1.0); CALCIUM 9.8 mg/dL (8.5-10.1); CREATININE 0.8 mg/dL (0.6-1.3); POTASSIUM 4.3 mmol/L (3.5-5.1)
[2024-06-26] MEDS: HYDROMORPHONE 1 MG/1 ML DISP.SYRIN IV ONE ×2 (10:37→12:31)
[2024-06-26] MEDS: IV NORMAL SALINE 1000 ML BAG IV ONE (10:38)
[2024-06-26] MEDS ORDERED: OXYC-133 PO ×2 (11:21→11:55)
[2024-06-26 12:18] LABS: *BILIRUBIN,URIN NEGATIVE (NEGATIVE); *BLOOD, URINE NEGATIVE (NEGATIVE); *CLARITY,URINE CLEAR (CLEAR); *COLOR,URINE YELLOW (YELLOW); *KETONES,URINE NEGATIVE (NEGATIVE); *PROTEIN,URINE NEGATIVE (NEGATIVE); *UROBILINOGEN,URINE 0.2 E.U./dl (NORMAL); LEUKOCYTE ESTERASE ,URINE NEGATIVE (NEGATIVE); NITRITE, URINE NEGATIVE (NEGATIVE); UGLUCOSE NEGATIVE (NEGATIVE)
[2024-06-26 13:02] VITALS: BP 124/77; O2SAT 97
[2024-06-27] MEDS ORDERED: OXYC-133 PO (17:42)
== END 2024-06-26 13:00 | disposition home or self-care (01) ==
LOC: ER 09:41
DX: R11.2 Nausea with vomiting, unspecified (principal); R19.7 Diarrhea, unspecified; R10.9 Unspecified abdominal pain; M79.7 Fibromyalgia; E78.5 Hyperlipidemia, unspecified; E03.9 Hypothyroidism, unspecified; C50.919 Malignant neoplasm of unspecified site of unspecified female breast; Z79.899 Other long term (current) drug therapy; Z79.890 Hormone replacement therapy; Z60.2 Problems related to living alone; Z88.0 Allergy status to penicillin; Z88.2 Allergy status to sulfonamides; Z88.5 Allergy status to narcotic agent
CPT/HCPCS: 99284; 96374; 96361; 96375; 80076; 80048; 81003; 83690; 85025; 36415; 96376; J1200 ×2; J2405; J1171 ×2; J7040; A4606; A4663

== ENCOUNTER 2024-06-27 13:32 | Emergency (ER) | payer MEDICARE, BC ==
[~2024-06-27] VITALS: Ht 167.6 cm; Wt 77.1 kg
[2024-06-27] MEDS ORDERED: HYDROMORPHONE 2 MG/1 ML DISP.SYRIN ONE ×3 (14:30→17:20)
[2024-06-27] MEDS ORDERED: ONDANSETRON 4 MG/2 ML VIAL ONE ×3 (14:30→17:20)
[2024-06-27] MEDS ORDERED: diphenhydrAMINE 50 MG/1 ML VIAL ONE ×3 (14:30→17:20)
[2024-06-27] MEDS: HYDROMORPHONE 1 MG/1 ML DISP.SYRIN IV ONE ×4 (14:44→17:24)
[2024-06-27] MEDS: ONDANSETRON 4 MG/2 ML VIAL IV ONE ×3 (14:44→17:32)
[2024-06-27] MEDS: IV NS 1000 ML 1,000 ML IV ONE (14:45)
[2024-06-27] MEDS ORDERED: HYDROMORPHONE 1 MG/1 ML DISP.SYRIN ONE ×2 (14:47→15:48)
[2024-06-27] MEDS: diphenhydrAMINE 50 MG/1 ML VIAL IV ONE ×4 (14:51→17:24)
[2024-06-27 14:52] LABS: *BILIRUBIN,URIN NEGATIVE (NEGATIVE); *CLARITY,URINE CLEAR (CLEAR); *COLOR,URINE YELLOW (YELLOW); *KETONES,URINE 1+ (NEGATIVE); *PROTEIN,URINE 2+ (NEGATIVE); *UROBILINOGEN,URINE 0.2 E.U./dl (NORMAL); LEUKOCYTE ESTERASE ,URINE NEGATIVE (NEGATIVE); NITRITE, URINE NEGATIVE (NEGATIVE); UGLUCOSE NEGATIVE (NEGATIVE)
[2024-06-27 14:53] LABS: *BLOOD, URINE TRACE (NEGATIVE)
[2024-06-27 14:59] LABS: BACTERIA,URINE FEW /HPF (NONE SEEN); SQUAMOUS EPITHELIAL CELL,UR FEW /HPF (NONE SEEN)
[2024-06-27 17:41] VITALS: BP 109/63; O2SAT 98
[2024-06-27] MEDS ORDERED: OXYC-133 PO (17:42)
== END 2024-06-27 17:42 | disposition home or self-care (01) ==
LOC: ER 13:42
DX: R10.31 Right lower quadrant pain (principal); R10.32 Left lower quadrant pain; T45.1X5A Adverse effect of antineoplastic and immunosuppressive drugs, initial encounter; F11.20 Opioid dependence, uncomplicated; D64.9 Anemia, unspecified; M79.7 Fibromyalgia; E78.5 Hyperlipidemia, unspecified; Z79.890 Hormone replacement therapy; Z79.899 Other long term (current) drug therapy; Z60.2 Problems related to living alone; Z88.0 Allergy status to penicillin; Z88.2 Allergy status to sulfonamides; Z88.5 Allergy status to narcotic agent
CPT/HCPCS: 99285; 96374; 96375; 96361; 81001; 96376; J1200 ×3; J2405 ×3; J1171 ×5; J7040; A4606; A4663

== ENCOUNTER 2024-07-02 09:29 | Emergency (ER) | payer MEDICARE, BC ==
[~2024-07-02] VITALS: Ht 167.6 cm; Wt 77.1 kg
[2024-07-02 10:29] LABS: BASOPHILS % (AUTO) 1.1 % (0.0-2.0); EOSINOPHILS # (AUTO) 0.2 K/uL (0.0-0.7); EOSINOPHILS % (AUTO) 4.1 % (0.0-7.0); HEMATOCRIT 31.5 % (31.2-41.9); HEMOGLOBIN 10.3 g/dL (10.9-14.3); LYMPHOCYTES % (AUTO) 21.7 % (20.5-51.5); MEAN CORPUSCULAR HEMOGLOBIN 27.5 uug (24.7-32.8); MEAN CORPUSCULAR HGB CONC 33 g/dL (32.3-35.6); MEAN CORPUSCULAR VOLUME 84.3 fL (75.5-95.3); MONOCYTES # (AUTO) 0.3 K/uL (0.1-1.30); MONOCYTES % (AUTO) 6.8 % (0.0-11.0); NEUTROPHILS % (AUTO) 66.3 % (38.5-71.5); PLATELET COUNT (AUTO) 194 K/uL (179-408); RED BLOOD CELL COUNT(AUTO) 3.74 MIL/uL (3.63-4.92); WHITE BLOOD COUNT (AUTO) 4.6 K/uL (3.8-11.8)
[2024-07-02 10:34] LABS: DIFFERENTIAL COMMENT 1
[2024-07-02 10:40] LABS: CALCIUM 9.9 mg/dL (8.5-10.1); CREATININE 0.8 mg/dL (0.6-1.3); POTASSIUM 4.5 mmol/L (3.5-5.1)
[2024-07-02] MEDS ORDERED: HYDROMORPHONE 1 MG/1 ML DISP.SYRIN ONE ×2 (10:43→12:29)
[2024-07-02] MEDS: diphenhydrAMINE 50 MG/1 ML VIAL IV ONE ×2 (10:43→12:29)
[2024-07-02] MEDS ORDERED: diphenhydrAMINE 50 MG/1 ML VIAL ONE ×2 (10:43→12:28)
[2024-07-02] MEDS: HYDROMORPHONE 1 MG/1 ML DISP.SYRIN IV ONE ×2 (10:45→12:33)
[2024-07-02] MEDS: IV NORMAL SALINE 1000 ML BAG IV ONE (10:45)
[2024-07-02 10:46] LABS: ALBUMIN 3.4 g/dL (3.4-5.0); BILIRUBIN,TOTAL 0.2 mg/dL (0.2-1.0); TOTAL PROTEIN, SERUM 6.9 g/dL (6.4-8.2)
[2024-07-02] MEDS ORDERED: ONDANSETRON 4 MG/2 ML VIAL ONE (12:28)
[2024-07-02] MEDS: ONDANSETRON 4 MG/2 ML VIAL IV ONE (12:31)
[2024-07-02 12:35] VITALS: O2SAT 96
== END 2024-07-02 12:58 | disposition home or self-care (01) ==
LOC: ER 09:29
DX: R10.9 Unspecified abdominal pain (principal); Z76.5 Malingerer [conscious simulation]; M79.7 Fibromyalgia; E78.5 Hyperlipidemia, unspecified; E03.9 Hypothyroidism, unspecified; D64.9 Anemia, unspecified; Z79.890 Hormone replacement therapy; Z79.899 Other long term (current) drug therapy; Z60.2 Problems related to living alone; Z88.0 Allergy status to penicillin; Z88.2 Allergy status to sulfonamides; Z88.5 Allergy status to narcotic agent
CPT/HCPCS: 99284; 96374; 96375; 96361; 80053; 85025; 36415; 96376; J1200 ×2; J2405; J1171 ×2; J7040; A4606; A4663

== ENCOUNTER 2024-07-03 12:23 | Emergency (ER) | payer MEDICARE, BC ==
[~2024-07-03] VITALS: Ht 167.6 cm; Wt 77.1 kg
[2024-07-03] MEDS ORDERED: HYDROMORPHONE 2 MG/1 ML DISP.SYRIN ONE ×4 (12:48→16:21)
[2024-07-03] MEDS ORDERED: ONDANSETRON 4 MG/2 ML VIAL ONE ×2 (12:48→15:28)
[2024-07-03] MEDS ORDERED: diphenhydrAMINE 50 MG/1 ML VIAL ONE ×4 (12:48→16:21)
[2024-07-03] MEDS: HYDROMORPHONE 1 MG/1 ML DISP.SYRIN IV ONE ×5 (13:12→16:27)
[2024-07-03] MEDS: ONDANSETRON 4 MG/2 ML VIAL IV ONE ×2 (13:12→15:27)
[2024-07-03] MEDS: diphenhydrAMINE 50 MG/1 ML VIAL IV ONE ×4 (13:12→16:29)
[2024-07-03] MEDS ORDERED: HYDROMORPHONE 1 MG/1 ML DISP.SYRIN ONE ×3 (13:13→15:21)
[2024-07-03 13:35] LABS: CALCIUM 9.7 mg/dL (8.5-10.1); CREATININE 0.9 mg/dL (0.6-1.3); POTASSIUM 4.1 mmol/L (3.5-5.1)
[2024-07-03 13:54] LABS: BASOPHILS % (AUTO) 0.7 % (0.0-2.0); DIFFERENTIAL COMMENT 0; EOSINOPHILS # (AUTO) 0.1 K/uL (0.0-0.7); EOSINOPHILS % (AUTO) 2.5 % (0.0-7.0); HEMATOCRIT 35.3 % (31.2-41.9); HEMOGLOBIN 11.6 g/dL (10.9-14.3); LYMPHOCYTES # (AUTO) 0.9 K/uL (0.8-4.8); LYMPHOCYTES % (AUTO) 17.7 % (20.5-51.5); MEAN CORPUSCULAR HEMOGLOBIN 27.6 uug (24.7-32.8); MEAN CORPUSCULAR HGB CONC 33 g/dL (32.3-35.6); MEAN CORPUSCULAR VOLUME 83.8 fL (75.5-95.3); MONOCYTES # (AUTO) 0.4 K/uL (0.1-1.30); MONOCYTES % (AUTO) 6.9 % (0.0-11.0); NEUTROPHILS # (AUTO) 3.9 K/uL (1.8-8.9); NEUTROPHILS % (AUTO) 72.2 % (38.5-71.5); PLATELET COUNT (AUTO) 213 K/uL (179-408); RED BLOOD CELL COUNT(AUTO) 4.22 MIL/uL (3.63-4.92); RED CELL DISTRIBUTION WIDTH 18.1 % (12.3-17.7); WHITE BLOOD COUNT (AUTO) 5.4 K/uL (3.8-11.8)
[2024-07-03 16:30] VITALS: O2SAT 97
== END 2024-07-03 16:31 | disposition home or self-care (01) ==
LOC: ER 12:23
DX: F11.20 Opioid dependence, uncomplicated (principal); R19.7 Diarrhea, unspecified; T45.1X5A Adverse effect of antineoplastic and immunosuppressive drugs, initial encounter; R10.30 Lower abdominal pain, unspecified; M79.7 Fibromyalgia; E78.5 Hyperlipidemia, unspecified; Z60.2 Problems related to living alone; Z79.890 Hormone replacement therapy; Z79.899 Other long term (current) drug therapy; Z88.0 Allergy status to penicillin; Z88.2 Allergy status to sulfonamides; Z88.5 Allergy status to narcotic agent; Y92.89 Other specified places as the place of occurrence of the external cause
CPT/HCPCS: 99285; 96374; 96375; 80048; 85025; 36415; 96376 ×2; J1200 ×4; J2405 ×2; J1171 ×7; A4606; A4663; J7040

== ENCOUNTER 2024-07-07 12:56 | Emergency (ER) | payer MEDICARE, BC ==
[~2024-07-07] VITALS: Ht 167.6 cm; Wt 77.1 kg
[2024-07-07] MEDS ORDERED: diphenhydrAMINE 50 MG/1 ML VIAL ONE ×4 (13:55→18:40)
[2024-07-07] MEDS ORDERED: ONDANSETRON 4 MG/2 ML VIAL ONE ×3 (13:55→17:35)
[2024-07-07] MEDS ORDERED: HYDROMORPHONE 2 MG/1 ML DISP.SYRIN ONE ×4 (13:55→18:40)
[2024-07-07] MEDS: ONDANSETRON 4 MG/2 ML VIAL IV ONE ×3 (14:31→17:45)
[2024-07-07] MEDS: HYDROMORPHONE 1 MG/1 ML DISP.SYRIN IV ONE ×4 (14:31→18:46)
[2024-07-07] MEDS: IV NS 1000 ML 1,000 ML IV ONE (14:31)
[2024-07-07] MEDS: diphenhydrAMINE 50 MG/1 ML VIAL IV ONE ×4 (14:31→18:45)
[2024-07-07] MEDS ORDERED: VENL150C2 PO (18:41)
[2024-07-07 18:53] VITALS: O2SAT 99
== END 2024-07-07 18:54 | disposition home or self-care (01) ==
LOC: ER 12:56
DX: R11.2 Nausea with vomiting, unspecified (principal); R10.31 Right lower quadrant pain; R10.32 Left lower quadrant pain; T45.1X6A Underdosing of antineoplastic and immunosuppressive drugs, initial encounter; M79.7 Fibromyalgia; E78.5 Hyperlipidemia, unspecified; E03.9 Hypothyroidism, unspecified; D64.9 Anemia, unspecified; Z79.890 Hormone replacement therapy; Z85.3 Personal history of malignant neoplasm of breast; Z60.2 Problems related to living alone; Z88.0 Allergy status to penicillin; Z88.2 Allergy status to sulfonamides; Z88.5 Allergy status to narcotic agent; Y92.89 Other specified places as the place of occurrence of the external cause
CPT/HCPCS: 99284; 96374; 96375; 96361; 96376; J1200 ×4; J2405 ×3; J1171 ×4; J7040; A4606; A4663

== ENCOUNTER 2024-07-15 07:52 | Emergency (ER) | payer MEDICARE, BC ==
[~2024-07-15] VITALS: Ht 167.6 cm; Wt 77.1 kg
[2024-07-15] MEDS: diphenhydrAMINE 50 MG/1 ML VIAL IV ONE ×4 (08:25→12:33)
[2024-07-15] MEDS: HYDROMORPHONE 1 MG/1 ML DISP.SYRIN IV ONE ×4 (08:26→12:33)
[2024-07-15] MEDS: IV NS 1000 ML 1,000 ML IV ONE (08:26)
[2024-07-15] MEDS: ONDANSETRON 4 MG/2 ML VIAL IV ONE ×2 (08:26→10:08)
[2024-07-15] MEDS ORDERED: ONDANSETRON 4 MG/2 ML VIAL ONE ×2 (08:27→09:59)
[2024-07-15] MEDS ORDERED: diphenhydrAMINE 50 MG/1 ML VIAL ONE ×4 (08:27→12:31)
[2024-07-15] MEDS ORDERED: HYDROMORPHONE 2 MG/1 ML DISP.SYRIN ONE ×4 (08:27→12:28)
[2024-07-15] MEDS ORDERED: LIDOCAINE VISCUS 2% 15 ML UDC ONE (08:56)
[2024-07-15] MEDS ORDERED: MAG HYDROX/AL HYDROX/SIMETH 30 ML LIQUID UDC ONE (08:56)
[2024-07-15] MEDS: MAG HYDROX/AL HYDROX/SIMETH 30 ML LIQUID UDC PO ONE (08:57)
[2024-07-15] MEDS: LIDOCAINE VISCUS 2% 15 ML UDC MM ONE (08:57)
[2024-07-15 12:59] VITALS: O2SAT 97
== END 2024-07-15 13:00 | disposition home or self-care (01) ==
LOC: ER 07:52
DX: R10.30 Lower abdominal pain, unspecified (principal); E78.5 Hyperlipidemia, unspecified; M79.7 Fibromyalgia; Z79.899 Other long term (current) drug therapy; Z79.890 Hormone replacement therapy; Z85.3 Personal history of malignant neoplasm of breast; Z88.0 Allergy status to penicillin; Z88.2 Allergy status to sulfonamides; Z88.5 Allergy status to narcotic agent
CPT/HCPCS: A4606; A4663; J1171; J1200; J2405; J7040

== ENCOUNTER 2024-07-18 11:15 | Emergency (ER) | payer MEDICARE, BC ==
[~2024-07-18] VITALS: Ht 167.6 cm; Wt 77.1 kg
[2024-07-18] MEDS ORDERED: ONDANSETRON 4 MG/2 ML VIAL ONE ×4 (11:41→17:29)
[2024-07-18] MEDS ORDERED: HYDROMORPHONE 2 MG/1 ML DISP.SYRIN ONE ×5 (11:42→17:29)
[2024-07-18] MEDS ORDERED: diphenhydrAMINE 50 MG/1 ML VIAL ONE ×5 (11:42→17:29)
[2024-07-18] MEDS: diphenhydrAMINE 50 MG/1 ML VIAL IV ONE ×5 (12:13→17:35)
[2024-07-18] MEDS: IV NS 1000 ML 1,000 ML IV ONE (12:14)
[2024-07-18] MEDS: ONDANSETRON 4 MG/2 ML VIAL IV ONE ×4 (12:14→17:35)
[2024-07-18] MEDS: HYDROMORPHONE 1 MG/1 ML DISP.SYRIN IV ONE ×5 (12:14→17:35)
[2024-07-18 12:29] LABS: BASOPHILS % (AUTO) 0.4 % (0.0-2.0); EOSINOPHILS # (AUTO) 0.1 K/uL (0.0-0.7); EOSINOPHILS % (AUTO) 2.1 % (0.0-7.0); HEMATOCRIT 36.2 % (31.2-41.9); HEMOGLOBIN 11.8 g/dL (10.9-14.3); LYMPHOCYTES % (AUTO) 15.8 % (20.5-51.5); MEAN CORPUSCULAR HEMOGLOBIN 27.7 uug (24.7-32.8); MEAN CORPUSCULAR HGB CONC 33 g/dL (32.3-35.6); MEAN CORPUSCULAR VOLUME 85.3 fL (75.5-95.3); MONOCYTES # (AUTO) 0.5 K/uL (0.1-1.30); NEUTROPHILS # (AUTO) 4.9 K/uL (1.8-8.9); NEUTROPHILS % (AUTO) 74.7 % (38.5-71.5); PLATELET COUNT (AUTO) 156 K/uL (179-408); RED BLOOD CELL COUNT(AUTO) 4.25 MIL/uL (3.63-4.92); RED CELL DISTRIBUTION WIDTH 20.1 % (12.3-17.7); WHITE BLOOD COUNT (AUTO) 6.5 K/uL (3.8-11.8)
[2024-07-18 12:40] LABS: DIFFERENTIAL COMMENT 1
[2024-07-18 12:46] LABS: ALBUMIN 3.6 g/dL (3.4-5.0); BILIRUBIN,DIRECT 0.1 mg/dL (0.0-0.2); BILIRUBIN,TOTAL 0.2 mg/dL (0.2-1.0); CALCIUM 9.9 mg/dL (8.5-10.1); CREATININE 0.8 mg/dL (0.6-1.3); POTASSIUM 4.6 mmol/L (3.5-5.1); TOTAL PROTEIN, SERUM 7.2 g/dL (6.4-8.2)
[2024-07-18 15:18] LABS: *BILIRUBIN,URIN NEGATIVE (NEGATIVE); *CLARITY,URINE CLEAR (CLEAR); *COLOR,URINE YELLOW (YELLOW); *KETONES,URINE NEGATIVE (NEGATIVE); *PROTEIN,URINE NEGATIVE (NEGATIVE); *UROBILINOGEN,URINE 0.2 E.U./dl (NORMAL); LEUKOCYTE ESTERASE ,URINE NEGATIVE (NEGATIVE); NITRITE, URINE NEGATIVE (NEGATIVE); UGLUCOSE NEGATIVE (NEGATIVE)
[2024-07-18 15:21] LABS: *BLOOD, URINE NEGATIVE (NEGATIVE)
[2024-07-18] MEDS ORDERED: LIDOCAINE VISCUS 2% 15 ML UDC ONE (17:37)
[2024-07-18] MEDS ORDERED: MAG HYDROX/AL HYDROX/SIMETH 30 ML LIQUID UDC ONE (17:37)
[2024-07-18] MEDS: LIDOCAINE VISCUS 2% 15 ML UDC MM ONE (17:38)
[2024-07-18] MEDS: MAG HYDROX/AL HYDROX/SIMETH 30 ML LIQUID UDC PO ONE (17:38)
[2024-07-18 18:00] VITALS: O2SAT 98
== END 2024-07-18 18:26 | disposition home or self-care (01) ==
LOC: ER 11:17
DX: R11.2 Nausea with vomiting, unspecified (principal); T45.1X5A Adverse effect of antineoplastic and immunosuppressive drugs, initial encounter; R19.7 Diarrhea, unspecified; R10.9 Unspecified abdominal pain; M79.7 Fibromyalgia; E78.5 Hyperlipidemia, unspecified; E03.9 Hypothyroidism, unspecified; Z85.3 Personal history of malignant neoplasm of breast; Z90.11 Acquired absence of right breast and nipple; Z88.5 Allergy status to narcotic agent; Z88.2 Allergy status to sulfonamides; Z88.0 Allergy status to penicillin; Z79.890 Hormone replacement therapy; Z60.2 Problems related to living alone; Y92.89 Other specified places as the place of occurrence of the external cause
CPT/HCPCS: 99284; 96374; 96375; 96361; 80076; 80048; 81003; 85025; 36415; 74018; 96376; J1200 ×5; J2405 ×4; J1171 ×5; J7040; A4606; A4663

== ENCOUNTER 2024-07-21 11:01 | Emergency (ER) | payer MEDICARE, BC ==
[~2024-07-21] VITALS: Ht 167.6 cm; Wt 77.1 kg
[2024-07-21] MEDS ORDERED: ONDANSETRON 4 MG/2 ML VIAL ONE (11:50)
[2024-07-21] MEDS: HYDROMORPHONE 1 MG/1 ML DISP.SYRIN IV ONE ×4 (11:50→16:04)
[2024-07-21] MEDS: diphenhydrAMINE 50 MG/1 ML VIAL IV ONE ×4 (11:50→16:04)
[2024-07-21] MEDS ORDERED: HYDROMORPHONE 2 MG/1 ML DISP.SYRIN ONE ×4 (11:50→15:57)
[2024-07-21] MEDS: ONDANSETRON 4 MG/2 ML VIAL IV ONE (11:50)
[2024-07-21] MEDS ORDERED: diphenhydrAMINE 50 MG/1 ML VIAL ONE ×4 (11:50→15:57)
[2024-07-21] MEDS: IV NS 1000 ML 1,000 ML IV ONE (11:51)
[2024-07-21 16:08] VITALS: O2SAT 98
== END 2024-07-21 16:09 | disposition home or self-care (01) ==
LOC: ER 11:01
DX: R10.30 Lower abdominal pain, unspecified (principal); R11.2 Nausea with vomiting, unspecified; T45.1X5A Adverse effect of antineoplastic and immunosuppressive drugs, initial encounter; C50.919 Malignant neoplasm of unspecified site of unspecified female breast; C78.7 Secondary malignant neoplasm of liver and intrahepatic bile duct; E78.5 Hyperlipidemia, unspecified; M79.7 Fibromyalgia; E03.9 Hypothyroidism, unspecified; Z79.890 Hormone replacement therapy; Z60.2 Problems related to living alone; Z88.5 Allergy status to narcotic agent; Z88.2 Allergy status to sulfonamides; Z88.0 Allergy status to penicillin; Z85.3 Personal history of malignant neoplasm of breast
CPT/HCPCS: 99284; 96374; 96375; 96361; 96376; J1200 ×4; J2405; J1171 ×4; J7040; A4606; A4663

== ENCOUNTER 2024-08-05 11:51 | Emergency (ER) | payer MEDICARE, BC ==
[~2024-08-05] VITALS: Ht 167.6 cm; Wt 77.1 kg
[2024-08-05] MEDS ORDERED: ONDANSETRON 4 MG/2 ML VIAL ONE (12:10)
[2024-08-05] MEDS ORDERED: HYDROMORPHONE 2 MG/1 ML DISP.SYRIN ONE ×5 (12:10→17:46)
[2024-08-05] MEDS ORDERED: diphenhydrAMINE 50 MG/1 ML VIAL ONE ×5 (12:10→17:45)
[2024-08-05] MEDS: diphenhydrAMINE 50 MG/1 ML VIAL IV ONE ×5 (12:15→17:50)
[2024-08-05] MEDS: HYDROMORPHONE 1 MG/1 ML DISP.SYRIN IV ONE ×5 (12:15→17:48)
[2024-08-05] MEDS: ONDANSETRON 4 MG/2 ML VIAL IV ONE (12:15)
[2024-08-05] MEDS: IV NORMAL SALINE 1000 ML BAG IV ONE (12:42)
[2024-08-05 18:05] VITALS: O2SAT 98
== END 2024-08-05 18:06 | disposition home or self-care (01) ==
LOC: ER 11:51
DX: G89.29 Other chronic pain (principal); T45.1X5A Adverse effect of antineoplastic and immunosuppressive drugs, initial encounter; R10.31 Right lower quadrant pain; R10.32 Left lower quadrant pain; R11.0 Nausea; F11.20 Opioid dependence, uncomplicated; E78.5 Hyperlipidemia, unspecified; M79.7 Fibromyalgia; Z79.890 Hormone replacement therapy; Z85.3 Personal history of malignant neoplasm of breast; Z88.0 Allergy status to penicillin; Z88.2 Allergy status to sulfonamides; Z88.5 Allergy status to narcotic agent; Z60.2 Problems related to living alone; X58.XXXA Exposure to other specified factors, initial encounter
CPT/HCPCS: 99285; 96374; 96361; 96375; 96376; J1200 ×5; J2405; J1171 ×5; J7040; A4606; A4663

== ENCOUNTER 2024-08-09 07:24 | Emergency (ER) | payer MEDICARE, BC ==
[~2024-08-09] VITALS: Ht 167.6 cm; Wt 77.1 kg
[2024-08-09] MEDS ORDERED: diphenhydrAMINE 50 MG/1 ML VIAL ONE ×6 (07:38→13:35)
[2024-08-09] MEDS ORDERED: ONDANSETRON 4 MG/2 ML VIAL ONE ×4 (07:38→12:09)
[2024-08-09] MEDS ORDERED: HYDROMORPHONE 2 MG/1 ML DISP.SYRIN ONE ×6 (07:39→13:35)
[2024-08-09] MEDS: diphenhydrAMINE 50 MG/1 ML VIAL IV ONE ×6 (07:42→13:39)
[2024-08-09] MEDS: ONDANSETRON 4 MG/2 ML VIAL IV ONE ×4 (07:43→12:18)
[2024-08-09] MEDS: HYDROMORPHONE 1 MG/1 ML DISP.SYRIN IV ONE ×6 (07:43→13:39)
[2024-08-09] MEDS: IV NS 1000 ML 1,000 ML IV ONE (08:42)
[2024-08-09 14:03] VITALS: O2SAT 97
== END 2024-08-09 14:04 | disposition home or self-care (01) ==
LOC: ER 07:24
DX: R10.32 Left lower quadrant pain (principal); R10.31 Right lower quadrant pain; R19.7 Diarrhea, unspecified; E78.5 Hyperlipidemia, unspecified; M79.7 Fibromyalgia; Z79.890 Hormone replacement therapy; C80.1 Malignant (primary) neoplasm, unspecified; Z79.899 Other long term (current) drug therapy; Z88.0 Allergy status to penicillin; Z88.5 Allergy status to narcotic agent; Z88.2 Allergy status to sulfonamides
CPT/HCPCS: 99285; 96374; 96375; 96376; J1200 ×6; J2405 ×4; J1171 ×6; J7040; A4606; A4663

== ENCOUNTER 2024-08-14 14:58 | Emergency (ER) | payer MEDICARE, BC ==
[~2024-08-14] VITALS: Ht 167.6 cm; Wt 77.1 kg
[2024-08-14 15:03] VITALS: O2SAT 98
[2024-08-14] MEDS ORDERED: HYDR2TAB4 PO (15:29)
[2024-08-14] MEDS ORDERED: ONDA4TAB11 PO (15:29)
[2024-08-14] MEDS ORDERED: diphenhydrAMINE 50 MG CAPSULE ONE (15:38)
[2024-08-14] MEDS ORDERED: ONDANSETRON ODT 4 MG TAB.RAPDIS ONE (15:38)
[2024-08-14] MEDS ORDERED: HYDROMORPHONE HCL 2 MG TABLET ONE (15:40)
[2024-08-14] MEDS: diphenhydrAMINE 50 MG CAPSULE PO ONE (15:58)
[2024-08-14] MEDS: HYDROMORPHONE HCL 2 MG TABLET PO ONE (15:59)
[2024-08-14] MEDS: ONDANSETRON ODT 4 MG TAB.RAPDIS SL ONE (15:59)
== END 2024-08-14 16:00 | disposition home or self-care (01) ==
LOC: ER 14:58
DX: C50.919 Malignant neoplasm of unspecified site of unspecified female breast (principal); M79.7 Fibromyalgia; Z79.890 Hormone replacement therapy; Z90.710 Acquired absence of both cervix and uterus; Z92.21 Personal history of antineoplastic chemotherapy; Z88.0 Allergy status to penicillin; Z88.2 Allergy status to sulfonamides; Z88.5 Allergy status to narcotic agent; Z88.7 Allergy status to serum and vaccine
CPT/HCPCS: 99284; Q0163; A4606; A4663; Q0162

== ENCOUNTER 2024-08-20 07:22 | Emergency (ER) | payer MEDICARE, BC ==
[~2024-08-20] VITALS: Ht 167.6 cm; Wt 77.1 kg
[~2024-08-20 07:22] MED LIST changes: +HYDR2TAB4 PO; +ONDA4TAB11 PO
[2024-08-20] MEDS ORDERED: ONDANSETRON 4 MG/2 ML VIAL ONE ×2 (07:39→10:34)
[2024-08-20] MEDS ORDERED: diphenhydrAMINE 50 MG/1 ML VIAL ONE ×7 (07:39→14:43)
[2024-08-20] MEDS ORDERED: HYDROMORPHONE 2 MG/1 ML DISP.SYRIN ONE ×7 (07:39→14:43)
[2024-08-20] MEDS: diphenhydrAMINE 50 MG/1 ML VIAL IV ONE ×7 (07:48→14:45)
[2024-08-20] MEDS: ONDANSETRON 4 MG/2 ML VIAL IV ONE ×2 (07:48→10:43)
[2024-08-20] MEDS: HYDROMORPHONE 1 MG/1 ML DISP.SYRIN IV ONE ×7 (07:48→14:45)
[2024-08-20] MEDS: IV NS 1000 ML 1,000 ML IV ONE (08:29)
[2024-08-20 13:40] LABS: *BILIRUBIN,URIN NEGATIVE (NEGATIVE); *BLOOD, URINE 2+ (NEGATIVE); *CLARITY,URINE CLEAR (CLEAR); *COLOR,URINE YELLOW (YELLOW); *KETONES,URINE NEGATIVE (NEGATIVE); *PROTEIN,URINE NEGATIVE (NEGATIVE); *UROBILINOGEN,URINE 0.2 E.U./dl (NORMAL); LEUKOCYTE ESTERASE ,URINE NEGATIVE (NEGATIVE); NITRITE, URINE NEGATIVE (NEGATIVE); PH,URINE 5.5 (5.0-8.0); UGLUCOSE NEGATIVE (NEGATIVE)
[2024-08-20 13:56] LABS: BACTERIA,URINE MODERATE /HPF (NONE SEEN); SQUAMOUS EPITHELIAL CELL,UR MANY /HPF (NONE SEEN); WBC,URINE 0-3 /HPF (0-3)
[2024-08-20 15:09] VITALS: O2SAT 98
[2024-08-23] MEDS ORDERED: PROC25SU29 RC (14:56)
== END 2024-08-20 15:16 | disposition home or self-care (01) ==
LOC: ER 07:22
DX: R10.31 Right lower quadrant pain (principal); R10.32 Left lower quadrant pain; T45.1X5A Adverse effect of antineoplastic and immunosuppressive drugs, initial encounter; M79.7 Fibromyalgia; Z79.890 Hormone replacement therapy; Z85.3 Personal history of malignant neoplasm of breast; Z90.49 Acquired absence of other specified parts of digestive tract; Z90.710 Acquired absence of both cervix and uterus; Z88.0 Allergy status to penicillin; Z88.2 Allergy status to sulfonamides; Z88.5 Allergy status to narcotic agent; Z88.7 Allergy status to serum and vaccine; Y92.89 Other specified places as the place of occurrence of the external cause
CPT/HCPCS: 99285; 96374; 96375; 96361; 81001; 96376; J1200 ×7; J2405 ×2; J1171 ×7; J7040; A4606; A4663

== ENCOUNTER 2024-08-27 09:14 | Emergency (ER) | payer MEDICARE, BC ==
[~2024-08-27] VITALS: Ht 167.6 cm; Wt 77.1 kg
[~2024-08-27 09:14] MED LIST changes: +PROC25SU29 RC
[2024-08-27] MEDS ORDERED: diphenhydrAMINE 50 MG/1 ML VIAL ONE ×5 (10:06→15:25)
[2024-08-27] MEDS ORDERED: ONDANSETRON 4 MG/2 ML VIAL ONE ×2 (10:06→11:25)
[2024-08-27] MEDS ORDERED: HYDROMORPHONE 2 MG/1 ML DISP.SYRIN ONE ×5 (10:06→15:26)
[2024-08-27] MEDS: HYDROMORPHONE 1 MG/1 ML DISP.SYRIN IV ONE ×5 (10:27→15:30)
[2024-08-27] MEDS: diphenhydrAMINE 50 MG/1 ML VIAL IV ONE ×5 (10:27→15:30)
[2024-08-27] MEDS: ONDANSETRON 4 MG/2 ML VIAL IV ONE ×2 (10:28→11:32)
[2024-08-27 16:04] VITALS: O2SAT 98
== END 2024-08-27 16:05 | disposition home or self-care (01) ==
LOC: ER 09:14
DX: R10.30 Lower abdominal pain, unspecified (principal); R11.2 Nausea with vomiting, unspecified; T45.1X5A Adverse effect of antineoplastic and immunosuppressive drugs, initial encounter; M79.7 Fibromyalgia; Z79.890 Hormone replacement therapy; Z79.899 Other long term (current) drug therapy; Z90.710 Acquired absence of both cervix and uterus; Z60.2 Problems related to living alone; Z88.0 Allergy status to penicillin; Z88.2 Allergy status to sulfonamides; Z88.5 Allergy status to narcotic agent; Z88.7 Allergy status to serum and vaccine; Y92.89 Other specified places as the place of occurrence of the external cause
CPT/HCPCS: 99285; 96374; 96375; 96376; J1200 ×5; J2405 ×2; J1171 ×5; A4606; A4663

== ENCOUNTER 2024-09-01 09:18 | Emergency (ER) | payer MEDICARE, BC ==
[~2024-09-01] VITALS: Ht 170.2 cm; Wt 77.1 kg
[2024-09-01] MEDS ORDERED: ONDANSETRON 4 MG/2 ML VIAL ONE ×3 (09:40→12:05)
[2024-09-01] MEDS ORDERED: diphenhydrAMINE 50 MG/1 ML VIAL ONE ×7 (09:41→17:05)
[2024-09-01] MEDS ORDERED: HYDROMORPHONE 2 MG/1 ML DISP.SYRIN ONE ×7 (09:41→17:05)
[2024-09-01] MEDS: diphenhydrAMINE 50 MG/1 ML VIAL IV ONE ×7 (09:48→17:09)
[2024-09-01] MEDS: HYDROMORPHONE 1 MG/1 ML DISP.SYRIN IV ONE ×7 (09:49→17:10)
[2024-09-01] MEDS: ONDANSETRON 4 MG/2 ML VIAL IV ONE ×3 (09:49→12:13)
[2024-09-01 17:17] VITALS: O2SAT 97
== END 2024-09-01 17:18 | disposition home or self-care (01) ==
LOC: ER 09:18
DX: R10.9 Unspecified abdominal pain (principal); T45.1X5A Adverse effect of antineoplastic and immunosuppressive drugs, initial encounter; R11.2 Nausea with vomiting, unspecified; R19.7 Diarrhea, unspecified; M79.7 Fibromyalgia; Z79.890 Hormone replacement therapy; Z85.3 Personal history of malignant neoplasm of breast; Z90.710 Acquired absence of both cervix and uterus; Z79.899 Other long term (current) drug therapy; Z60.2 Problems related to living alone; Z88.0 Allergy status to penicillin; Z88.2 Allergy status to sulfonamides; Z88.5 Allergy status to narcotic agent; Z88.7 Allergy status to serum and vaccine; Y92.89 Other specified places as the place of occurrence of the external cause
CPT/HCPCS: A4606; A4663; J1171; J1200; J2405

== ENCOUNTER 2024-09-05 07:11 | Emergency (ER) | payer MEDICARE, BC ==
[~2024-09-05] VITALS: Ht 170.2 cm; Wt 77.1 kg
[2024-09-05] MEDS ORDERED: HYDROMORPHONE 2 MG/1 ML DISP.SYRIN ONE ×7 (07:41→15:02)
[2024-09-05] MEDS ORDERED: ONDANSETRON 4 MG/2 ML VIAL ONE ×2 (07:41→09:10)
[2024-09-05] MEDS ORDERED: diphenhydrAMINE 50 MG/1 ML VIAL ONE ×7 (07:41→15:02)
[2024-09-05] MEDS: ONDANSETRON 4 MG/2 ML VIAL IV ONE ×2 (08:00→09:13)
[2024-09-05] MEDS: diphenhydrAMINE 50 MG/1 ML VIAL IV ONE ×7 (08:00→15:02)
[2024-09-05] MEDS: HYDROMORPHONE 1 MG/1 ML DISP.SYRIN IV ONE ×7 (08:00→15:03)
[2024-09-05 15:12] VITALS: O2SAT 98
== END 2024-09-05 15:34 | disposition home or self-care (01) ==
LOC: ER 07:11
DX: R10.30 Lower abdominal pain, unspecified (principal); R11.2 Nausea with vomiting, unspecified; R19.7 Diarrhea, unspecified; T45.1X5A Adverse effect of antineoplastic and immunosuppressive drugs, initial encounter; F11.20 Opioid dependence, uncomplicated; M79.7 Fibromyalgia; Z79.890 Hormone replacement therapy; Z90.710 Acquired absence of both cervix and uterus; Z85.3 Personal history of malignant neoplasm of breast; Z88.0 Allergy status to penicillin; Z88.2 Allergy status to sulfonamides; Z88.5 Allergy status to narcotic agent; Z88.7 Allergy status to serum and vaccine
CPT/HCPCS: 36569; 99285; 96374; 96375; 96376; J1200 ×7; J2405 ×2; J1171 ×7; A4606; A4663

== ENCOUNTER 2024-09-07 13:20 | Emergency (ER) | payer MEDICARE, BC ==
[~2024-09-07] VITALS: Ht 170.2 cm; Wt 77.1 kg
[2024-09-07] MEDS: HYDROMORPHONE 1 MG/1 ML DISP.SYRIN IV ONE ×6 (14:05→18:54)
[2024-09-07] MEDS: diphenhydrAMINE 50 MG/1 ML VIAL IV ONE ×6 (14:05→18:54)
[2024-09-07] MEDS: ONDANSETRON 4 MG/2 ML VIAL IV ONE ×4 (14:06→17:04)
[2024-09-07] MEDS ORDERED: ONDANSETRON 4 MG/2 ML VIAL ONE ×4 (14:07→17:00)
[2024-09-07] MEDS ORDERED: HYDROMORPHONE 2 MG/1 ML DISP.SYRIN ONE ×6 (14:07→18:49)
[2024-09-07] MEDS ORDERED: diphenhydrAMINE 50 MG/1 ML VIAL ONE ×6 (14:07→18:49)
[2024-09-07] MEDS ORDERED: PANTOPRAZOLE SODIUM 40 MG VIAL ONE (15:08)
[2024-09-07] MEDS: PANTOPRAZOLE SODIUM IV 40 MG in IV DEXTROSE 5% 100 ML IV ONE (15:16)
[2024-09-07 18:58] VITALS: O2SAT 98
== END 2024-09-07 19:00 | disposition home or self-care (01) ==
LOC: ER 13:20
DX: R10.30 Lower abdominal pain, unspecified (principal); R11.2 Nausea with vomiting, unspecified; T45.1X5A Adverse effect of antineoplastic and immunosuppressive drugs, initial encounter; R19.7 Diarrhea, unspecified; M79.7 Fibromyalgia; Z79.890 Hormone replacement therapy; Z79.899 Other long term (current) drug therapy; Z85.3 Personal history of malignant neoplasm of breast; Z90.11 Acquired absence of right breast and nipple; Z90.710 Acquired absence of both cervix and uterus; Z88.0 Allergy status to penicillin; Z88.2 Allergy status to sulfonamides; Z88.5 Allergy status to narcotic agent; Z88.7 Allergy status to serum and vaccine; Y92.89 Other specified places as the place of occurrence of the external cause
CPT/HCPCS: 99285; 96365; 96375; 96376; J1200 ×6; J2405 ×4; J2470 ×2; J1171 ×6; A4606; A4663

== ENCOUNTER 2024-09-12 07:33 | Emergency (ER) | payer MEDICARE, BC ==
[~2024-09-12] VITALS: Ht 170.2 cm; Wt 77.1 kg
[2024-09-12] MEDS ORDERED: HYDROMORPHONE 2 MG/1 ML DISP.SYRIN ONE ×6 (08:11→15:25)
[2024-09-12] MEDS ORDERED: ONDANSETRON 4 MG/2 ML VIAL ONE ×3 (08:11→10:52)
[2024-09-12] MEDS ORDERED: diphenhydrAMINE 50 MG/1 ML VIAL ONE ×7 (08:11→15:25)
[2024-09-12] MEDS: ONDANSETRON 4 MG/2 ML VIAL IV ONE ×3 (08:16→10:55)
[2024-09-12] MEDS: HYDROMORPHONE 1 MG/1 ML DISP.SYRIN IV ONE ×6 (08:16→15:38)
[2024-09-12] MEDS: diphenhydrAMINE 50 MG/1 ML VIAL IV ONE ×6 (08:16→15:39)
[2024-09-12 15:35] VITALS: O2SAT 98
== END 2024-09-12 15:37 | disposition home or self-care (01) ==
LOC: ER 07:58
DX: R10.30 Lower abdominal pain, unspecified (principal); R11.2 Nausea with vomiting, unspecified; R19.7 Diarrhea, unspecified; T45.1X5A Adverse effect of antineoplastic and immunosuppressive drugs, initial encounter; M79.7 Fibromyalgia; Z79.890 Hormone replacement therapy; Z79.899 Other long term (current) drug therapy; Z85.3 Personal history of malignant neoplasm of breast; Z90.11 Acquired absence of right breast and nipple; Z90.49 Acquired absence of other specified parts of digestive tract; Z90.710 Acquired absence of both cervix and uterus; Z88.0 Allergy status to penicillin; Z88.2 Allergy status to sulfonamides; Z88.5 Allergy status to narcotic agent; Z88.7 Allergy status to serum and vaccine; Y92.89 Other specified places as the place of occurrence of the external cause
CPT/HCPCS: 99284; 96374; 96375; 96376; J1200 ×7; J2405 ×3; J1171 ×6; A4606; A4663

== ENCOUNTER 2024-09-21 06:00 | Emergency (ER) | payer MEDICARE, BC ==
[~2024-09-21] VITALS: Ht 170.2 cm; Wt 77.1 kg
[2024-09-21] MEDS ORDERED: diphenhydrAMINE 50 MG/1 ML VIAL ONE (07:42)
[2024-09-21] MEDS ORDERED: ONDANSETRON 4 MG/2 ML VIAL ONE (07:42)
[2024-09-21 07:45] LABS: BASOPHILS % (AUTO) 0.8 % (0.0-2.0); EOSINOPHILS # (AUTO) 0.2 K/uL (0.0-0.7); EOSINOPHILS % (AUTO) 3.7 % (0.0-7.0); HEMATOCRIT 29.6 % (31.2-41.9); LYMPHOCYTES # (AUTO) 1.4 K/uL (0.8-4.8); MEAN CORPUSCULAR HEMOGLOBIN 28.5 uug (24.7-32.8); MEAN CORPUSCULAR HGB CONC 34 g/dL (32.3-35.6); MEAN CORPUSCULAR VOLUME 84.4 fL (75.5-95.3); MONOCYTES # (AUTO) 0.5 K/uL (0.1-1.30); MONOCYTES % (AUTO) 8.3 % (0.0-11.0); NEUTROPHILS % (AUTO) 64.2 % (38.5-71.5); PLATELET COUNT (AUTO) 175 K/uL (179-408); RED BLOOD CELL COUNT(AUTO) 3.51 MIL/uL (3.63-4.92); RED CELL DISTRIBUTION WIDTH 15.6 % (12.3-17.7); WHITE BLOOD COUNT (AUTO) 6.2 K/uL (3.8-11.8)
[2024-09-21] MEDS: IV NORMAL SALINE 1000 ML BAG IV ONE (07:45)
[2024-09-21] MEDS: ONDANSETRON 4 MG/2 ML VIAL IV ONE (07:46)
[2024-09-21 07:51] LABS: DIFFERENTIAL COMMENT 1
[2024-09-21] MEDS: HYDROMORPHONE 1 MG/1 ML DISP.SYRIN IV ONE (08:00)
[2024-09-21] MEDS: diphenhydrAMINE 50 MG/1 ML VIAL IV ONE (08:25)
[2024-09-21 08:43] LABS: ALBUMIN 3.4 g/dL (3.4-5.0); BILIRUBIN,TOTAL 0.2 mg/dL (0.2-1.0); CALCIUM 9.3 mg/dL (8.5-10.1); CREATININE 0.9 mg/dL (0.6-1.3); POTASSIUM 3.9 mmol/L (3.5-5.1); TOTAL PROTEIN, SERUM 6.7 g/dL (6.4-8.2)
[2024-09-21] MEDS ORDERED: HYDROMORPHONE 1 MG/1 ML DISP.SYRIN ONE (08:51)
[2024-09-21 09:35] LABS: BILIRUBIN,DIRECT 0.1 mg/dL (0.0-0.2)
[2024-09-21] MEDS ORDERED: OXYC-133 PO (10:18)
[2024-09-21 10:49] VITALS: BP 119/81; TEMP 98.3; O2SAT 97
== END 2024-09-21 10:50 | disposition home or self-care (01) ==
LOC: ER 06:15
DX: S70.02XA Contusion of left hip, initial encounter (principal); M79.7 Fibromyalgia; T45.1X5A Adverse effect of antineoplastic and immunosuppressive drugs, initial encounter; Z79.890 Hormone replacement therapy; Z79.899 Other long term (current) drug therapy; Z90.710 Acquired absence of both cervix and uterus; Z88.0 Allergy status to penicillin; Z88.2 Allergy status to sulfonamides; Z88.5 Allergy status to narcotic agent; Z88.7 Allergy status to serum and vaccine; W18.39XA Other fall on same level, initial encounter; Y93.89 Activity, other specified; Y92.89 Other specified places as the place of occurrence of the external cause; Y99.8 Other external cause status
CPT/HCPCS: 99284; 96374; 96361; 96375; 80076; 80048; 85025; 36415; 73502; 83605; J1200; J2405; J1171; J7040; A4606; A4663

== ENCOUNTER 2024-10-02 07:38 | Emergency (ER) | payer MEDICARE, BC ==
[~2024-10-02] VITALS: Ht 167.6 cm; Wt 77.1 kg
[2024-10-02] MEDS ORDERED: diphenhydrAMINE 50 MG/1 ML VIAL ONE ×6 (07:55→14:12)
[2024-10-02] MEDS ORDERED: ONDANSETRON 4 MG/2 ML VIAL ONE ×5 (07:55→14:12)
[2024-10-02] MEDS ORDERED: HYDROMORPHONE 2 MG/1 ML DISP.SYRIN ONE ×6 (07:56→14:12)
[2024-10-02] MEDS: diphenhydrAMINE 50 MG/1 ML VIAL IV ONE ×6 (08:04→14:23)
[2024-10-02] MEDS: HYDROMORPHONE 1 MG/1 ML DISP.SYRIN IV ONE ×6 (08:04→14:23)
[2024-10-02] MEDS: ONDANSETRON 4 MG/2 ML VIAL IV ONE ×6 (08:04→14:23)
[2024-10-02] MEDS: IV NS 1000 ML 1,000 ML IV ONE (08:04)
[2024-10-02] MEDS ORDERED: TRAM50TA2 PO (14:23)
[2024-10-02 14:26] VITALS: O2SAT 98
== END 2024-10-02 14:27 | disposition home or self-care (01) ==
LOC: ER 07:39
DX: R11.2 Nausea with vomiting, unspecified (principal); R10.30 Lower abdominal pain, unspecified; T45.1X5A Adverse effect of antineoplastic and immunosuppressive drugs, initial encounter; M79.7 Fibromyalgia; Z90.710 Acquired absence of both cervix and uterus; Z79.890 Hormone replacement therapy; Z79.899 Other long term (current) drug therapy; Z60.2 Problems related to living alone; Z88.0 Allergy status to penicillin; Z88.2 Allergy status to sulfonamides; Z88.5 Allergy status to narcotic agent; Z88.7 Allergy status to serum and vaccine; Y92.89 Other specified places as the place of occurrence of the external cause
CPT/HCPCS: 99285; 96374; 96361; 96375; 96376; J1171 ×6; J1200 ×6; J2405 ×5

== ENCOUNTER 2024-10-06 09:51 | Emergency (ER) | payer MEDICARE, BC ==
[~2024-10-06] VITALS: Ht 167.6 cm; Wt 63.5 kg
[~2024-10-06 09:51] MED LIST changes: +TRAM50TA2 PO
[2024-10-06] MEDS ORDERED: ONDANSETRON 4 MG/2 ML VIAL ONE ×3 (10:51→13:10)
[2024-10-06] MEDS ORDERED: HYDROMORPHONE 2 MG/1 ML DISP.SYRIN ONE ×7 (10:51→17:09)
[2024-10-06] MEDS ORDERED: diphenhydrAMINE 50 MG/1 ML VIAL ONE ×7 (10:51→17:09)
[2024-10-06] MEDS: HYDROMORPHONE 1 MG/1 ML DISP.SYRIN IV ONE ×7 (10:56→17:14)
[2024-10-06] MEDS: diphenhydrAMINE 50 MG/1 ML VIAL IV ONE ×7 (10:56→17:14)
[2024-10-06] MEDS: ONDANSETRON 4 MG/2 ML VIAL IV ONE ×3 (10:56→13:07)
[2024-10-06] MEDS ORDERED: PANTOPRAZOLE SODIUM 40 MG VIAL ONE (13:55)
[2024-10-06] MEDS: PANTOPRAZOLE SODIUM 40 MG VIAL IV ONE (13:56)
[2024-10-06] MEDS ORDERED: TRAZ150T75 PO (16:22)
[2024-10-06 17:15] VITALS: O2SAT 98
== END 2024-10-06 17:18 | disposition home or self-care (01) ==
LOC: ER 09:51
DX: R11.2 Nausea with vomiting, unspecified (principal); T45.1X5A Adverse effect of antineoplastic and immunosuppressive drugs, initial encounter; R19.7 Diarrhea, unspecified; R10.32 Left lower quadrant pain; R10.31 Right lower quadrant pain; F11.20 Opioid dependence, uncomplicated; M79.7 Fibromyalgia; Z79.890 Hormone replacement therapy; Z79.899 Other long term (current) drug therapy; Z85.3 Personal history of malignant neoplasm of breast; Z88.0 Allergy status to penicillin; Z88.2 Allergy status to sulfonamides; Z88.5 Allergy status to narcotic agent; Z88.7 Allergy status to serum and vaccine; Z90.49 Acquired absence of other specified parts of digestive tract; Z90.710 Acquired absence of both cervix and uterus; Y92.89 Other specified places as the place of occurrence of the external cause
CPT/HCPCS: 99285; 96374; 96375; 96376; J1171 ×7; J1200 ×7; J2405 ×3; J2470; A4606; A4663

== ENCOUNTER 2024-10-11 07:21 | Emergency (ER) | payer MEDICARE, BC ==
[~2024-10-11] VITALS: Ht 167.6 cm; Wt 63.5 kg
[~2024-10-11 07:21] MED LIST changes: +TRAZ150T75 PO
[2024-10-11] MEDS: HYDROMORPHONE 1 MG/1 ML DISP.SYRIN IV ONE ×5 (08:06→13:51)
[2024-10-11] MEDS: diphenhydrAMINE 50 MG/1 ML VIAL IV ONE ×5 (08:06→13:51)
[2024-10-11] MEDS ORDERED: diphenhydrAMINE 50 MG/1 ML VIAL ONE ×5 (08:07→13:53)
[2024-10-11] MEDS: ONDANSETRON 4 MG/2 ML VIAL IV ONE ×5 (08:07→13:51)
[2024-10-11] MEDS ORDERED: ONDANSETRON 4 MG/2 ML VIAL ONE ×5 (08:07→13:53)
[2024-10-11] MEDS ORDERED: HYDROMORPHONE 2 MG/1 ML DISP.SYRIN ONE ×5 (08:08→13:52)
[2024-10-11 14:06] VITALS: O2SAT 98
== END 2024-10-11 14:39 | disposition home or self-care (01) ==
LOC: ER 07:21
DX: R10.9 Unspecified abdominal pain (principal); R19.7 Diarrhea, unspecified; T45.1X5A Adverse effect of antineoplastic and immunosuppressive drugs, initial encounter; C79.9 Secondary malignant neoplasm of unspecified site; M79.7 Fibromyalgia; Z79.890 Hormone replacement therapy; Z79.899 Other long term (current) drug therapy; Z90.710 Acquired absence of both cervix and uterus; Z88.0 Allergy status to penicillin; Z88.2 Allergy status to sulfonamides; Z88.5 Allergy status to narcotic agent; Z88.7 Allergy status to serum and vaccine
CPT/HCPCS: 99284; 96374; 96375; 96376; J1171 ×5; J1200 ×5; J2405 ×5; A4606; A4663

== ENCOUNTER 2024-10-14 12:21 | Emergency (ER) | payer MEDICARE, BC ==
[~2024-10-14] VITALS: Ht 167.6 cm; Wt 63.5 kg
[2024-10-14] MEDS ORDERED: ONDANSETRON 4 MG/2 ML VIAL ONE ×6 (12:43→18:06)
[2024-10-14] MEDS ORDERED: diphenhydrAMINE 50 MG/1 ML VIAL ONE ×6 (12:44→18:06)
[2024-10-14] MEDS ORDERED: HYDROMORPHONE 2 MG/1 ML DISP.SYRIN ONE ×6 (12:44→18:06)
[2024-10-14] MEDS: HYDROMORPHONE 1 MG/1 ML DISP.SYRIN IV ONE ×6 (13:00→18:03)
[2024-10-14] MEDS: diphenhydrAMINE 50 MG/1 ML VIAL IV ONE ×6 (13:00→18:03)
[2024-10-14] MEDS: ONDANSETRON 4 MG/2 ML VIAL IV ONE ×6 (13:00→18:03)
[2024-10-14 18:12] VITALS: O2SAT 98
== END 2024-10-14 18:14 | disposition home or self-care (01) ==
LOC: ER 12:21
DX: R11.2 Nausea with vomiting, unspecified (principal); T45.1X5A Adverse effect of antineoplastic and immunosuppressive drugs, initial encounter; C50.919 Malignant neoplasm of unspecified site of unspecified female breast; C78.7 Secondary malignant neoplasm of liver and intrahepatic bile duct; E86.0 Dehydration; F11.20 Opioid dependence, uncomplicated; M79.7 Fibromyalgia; Z79.890 Hormone replacement therapy; Z79.899 Other long term (current) drug therapy; Z85.3 Personal history of malignant neoplasm of breast; Z90.49 Acquired absence of other specified parts of digestive tract; Z90.710 Acquired absence of both cervix and uterus; Y92.89 Other specified places as the place of occurrence of the external cause; Z88.0 Allergy status to penicillin; Z88.2 Allergy status to sulfonamides; Z88.5 Allergy status to narcotic agent; Z88.7 Allergy status to serum and vaccine
CPT/HCPCS: 99284; 96374; 96375; 96376; J1171 ×6; J1200 ×6; J2405 ×6; A4606; A4663

== ENCOUNTER 2024-10-23 07:15 | Emergency (ER) | payer MEDICARE, BC ==
[~2024-10-23] VITALS: Ht 167.6 cm; Wt 63.5 kg
[2024-10-23] MEDS: diphenhydrAMINE 50 MG/1 ML VIAL IV ONE ×6 (07:48→14:09)
[2024-10-23] MEDS: HYDROMORPHONE 1 MG/1 ML DISP.SYRIN IV ONE ×6 (07:48→14:09)
[2024-10-23] MEDS: ONDANSETRON 4 MG/2 ML VIAL IV ONE ×6 (07:48→14:09)
[2024-10-23] MEDS ORDERED: ONDANSETRON 4 MG/2 ML VIAL ONE ×6 (07:49→14:13)
[2024-10-23] MEDS ORDERED: diphenhydrAMINE 50 MG/1 ML VIAL ONE ×6 (07:49→14:13)
[2024-10-23] MEDS ORDERED: HYDROMORPHONE 2 MG/1 ML DISP.SYRIN ONE ×6 (07:49→14:13)
[2024-10-23 14:25] VITALS: O2SAT 97
== END 2024-10-23 14:26 | disposition home or self-care (01) ==
LOC: ER 07:45
DX: R10.9 Unspecified abdominal pain (principal); T45.1X5A Adverse effect of antineoplastic and immunosuppressive drugs, initial encounter; R11.2 Nausea with vomiting, unspecified; R19.7 Diarrhea, unspecified; M79.7 Fibromyalgia; Z79.890 Hormone replacement therapy; Z79.899 Other long term (current) drug therapy; Z90.710 Acquired absence of both cervix and uterus; Z88.0 Allergy status to penicillin; Z88.2 Allergy status to sulfonamides; Z88.5 Allergy status to narcotic agent; Z88.7 Allergy status to serum and vaccine; Y92.89 Other specified places as the place of occurrence of the external cause
CPT/HCPCS: A4606; A4663; J1171; J1200; J2405

== ENCOUNTER 2024-10-25 09:52 | Emergency (ER) | payer MEDICARE, BC ==
[~2024-10-25] VITALS: Ht 162.6 cm; Wt 63.5 kg
[2024-10-25] MEDS: diphenhydrAMINE 50 MG/1 ML VIAL IV ONE ×7 (10:13→17:31)
[2024-10-25] MEDS ORDERED: diphenhydrAMINE 50 MG/1 ML VIAL ONE ×7 (10:13→17:32)
[2024-10-25] MEDS ORDERED: HYDROMORPHONE 2 MG/1 ML DISP.SYRIN ONE ×7 (10:13→17:32)
[2024-10-25] MEDS ORDERED: ONDANSETRON 4 MG/2 ML VIAL ONE ×7 (10:13→17:32)
[2024-10-25] MEDS: HYDROMORPHONE 1 MG/1 ML DISP.SYRIN IV ONE ×7 (10:14→17:31)
[2024-10-25] MEDS: ONDANSETRON 4 MG/2 ML VIAL IV ONE ×7 (10:14→17:31)
[2024-10-25 10:55] LABS: BASOPHILS % (AUTO) 0.6 % (0.0-2.0); EOSINOPHILS # (AUTO) 0.1 K/uL (0.0-0.7); EOSINOPHILS % (AUTO) 2.8 % (0.0-7.0); HEMATOCRIT 35.2 % (31.2-41.9); HEMOGLOBIN 11.1 g/dL (10.9-14.3); LYMPHOCYTES % (AUTO) 18.7 % (20.5-51.5); MEAN CORPUSCULAR HEMOGLOBIN 27.9 uug (24.7-32.8); MEAN CORPUSCULAR HGB CONC 32 g/dL (32.3-35.6); MEAN CORPUSCULAR VOLUME 88.6 fL (75.5-95.3); MONOCYTES # (AUTO) 0.6 K/uL (0.1-1.30); MONOCYTES % (AUTO) 10.6 % (0.0-11.0); NEUTROPHILS # (AUTO) 3.6 K/uL (1.8-8.9); NEUTROPHILS % (AUTO) 67.3 % (38.5-71.5); PLATELET COUNT (AUTO) 144 K/uL (179-408); RED BLOOD CELL COUNT(AUTO) 3.97 MIL/uL (3.63-4.92); RED CELL DISTRIBUTION WIDTH 15.5 % (12.3-17.7); WHITE BLOOD COUNT (AUTO) 5.4 K/uL (3.8-11.8)
[2024-10-25 11:07] LABS: ALANINE AMINOTRANSFERASE 22 U/L (14-59); ALBUMIN 3.4 g/dL (3.4-5.0); ALKALINE PHOSPHATASE 111 U/L (50-136); ASPARTATE AMINOTRANSFERASE 22 U/L (15-37); BILIRUBIN,DIRECT < 0.1 mg/dL (0.0-0.2); BILIRUBIN,TOTAL 0.2 mg/dL (0.2-1.0); CALCIUM 9.6 mg/dL (8.5-10.1); CARBON DIOXIDE 24 mmol/L (21-32); CHLORIDE 106 mmol/L (98-107); CREATININE 0.9 mg/dL (0.6-1.3); GLUCOSE 121 mg/dL (74-106); POTASSIUM 3.9 mmol/L (3.5-5.1); SODIUM SERUM 140 mmol/L (136-145); TOTAL PROTEIN, SERUM 6.9 g/dL (6.4-8.2); UREA NITROGEN, BLOOD 10 mg/dL (7-18)
[2024-10-25 11:27] LABS: DIFFERENTIAL COMMENT 1
[2024-10-25 17:37] VITALS: O2SAT 98
== END 2024-10-25 17:39 | disposition home or self-care (01) ==
LOC: ER 09:52
DX: C79.89 Secondary malignant neoplasm of other specified sites (principal); R10.30 Lower abdominal pain, unspecified; R11.2 Nausea with vomiting, unspecified; R19.7 Diarrhea, unspecified; F11.20 Opioid dependence, uncomplicated; M79.7 Fibromyalgia; Z79.890 Hormone replacement therapy; Z79.899 Other long term (current) drug therapy; Z85.3 Personal history of malignant neoplasm of breast; Z88.0 Allergy status to penicillin; Z88.2 Allergy status to sulfonamides; Z88.5 Allergy status to narcotic agent; Z88.7 Allergy status to serum and vaccine; Z90.11 Acquired absence of right breast and nipple; Z90.49 Acquired absence of other specified parts of digestive tract; Z90.710 Acquired absence of both cervix and uterus
CPT/HCPCS: 80076; 80048; 85025; 36415; 99285; 96374; 96375; 96376; J1200 ×7; J2405 ×7; J1171 ×7; A4606; A4663

== ENCOUNTER 2024-10-30 07:52 | Emergency (ER) | payer MEDICARE, BC ==
[~2024-10-30] VITALS: Ht 167.6 cm; Wt 77.1 kg
[2024-10-30] MEDS ORDERED: ONDANSETRON 4 MG/2 ML VIAL ONE (09:32)
[2024-10-30] MEDS ORDERED: diphenhydrAMINE 50 MG/1 ML VIAL ONE ×4 (09:32→15:02)
[2024-10-30] MEDS ORDERED: HYDROMORPHONE 2 MG/1 ML DISP.SYRIN ONE ×4 (09:32→15:02)
[2024-10-30] MEDS: ONDANSETRON 4 MG/2 ML VIAL IV ONE (09:46)
[2024-10-30] MEDS: IV NS 1000 ML 1,000 ML IV ONE (09:46)
[2024-10-30] MEDS: HYDROMORPHONE 1 MG/1 ML DISP.SYRIN IV ONE ×4 (09:46→15:03)
[2024-10-30] MEDS: diphenhydrAMINE 50 MG/1 ML VIAL IV ONE ×4 (09:46→15:03)
[2024-10-30 15:54] VITALS: BP 132/69; O2SAT 98
== END 2024-10-30 15:56 | disposition home or self-care (01) ==
LOC: ER 07:52
DX: R11.2 Nausea with vomiting, unspecified (principal); T45.1X5A Adverse effect of antineoplastic and immunosuppressive drugs, initial encounter; R10.30 Lower abdominal pain, unspecified; R19.7 Diarrhea, unspecified; F11.20 Opioid dependence, uncomplicated; E03.9 Hypothyroidism, unspecified; K21.9 Gastro-esophageal reflux disease without esophagitis; M79.7 Fibromyalgia; Z79.890 Hormone replacement therapy; Z79.899 Other long term (current) drug therapy; Z85.3 Personal history of malignant neoplasm of breast; Z90.710 Acquired absence of both cervix and uterus; Y92.89 Other specified places as the place of occurrence of the external cause; Z88.0 Allergy status to penicillin; Z88.2 Allergy status to sulfonamides; Z88.5 Allergy status to narcotic agent; Z88.7 Allergy status to serum and vaccine
CPT/HCPCS: 99284; 96374; 96361; 96375; 96376; J1171 ×4; J1200 ×4; J2405; J7040; A4606; A4663

== ENCOUNTER 2024-11-03 08:11 | Emergency (ER) | payer MEDICARE, BC ==
[~2024-11-03] VITALS: Ht 167.6 cm; Wt 63.5 kg
[2024-11-03] MEDS: diphenhydrAMINE 50 MG/1 ML VIAL IV ONE ×7 (08:54→16:13)
[2024-11-03] MEDS: ONDANSETRON 4 MG/2 ML VIAL IV ONE ×7 (08:54→16:13)
[2024-11-03] MEDS: HYDROMORPHONE 1 MG/1 ML DISP.SYRIN IV ONE ×7 (08:54→16:13)
[2024-11-03] MEDS ORDERED: HYDROMORPHONE 2 MG/1 ML DISP.SYRIN ONE ×7 (08:55→16:14)
[2024-11-03] MEDS ORDERED: ONDANSETRON 4 MG/2 ML VIAL ONE ×8 (08:55→16:14)
[2024-11-03] MEDS ORDERED: diphenhydrAMINE 50 MG/1 ML VIAL ONE ×7 (08:55→16:14)
[2024-11-03] MEDS: IV NS 1000 ML 1,000 ML IV ONE (09:19)
[2024-11-03 13:39] LABS: *BILIRUBIN,URIN NEGATIVE (NEGATIVE); *BLOOD, URINE TRACE (NEGATIVE); *CLARITY,URINE CLEAR (CLEAR); *COLOR,URINE YELLOW (YELLOW); *KETONES,URINE NEGATIVE (NEGATIVE); *PROTEIN,URINE NEGATIVE (NEGATIVE); *UROBILINOGEN,URINE 0.2 E.U./dl (NORMAL); LEUKOCYTE ESTERASE ,URINE TRACE (NEGATIVE); NITRITE, URINE NEGATIVE (NEGATIVE); UGLUCOSE NEGATIVE (NEGATIVE)
[2024-11-03 13:50] LABS: RBC,URINE 0-3 /HPF (0-3); SQUAMOUS EPITHELIAL CELL,UR MANY /HPF (NONE SEEN); WBC,URINE 0-3 /HPF (0-3)
[2024-11-03 16:26] VITALS: O2SAT 98
== END 2024-11-03 16:28 ==
LOC: ER 08:11
DX: R10.30 Lower abdominal pain, unspecified (principal); R11.2 Nausea with vomiting, unspecified; R19.7 Diarrhea, unspecified; R30.0 Dysuria; R35.0 Frequency of micturition; F11.20 Opioid dependence, uncomplicated; M79.7 Fibromyalgia; Z79.890 Hormone replacement therapy; Z79.899 Other long term (current) drug therapy; Z88.0 Allergy status to penicillin; Z88.2 Allergy status to sulfonamides; Z88.5 Allergy status to narcotic agent; Z88.7 Allergy status to serum and vaccine; Z90.710 Acquired absence of both cervix and uterus
CPT/HCPCS: 99285; 96374; 96375; 96361; 81001; 96376; J1171 ×7; J1200 ×7; J2405 ×8; A4606; A4663

== ENCOUNTER 2024-11-18 07:48 | Emergency (ER) | payer MEDICARE, BC ==
[~2024-11-18] VITALS: Ht 167.6 cm; Wt 63.5 kg
[2024-11-18] MEDS ORDERED: diphenhydrAMINE 50 MG/1 ML VIAL ONE ×6 (08:05→14:57)
[2024-11-18] MEDS ORDERED: HYDROMORPHONE 2 MG/1 ML DISP.SYRIN ONE ×6 (08:05→14:58)
[2024-11-18] MEDS ORDERED: ONDANSETRON 4 MG/2 ML VIAL ONE ×6 (08:05→14:57)
[2024-11-18] MEDS: diphenhydrAMINE 50 MG/1 ML VIAL IV ONE ×6 (08:10→14:56)
[2024-11-18] MEDS: ONDANSETRON 4 MG/2 ML VIAL IV ONE ×6 (08:11→14:57)
[2024-11-18] MEDS: IV NS 1000 ML 1,000 ML IV ONE (08:11)
[2024-11-18] MEDS: HYDROMORPHONE 1 MG/1 ML DISP.SYRIN IV ONE ×6 (08:11→14:57)
[2024-11-18 12:34] LABS: *BILIRUBIN,URIN NEGATIVE (NEGATIVE); *BLOOD, URINE NEGATIVE (NEGATIVE); *CLARITY,URINE CLEAR (CLEAR); *COLOR,URINE YELLOW (YELLOW); *KETONES,URINE NEGATIVE (NEGATIVE); *PROTEIN,URINE NEGATIVE (NEGATIVE); *UROBILINOGEN,URINE 0.2 E.U./dl (NORMAL); LEUKOCYTE ESTERASE ,URINE NEGATIVE (NEGATIVE); NITRITE, URINE NEGATIVE (NEGATIVE); PH,URINE 5.5 (5.0-8.0); UGLUCOSE NEGATIVE (NEGATIVE)
[2024-11-18 12:36] LABS: BASOPHILS % (AUTO) 0.5 % (0.0-2.0); EOSINOPHILS # (AUTO) 0.1 K/uL (0.0-0.7); EOSINOPHILS % (AUTO) 1.3 % (0.0-7.0); HEMATOCRIT 31.6 % (31.2-41.9); HEMOGLOBIN 10.5 g/dL (10.9-14.3); LYMPHOCYTES # (AUTO) 1.6 K/uL (0.8-4.8); MEAN CORPUSCULAR HEMOGLOBIN 27.7 uug (24.7-32.8); MEAN CORPUSCULAR HGB CONC 33 g/dL (32.3-35.6); MEAN CORPUSCULAR VOLUME 83.2 fL (75.5-95.3); MONOCYTES # (AUTO) 0.7 K/uL (0.1-1.30); MONOCYTES % (AUTO) 8.2 % (0.0-11.0); NEUTROPHILS # (AUTO) 6.6 K/uL (1.8-8.9); PLATELET COUNT (AUTO) 200 K/uL (179-408); RED CELL DISTRIBUTION WIDTH 16.6 % (12.3-17.7); WHITE BLOOD COUNT (AUTO) 9.1 K/uL (3.8-11.8)
[2024-11-18 12:55] LABS: DIFFERENTIAL COMMENT 1
[2024-11-18 13:08] LABS: CALCIUM 9.1 mg/dL (8.5-10.1); CREATININE 0.8 mg/dL (0.6-1.3); POTASSIUM 4.6 mmol/L (3.5-5.1)
[2024-11-18] MEDS ORDERED: LORA0.5T48 PO (15:06)
[2024-11-18 15:13] VITALS: O2SAT 99
== END 2024-11-18 15:16 | disposition home or self-care (01) ==
LOC: ER 07:48
DX: R11.2 Nausea with vomiting, unspecified (principal); T45.1X5A Adverse effect of antineoplastic and immunosuppressive drugs, initial encounter; R10.30 Lower abdominal pain, unspecified; R19.7 Diarrhea, unspecified; F11.20 Opioid dependence, uncomplicated; R30.0 Dysuria; R31.9 Hematuria, unspecified; R63.0 Anorexia; M79.7 Fibromyalgia; Z79.890 Hormone replacement therapy; Z79.899 Other long term (current) drug therapy; Z90.710 Acquired absence of both cervix and uterus; Z88.0 Allergy status to penicillin; Z88.2 Allergy status to sulfonamides; Z88.5 Allergy status to narcotic agent; Z88.7 Allergy status to serum and vaccine; Y92.9 Unspecified place or not applicable
CPT/HCPCS: 99284; 96374; 96375; 96361; 80048; 81003; 85025; 36415; 96376; J1171 ×6; J1200 ×6; J2405 ×6; J7040; A4606; A4663

== ENCOUNTER 2024-11-19 08:15 | Emergency (ER) | payer MEDICARE, BC ==
[~2024-11-19] VITALS: Ht 162.6 cm; Wt 63.5 kg
[~2024-11-19 08:15] MED LIST changes: +LORA0.5T48 PO
[2024-11-19] MEDS ORDERED: ONDANSETRON 4 MG/2 ML VIAL ONE ×7 (08:33→15:55)
[2024-11-19] MEDS ORDERED: diphenhydrAMINE 50 MG/1 ML VIAL ONE ×7 (08:33→15:56)
[2024-11-19] MEDS ORDERED: HYDROMORPHONE 2 MG/1 ML DISP.SYRIN ONE ×7 (08:33→15:56)
[2024-11-19] MEDS: HYDROMORPHONE 1 MG/1 ML DISP.SYRIN IV ONE ×8 (08:39→15:54)
[2024-11-19] MEDS: ONDANSETRON 4 MG/2 ML VIAL IV ONE ×7 (08:39→15:55)
[2024-11-19] MEDS: diphenhydrAMINE 50 MG/1 ML VIAL IV ONE ×7 (08:39→15:54)
[2024-11-19 16:01] VITALS: O2SAT 98
== END 2024-11-19 16:03 | disposition home or self-care (01) ==
LOC: ER 08:15
DX: R10.30 Lower abdominal pain, unspecified (principal); T45.1X5A Adverse effect of antineoplastic and immunosuppressive drugs, initial encounter; R11.2 Nausea with vomiting, unspecified; R19.7 Diarrhea, unspecified; R11.15 Cyclical vomiting syndrome unrelated to migraine; F11.20 Opioid dependence, uncomplicated; M79.7 Fibromyalgia; Z79.890 Hormone replacement therapy; Z90.710 Acquired absence of both cervix and uterus; Z79.899 Other long term (current) drug therapy; Z85.3 Personal history of malignant neoplasm of breast; Z88.0 Allergy status to penicillin; Z88.2 Allergy status to sulfonamides; Z88.5 Allergy status to narcotic agent; Z88.7 Allergy status to serum and vaccine; Y92.89 Other specified places as the place of occurrence of the external cause
CPT/HCPCS: 99285; 96374; 96375; 96376; J1171 ×7; J1200 ×7; J2405 ×7; A4606; A4663

== ENCOUNTER 2024-11-28 07:36 | Emergency (ER) | payer MEDICARE, BC ==
[~2024-11-28] VITALS: Ht 167.6 cm; Wt 63.5 kg
[2024-11-28] MEDS ORDERED: HYDROMORPHONE 2 MG/1 ML DISP.SYRIN ONE ×7 (07:55→15:30)
[2024-11-28] MEDS ORDERED: diphenhydrAMINE 50 MG/1 ML VIAL ONE ×7 (07:55→15:30)
[2024-11-28] MEDS ORDERED: ONDANSETRON 4 MG/2 ML VIAL ONE ×7 (07:55→15:30)
[2024-11-28] MEDS: diphenhydrAMINE 50 MG/1 ML VIAL IV ONE ×7 (07:58→15:29)
[2024-11-28] MEDS: HYDROMORPHONE 1 MG/1 ML DISP.SYRIN IV ONE ×8 (07:59→15:29)
[2024-11-28] MEDS: ONDANSETRON 4 MG/2 ML VIAL IV ONE ×7 (07:59→15:29)
[2024-11-28 13:39] LABS: *BILIRUBIN,URIN NEGATIVE (NEGATIVE); *BLOOD, URINE NEGATIVE (NEGATIVE); *CLARITY,URINE CLEAR (CLEAR); *COLOR,URINE YELLOW (YELLOW); *KETONES,URINE NEGATIVE (NEGATIVE); *PROTEIN,URINE NEGATIVE (NEGATIVE); *UROBILINOGEN,URINE 0.2 E.U./dl (NORMAL); LEUKOCYTE ESTERASE ,URINE NEGATIVE (NEGATIVE); NITRITE, URINE NEGATIVE (NEGATIVE); PH,URINE 5.5 (5.0-8.0); UGLUCOSE NEGATIVE (NEGATIVE)
[2024-11-28] MEDS ORDERED: LORA-259 PO (15:25)
[2024-11-28 15:36] VITALS: O2SAT 98
== END 2024-11-28 15:37 | disposition home or self-care (01) ==
LOC: ER 07:47
DX: R10.30 Lower abdominal pain, unspecified (principal); T45.1X5A Adverse effect of antineoplastic and immunosuppressive drugs, initial encounter; R11.2 Nausea with vomiting, unspecified; R19.7 Diarrhea, unspecified; F11.20 Opioid dependence, uncomplicated; M79.7 Fibromyalgia; Z79.890 Hormone replacement therapy; Z79.899 Other long term (current) drug therapy; Z85.3 Personal history of malignant neoplasm of breast; Z88.0 Allergy status to penicillin; Z88.2 Allergy status to sulfonamides; Z88.7 Allergy status to serum and vaccine; Z90.710 Acquired absence of both cervix and uterus; Z92.21 Personal history of antineoplastic chemotherapy; Z92.3 Personal history of irradiation; W88.1XXA Exposure to radioactive isotopes, initial encounter; Y93.89 Activity, other specified; Y92.89 Other specified places as the place of occurrence of the external cause; Y99.8 Other external cause status
CPT/HCPCS: 99285; 96374; 96375; 81003; 87086; 96376; J1171 ×7; J1200 ×7; J2405 ×7; A4606; A4663

== ENCOUNTER 2024-12-04 07:06 | Emergency (ER) | payer MEDICARE, BC ==
[~2024-12-04] VITALS: Ht 162.6 cm; Wt 63.5 kg
[~2024-12-04 07:06] MED LIST changes: +LORA-259 PO
[2024-12-04] MEDS ORDERED: diphenhydrAMINE 50 MG/1 ML VIAL ONE ×7 (07:41→14:40)
[2024-12-04] MEDS ORDERED: HYDROMORPHONE 2 MG/1 ML DISP.SYRIN ONE ×7 (07:41→14:41)
[2024-12-04] MEDS ORDERED: ONDANSETRON 4 MG/2 ML VIAL ONE ×7 (07:41→14:40)
[2024-12-04] MEDS: diphenhydrAMINE 50 MG/1 ML VIAL IV ONE ×7 (07:59→14:46)
[2024-12-04] MEDS: ONDANSETRON 4 MG/2 ML VIAL IV ONE ×7 (08:00→14:46)
[2024-12-04] MEDS: HYDROMORPHONE 1 MG/1 ML DISP.SYRIN IV ONE ×7 (08:00→14:46)
[2024-12-04] MEDS: IV NORMAL SALINE 500 ML BAG IV ONE (08:17)
[2024-12-04 14:47] VITALS: O2SAT 98
== END 2024-12-04 14:49 | disposition home or self-care (01) ==
LOC: ER 07:10
DX: R10.30 Lower abdominal pain, unspecified (principal); T45.1X5A Adverse effect of antineoplastic and immunosuppressive drugs, initial encounter; R11.2 Nausea with vomiting, unspecified; R19.7 Diarrhea, unspecified; M79.7 Fibromyalgia; Z79.890 Hormone replacement therapy; Z79.899 Other long term (current) drug therapy; Z85.3 Personal history of malignant neoplasm of breast; Z88.0 Allergy status to penicillin; Z88.2 Allergy status to sulfonamides; Z88.7 Allergy status to serum and vaccine; Z90.11 Acquired absence of right breast and nipple; Z90.49 Acquired absence of other specified parts of digestive tract; Z90.710 Acquired absence of both cervix and uterus; Y92.89 Other specified places as the place of occurrence of the external cause
CPT/HCPCS: 99285; 96374; 96375 ×2; 96376; J1171 ×7; J1200 ×7; J2405 ×7; A4606; A4663

== ENCOUNTER 2024-12-05 09:22 | Emergency (ER) | payer MEDICARE, BC ==
[~2024-12-05] VITALS: Ht 162.6 cm; Wt 63.5 kg
[2024-12-05] MEDS: HYDROMORPHONE 1 MG/1 ML DISP.SYRIN IV ONE ×6 (09:54→16:15)
[2024-12-05] MEDS: diphenhydrAMINE 50 MG/1 ML VIAL IV ONE ×6 (09:54→16:14)
[2024-12-05] MEDS: ONDANSETRON 4 MG/2 ML VIAL IV ONE ×6 (09:55→16:15)
[2024-12-05] MEDS ORDERED: diphenhydrAMINE 50 MG/1 ML VIAL ONE ×6 (09:56→16:16)
[2024-12-05] MEDS ORDERED: HYDROMORPHONE 2 MG/1 ML DISP.SYRIN ONE ×6 (09:56→16:16)
[2024-12-05] MEDS ORDERED: ONDANSETRON 4 MG/2 ML VIAL ONE ×6 (09:56→16:16)
[2024-12-05 14:30] VITALS: O2SAT 98
[2024-12-05 16:27] VITALS: BP 115/75
== END 2024-12-05 16:27 | disposition home or self-care (01) ==
LOC: ER 09:27
DX: R10.30 Lower abdominal pain, unspecified (principal); R11.2 Nausea with vomiting, unspecified; R19.7 Diarrhea, unspecified; M79.7 Fibromyalgia; Z79.890 Hormone replacement therapy; Z79.899 Other long term (current) drug therapy; Z85.3 Personal history of malignant neoplasm of breast; Z88.0 Allergy status to penicillin; Z88.2 Allergy status to sulfonamides; Z88.7 Allergy status to serum and vaccine; Z90.11 Acquired absence of right breast and nipple; Z90.49 Acquired absence of other specified parts of digestive tract; Z90.710 Acquired absence of both cervix and uterus
CPT/HCPCS: 99285; 96374; 96375; 96376; J1171 ×6; J1200 ×6; J2405 ×6; A4606; A4663

== ENCOUNTER 2024-12-10 08:22 | Emergency (ER) | payer MEDICARE, BC ==
[~2024-12-10] VITALS: Ht 162.6 cm; Wt 63.5 kg
[2024-12-10] MEDS: HYDROMORPHONE 1 MG/1 ML DISP.SYRIN IV ONE ×8 (08:41→16:04)
[2024-12-10] MEDS: ONDANSETRON 4 MG/2 ML VIAL IV ONE ×7 (08:41→15:13)
[2024-12-10] MEDS: diphenhydrAMINE 50 MG/1 ML VIAL IV ONE ×8 (08:41→16:04)
[2024-12-10] MEDS ORDERED: ONDANSETRON 4 MG/2 ML VIAL ONE ×7 (08:42→15:14)
[2024-12-10] MEDS ORDERED: HYDROMORPHONE 2 MG/1 ML DISP.SYRIN ONE ×8 (08:42→16:05)
[2024-12-10] MEDS ORDERED: diphenhydrAMINE 50 MG/1 ML VIAL ONE ×8 (08:42→16:05)
[2024-12-10 16:09] VITALS: O2SAT 97
== END 2024-12-10 16:10 | disposition home or self-care (01) ==
LOC: ER 08:22
DX: R11.2 Nausea with vomiting, unspecified (principal); T45.1X5A Adverse effect of antineoplastic and immunosuppressive drugs, initial encounter; R10.2 Pelvic and perineal pain; R19.7 Diarrhea, unspecified; F11.20 Opioid dependence, uncomplicated; M79.7 Fibromyalgia; Z79.890 Hormone replacement therapy; Z79.899 Other long term (current) drug therapy; Z85.3 Personal history of malignant neoplasm of breast; Z88.0 Allergy status to penicillin; Z88.2 Allergy status to sulfonamides; Z88.7 Allergy status to serum and vaccine; Z90.11 Acquired absence of right breast and nipple; Z90.49 Acquired absence of other specified parts of digestive tract; Z90.710 Acquired absence of both cervix and uterus; Z92.21 Personal history of antineoplastic chemotherapy; Y92.89 Other specified places as the place of occurrence of the external cause
CPT/HCPCS: 99285; 96374; 96375; 96376; J1171 ×8; J1200 ×8; J2405 ×7; A4606; A4663

== ENCOUNTER 2024-12-13 08:35 | Emergency (ER) | payer MEDICARE, BC ==
[~2024-12-13] VITALS: Ht 162.6 cm; Wt 63.5 kg
[2024-12-13] MEDS ORDERED: HYDROMORPHONE 2 MG/1 ML DISP.SYRIN ONE ×7 (09:00→15:39)
[2024-12-13] MEDS ORDERED: ONDANSETRON 4 MG/2 ML VIAL ONE ×7 (09:00→15:39)
[2024-12-13] MEDS ORDERED: diphenhydrAMINE 50 MG/1 ML VIAL ONE ×7 (09:00→15:39)
[2024-12-13] MEDS: HYDROMORPHONE 1 MG/1 ML DISP.SYRIN IV ONE ×7 (09:05→15:38)
[2024-12-13] MEDS: diphenhydrAMINE 50 MG/1 ML VIAL IV ONE ×7 (09:05→15:38)
[2024-12-13] MEDS: ONDANSETRON 4 MG/2 ML VIAL IV ONE ×7 (09:05→15:38)
[2024-12-13 09:49] LABS: CALCIUM 9.2 mg/dL (8.5-10.1); CREATININE 0.9 mg/dL (0.6-1.3); POTASSIUM 4.5 mmol/L (3.5-5.1)
[2024-12-13 09:55] LABS: BASOPHILS # (AUTO) 0.1 K/UL (0.0-0.2); BASOPHILS % (AUTO) 0.9 % (0.0-2.0); DIFFERENTIAL COMMENT 0; EOSINOPHILS # (AUTO) 0.3 K/uL (0.0-0.7); EOSINOPHILS % (AUTO) 4.3 % (0.0-7.0); HEMATOCRIT 33.2 % (31.2-41.9); HEMOGLOBIN 10.8 g/dL (10.9-14.3); LYMPHOCYTES # (AUTO) 1.3 K/uL (0.8-4.8); LYMPHOCYTES % (AUTO) 20.7 % (20.5-51.5); MEAN CORPUSCULAR HEMOGLOBIN 27.4 uug (24.7-32.8); MEAN CORPUSCULAR HGB CONC 33 g/dL (32.3-35.6); MEAN CORPUSCULAR VOLUME 84.2 fL (75.5-95.3); MONOCYTES # (AUTO) 0.6 K/uL (0.1-1.30); MONOCYTES % (AUTO) 9.2 % (0.0-11.0); NEUTROPHILS # (AUTO) 4.1 K/uL (1.8-8.9); NEUTROPHILS % (AUTO) 64.9 % (38.5-71.5); PLATELET COUNT (AUTO) 173 K/uL (179-408); RED BLOOD CELL COUNT(AUTO) 3.95 MIL/uL (3.63-4.92); RED CELL DISTRIBUTION WIDTH 17.5 % (12.3-17.7); WHITE BLOOD COUNT (AUTO) 6.3 K/uL (3.8-11.8)
[2024-12-13 12:10] LABS: *BILIRUBIN,URIN NEGATIVE (NEGATIVE); *BLOOD, URINE NEGATIVE (NEGATIVE); *CLARITY,URINE CLEAR (CLEAR); *COLOR,URINE YELLOW (YELLOW); *KETONES,URINE NEGATIVE (NEGATIVE); *PROTEIN,URINE NEGATIVE (NEGATIVE); *UROBILINOGEN,URINE 0.2 E.U./dl (NORMAL); LEUKOCYTE ESTERASE ,URINE NEGATIVE (NEGATIVE); NITRITE, URINE NEGATIVE (NEGATIVE); PH,URINE 7.5 (5.0-8.0); UGLUCOSE NEGATIVE (NEGATIVE)
[2024-12-13 15:45] VITALS: O2SAT 98
== END 2024-12-13 15:53 | disposition home or self-care (01) ==
LOC: ER 08:35
DX: R10.9 Unspecified abdominal pain (principal); T45.1X5A Adverse effect of antineoplastic and immunosuppressive drugs, initial encounter; R11.2 Nausea with vomiting, unspecified; R19.7 Diarrhea, unspecified; M79.7 Fibromyalgia; Z86.69 Personal history of other diseases of the nervous system and sense organs; Z79.890 Hormone replacement therapy; Z79.899 Other long term (current) drug therapy; Z88.0 Allergy status to penicillin; Z88.2 Allergy status to sulfonamides; Z88.7 Allergy status to serum and vaccine; Z90.710 Acquired absence of both cervix and uterus; Y92.89 Other specified places as the place of occurrence of the external cause
CPT/HCPCS: 99285; 96374; 96375; 80048; 81003; 85025; 36415; 96376; J1171 ×7; J1200 ×7; J2405 ×7; A4606; A4663

== ENCOUNTER 2024-12-17 08:05 | Emergency (ER) | payer MEDICARE, BC ==
[~2024-12-17] VITALS: Ht 162.6 cm; Wt 63.5 kg
[2024-12-17] MEDS: HYDROMORPHONE 1 MG/1 ML DISP.SYRIN IV ONE ×7 (08:24→15:02)
[2024-12-17] MEDS: ONDANSETRON 4 MG/2 ML VIAL IV ONE ×6 (08:24→14:15)
[2024-12-17] MEDS: diphenhydrAMINE 50 MG/1 ML VIAL IV ONE ×7 (08:24→15:02)
[2024-12-17] MEDS ORDERED: diphenhydrAMINE 50 MG/1 ML VIAL ONE ×7 (08:25→15:03)
[2024-12-17] MEDS ORDERED: ONDANSETRON 4 MG/2 ML VIAL ONE ×6 (08:25→14:16)
[2024-12-17] MEDS ORDERED: HYDROMORPHONE 2 MG/1 ML DISP.SYRIN ONE ×7 (08:25→15:03)
[2024-12-17 15:08] VITALS: O2SAT 98
== END 2024-12-17 15:08 | disposition home or self-care (01) ==
LOC: ER 08:05
DX: R11.2 Nausea with vomiting, unspecified (principal); T45.1X5A Adverse effect of antineoplastic and immunosuppressive drugs, initial encounter; R19.7 Diarrhea, unspecified; R10.30 Lower abdominal pain, unspecified; F11.20 Opioid dependence, uncomplicated; G89.29 Other chronic pain; M79.7 Fibromyalgia; Z79.890 Hormone replacement therapy; Z79.899 Other long term (current) drug therapy; Z85.3 Personal history of malignant neoplasm of breast; Z88.0 Allergy status to penicillin; Z88.2 Allergy status to sulfonamides; Z88.7 Allergy status to serum and vaccine; Z90.11 Acquired absence of right breast and nipple; Z90.49 Acquired absence of other specified parts of digestive tract; Z90.710 Acquired absence of both cervix and uterus; Y92.89 Other specified places as the place of occurrence of the external cause
CPT/HCPCS: 99285; 96374; 96375; 96376; J1171 ×7; J1200 ×7; J2405 ×6; A4606; A4663

== ENCOUNTER 2024-12-18 11:08 | Emergency (ER) | payer MEDICARE, BC ==
[~2024-12-18] VITALS: Ht 162.6 cm; Wt 63.5 kg
[2024-12-18] MEDS: HYDROMORPHONE 1 MG/1 ML DISP.SYRIN IV ONE ×7 (11:26→17:36)
[2024-12-18] MEDS: diphenhydrAMINE 50 MG/1 ML VIAL IV ONE ×7 (11:27→17:36)
[2024-12-18] MEDS: ONDANSETRON 4 MG/2 ML VIAL IV ONE ×6 (11:27→17:36)
[2024-12-18] MEDS ORDERED: ONDANSETRON 4 MG/2 ML VIAL ONE ×6 (11:28→17:37)
[2024-12-18] MEDS ORDERED: HYDROMORPHONE 2 MG/1 ML DISP.SYRIN ONE ×7 (11:28→17:37)
[2024-12-18] MEDS ORDERED: diphenhydrAMINE 50 MG/1 ML VIAL ONE ×7 (11:28→17:37)
[2024-12-18 13:58] LABS: BASOPHILS % (AUTO) 0.5 % (0.0-2.0); EOSINOPHILS # (AUTO) 0.3 K/uL (0.0-0.7); EOSINOPHILS % (AUTO) 5.1 % (0.0-7.0); HEMATOCRIT 33.8 % (31.2-41.9); HEMOGLOBIN 10.8 g/dL (10.9-14.3); LYMPHOCYTES # (AUTO) 1.3 K/uL (0.8-4.8); LYMPHOCYTES % (AUTO) 24.1 % (20.5-51.5); MEAN CORPUSCULAR HEMOGLOBIN 27.1 uug (24.7-32.8); MEAN CORPUSCULAR HGB CONC 32 g/dL (32.3-35.6); MEAN CORPUSCULAR VOLUME 84.5 fL (75.5-95.3); MONOCYTES # (AUTO) 0.4 K/uL (0.1-1.30); MONOCYTES % (AUTO) 6.9 % (0.0-11.0); NEUTROPHILS # (AUTO) 3.5 K/uL (1.8-8.9); NEUTROPHILS % (AUTO) 63.4 % (38.5-71.5); PLATELET COUNT (AUTO) 182 K/uL (179-408); RED CELL DISTRIBUTION WIDTH 17.9 % (12.3-17.7); WHITE BLOOD COUNT (AUTO) 5.5 K/uL (3.8-11.8)
[2024-12-18 14:01] LABS: DIFFERENTIAL COMMENT 1
[2024-12-18 14:21] LABS: CALCIUM 9.5 mg/dL (8.5-10.1); CREATININE 0.9 mg/dL (0.6-1.3); POTASSIUM 4.6 mmol/L (3.5-5.1)
[2024-12-18 17:49] VITALS: BP 111/64; TEMP 98.1; O2SAT 98
== END 2024-12-18 17:50 | disposition home or self-care (01) ==
LOC: ER 11:08
DX: R10.30 Lower abdominal pain, unspecified (principal); T45.1X5A Adverse effect of antineoplastic and immunosuppressive drugs, initial encounter; R11.2 Nausea with vomiting, unspecified; F11.20 Opioid dependence, uncomplicated; D64.9 Anemia, unspecified; M79.7 Fibromyalgia; Z79.890 Hormone replacement therapy; Z79.899 Other long term (current) drug therapy; Z88.0 Allergy status to penicillin; Z88.2 Allergy status to sulfonamides; Z88.7 Allergy status to serum and vaccine; Z90.11 Acquired absence of right breast and nipple; Z90.49 Acquired absence of other specified parts of digestive tract; Z90.710 Acquired absence of both cervix and uterus; Y92.89 Other specified places as the place of occurrence of the external cause
CPT/HCPCS: 99285; 96374; 96375; 80048; 85025; 36415; 96376; J1171 ×7; J1200 ×7; J2405 ×6; A4606; A4663

== ENCOUNTER 2024-12-20 10:36 | Emergency (ER) | payer MEDICARE, BC ==
[~2024-12-20] VITALS: Ht 162.6 cm; Wt 63.5 kg
[2024-12-20] MEDS: HYDROMORPHONE 1 MG/1 ML DISP.SYRIN IV ONE ×7 (11:12→17:19)
[2024-12-20] MEDS: diphenhydrAMINE 50 MG/1 ML VIAL IV ONE ×7 (11:12→17:19)
[2024-12-20] MEDS: ONDANSETRON 4 MG/2 ML VIAL IV ONE ×4 (11:12→14:31)
[2024-12-20] MEDS ORDERED: ONDANSETRON 4 MG/2 ML VIAL ONE ×4 (11:13→14:33)
[2024-12-20] MEDS ORDERED: diphenhydrAMINE 50 MG/1 ML VIAL ONE ×8 (11:14→17:20)
[2024-12-20] MEDS ORDERED: HYDROMORPHONE 2 MG/1 ML DISP.SYRIN ONE ×7 (11:14→17:20)
[2024-12-20 17:26] VITALS: O2SAT 95
== END 2024-12-20 17:27 | disposition home or self-care (01) ==
LOC: ER 10:36
DX: R10.9 Unspecified abdominal pain (principal); T45.1X5A Adverse effect of antineoplastic and immunosuppressive drugs, initial encounter; R11.2 Nausea with vomiting, unspecified; D64.9 Anemia, unspecified; M79.7 Fibromyalgia; Z79.890 Hormone replacement therapy; Z79.899 Other long term (current) drug therapy; Z88.0 Allergy status to penicillin; Z88.2 Allergy status to sulfonamides; Z88.7 Allergy status to serum and vaccine; Z90.710 Acquired absence of both cervix and uterus; Y92.89 Other specified places as the place of occurrence of the external cause
CPT/HCPCS: 99285; 96374; 96375; 96376; J1171 ×7; J1200 ×8; J2405 ×4; A4606; A4663

== ENCOUNTER 2024-12-24 08:18 | Emergency (ER) | payer MEDICARE, BC ==
[~2024-12-24] VITALS: Ht 162.6 cm; Wt 63.5 kg
[2024-12-24] MEDS ORDERED: diphenhydrAMINE 50 MG/1 ML VIAL ONE ×8 (08:40→15:55)
[2024-12-24] MEDS ORDERED: ONDANSETRON 4 MG/2 ML VIAL ONE ×6 (08:40→15:55)
[2024-12-24] MEDS ORDERED: HYDROMORPHONE 2 MG/1 ML DISP.SYRIN ONE ×7 (08:41→15:55)
[2024-12-24] MEDS: ONDANSETRON 4 MG/2 ML VIAL IV ONE ×6 (08:47→15:54)
[2024-12-24] MEDS: HYDROMORPHONE 1 MG/1 ML DISP.SYRIN IV ONE ×7 (08:47→15:54)
[2024-12-24] MEDS: diphenhydrAMINE 50 MG/1 ML VIAL IV ONE ×7 (08:48→15:54)
[2024-12-24 16:05] VITALS: BP 113/75; O2SAT 98
[2024-12-25] MEDS ORDERED: TRAM50TA2 PO (18:08)
== END 2024-12-24 16:05 | disposition home or self-care (01) ==
LOC: ER 08:18
DX: R10.30 Lower abdominal pain, unspecified (principal); T45.1X5A Adverse effect of antineoplastic and immunosuppressive drugs, initial encounter; C79.81 Secondary malignant neoplasm of breast; M79.7 Fibromyalgia; Z90.710 Acquired absence of both cervix and uterus; Z79.890 Hormone replacement therapy; Z79.899 Other long term (current) drug therapy; Z88.0 Allergy status to penicillin; Z88.2 Allergy status to sulfonamides; Z88.7 Allergy status to serum and vaccine; Y92.89 Other specified places as the place of occurrence of the external cause
CPT/HCPCS: A4606; A4663; J1171; J1200; J2405

== ENCOUNTER 2024-12-25 13:33 | Emergency (ER) | payer MEDICARE, BC ==
[~2024-12-25] VITALS: Ht 162.6 cm; Wt 63.5 kg
[2024-12-25] MEDS: HYDROMORPHONE 1 MG/1 ML DISP.SYRIN IV ONE ×6 (14:01→18:53)
[2024-12-25] MEDS: diphenhydrAMINE 50 MG/1 ML VIAL IV ONE ×6 (14:01→18:53)
[2024-12-25] MEDS: ONDANSETRON 4 MG/2 ML VIAL IV ONE ×5 (14:02→19:00)
[2024-12-25] MEDS ORDERED: HYDROMORPHONE 2 MG/1 ML DISP.SYRIN ONE ×6 (14:03→18:54)
[2024-12-25] MEDS ORDERED: diphenhydrAMINE 50 MG/1 ML VIAL ONE ×6 (14:03→18:54)
[2024-12-25] MEDS ORDERED: ONDANSETRON 4 MG/2 ML VIAL ONE ×5 (14:03→18:54)
[2024-12-25] MEDS ORDERED: TRAM50TA2 PO (18:08)
[2024-12-25 19:06] VITALS: O2SAT 98
== END 2024-12-25 19:06 | disposition home or self-care (01) ==
LOC: ER 13:33
DX: R10.30 Lower abdominal pain, unspecified (principal); T45.1X5A Adverse effect of antineoplastic and immunosuppressive drugs, initial encounter; F11.20 Opioid dependence, uncomplicated; M79.7 Fibromyalgia; Z79.890 Hormone replacement therapy; Z79.899 Other long term (current) drug therapy; Z90.710 Acquired absence of both cervix and uterus; Z85.3 Personal history of malignant neoplasm of breast; Z88.0 Allergy status to penicillin; Z88.2 Allergy status to sulfonamides; Z88.7 Allergy status to serum and vaccine; Y92.89 Other specified places as the place of occurrence of the external cause
CPT/HCPCS: 99285; 96374; 96375; 96376 ×2; J1171 ×6; J1200 ×6; J2405 ×5; A4606; A4663

== ENCOUNTER 2024-12-30 07:41 | Emergency (ER) | payer MEDICARE, BC ==
[~2024-12-30] VITALS: Ht 162.6 cm; Wt 63.5 kg
[2024-12-30] MEDS ORDERED: HYDROMORPHONE 2 MG/1 ML DISP.SYRIN ONE ×9 (08:03→17:28)
[2024-12-30] MEDS ORDERED: diphenhydrAMINE 50 MG/1 ML VIAL ONE ×9 (08:03→17:28)
[2024-12-30] MEDS ORDERED: ONDANSETRON 4 MG/2 ML VIAL ONE ×5 (08:03→14:47)
[2024-12-30] MEDS: HYDROMORPHONE 1 MG/1 ML DISP.SYRIN IV ONE ×10 (08:08→17:27)
[2024-12-30] MEDS: ONDANSETRON 4 MG/2 ML VIAL IV ONE ×5 (08:08→14:12)
[2024-12-30] MEDS: diphenhydrAMINE 50 MG/1 ML VIAL IV ONE ×9 (08:08→17:27)
[2024-12-30 17:29] VITALS: O2SAT 98
== END 2024-12-30 17:30 | disposition home or self-care (01) ==
LOC: ER 07:41
DX: C50.919 Malignant neoplasm of unspecified site of unspecified female breast (principal); F11.20 Opioid dependence, uncomplicated; C78.7 Secondary malignant neoplasm of liver and intrahepatic bile duct; G89.29 Other chronic pain; M79.7 Fibromyalgia; R11.2 Nausea with vomiting, unspecified; R19.7 Diarrhea, unspecified; Z79.890 Hormone replacement therapy; Z79.899 Other long term (current) drug therapy; Z85.3 Personal history of malignant neoplasm of breast; Z88.0 Allergy status to penicillin; Z88.2 Allergy status to sulfonamides; Z88.7 Allergy status to serum and vaccine; Z90.710 Acquired absence of both cervix and uterus
CPT/HCPCS: 99285; 96374; 96375; 96376; J1171 ×9; J2405 ×5; J1200 ×9; A4606; A4663

== ENCOUNTER 2025-01-06 07:30 | Emergency (ER) | payer MEDICARE, BC ==
[~2025-01-06] VITALS: Ht 162.6 cm; Wt 63.5 kg
[2025-01-06] MEDS: ONDANSETRON 4 MG/2 ML VIAL IV ONE ×5 (07:37→11:48)
[2025-01-06] MEDS: HYDROMORPHONE 1 MG/1 ML DISP.SYRIN IV ONE ×10 (07:37→16:41)
[2025-01-06] MEDS: diphenhydrAMINE 50 MG/1 ML VIAL IV ONE ×10 (07:37→16:40)
[2025-01-06] MEDS ORDERED: HYDROMORPHONE 2 MG/1 ML DISP.SYRIN ONE ×9 (07:38→16:42)
[2025-01-06] MEDS ORDERED: ONDANSETRON 4 MG/2 ML VIAL ONE ×5 (07:38→11:48)
[2025-01-06] MEDS ORDERED: diphenhydrAMINE 50 MG/1 ML VIAL ONE ×10 (07:38→16:42)
[2025-01-06] MEDS ORDERED: HYDROMORPHONE 1 MG/1 ML DISP.SYRIN ONE (15:56)
[2025-01-06 16:36] VITALS: BP 114/67; TEMP 98.1
[2025-01-06 16:42] VITALS: O2SAT 98
== END 2025-01-06 16:44 | disposition home or self-care (01) ==
LOC: ER 07:30
DX: C79.9 Secondary malignant neoplasm of unspecified site (principal); T45.1X5A Adverse effect of antineoplastic and immunosuppressive drugs, initial encounter; R11.2 Nausea with vomiting, unspecified; R19.7 Diarrhea, unspecified; R10.32 Left lower quadrant pain; R10.31 Right lower quadrant pain; M79.7 Fibromyalgia; Z79.890 Hormone replacement therapy; E03.9 Hypothyroidism, unspecified; Z88.0 Allergy status to penicillin; Z88.2 Allergy status to sulfonamides; Z88.7 Allergy status to serum and vaccine; Z90.710 Acquired absence of both cervix and uterus; Z79.899 Other long term (current) drug therapy; Z90.49 Acquired absence of other specified parts of digestive tract; Z90.11 Acquired absence of right breast and nipple; Z88.8 Allergy status to other drugs, medicaments and biological substances; Y92.89 Other specified places as the place of occurrence of the external cause
CPT/HCPCS: 99285; 96374; 96375; 96376; J1171 ×10; J2405 ×5; J7040; J1200 ×10; A4606; A4663

== ENCOUNTER 2025-01-08 12:29 | Emergency (ER) | payer MEDICARE, BC ==
[~2025-01-08] VITALS: Ht 162.6 cm; Wt 63.5 kg
[2025-01-08] MEDS: diphenhydrAMINE 50 MG/1 ML VIAL IV ONE ×4 (12:50→15:55)
[2025-01-08] MEDS: ONDANSETRON 4 MG/2 ML VIAL IV ONE ×2 (12:51→14:15)
[2025-01-08] MEDS: HYDROMORPHONE 1 MG/1 ML DISP.SYRIN IV ONE ×4 (12:51→15:55)
[2025-01-08] MEDS ORDERED: diphenhydrAMINE 50 MG/1 ML VIAL ONE ×4 (12:52→15:56)
[2025-01-08] MEDS ORDERED: HYDROMORPHONE 2 MG/1 ML DISP.SYRIN ONE ×4 (12:52→15:56)
[2025-01-08] MEDS ORDERED: ONDANSETRON 4 MG/2 ML VIAL ONE ×2 (12:52→14:06)
[2025-01-08 15:57] VITALS: O2SAT 98
== END 2025-01-08 15:58 | disposition home or self-care (01) ==
LOC: ER 12:33
DX: R11.2 Nausea with vomiting, unspecified (principal); R10.9 Unspecified abdominal pain; M79.7 Fibromyalgia; E03.9 Hypothyroidism, unspecified; Z92.21 Personal history of antineoplastic chemotherapy; Z79.890 Hormone replacement therapy; Z79.899 Other long term (current) drug therapy; Z88.0 Allergy status to penicillin; Z88.2 Allergy status to sulfonamides; Z88.7 Allergy status to serum and vaccine; Z90.710 Acquired absence of both cervix and uterus
CPT/HCPCS: 99284; 96374; 96375; 96376; J1171 ×4; J1200 ×4; J2405 ×2; J7040; A4606; A4663

== ENCOUNTER 2025-01-12 09:49 | Emergency (ER) | payer MEDICARE, BC ==
[~2025-01-12] VITALS: Ht 167.6 cm; Wt 77.1 kg
[2025-01-12 09:56] VITALS: O2SAT 90
== END 2025-01-12 10:30 | disposition left against medical advice (07) ==
LOC: ER 09:49
DX: G89.29 Other chronic pain (principal); E03.9 Hypothyroidism, unspecified; M79.7 Fibromyalgia; Z79.890 Hormone replacement therapy; Z79.899 Other long term (current) drug therapy; Z88.0 Allergy status to penicillin; Z88.2 Allergy status to sulfonamides; Z88.7 Allergy status to serum and vaccine; Z90.710 Acquired absence of both cervix and uterus
CPT/HCPCS: A4606; A4663

== ENCOUNTER 2025-01-17 09:20 | Emergency (ER) | payer MEDICARE, BC ==
[~2025-01-17] VITALS: Ht 162.6 cm; Wt 63.5 kg
[2025-01-17] MEDS: ONDANSETRON 4 MG/2 ML VIAL IV ONE ×5 (09:34→13:55)
[2025-01-17] MEDS: HYDROMORPHONE 1 MG/1 ML DISP.SYRIN IV ONE ×6 (09:34→14:53)
[2025-01-17] MEDS: diphenhydrAMINE 50 MG/1 ML VIAL IV ONE ×6 (09:34→14:53)
[2025-01-17] MEDS ORDERED: ONDANSETRON 4 MG/2 ML VIAL ONE ×5 (09:36→13:56)
[2025-01-17] MEDS ORDERED: HYDROMORPHONE 2 MG/1 ML DISP.SYRIN ONE ×6 (09:36→14:54)
[2025-01-17] MEDS ORDERED: diphenhydrAMINE 50 MG/1 ML VIAL ONE ×6 (09:36→14:53)
[2025-01-17] MEDS ORDERED: ALBU18HF2 INH (12:44)
[2025-01-17 14:56] VITALS: BP 111/78; O2SAT 98
== END 2025-01-17 14:57 | disposition home or self-care (01) ==
LOC: ER 09:20
DX: R10.30 Lower abdominal pain, unspecified (principal); T45.1X5A Adverse effect of antineoplastic and immunosuppressive drugs, initial encounter; R53.1 Weakness; Y92.89 Other specified places as the place of occurrence of the external cause; F11.20 Opioid dependence, uncomplicated; M79.7 Fibromyalgia; Z79.899 Other long term (current) drug therapy; Z88.0 Allergy status to penicillin; Z88.2 Allergy status to sulfonamides; Z88.7 Allergy status to serum and vaccine; Z90.710 Acquired absence of both cervix and uterus; Z90.11 Acquired absence of right breast and nipple; Z90.49 Acquired absence of other specified parts of digestive tract
CPT/HCPCS: A4606; A4663; J1171; J1200; J2405

== ENCOUNTER 2025-01-20 13:04 | Inpatient (IN) | payer BC, MEDICARE ==
[~2025-01-20] VITALS: Ht 162.6 cm; Wt 83.0 kg
[~2025-01-20 13:04] MED LIST changes: +ALBU18HF2 INH
[2025-01-20] MEDS: diphenhydrAMINE 50 MG/1 ML VIAL IV ONE ×6 (13:20→18:39)
[2025-01-20] MEDS: HYDROMORPHONE 1 MG/1 ML DISP.SYRIN IV ONE ×7 (13:20→18:39)
[2025-01-20] MEDS ORDERED: ONDANSETRON 4 MG/2 ML VIAL ONE ×2 (13:21→14:31)
[2025-01-20] MEDS ORDERED: HYDROMORPHONE 2 MG/1 ML DISP.SYRIN ONE ×6 (13:21→18:41)
[2025-01-20] MEDS ORDERED: diphenhydrAMINE 50 MG/1 ML VIAL ONE ×6 (13:21→18:40)
[2025-01-20] MEDS: ONDANSETRON 4 MG/2 ML VIAL IV ONE ×2 (13:21→14:29)
[2025-01-20] MEDS: IPRATROPIUM BROMIDE 0.5 MG/2.5 ML NEBU NEB ONE (14:26)
[2025-01-20] MEDS: ALBUTEROL SULFATE 2.5 MG/3 ML NEBU NEB ONE (14:26)
[2025-01-20 14:28] VITALS: O2SAT 90
[2025-01-20] MEDS ORDERED: IPRATROPIUM BROMIDE 0.5 MG/2.5 ML NEBU ONE (14:28)
[2025-01-20] MEDS ORDERED: ALBUTEROL SULFATE 2.5 MG/3 ML NEBU ONE (14:28)
[2025-01-20] MEDS: predniSONE 10 MG TABLET PO ONE (14:29)
[2025-01-20] MEDS ORDERED: predniSONE 50 MG TABLET ONE (14:30)
[2025-01-20] MEDS ORDERED: predniSONE 10 MG TABLET ONE (14:30)
[2025-01-20 15:08] LABS: CALCIUM 9.2 mg/dL (8.5-10.1); CREATININE 0.7 mg/dL (0.6-1.3)
[2025-01-20 15:19] LABS: BASOPHILS % (AUTO) 0.3 % (0.0-2.0); DIFFERENTIAL COMMENT 0; EOSINOPHILS # (AUTO) 0.1 K/uL (0.0-0.7); EOSINOPHILS % (AUTO) 1.1 % (0.0-7.0); HEMATOCRIT 26.6 % (31.2-41.9); HEMOGLOBIN 8.6 g/dL (10.9-14.3); LYMPHOCYTES # (AUTO) 0.9 K/uL (0.8-4.8); LYMPHOCYTES % (AUTO) 13.9 % (20.5-51.5); MEAN CORPUSCULAR HEMOGLOBIN 26.2 uug (24.7-32.8); MEAN CORPUSCULAR HGB CONC 32 g/dL (32.3-35.6); MEAN CORPUSCULAR VOLUME 81.5 fL (75.5-95.3); MONOCYTES # (AUTO) 0.7 K/uL (0.1-1.30); MONOCYTES % (AUTO) 11.7 % (0.0-11.0); NEUTROPHILS # (AUTO) 4.5 K/uL (1.8-8.9); PLATELET COUNT (AUTO) 207 K/uL (179-408); RED BLOOD CELL COUNT(AUTO) 3.26 MIL/uL (3.63-4.92); WHITE BLOOD COUNT (AUTO) 6.2 K/uL (3.8-11.8)
[2025-01-20 15:28] VITALS: O2SAT 96
[2025-01-20] MEDS ORDERED: FUROSEMIDE 40 MG/4 ML VIAL ONE (17:06)
[2025-01-20] MEDS: FUROSEMIDE 40 MG/4 ML VIAL IV ONE (17:06)
[2025-01-20] MEDS ORDERED: TRAZ150T75 PO (17:46)
[2025-01-20] MEDS ORDERED: RIZA10TA27 PO (17:46)
[2025-01-20] MEDS ORDERED: FLUT1BLS6 IH (17:46)
[2025-01-20] MEDS ORDERED: AZIT250T13 PO (17:46)
[2025-01-20] MEDS ORDERED: ALBU18HF2 IH (17:46)
[2025-01-20] MEDS ORDERED: MAGNESIUM HYDROXIDE 30 ML LIQUID UDC PO PRN (21:45)
[2025-01-20] MEDS ORDERED: ALBUTEROL SULFATE 2.5 MG/3 ML NEBU NEB PRN (21:45)
[2025-01-20] MEDS ORDERED: ONDANSETRON 4 MG/2 ML VIAL IV PRN (21:45)
[2025-01-20] MEDS ORDERED: ACETAMINOPHEN 325 MG TABLET PO PRN (21:45)
[2025-01-20 22:16] VITALS: BP 105/57; TEMP 98.2; O2SAT 94
[2025-01-20] MEDS: TRAZODONE 50 MG TABLET PO SCH (22:56)
[2025-01-20] MEDS: HYDROMORPHONE 1 MG/1 ML DISP.SYRIN IV PRN (23:02)
[2025-01-20 23:15] VITALS: BP 112/51; TEMP 98.2; O2SAT 93
[2025-01-20 23:24] VITALS: O2SAT 96
[2025-01-21] VITALS (7 sets, daily range): BP systolic 100–125; BP diastolic 40–65; TEMP 97.8–98.8; O2SAT 91–97
[2025-01-21 06:13] LABS: ABG BASE EXCESS 2.4 mmol/L (-2.0-3.0); ABG PCO2 30.5 mmHg (32.0-45.0); ABG PH 7.531 (7.350-7.450); ABG PO2 105.3 mmHg (83.0-108.0); ABG TOTAL HEMOGLOBIN 8.4 G/dL (12.0-16.0); AaDO2 98.4 mmHg; COHb 0.2 % (0.5-1.5); O2Hb 97.7 % (94.0-98.0)
[2025-01-21] MEDS: PANTOPRAZOLE SODIUM 40 MG TABLET.DR PO SCH (06:19)
[2025-01-21 07:35] LABS: BASOPHILS % (AUTO) 0.1 % (0.0-2.0); HEMATOCRIT 25.7 % (31.2-41.9); HEMOGLOBIN 8.6 g/dL (10.9-14.3); LYMPHOCYTES # (AUTO) 0.6 K/uL (0.8-4.8); LYMPHOCYTES % (AUTO) 11.7 % (20.5-51.5); MEAN CORPUSCULAR HEMOGLOBIN 27.5 uug (24.7-32.8); MEAN CORPUSCULAR HGB CONC 34 g/dL (32.3-35.6); MEAN CORPUSCULAR VOLUME 81.9 fL (75.5-95.3); MONOCYTES # (AUTO) 0.5 K/uL (0.1-1.30); MONOCYTES % (AUTO) 8.9 % (0.0-11.0); NEUTROPHILS # (AUTO) 4.2 K/uL (1.8-8.9); NEUTROPHILS % (AUTO) 79.3 % (38.5-71.5); PLATELET COUNT (AUTO) 234 K/uL (179-408); RED BLOOD CELL COUNT(AUTO) 3.13 MIL/uL (3.63-4.92); RED CELL DISTRIBUTION WIDTH 16.8 % (12.3-17.7); WHITE BLOOD COUNT (AUTO) 5.3 K/uL (3.8-11.8)
[2025-01-21 07:47] LABS: DIFFERENTIAL COMMENT 1
[2025-01-21 07:50] LABS: ALBUMIN 2.8 g/dL (3.4-5.0); BILIRUBIN,TOTAL 0.2 mg/dL (0.2-1.0); CALCIUM 9.1 mg/dL (8.5-10.1); CREATININE 0.9 mg/dL (0.6-1.3); MAGNESIUM 1.9 mg/dL (1.8-2.4); PHOSPHOROUS 2.4 mg/dL (2.5-4.9); POTASSIUM 4.1 mmol/L (3.5-5.1); TOTAL PROTEIN, SERUM 6.6 g/dL (6.4-8.2)
[2025-01-21] MEDS: FLUTICASONE/VILANTEROL 1 EACH BLST.W.DEV INH SCH (08:42)
[2025-01-21] MEDS: VENLAFAXINE XR 150 MG CAP.SR.24H PO SCH (08:42)
[2025-01-21] MEDS: ENOXAPARIN SODIUM 40 MG/0.4 ML DISP.SYRIN SQ SCH (08:48)
[2025-01-21] MEDS: LEVOTHYROXINE SODIUM 75 MCG TABLET PO SCH (08:56)
[2025-01-21] MEDS: FUROSEMIDE 20 MG/2 ML VIAL IV SCH (08:56)
[2025-01-21] MEDS ORDERED: FUROSEMIDE 40 MG/4 ML VIAL IV SCH (09:00)
[2025-01-21 09:01] LABS: THYROID STIMULATING HORMONE 0.922 mIU/mL (0.358-3.740)
[2025-01-21] MEDS ORDERED: ATOR10TA PO (10:58)
[2025-01-21] MEDS: HYDROMORPHONE 1 MG/1 ML DISP.SYRIN IV PRN (12:12)
[2025-01-21] MEDS: diphenhydrAMINE 50 MG/1 ML VIAL IV PRN (12:12)
[2025-01-21] MEDS: NEUTRA PHOS PACKET PO ONE (15:35)
[2025-01-21] MEDS ORDERED: PANTOPRAZOLE SODIUM 40 MG TABLET.DR PO SCH (19:45)
[2025-01-21] MEDS: PANTOPRAZOLE SODIUM 40 MG TABLET.DR PO PRN (20:31)
[2025-01-22] VITALS (7 sets, daily range): BP systolic 101–145; BP diastolic 44–63; TEMP 97.9–98.4; O2SAT 93–98
[2025-01-22 05:56] LABS: BASOPHILS % (AUTO) 0.5 % (0.0-2.0); EOSINOPHILS # (AUTO) 0.2 K/uL (0.0-0.7); EOSINOPHILS % (AUTO) 3.1 % (0.0-7.0); HEMATOCRIT 28.2 % (31.2-41.9); HEMOGLOBIN 9.4 g/dL (10.9-14.3); LYMPHOCYTES % (AUTO) 27.6 % (20.5-51.5); MEAN CORPUSCULAR HEMOGLOBIN 26.9 uug (24.7-32.8); MEAN CORPUSCULAR HGB CONC 33 g/dL (32.3-35.6); MEAN CORPUSCULAR VOLUME 80.5 fL (75.5-95.3); MONOCYTES # (AUTO) 0.9 K/uL (0.1-1.30); MONOCYTES % (AUTO) 11.8 % (0.0-11.0); NEUTROPHILS # (AUTO) 4.1 K/uL (1.8-8.9); PLATELET COUNT (AUTO) 223 K/uL (179-408); RED CELL DISTRIBUTION WIDTH 16.7 % (12.3-17.7); WHITE BLOOD COUNT (AUTO) 7.2 K/uL (3.8-11.8)
[2025-01-22 05:59] LABS: CALCIUM 9.3 mg/dL (8.5-10.1); CREATININE 0.8 mg/dL (0.6-1.3); POTASSIUM 3.6 mmol/L (3.5-5.1)
[2025-01-22 06:01] LABS: DIFFERENTIAL COMMENT 1
[2025-01-22] MEDS: FUROSEMIDE 20 MG/2 ML VIAL IV SCH (09:00)
[2025-01-23] VITALS (8 sets, daily range): BP systolic 101–143; BP diastolic 42–69; TEMP 97.8–99; O2SAT 93–98
[2025-01-23 07:11] LABS: CALCIUM 9.2 mg/dL (8.5-10.1); CREATININE 0.8 mg/dL (0.6-1.3)
[2025-01-23] MEDS ORDERED: IV NORMAL SALINE 250 ML IV ONE (17:37)
[2025-01-23] MEDS ORDERED: IOHEXOL 350 100 ML INFUS..BTL ONE (17:37)
[2025-01-23] MEDS ORDERED: SWABABLE VALVE TRANSFER SET EA MC ONE (17:37)
[2025-01-24 05:00] VITALS: BP 132/55; TEMP 98.2; O2SAT 96
[2025-01-24 08:01] VITALS: BP 136/67; TEMP 98.4; O2SAT 96
[2025-01-24] MEDS ORDERED: FLUT1BLS INH (09:53)
[2025-01-24] MEDS ORDERED: POTA10CA43 PO (09:53)
[2025-01-24] MEDS ORDERED: PANT40TA49 PO (09:53)
[2025-01-24] MEDS ORDERED: FURO20TA4 PO (09:53)
[2025-01-24] MEDS ORDERED: DAPA10TA PO (09:56)
== END 2025-01-24 12:54 | disposition home or self-care (01) | DRG 291 ==
LOC: ER 13:04 → TELE3 21:57 → MEDSURG3 01-24 10:29
PROVIDERS: ADMIT Internal Medicine; ATTEND Nurse Practitioner Acute Care
PROC: 05HF33Z Insertion of Infusion Device into Left Cephalic Vein, Percutaneous Approach (ICD-10-PCS; principal; 2025-01-20)
PROC: 05HF33Z Insertion of Infusion Device into Left Cephalic Vein, Percutaneous Approach (ICD-10-PCS; 2025-01-20)
PROC: 05HB33Z Insertion of Infusion Device into Right Basilic Vein, Percutaneous Approach (ICD-10-PCS; 2025-01-23)
DX: I50.31 Acute diastolic (congestive) heart failure (principal); J96.01 Acute respiratory failure with hypoxia; C79.9 Secondary malignant neoplasm of unspecified site; E03.9 Hypothyroidism, unspecified; G89.4 Chronic pain syndrome; M79.7 Fibromyalgia; C50.911 Malignant neoplasm of unspecified site of right female breast; Z79.899 Other long term (current) drug therapy; Z92.21 Personal history of antineoplastic chemotherapy; Z90.710 Acquired absence of both cervix and uterus; Z90.11 Acquired absence of right breast and nipple; E66.9 Obesity, unspecified; Z68.31 Body mass index [BMI] 31.0-31.9, adult; Z79.890 Hormone replacement therapy; Z88.0 Allergy status to penicillin; Z88.2 Allergy status to sulfonamides; E78.5 Hyperlipidemia, unspecified; I27.20 Pulmonary hypertension, unspecified; M54.50 Low back pain, unspecified; D64.9 Anemia, unspecified; Z79.891 Long term (current) use of opiate analgesic
CPT/HCPCS: 36415; 36600; 71045; 71275; 83550; 83735; 84100; 84443; 84484; 85025; 93307; 94760; A4606; A4663; G0378; J1171; J1200; J1650; J1938; J2405; J3590; J7040; J7512; Q9967

== ENCOUNTER 2025-01-25 12:27 | Emergency (ER) | payer MEDICARE, BC ==
[~2025-01-25] VITALS: Ht 162.6 cm; Wt 63.5 kg
[~2025-01-25 12:27] MED LIST changes: +ALBU18HF2 IH; -ALBU18HF2 INH; +ATOR10TA PO; -ATOR20TA PO; -CETI-90 PO; -COMPAZINE RC; +DAPA10TA PO; -DICY20TA11 PO; -FLAS1EAC2 TP; -FLAS1KIT2 TP; +FLUT1BLS INH; +FURO20TA4 PO; -HYDR-3980 PO; -HYDR2TAB4 PO; -HYDR4TAB4 PO; -LORA-259 PO; -LORA0.5T48 PO; -ONDA4TAB11 PO; -ONDA4TAB5 PO; -OXYC-128 PO; -OXYC-133 PO; -PANT20TA2 PO; +PANT40TA49 PO; +POTA10CA43 PO; -PROC-11 PO; -PROC25SU29 RC; +RIZA10TA27 PO; -TAMO10TA6 PO; -TRAM50TA2 PO; -TRAZ-257 PO
[2025-01-25] MEDS ORDERED: HYDROMORPHONE 2 MG/1 ML DISP.SYRIN ONE ×7 (12:53→18:48)
[2025-01-25] MEDS ORDERED: ONDANSETRON 4 MG/2 ML VIAL ONE ×3 (12:53→15:01)
[2025-01-25] MEDS ORDERED: diphenhydrAMINE 50 MG/1 ML VIAL ONE ×7 (12:53→18:48)
[2025-01-25] MEDS: HYDROMORPHONE 1 MG/1 ML DISP.SYRIN IV ONE ×7 (13:01→18:47)
[2025-01-25] MEDS: diphenhydrAMINE 50 MG/1 ML VIAL IV ONE ×7 (13:01→18:47)
[2025-01-25] MEDS: ONDANSETRON 4 MG/2 ML VIAL IV ONE ×3 (13:01→15:00)
[2025-01-25] MEDS ORDERED: TRAM50TA2 PO (18:04)
[2025-01-25 18:50] VITALS: O2SAT 98
== END 2025-01-25 18:59 | disposition home or self-care (01) ==
LOC: ER 12:27
DX: R06.02 Shortness of breath (principal); R10.9 Unspecified abdominal pain; R05.9 Cough, unspecified; M79.7 Fibromyalgia; E03.9 Hypothyroidism, unspecified; Z79.51 Long term (current) use of inhaled steroids; Z79.84 Long term (current) use of oral hypoglycemic drugs; Z79.899 Other long term (current) drug therapy; Z88.0 Allergy status to penicillin; Z88.2 Allergy status to sulfonamides; Z88.7 Allergy status to serum and vaccine; Z90.710 Acquired absence of both cervix and uterus
CPT/HCPCS: 99285; 96374; 96375; 71045; 96376; J1200 ×7; J2405 ×3; J1171 ×7; J7040; A4606; A4663

== ENCOUNTER 2025-01-29 07:23 | Emergency (ER) | payer MEDICARE, BC ==
[~2025-01-29] VITALS: Ht 162.6 cm; Wt 63.5 kg
[~2025-01-29 07:23] MED LIST changes: +TRAM50TA2 PO
[2025-01-29] MEDS: HYDROMORPHONE 1 MG/1 ML DISP.SYRIN IV ONE ×9 (07:32→15:11)
[2025-01-29] MEDS: ONDANSETRON 4 MG/2 ML VIAL IV ONE ×4 (07:32→10:29)
[2025-01-29] MEDS ORDERED: ONDANSETRON 4 MG/2 ML VIAL ONE ×4 (07:33→10:30)
[2025-01-29] MEDS: diphenhydrAMINE 50 MG/1 ML VIAL IV ONE ×9 (07:33→15:11)
[2025-01-29] MEDS ORDERED: diphenhydrAMINE 50 MG/1 ML VIAL ONE ×9 (07:33→15:11)
[2025-01-29] MEDS ORDERED: HYDROMORPHONE 2 MG/1 ML DISP.SYRIN ONE ×9 (07:34→15:11)
[2025-01-29 15:13] VITALS: O2SAT 98
== END 2025-01-29 15:14 | disposition home or self-care (01) ==
LOC: ER 07:26
DX: R10.31 Right lower quadrant pain (principal); T45.1X5A Adverse effect of antineoplastic and immunosuppressive drugs, initial encounter; R10.32 Left lower quadrant pain; R11.2 Nausea with vomiting, unspecified; E78.00 Pure hypercholesterolemia, unspecified; M79.7 Fibromyalgia; Z79.51 Long term (current) use of inhaled steroids; Z79.84 Long term (current) use of oral hypoglycemic drugs; Z79.899 Other long term (current) drug therapy; Z88.0 Allergy status to penicillin; Z88.2 Allergy status to sulfonamides; Z88.7 Allergy status to serum and vaccine; Z90.11 Acquired absence of right breast and nipple; Z90.49 Acquired absence of other specified parts of digestive tract; Z90.710 Acquired absence of both cervix and uterus; Z92.21 Personal history of antineoplastic chemotherapy; Z85.3 Personal history of malignant neoplasm of breast; X58.XXXA Exposure to other specified factors, initial encounter
CPT/HCPCS: 99285; 96374; 96375; 96376; J2405 ×4; J1171 ×9; J7040; J1200 ×9; A4606; A4663

== ENCOUNTER 2025-01-30 10:17 | Emergency (ER) | payer MEDICARE, BC ==
[~2025-01-30] VITALS: Ht 162.6 cm; Wt 63.5 kg
[2025-01-30] MEDS: diphenhydrAMINE 50 MG/1 ML VIAL IV ONE ×9 (10:25→18:02)
[2025-01-30] MEDS ORDERED: diphenhydrAMINE 50 MG/1 ML VIAL ONE ×9 (10:26→18:03)
[2025-01-30] MEDS: ONDANSETRON 4 MG/2 ML VIAL IV ONE ×3 (10:26→13:16)
[2025-01-30] MEDS ORDERED: ONDANSETRON 4 MG/2 ML VIAL ONE ×3 (10:26→13:17)
[2025-01-30] MEDS: HYDROMORPHONE 1 MG/1 ML DISP.SYRIN IV ONE ×9 (10:26→18:02)
[2025-01-30] MEDS ORDERED: HYDROMORPHONE 2 MG/1 ML DISP.SYRIN ONE ×9 (10:27→18:03)
[2025-01-30] MEDS ORDERED: SUMATRIPTAN SUCCINATE 6 MG/0.5 ML VIAL SQ ONE (16:17)
[2025-01-30] MEDS: SUMATRIPTAN SUCCINATE 6 MG/0.5 ML VIAL SQ ONE (16:26)
[2025-01-30 18:04] VITALS: O2SAT 98
== END 2025-01-30 18:05 | disposition home or self-care (01) ==
LOC: ER 10:20
DX: R10.31 Right lower quadrant pain (principal); T45.1X5A Adverse effect of antineoplastic and immunosuppressive drugs, initial encounter; R10.32 Left lower quadrant pain; C79.81 Secondary malignant neoplasm of breast; R11.0 Nausea; R51.9 Headache, unspecified; E78.00 Pure hypercholesterolemia, unspecified; F11.20 Opioid dependence, uncomplicated; M79.7 Fibromyalgia; Z79.51 Long term (current) use of inhaled steroids; Z79.84 Long term (current) use of oral hypoglycemic drugs; Z79.899 Other long term (current) drug therapy; Z85.3 Personal history of malignant neoplasm of breast; Z88.0 Allergy status to penicillin; Z88.2 Allergy status to sulfonamides; Z88.7 Allergy status to serum and vaccine; Z90.710 Acquired absence of both cervix and uterus; Y92.89 Other specified places as the place of occurrence of the external cause
CPT/HCPCS: 99285; 96374; 96375; 36410 ×2; 96372; 96376; J2405 ×3; J3030; J1171 ×9; J7040 ×3; J1200 ×9; A4663

== ENCOUNTER 2025-02-02 07:30 | Emergency (ER) | payer MEDICARE, BC ==
[~2025-02-02] VITALS: Ht 162.6 cm; Wt 63.5 kg
[2025-02-02] MEDS: diphenhydrAMINE 50 MG/1 ML VIAL IV ONE ×11 (07:38→17:37)
[2025-02-02] MEDS: HYDROMORPHONE 1 MG/1 ML DISP.SYRIN IV ONE ×11 (07:38→17:37)
[2025-02-02] MEDS ORDERED: HYDROMORPHONE 2 MG/1 ML DISP.SYRIN ONE ×11 (07:39→17:38)
[2025-02-02] MEDS ORDERED: diphenhydrAMINE 50 MG/1 ML VIAL ONE ×11 (07:39→17:38)
[2025-02-02] MEDS ORDERED: ONDANSETRON 4 MG/2 ML VIAL ONE ×4 (07:39→10:30)
[2025-02-02] MEDS: ONDANSETRON 4 MG/2 ML VIAL IV ONE ×4 (07:39→10:28)
[2025-02-02 17:39] VITALS: O2SAT 98
== END 2025-02-02 17:40 | disposition home or self-care (01) ==
LOC: ER 07:30
DX: R10.31 Right lower quadrant pain (principal); T45.1X5A Adverse effect of antineoplastic and immunosuppressive drugs, initial encounter; R10.32 Left lower quadrant pain; R11.2 Nausea with vomiting, unspecified; R19.7 Diarrhea, unspecified; E78.00 Pure hypercholesterolemia, unspecified; F11.20 Opioid dependence, uncomplicated; M79.7 Fibromyalgia; Z79.51 Long term (current) use of inhaled steroids; Z79.84 Long term (current) use of oral hypoglycemic drugs; Z79.899 Other long term (current) drug therapy; Z88.0 Allergy status to penicillin; Z88.2 Allergy status to sulfonamides; Z88.7 Allergy status to serum and vaccine; Z90.710 Acquired absence of both cervix and uterus; Y92.89 Other specified places as the place of occurrence of the external cause
CPT/HCPCS: 99285; 96374; 96375; 96376; J2405 ×4; J1171 ×11; J7040; J1200 ×11; A4606; A4663

== ENCOUNTER 2025-02-07 09:14 | Emergency (ER) | payer MEDICARE, BC ==
[~2025-02-07] VITALS: Ht 162.6 cm; Wt 63.5 kg
[2025-02-07] MEDS: HYDROMORPHONE 1 MG/1 ML DISP.SYRIN IV ONE ×8 (09:30→17:33)
[2025-02-07] MEDS: ONDANSETRON 4 MG/2 ML VIAL IV ONE ×4 (09:30→12:40)
[2025-02-07] MEDS: diphenhydrAMINE 50 MG/1 ML VIAL IV ONE ×8 (09:30→17:33)
[2025-02-07] MEDS ORDERED: ONDANSETRON 4 MG/2 ML VIAL ONE ×4 (09:31→12:41)
[2025-02-07] MEDS ORDERED: HYDROMORPHONE 2 MG/1 ML DISP.SYRIN ONE ×8 (09:31→17:35)
[2025-02-07] MEDS ORDERED: diphenhydrAMINE 50 MG/1 ML VIAL ONE ×8 (09:31→17:34)
[2025-02-07] MEDS: SUMATRIPTAN SUCCINATE 6 MG/0.5 ML VIAL SQ ONE (15:56)
[2025-02-07] MEDS ORDERED: SUMATRIPTAN SUCCINATE 6 MG/0.5 ML VIAL SQ ONE (15:57)
[2025-02-07] MEDS ORDERED: SUMA100T PO (18:34)
[2025-02-07 18:37] VITALS: O2SAT 98
== END 2025-02-07 18:41 | disposition home or self-care (01) ==
LOC: ER 09:14
DX: G89.4 Chronic pain syndrome (principal); T45.1X5A Adverse effect of antineoplastic and immunosuppressive drugs, initial encounter; F11.20 Opioid dependence, uncomplicated; C50.911 Malignant neoplasm of unspecified site of right female breast; C78.7 Secondary malignant neoplasm of liver and intrahepatic bile duct; E78.00 Pure hypercholesterolemia, unspecified; M79.7 Fibromyalgia; Z79.51 Long term (current) use of inhaled steroids; Z79.84 Long term (current) use of oral hypoglycemic drugs; Z79.899 Other long term (current) drug therapy; Z85.3 Personal history of malignant neoplasm of breast; Z88.0 Allergy status to penicillin; Z88.2 Allergy status to sulfonamides; Z88.7 Allergy status to serum and vaccine; Z90.710 Acquired absence of both cervix and uterus; Y92.89 Other specified places as the place of occurrence of the external cause
CPT/HCPCS: 99285; 96374; 96375; 96372; 96376; J1200 ×8; J2405 ×4; J3030; J1171 ×8; A4606; A4663

== ENCOUNTER 2025-02-10 07:10 | Emergency (ER) | payer MEDICARE, BC ==
[~2025-02-10] VITALS: Ht 162.6 cm; Wt 63.5 kg
[~2025-02-10 07:10] MED LIST changes: +SUMA100T PO
[2025-02-10] MEDS: HYDROMORPHONE 1 MG/1 ML DISP.SYRIN IV ONE ×9 (07:26→16:05)
[2025-02-10] MEDS: diphenhydrAMINE 50 MG/1 ML VIAL IV ONE ×9 (07:26→16:05)
[2025-02-10] MEDS: ONDANSETRON 4 MG/2 ML VIAL IV ONE ×5 (07:26→12:58)
[2025-02-10] MEDS ORDERED: HYDROMORPHONE 2 MG/1 ML DISP.SYRIN ONE ×8 (07:27→15:05)
[2025-02-10] MEDS ORDERED: diphenhydrAMINE 50 MG/1 ML VIAL ONE ×9 (07:27→16:06)
[2025-02-10] MEDS ORDERED: ONDANSETRON 4 MG/2 ML VIAL ONE ×5 (07:27→12:59)
[2025-02-10] MEDS ORDERED: HYDROMORPHONE 1 MG/1 ML DISP.SYRIN ONE (16:06)
[2025-02-10 16:10] VITALS: O2SAT 98
== END 2025-02-10 16:11 | disposition home or self-care (01) ==
LOC: ER 07:15
DX: R10.9 Unspecified abdominal pain (principal); T45.1X5A Adverse effect of antineoplastic and immunosuppressive drugs, initial encounter; E78.00 Pure hypercholesterolemia, unspecified; F11.20 Opioid dependence, uncomplicated; M79.7 Fibromyalgia; Z79.51 Long term (current) use of inhaled steroids; Z79.84 Long term (current) use of oral hypoglycemic drugs; Z79.899 Other long term (current) drug therapy; Z88.0 Allergy status to penicillin; Z88.2 Allergy status to sulfonamides; Z88.7 Allergy status to serum and vaccine; Z90.710 Acquired absence of both cervix and uterus; Y92.89 Other specified places as the place of occurrence of the external cause
CPT/HCPCS: 99285; 96374; 96375; 96376; J2405 ×5; J1171 ×9; J1200 ×9; A4606; A4663

== ENCOUNTER 2025-02-18 13:42 | Emergency (ER) | payer MEDICARE, BC ==
[~2025-02-18] VITALS: Ht 162.6 cm; Wt 63.5 kg
[2025-02-18] MEDS: HYDROMORPHONE 1 MG/1 ML DISP.SYRIN IV ONE ×4 (13:51→17:11)
[2025-02-18] MEDS: diphenhydrAMINE 50 MG/1 ML VIAL IV ONE ×4 (13:51→17:11)
[2025-02-18] MEDS ORDERED: diphenhydrAMINE 50 MG/1 ML VIAL ONE ×4 (13:52→17:12)
[2025-02-18] MEDS: ONDANSETRON 4 MG/2 ML VIAL IV ONE ×2 (13:52→14:53)
[2025-02-18] MEDS ORDERED: ONDANSETRON 4 MG/2 ML VIAL ONE ×2 (13:52→14:54)
[2025-02-18] MEDS ORDERED: HYDROMORPHONE 2 MG/1 ML DISP.SYRIN ONE ×4 (13:52→17:12)
[2025-02-18 17:13] VITALS: O2SAT 99
== END 2025-02-18 17:15 | disposition home or self-care (01) ==
LOC: ER 13:42
DX: G89.29 Other chronic pain (principal); R10.31 Right lower quadrant pain; R10.32 Left lower quadrant pain; C50.911 Malignant neoplasm of unspecified site of right female breast; C78.7 Secondary malignant neoplasm of liver and intrahepatic bile duct; E78.00 Pure hypercholesterolemia, unspecified; F11.20 Opioid dependence, uncomplicated; M79.7 Fibromyalgia; Z79.51 Long term (current) use of inhaled steroids; Z79.84 Long term (current) use of oral hypoglycemic drugs; Z79.890 Hormone replacement therapy; Z79.899 Other long term (current) drug therapy; Z88.0 Allergy status to penicillin; Z88.2 Allergy status to sulfonamides; Z88.7 Allergy status to serum and vaccine; Z90.710 Acquired absence of both cervix and uterus; T45.1X5A Adverse effect of antineoplastic and immunosuppressive drugs, initial encounter; Y92.89 Other specified places as the place of occurrence of the external cause
CPT/HCPCS: 99284; 96374; 96375; 96376; J1200 ×4; J2405 ×2; J1171 ×4; A4606; A4663

== ENCOUNTER 2025-02-25 07:18 | Emergency (ER) | payer MEDICARE, BC ==
[~2025-02-25] VITALS: Ht 162.6 cm; Wt 63.5 kg
[2025-02-25] MEDS: diphenhydrAMINE 50 MG/1 ML VIAL IV ONE ×3 (07:30→11:01)
[2025-02-25] MEDS: HYDROMORPHONE 1 MG/1 ML DISP.SYRIN IV ONE ×4 (07:31→11:01)
[2025-02-25] MEDS: ONDANSETRON 4 MG/2 ML VIAL IV ONE ×3 (07:31→09:54)
[2025-02-25] MEDS ORDERED: HYDROMORPHONE 2 MG/1 ML DISP.SYRIN ONE ×4 (07:32→11:04)
[2025-02-25] MEDS ORDERED: diphenhydrAMINE 50 MG/1 ML VIAL ONE ×4 (07:32→11:04)
[2025-02-25] MEDS ORDERED: ONDANSETRON 4 MG/2 ML VIAL ONE ×3 (07:32→09:56)
[2025-02-25] MEDS: diphenhydrAMINE 50 MG/1 ML VIAL IM ONE (09:54)
[2025-02-25 11:23] VITALS: O2SAT 98
[2025-02-26] MEDS ORDERED: TRAZ150T75 PO (16:35)
== END 2025-02-25 11:24 | disposition home or self-care (01) ==
LOC: ER 07:18
DX: R10.31 Right lower quadrant pain (principal); R10.32 Left lower quadrant pain; T45.1X5A Adverse effect of antineoplastic and immunosuppressive drugs, initial encounter; G89.3 Neoplasm related pain (acute) (chronic); F11.20 Opioid dependence, uncomplicated; E03.9 Hypothyroidism, unspecified; E78.00 Pure hypercholesterolemia, unspecified; M79.7 Fibromyalgia; Z79.51 Long term (current) use of inhaled steroids; Z79.84 Long term (current) use of oral hypoglycemic drugs; Z79.890 Hormone replacement therapy; Z79.899 Other long term (current) drug therapy; Z88.0 Allergy status to penicillin; Z88.2 Allergy status to sulfonamides; Z88.7 Allergy status to serum and vaccine; Z90.710 Acquired absence of both cervix and uterus; X58.XXXA Exposure to other specified factors, initial encounter
CPT/HCPCS: 99284; 96374; 96375; 96376; 96372; J1200 ×4; J2405 ×3; J1171 ×4; A4606; A4663

== ENCOUNTER 2025-02-26 13:44 | Emergency (ER) | payer MEDICARE, BC ==
[~2025-02-26] VITALS: Ht 162.6 cm; Wt 63.5 kg
[2025-02-26] MEDS ORDERED: ONDANSETRON 4 MG/2 ML VIAL ONE ×3 (14:00→16:27)
[2025-02-26] MEDS ORDERED: diphenhydrAMINE 50 MG/1 ML VIAL ONE ×5 (14:00→17:39)
[2025-02-26] MEDS ORDERED: HYDROMORPHONE 2 MG/1 ML DISP.SYRIN ONE ×4 (14:01→17:39)
[2025-02-26] MEDS: ONDANSETRON 4 MG/2 ML VIAL IV ONE ×3 (14:09→16:27)
[2025-02-26] MEDS: diphenhydrAMINE 50 MG/1 ML VIAL IV ONE ×4 (14:09→17:38)
[2025-02-26] MEDS: HYDROMORPHONE 1 MG/1 ML DISP.SYRIN IV ONE ×4 (14:09→17:38)
[2025-02-26 15:09] LABS: BASOPHILS % (AUTO) 0.7 % (0.0-2.0); EOSINOPHILS # (AUTO) 0.2 K/uL (0.0-0.7); HEMATOCRIT 29.8 % (31.2-41.9); HEMOGLOBIN 9.7 g/dL (10.9-14.3); LYMPHOCYTES # (AUTO) 1.6 K/uL (0.8-4.8); LYMPHOCYTES % (AUTO) 24.7 % (20.5-51.5); MEAN CORPUSCULAR HEMOGLOBIN 26.8 uug (24.7-32.8); MEAN CORPUSCULAR HGB CONC 33 g/dL (32.3-35.6); MEAN CORPUSCULAR VOLUME 82.5 fL (75.5-95.3); MONOCYTES # (AUTO) 0.6 K/uL (0.1-1.30); MONOCYTES % (AUTO) 8.8 % (0.0-11.0); NEUTROPHILS % (AUTO) 62.8 % (38.5-71.5); PLATELET COUNT (AUTO) 157 K/uL (179-408); RED BLOOD CELL COUNT(AUTO) 3.61 MIL/uL (3.63-4.92); RED CELL DISTRIBUTION WIDTH 16.4 % (12.3-17.7); WHITE BLOOD COUNT (AUTO) 6.4 K/uL (3.8-11.8)
[2025-02-26 15:15] LABS: CALCIUM 9.2 mg/dL (8.5-10.1); CREATININE 0.9 mg/dL (0.6-1.3); POTASSIUM 4.4 mmol/L (3.5-5.1)
[2025-02-26 15:21] LABS: DIFFERENTIAL COMMENT 1
[2025-02-26] MEDS ORDERED: TRAZ150T75 PO (16:35)
[2025-02-26 17:48] VITALS: O2SAT 98
== END 2025-02-26 17:49 | disposition home or self-care (01) ==
LOC: ER 13:44
DX: R10.31 Right lower quadrant pain (principal); R10.32 Left lower quadrant pain; R11.2 Nausea with vomiting, unspecified; R19.7 Diarrhea, unspecified; F11.20 Opioid dependence, uncomplicated; D64.9 Anemia, unspecified; E03.9 Hypothyroidism, unspecified; E78.00 Pure hypercholesterolemia, unspecified; C79.9 Secondary malignant neoplasm of unspecified site; M79.7 Fibromyalgia; Z79.51 Long term (current) use of inhaled steroids; Z79.84 Long term (current) use of oral hypoglycemic drugs; Z79.890 Hormone replacement therapy; Z79.899 Other long term (current) drug therapy; Z85.3 Personal history of malignant neoplasm of breast; Z88.0 Allergy status to penicillin; Z88.2 Allergy status to sulfonamides; Z88.7 Allergy status to serum and vaccine; Z90.710 Acquired absence of both cervix and uterus
CPT/HCPCS: 99284; 96374; 96375; 80048; 85025; 36415; 96376; J1200 ×4; J2405 ×3; J1171 ×4; A4606; A4663

== ENCOUNTER 2025-03-05 07:34 | Emergency (ER) | payer MEDICARE, BC ==
[~2025-03-05] VITALS: Ht 162.6 cm; Wt 63.5 kg
[2025-03-05] MEDS: ONDANSETRON 4 MG/2 ML VIAL IV ONE ×3 (07:43→10:18)
[2025-03-05] MEDS: diphenhydrAMINE 50 MG/1 ML VIAL IV ONE ×5 (07:43→12:41)
[2025-03-05] MEDS: HYDROMORPHONE 1 MG/1 ML DISP.SYRIN IV ONE ×5 (07:43→12:41)
[2025-03-05] MEDS ORDERED: diphenhydrAMINE 50 MG/1 ML VIAL ONE ×5 (07:44→12:45)
[2025-03-05] MEDS ORDERED: HYDROMORPHONE 2 MG/1 ML DISP.SYRIN ONE ×5 (07:44→12:45)
[2025-03-05] MEDS ORDERED: ONDANSETRON 4 MG/2 ML VIAL ONE ×3 (07:44→10:19)
[2025-03-05 11:04] VITALS: O2SAT 97
== END 2025-03-05 13:01 | disposition home or self-care (01) ==
LOC: ER 07:34
DX: R10.31 Right lower quadrant pain (principal); R10.32 Left lower quadrant pain; K21.9 Gastro-esophageal reflux disease without esophagitis; F11.20 Opioid dependence, uncomplicated; E78.00 Pure hypercholesterolemia, unspecified; M79.7 Fibromyalgia; R11.0 Nausea; Z79.51 Long term (current) use of inhaled steroids; Z79.84 Long term (current) use of oral hypoglycemic drugs; Z79.899 Other long term (current) drug therapy; Z85.3 Personal history of malignant neoplasm of breast; Z88.0 Allergy status to penicillin; Z88.2 Allergy status to sulfonamides; Z88.7 Allergy status to serum and vaccine; Z90.710 Acquired absence of both cervix and uterus
CPT/HCPCS: 99284; 96374; 96375; 96376; J1200 ×5; J2405 ×3; J1171 ×5; A4606; A4663

== ENCOUNTER 2025-03-06 07:26 | Emergency (ER) | payer MEDICARE, BC ==
[~2025-03-06] VITALS: Ht 162.6 cm; Wt 63.5 kg
[2025-03-06] MEDS: ONDANSETRON 4 MG/2 ML VIAL IV ONE ×3 (07:34→10:01)
[2025-03-06] MEDS: HYDROMORPHONE 1 MG/1 ML DISP.SYRIN IV ONE ×5 (07:34→12:32)
[2025-03-06] MEDS: diphenhydrAMINE 50 MG/1 ML VIAL IV ONE ×5 (07:34→12:32)
[2025-03-06] MEDS ORDERED: HYDROMORPHONE 2 MG/1 ML DISP.SYRIN ONE ×5 (07:35→12:33)
[2025-03-06] MEDS ORDERED: ONDANSETRON 4 MG/2 ML VIAL ONE ×3 (07:35→10:03)
[2025-03-06] MEDS ORDERED: diphenhydrAMINE 50 MG/1 ML VIAL ONE ×5 (07:35→12:33)
[2025-03-06] MEDS: PANTOPRAZOLE SODIUM 40 MG VIAL IV ONE (10:01)
[2025-03-06] MEDS ORDERED: PANTOPRAZOLE SODIUM 40 MG VIAL ONE (10:03)
[2025-03-06 12:34] VITALS: O2SAT 98
== END 2025-03-06 12:35 | disposition home or self-care (01) ==
LOC: ER 07:35
DX: G89.29 Other chronic pain (principal); R10.31 Right lower quadrant pain; R10.32 Left lower quadrant pain; F11.20 Opioid dependence, uncomplicated; E03.9 Hypothyroidism, unspecified; E78.00 Pure hypercholesterolemia, unspecified; M79.7 Fibromyalgia; Z79.51 Long term (current) use of inhaled steroids; Z79.84 Long term (current) use of oral hypoglycemic drugs; Z79.890 Hormone replacement therapy; Z79.899 Other long term (current) drug therapy; Z88.0 Allergy status to penicillin; Z88.2 Allergy status to sulfonamides; Z88.7 Allergy status to serum and vaccine; Z90.710 Acquired absence of both cervix and uterus
CPT/HCPCS: 99284; 96374; 96375; 96376; J1200 ×5; J2405 ×3; J2470; J1171 ×5; A4606; A4663

== ENCOUNTER 2025-03-10 08:00 | Emergency (ER) | payer MEDICARE, BC ==
[~2025-03-10] VITALS: Ht 162.6 cm; Wt 63.5 kg
[2025-03-10 08:03] VITALS: O2SAT 98
[2025-03-10] MEDS: HYDROMORPHONE 1 MG/1 ML DISP.SYRIN IV ONE ×4 (08:31→11:33)
[2025-03-10] MEDS: diphenhydrAMINE 50 MG/1 ML VIAL IV ONE ×4 (08:31→11:33)
[2025-03-10] MEDS: ONDANSETRON 4 MG/2 ML VIAL IV ONE ×3 (08:31→10:34)
[2025-03-10] MEDS ORDERED: diphenhydrAMINE 50 MG/1 ML VIAL ONE ×4 (08:32→11:34)
[2025-03-10] MEDS ORDERED: ONDANSETRON 4 MG/2 ML VIAL ONE ×3 (08:32→10:35)
[2025-03-10] MEDS ORDERED: HYDROMORPHONE 2 MG/1 ML DISP.SYRIN ONE ×4 (08:33→11:34)
== END 2025-03-10 11:37 | disposition home or self-care (01) ==
LOC: ER 08:00
DX: R10.30 Lower abdominal pain, unspecified (principal); T45.1X5A Adverse effect of antineoplastic and immunosuppressive drugs, initial encounter; R11.0 Nausea; E78.00 Pure hypercholesterolemia, unspecified; F11.20 Opioid dependence, uncomplicated; M79.7 Fibromyalgia; Z79.51 Long term (current) use of inhaled steroids; Z79.84 Long term (current) use of oral hypoglycemic drugs; Z79.899 Other long term (current) drug therapy; Z88.0 Allergy status to penicillin; Z88.2 Allergy status to sulfonamides; Z88.7 Allergy status to serum and vaccine; Z90.710 Acquired absence of both cervix and uterus; Y92.89 Other specified places as the place of occurrence of the external cause
CPT/HCPCS: 99284; 96374; 96375; 96376; J1200 ×4; J2405 ×3; J1171 ×4; A4606; A4663

== ENCOUNTER 2025-03-26 07:33 | Emergency (ER) | payer MEDICARE, BC ==
[~2025-03-26] VITALS: Ht 162.6 cm; Wt 63.5 kg
[2025-03-26] MEDS ORDERED: HYDROMORPHONE 2 MG/1 ML DISP.SYRIN ONE ×4 (07:41→10:44)
[2025-03-26] MEDS ORDERED: ONDANSETRON 4 MG/2 ML VIAL ONE ×4 (07:41→10:44)
[2025-03-26] MEDS ORDERED: diphenhydrAMINE 50 MG/1 ML VIAL ONE ×4 (07:41→10:44)
[2025-03-26] MEDS: ONDANSETRON 4 MG/2 ML VIAL IV ONE ×4 (07:47→10:50)
[2025-03-26] MEDS: HYDROMORPHONE 1 MG/1 ML DISP.SYRIN IV ONE ×4 (07:47→10:50)
[2025-03-26] MEDS: diphenhydrAMINE 50 MG/1 ML VIAL IV ONE ×4 (07:47→10:50)
[2025-03-26 10:51] VITALS: BP 130/71; O2SAT 98
== END 2025-03-26 10:51 | disposition home or self-care (01) ==
LOC: ER 07:33
DX: R10.30 Lower abdominal pain, unspecified (principal); T45.1X5A Adverse effect of antineoplastic and immunosuppressive drugs, initial encounter; R11.2 Nausea with vomiting, unspecified; E78.00 Pure hypercholesterolemia, unspecified; M79.7 Fibromyalgia; Z79.51 Long term (current) use of inhaled steroids; Z79.84 Long term (current) use of oral hypoglycemic drugs; Z79.899 Other long term (current) drug therapy; Z88.0 Allergy status to penicillin; Z88.2 Allergy status to sulfonamides; Z88.7 Allergy status to serum and vaccine; Z90.710 Acquired absence of both cervix and uterus; Y92.89 Other specified places as the place of occurrence of the external cause
CPT/HCPCS: 99284; 96374; 96375; 96376; J1200 ×4; J2405 ×4; J1171 ×4; A4606; A4663

== ENCOUNTER 2025-03-28 08:07 | Emergency (ER) | payer MEDICARE, BC ==
[~2025-03-28] VITALS: Ht 162.6 cm; Wt 63.5 kg
[2025-03-28] MEDS ORDERED: ONDANSETRON 4 MG/2 ML VIAL ONE ×3 (08:28→10:33)
[2025-03-28] MEDS ORDERED: HYDROMORPHONE 2 MG/1 ML DISP.SYRIN ONE ×4 (08:28→11:26)
[2025-03-28] MEDS ORDERED: diphenhydrAMINE 50 MG/1 ML VIAL ONE ×4 (08:28→11:26)
[2025-03-28] MEDS: diphenhydrAMINE 50 MG/1 ML VIAL IV ONE ×4 (08:32→11:29)
[2025-03-28] MEDS: HYDROMORPHONE 1 MG/1 ML DISP.SYRIN IV ONE ×4 (08:33→11:29)
[2025-03-28] MEDS: ONDANSETRON 4 MG/2 ML VIAL IV ONE ×3 (08:33→10:40)
[2025-03-28 11:33] VITALS: O2SAT 98
== END 2025-03-28 11:34 | disposition home or self-care (01) ==
LOC: ER 08:07
DX: R10.30 Lower abdominal pain, unspecified (principal); T45.1X5A Adverse effect of antineoplastic and immunosuppressive drugs, initial encounter; R11.2 Nausea with vomiting, unspecified; C78.7 Secondary malignant neoplasm of liver and intrahepatic bile duct; E78.00 Pure hypercholesterolemia, unspecified; F11.20 Opioid dependence, uncomplicated; I11.0 Hypertensive heart disease with heart failure; I50.9 Heart failure, unspecified; R19.7 Diarrhea, unspecified; M79.7 Fibromyalgia; Z79.51 Long term (current) use of inhaled steroids; Z79.84 Long term (current) use of oral hypoglycemic drugs; Z79.899 Other long term (current) drug therapy; Z88.0 Allergy status to penicillin; Z88.2 Allergy status to sulfonamides; Z88.7 Allergy status to serum and vaccine; Z90.710 Acquired absence of both cervix and uterus; Y92.89 Other specified places as the place of occurrence of the external cause
CPT/HCPCS: 99284; 96374; 96375; 96376; J1200 ×4; J2405 ×3; J1171 ×4; A4606; A4663; J7512

== ENCOUNTER 2025-04-04 07:48 | Emergency (ER) | payer MEDICARE, BC ==
[~2025-04-04] VITALS: Ht 162.6 cm; Wt 63.5 kg
[2025-04-04] MEDS ORDERED: ONDANSETRON 4 MG/2 ML VIAL ONE ×3 (08:16→10:36)
[2025-04-04] MEDS ORDERED: diphenhydrAMINE 50 MG/1 ML VIAL ONE ×4 (08:17→11:39)
[2025-04-04] MEDS ORDERED: HYDROMORPHONE 2 MG/1 ML DISP.SYRIN ONE ×4 (08:17→11:39)
[2025-04-04] MEDS: HYDROMORPHONE 1 MG/1 ML DISP.SYRIN IV ONE ×4 (08:19→11:40)
[2025-04-04] MEDS: ONDANSETRON 4 MG/2 ML VIAL IV ONE ×3 (08:19→10:39)
[2025-04-04] MEDS: IV NORMAL SALINE 1000 ML BAG IV ONE (08:19)
[2025-04-04] MEDS: diphenhydrAMINE 50 MG/1 ML VIAL IV ONE ×4 (08:19→11:40)
[2025-04-04] MEDS ORDERED: PANTOPRAZOLE SODIUM 40 MG VIAL ONE (09:21)
[2025-04-04] MEDS: PANTOPRAZOLE SODIUM 40 MG VIAL IV ONE (09:24)
[2025-04-04 11:46] VITALS: O2SAT 98
== END 2025-04-04 11:47 | disposition home or self-care (01) ==
LOC: ER 07:48
DX: R10.31 Right lower quadrant pain (principal); T45.1X5A Adverse effect of antineoplastic and immunosuppressive drugs, initial encounter; R10.32 Left lower quadrant pain; R11.2 Nausea with vomiting, unspecified; R19.7 Diarrhea, unspecified; E03.9 Hypothyroidism, unspecified; E78.00 Pure hypercholesterolemia, unspecified; M79.7 Fibromyalgia; Z79.51 Long term (current) use of inhaled steroids; Z79.84 Long term (current) use of oral hypoglycemic drugs; Z79.899 Other long term (current) drug therapy; Z85.3 Personal history of malignant neoplasm of breast; Z88.0 Allergy status to penicillin; Z88.2 Allergy status to sulfonamides; Z88.7 Allergy status to serum and vaccine; Z90.11 Acquired absence of right breast and nipple; Z90.49 Acquired absence of other specified parts of digestive tract; Z90.710 Acquired absence of both cervix and uterus; Y92.89 Other specified places as the place of occurrence of the external cause
CPT/HCPCS: 99284; 96374; 96375; 96361; 96376; J1200 ×4; J2405 ×3; J2470; J1171 ×4; J7040; A4606; A4663

== ENCOUNTER 2025-04-08 06:46 | Emergency (ER) | payer MEDICARE, BC ==
[~2025-04-08] VITALS: Ht 167.6 cm; Wt 77.1 kg
[2025-04-08] MEDS ORDERED: ONDANSETRON 4 MG/2 ML VIAL ONE ×3 (07:31→09:49)
[2025-04-08] MEDS ORDERED: HYDROMORPHONE 2 MG/1 ML DISP.SYRIN ONE ×3 (07:31→09:49)
[2025-04-08] MEDS ORDERED: diphenhydrAMINE 50 MG/1 ML VIAL ONE ×3 (07:31→09:49)
[2025-04-08] MEDS: diphenhydrAMINE 50 MG/1 ML VIAL IV ONE ×3 (07:35→09:52)
[2025-04-08] MEDS: ONDANSETRON 4 MG/2 ML VIAL IV ONE ×3 (07:35→09:52)
[2025-04-08] MEDS: HYDROMORPHONE 1 MG/1 ML DISP.SYRIN IV ONE ×3 (07:35→09:52)
[2025-04-08 09:57] VITALS: O2SAT 98
== END 2025-04-08 09:57 | disposition home or self-care (01) ==
LOC: ER 06:46
DX: C50.919 Malignant neoplasm of unspecified site of unspecified female breast (principal); C78.7 Secondary malignant neoplasm of liver and intrahepatic bile duct; R11.2 Nausea with vomiting, unspecified; R19.7 Diarrhea, unspecified; E03.9 Hypothyroidism, unspecified; E78.00 Pure hypercholesterolemia, unspecified; F11.20 Opioid dependence, uncomplicated; M79.7 Fibromyalgia; Z79.51 Long term (current) use of inhaled steroids; Z79.84 Long term (current) use of oral hypoglycemic drugs; Z79.899 Other long term (current) drug therapy; Z85.3 Personal history of malignant neoplasm of breast; Z88.0 Allergy status to penicillin; Z88.2 Allergy status to sulfonamides; Z88.7 Allergy status to serum and vaccine; Z90.11 Acquired absence of right breast and nipple; Z90.710 Acquired absence of both cervix and uterus
CPT/HCPCS: 99284; 96374; 96375; 96376; J1200 ×3; J2405 ×3; J1171 ×3; A4606; A4663

== ENCOUNTER 2025-04-09 08:20 | Emergency (ER) | payer MEDICARE, BC ==
[~2025-04-09] VITALS: Ht 162.6 cm; Wt 63.5 kg
[2025-04-09] MEDS ORDERED: diphenhydrAMINE 50 MG/1 ML VIAL ONE ×4 (08:47→12:47)
[2025-04-09] MEDS ORDERED: ONDANSETRON 4 MG/2 ML VIAL ONE ×3 (08:47→11:43)
[2025-04-09] MEDS ORDERED: HYDROMORPHONE 2 MG/1 ML DISP.SYRIN ONE ×4 (08:47→12:47)
[2025-04-09] MEDS: ONDANSETRON 4 MG/2 ML VIAL IV ONE ×3 (08:50→11:46)
[2025-04-09] MEDS: HYDROMORPHONE 1 MG/1 ML DISP.SYRIN IV ONE ×4 (08:50→12:49)
[2025-04-09] MEDS: diphenhydrAMINE 50 MG/1 ML VIAL IV ONE ×4 (08:50→12:49)
[2025-04-09] MEDS ORDERED: PANTOPRAZOLE SODIUM 40 MG VIAL ONE (11:53)
[2025-04-09] MEDS: PANTOPRAZOLE SODIUM 40 MG VIAL IV ONE (11:57)
[2025-04-09 12:54] VITALS: O2SAT 98
== END 2025-04-09 12:55 | disposition home or self-care (01) ==
LOC: ER 08:20
DX: R10.9 Unspecified abdominal pain (principal); T45.1X5A Adverse effect of antineoplastic and immunosuppressive drugs, initial encounter; F11.20 Opioid dependence, uncomplicated; E78.5 Hyperlipidemia, unspecified; M79.7 Fibromyalgia; Z79.51 Long term (current) use of inhaled steroids; Z79.84 Long term (current) use of oral hypoglycemic drugs; Z79.890 Hormone replacement therapy; Z79.899 Other long term (current) drug therapy; Z88.0 Allergy status to penicillin; Z88.2 Allergy status to sulfonamides; Z88.7 Allergy status to serum and vaccine; Z90.710 Acquired absence of both cervix and uterus; Y92.89 Other specified places as the place of occurrence of the external cause
CPT/HCPCS: 99284; 96374; 96375; 96376; J1200 ×4; J2405 ×3; J2470; J1171 ×4; A4606; A4663

== ENCOUNTER 2025-04-18 07:41 | Emergency (ER) | payer MEDICARE, BC ==
[~2025-04-18] VITALS: Ht 162.6 cm; Wt 63.5 kg
[2025-04-18] MEDS ORDERED: diphenhydrAMINE 50 MG/1 ML VIAL ONE ×3 (08:11→10:38)
[2025-04-18] MEDS ORDERED: ONDANSETRON 4 MG/2 ML VIAL ONE ×3 (08:11→10:38)
[2025-04-18] MEDS ORDERED: HYDROMORPHONE 2 MG/1 ML DISP.SYRIN ONE ×3 (08:12→10:38)
[2025-04-18] MEDS: HYDROMORPHONE 1 MG/1 ML DISP.SYRIN IV ONE ×3 (08:12→10:40)
[2025-04-18] MEDS: diphenhydrAMINE 50 MG/1 ML VIAL IV ONE ×3 (08:12→10:40)
[2025-04-18] MEDS: ONDANSETRON 4 MG/2 ML VIAL IV ONE ×3 (08:12→10:41)
[2025-04-18 10:44] VITALS: O2SAT 98
== END 2025-04-18 10:46 | disposition home or self-care (01) ==
LOC: ER 07:41
DX: R10.30 Lower abdominal pain, unspecified (principal); T45.1X5A Adverse effect of antineoplastic and immunosuppressive drugs, initial encounter; R11.2 Nausea with vomiting, unspecified; R19.7 Diarrhea, unspecified; F11.20 Opioid dependence, uncomplicated; E78.5 Hyperlipidemia, unspecified; M79.7 Fibromyalgia; Z79.51 Long term (current) use of inhaled steroids; Z79.84 Long term (current) use of oral hypoglycemic drugs; Z79.899 Other long term (current) drug therapy; Z88.0 Allergy status to penicillin; Z88.2 Allergy status to sulfonamides; Z88.7 Allergy status to serum and vaccine; Z90.710 Acquired absence of both cervix and uterus; Y92.89 Other specified places as the place of occurrence of the external cause
CPT/HCPCS: 99284; 96374; 96375; 96376; J1200 ×3; J2405 ×3; J1171 ×3; A4606; A4663

== ENCOUNTER 2025-04-23 07:23 | Emergency (ER) | payer MEDICARE, BC ==
[~2025-04-23] VITALS: Ht 162.6 cm; Wt 63.5 kg
[2025-04-23] MEDS ORDERED: ONDANSETRON 4 MG/2 ML VIAL ONE ×2 (08:05→09:21)
[2025-04-23] MEDS ORDERED: HYDROMORPHONE 2 MG/1 ML DISP.SYRIN ONE ×4 (08:05→11:33)
[2025-04-23] MEDS ORDERED: diphenhydrAMINE 50 MG/1 ML VIAL ONE ×4 (08:05→11:33)
[2025-04-23] MEDS: diphenhydrAMINE 50 MG/1 ML VIAL IV ONE ×4 (08:06→11:34)
[2025-04-23] MEDS: HYDROMORPHONE 1 MG/1 ML DISP.SYRIN IV ONE ×4 (08:06→11:34)
[2025-04-23] MEDS: ONDANSETRON 4 MG/2 ML VIAL IV ONE ×2 (08:06→09:22)
[2025-04-23 11:39] VITALS: BP 133/74; O2SAT 98
== END 2025-04-23 11:39 | disposition home or self-care (01) ==
LOC: ER 07:23
DX: C50.919 Malignant neoplasm of unspecified site of unspecified female breast (principal); C78.7 Secondary malignant neoplasm of liver and intrahepatic bile duct; T45.1X5A Adverse effect of antineoplastic and immunosuppressive drugs, initial encounter; R11.2 Nausea with vomiting, unspecified; R19.7 Diarrhea, unspecified; R10.32 Left lower quadrant pain; R10.31 Right lower quadrant pain; E78.5 Hyperlipidemia, unspecified; M79.7 Fibromyalgia; Z79.51 Long term (current) use of inhaled steroids; Z79.84 Long term (current) use of oral hypoglycemic drugs; Z79.890 Hormone replacement therapy; Z79.899 Other long term (current) drug therapy; Z85.3 Personal history of malignant neoplasm of breast; Z88.0 Allergy status to penicillin; Z88.2 Allergy status to sulfonamides; Z88.7 Allergy status to serum and vaccine; Z90.710 Acquired absence of both cervix and uterus; Y92.89 Other specified places as the place of occurrence of the external cause
CPT/HCPCS: 99284; 96374; 96375; 96376; J1200 ×4; J2405 ×2; J1171 ×4; A4606; A4663

== ENCOUNTER 2025-04-24 10:02 | Emergency (ER) | payer MEDICARE, BC ==
[~2025-04-24] VITALS: Ht 162.6 cm; Wt 63.5 kg
[2025-04-24] MEDS ORDERED: diphenhydrAMINE 50 MG/1 ML VIAL ONE ×5 (10:34→13:43)
[2025-04-24] MEDS ORDERED: PANTOPRAZOLE SODIUM 40 MG VIAL ONE (10:34)
[2025-04-24] MEDS ORDERED: ONDANSETRON 4 MG/2 ML VIAL ONE ×2 (10:34→11:35)
[2025-04-24] MEDS ORDERED: HYDROMORPHONE 2 MG/1 ML DISP.SYRIN ONE ×4 (10:34→13:31)
[2025-04-24] MEDS: PANTOPRAZOLE SODIUM 40 MG VIAL IV ONE (10:35)
[2025-04-24] MEDS: diphenhydrAMINE 50 MG/1 ML VIAL IV ONE ×4 (10:35→13:32)
[2025-04-24] MEDS: ONDANSETRON 4 MG/2 ML VIAL IV ONE ×2 (10:35→11:36)
[2025-04-24] MEDS: HYDROMORPHONE 1 MG/1 ML DISP.SYRIN IV ONE ×4 (10:35→13:33)
[2025-04-24 13:40] VITALS: BP 125/81; O2SAT 98
== END 2025-04-24 13:59 | disposition home or self-care (01) ==
LOC: ER 10:04
DX: R11.2 Nausea with vomiting, unspecified (principal); T45.1X5A Adverse effect of antineoplastic and immunosuppressive drugs, initial encounter; R19.7 Diarrhea, unspecified; C78.7 Secondary malignant neoplasm of liver and intrahepatic bile duct; E78.5 Hyperlipidemia, unspecified; F11.20 Opioid dependence, uncomplicated; M79.7 Fibromyalgia; Z79.51 Long term (current) use of inhaled steroids; Z79.84 Long term (current) use of oral hypoglycemic drugs; Z79.890 Hormone replacement therapy; Z79.899 Other long term (current) drug therapy; Z88.0 Allergy status to penicillin; Z88.2 Allergy status to sulfonamides; Z88.7 Allergy status to serum and vaccine; Z90.710 Acquired absence of both cervix and uterus; Y92.89 Other specified places as the place of occurrence of the external cause
CPT/HCPCS: 99284; 96374; 96375; 96376; J1200 ×5; J2405 ×2; J2470; J1171 ×4; A4606; A4663

== ENCOUNTER 2025-04-25 08:07 | Emergency (ER) | payer MEDICARE, BC ==
[~2025-04-25] VITALS: Ht 162.6 cm; Wt 63.5 kg
[2025-04-25] MEDS: diphenhydrAMINE 50 MG/1 ML VIAL IV ONE ×4 (08:31→11:55)
[2025-04-25] MEDS ORDERED: diphenhydrAMINE 50 MG/1 ML VIAL ONE ×4 (08:31→11:55)
[2025-04-25] MEDS ORDERED: ONDANSETRON 4 MG/2 ML VIAL ONE ×2 (08:31→09:42)
[2025-04-25] MEDS ORDERED: HYDROMORPHONE 2 MG/1 ML DISP.SYRIN ONE ×4 (08:31→11:55)
[2025-04-25] MEDS: HYDROMORPHONE 1 MG/1 ML DISP.SYRIN IV ONE ×4 (08:32→11:55)
[2025-04-25] MEDS: ONDANSETRON 4 MG/2 ML VIAL IV ONE ×2 (08:32→09:44)
[2025-04-25] MEDS ORDERED: PANTOPRAZOLE SODIUM 40 MG VIAL ONE (09:42)
[2025-04-25] MEDS: PANTOPRAZOLE SODIUM 40 MG VIAL IV ONE (09:44)
[2025-04-25 12:00] VITALS: BP 121/74; O2SAT 98
== END 2025-04-25 12:02 | disposition home or self-care (01) ==
LOC: ER 08:07
DX: G89.4 Chronic pain syndrome (principal); T45.1X5A Adverse effect of antineoplastic and immunosuppressive drugs, initial encounter; R10.31 Right lower quadrant pain; R10.32 Left lower quadrant pain; R11.2 Nausea with vomiting, unspecified; R19.7 Diarrhea, unspecified; E03.9 Hypothyroidism, unspecified; E78.5 Hyperlipidemia, unspecified; F11.20 Opioid dependence, uncomplicated; M79.7 Fibromyalgia; Z79.51 Long term (current) use of inhaled steroids; Z79.84 Long term (current) use of oral hypoglycemic drugs; Z79.890 Hormone replacement therapy; Z79.899 Other long term (current) drug therapy; Z85.3 Personal history of malignant neoplasm of breast; Z88.0 Allergy status to penicillin; Z88.2 Allergy status to sulfonamides; Z88.7 Allergy status to serum and vaccine; Z90.49 Acquired absence of other specified parts of digestive tract; Z90.710 Acquired absence of both cervix and uterus; Y92.89 Other specified places as the place of occurrence of the external cause
CPT/HCPCS: 99284; 96374; 96375; 96376; J1200 ×4; J2405 ×2; J2470; J1171 ×4; A4606; A4663

== ENCOUNTER 2025-05-01 07:55 | Emergency (ER) | payer MEDICARE, BC ==
[~2025-05-01] VITALS: Ht 162.6 cm; Wt 63.5 kg
[2025-05-01] MEDS ORDERED: diphenhydrAMINE 50 MG/1 ML VIAL ONE ×4 (08:21→11:30)
[2025-05-01] MEDS ORDERED: ONDANSETRON 4 MG/2 ML VIAL ONE ×2 (08:21→09:25)
[2025-05-01] MEDS ORDERED: HYDROMORPHONE 2 MG/1 ML DISP.SYRIN ONE ×4 (08:21→11:30)
[2025-05-01] MEDS: diphenhydrAMINE 50 MG/1 ML VIAL IV ONE ×3 (08:22→11:31)
[2025-05-01] MEDS: HYDROMORPHONE 1 MG/1 ML DISP.SYRIN IV ONE ×4 (08:22→11:31)
[2025-05-01] MEDS: ONDANSETRON 4 MG/2 ML VIAL IV ONE ×2 (08:22→09:27)
[2025-05-01] MEDS: diphenhydrAMINE 50 MG/1 ML VIAL IM ONE (10:30)
[2025-05-01 11:35] VITALS: BP 122/79; O2SAT 98
== END 2025-05-01 11:37 | disposition home or self-care (01) ==
LOC: ER 07:55
DX: R11.2 Nausea with vomiting, unspecified (principal); R19.7 Diarrhea, unspecified; R10.31 Right lower quadrant pain; R10.32 Left lower quadrant pain; E78.5 Hyperlipidemia, unspecified; F11.20 Opioid dependence, uncomplicated; M79.7 Fibromyalgia; Z79.51 Long term (current) use of inhaled steroids; Z79.84 Long term (current) use of oral hypoglycemic drugs; Z79.890 Hormone replacement therapy; Z79.899 Other long term (current) drug therapy; Z85.3 Personal history of malignant neoplasm of breast; Z88.0 Allergy status to penicillin; Z88.2 Allergy status to sulfonamides; Z88.7 Allergy status to serum and vaccine; Z90.11 Acquired absence of right breast and nipple; Z90.49 Acquired absence of other specified parts of digestive tract; Z90.710 Acquired absence of both cervix and uterus
CPT/HCPCS: 99284; 96374; 96375; 96376; 96372; J1200 ×4; J2405 ×2; J1171 ×4; A4606; A4663

== ENCOUNTER 2025-05-07 07:23 | Emergency (ER) | payer MEDICARE, BC ==
[~2025-05-07] VITALS: Ht 162.6 cm; Wt 63.5 kg
[2025-05-07] MEDS ORDERED: ONDANSETRON 4 MG/2 ML VIAL ONE ×2 (07:46→08:36)
[2025-05-07] MEDS ORDERED: diphenhydrAMINE 50 MG/1 ML VIAL ONE ×4 (07:46→10:43)
[2025-05-07] MEDS ORDERED: HYDROMORPHONE 2 MG/1 ML DISP.SYRIN ONE ×4 (07:46→10:43)
[2025-05-07] MEDS: diphenhydrAMINE 50 MG/1 ML VIAL IV ONE ×4 (07:46→10:46)
[2025-05-07] MEDS: ONDANSETRON 4 MG/2 ML VIAL IV ONE ×2 (07:47→08:38)
[2025-05-07] MEDS: HYDROMORPHONE 1 MG/1 ML DISP.SYRIN IV ONE ×4 (07:47→10:46)
[2025-05-07] MEDS ORDERED: PANTOPRAZOLE SODIUM 40 MG VIAL ONE (08:37)
[2025-05-07] MEDS: PANTOPRAZOLE SODIUM 40 MG VIAL IV ONE (08:38)
[2025-05-07 10:58] VITALS: BP 123/70; O2SAT 98
[2025-05-08] MEDS ORDERED: PHEN-704 PO (11:05)
[2025-05-08] MEDS ORDERED: FLUC150T PO (11:05)
[2025-05-08] MEDS ORDERED: CEFD300C3 PO (11:05)
== END 2025-05-07 10:59 | disposition home or self-care (01) ==
LOC: ER 07:23
DX: R10.32 Left lower quadrant pain (principal); R10.31 Right lower quadrant pain; R19.7 Diarrhea, unspecified; F11.20 Opioid dependence, uncomplicated; E03.9 Hypothyroidism, unspecified; E78.5 Hyperlipidemia, unspecified; M79.7 Fibromyalgia; R11.2 Nausea with vomiting, unspecified; Z79.51 Long term (current) use of inhaled steroids; Z79.84 Long term (current) use of oral hypoglycemic drugs; Z79.899 Other long term (current) drug therapy; Z85.3 Personal history of malignant neoplasm of breast; Z88.0 Allergy status to penicillin; Z88.2 Allergy status to sulfonamides; Z88.7 Allergy status to serum and vaccine; Z90.49 Acquired absence of other specified parts of digestive tract; Z90.710 Acquired absence of both cervix and uterus
CPT/HCPCS: 99284; 96374; 96375; 96376; J1200 ×4; J2405 ×2; J2470; J1171 ×4; A4606; A4663

== ENCOUNTER 2025-05-08 07:25 | Emergency (ER) | payer MEDICARE, BC ==
[~2025-05-08] VITALS: Ht 162.6 cm; Wt 63.5 kg
[2025-05-08] MEDS ORDERED: ONDANSETRON 4 MG/2 ML VIAL ONE (08:33)
[2025-05-08] MEDS ORDERED: diphenhydrAMINE 50 MG/1 ML VIAL ONE ×4 (08:33→12:24)
[2025-05-08] MEDS ORDERED: HYDROMORPHONE 2 MG/1 ML DISP.SYRIN ONE ×4 (08:33→12:24)
[2025-05-08] MEDS: HYDROMORPHONE 1 MG/1 ML DISP.SYRIN IV ONE ×4 (08:34→12:24)
[2025-05-08] MEDS: diphenhydrAMINE 50 MG/1 ML VIAL IV ONE ×4 (08:34→12:24)
[2025-05-08] MEDS: ONDANSETRON 4 MG/2 ML VIAL IV ONE (08:34)
[2025-05-08 08:46] LABS: *BILIRUBIN,URIN NEGATIVE (NEGATIVE); *BLOOD, URINE 3+ (NEGATIVE); *CLARITY,URINE TURBID (CLEAR); *COLOR,URINE YELLOW (YELLOW); *KETONES,URINE NEGATIVE (NEGATIVE); *PROTEIN,URINE 3+ (NEGATIVE); *UROBILINOGEN,URINE 0.2 E.U./dl (NORMAL); LEUKOCYTE ESTERASE ,URINE 1+ (NEGATIVE); NITRITE, URINE NEGATIVE (NEGATIVE); UGLUCOSE NEGATIVE (NEGATIVE)
[2025-05-08 08:54] LABS: SQUAMOUS EPITHELIAL CELL,UR MANY /HPF (NONE SEEN)
[2025-05-08] MEDS ORDERED: GENTAMICIN SULFATE 80 MG/2 ML VIAL ONE (09:16)
[2025-05-08] MEDS: GENTAMICIN SULFATE 20 MG/2 ML VIAL IV ONE (09:24)
[2025-05-08] MEDS ORDERED: CEFD300C3 PO (11:05)
[2025-05-08] MEDS ORDERED: PHEN-704 PO (11:05)
[2025-05-08] MEDS ORDERED: FLUC150T PO (11:05)
[2025-05-08 12:30] VITALS: BP 119/77; O2SAT 98
== END 2025-05-08 12:31 | disposition home or self-care (01) ==
LOC: ER 07:25
DX: R10.9 Unspecified abdominal pain (principal); T45.1X5A Adverse effect of antineoplastic and immunosuppressive drugs, initial encounter; E78.5 Hyperlipidemia, unspecified; F11.20 Opioid dependence, uncomplicated; M79.7 Fibromyalgia; N39.0 Urinary tract infection, site not specified; Z79.51 Long term (current) use of inhaled steroids; Z79.84 Long term (current) use of oral hypoglycemic drugs; Z79.899 Other long term (current) drug therapy; Z85.3 Personal history of malignant neoplasm of breast; Z88.0 Allergy status to penicillin; Z88.2 Allergy status to sulfonamides; Z88.7 Allergy status to serum and vaccine; Z90.710 Acquired absence of both cervix and uterus; Y92.89 Other specified places as the place of occurrence of the external cause
CPT/HCPCS: 99284; 96365; 96375; 81001; 87086; 96376; J0696; J1200 ×4; J2405; J1171 ×4; A4606; A4663; J1580

== ENCOUNTER 2025-05-09 11:22 | Emergency (ER) | payer MEDICARE, BC ==
[~2025-05-09] VITALS: Ht 162.6 cm; Wt 63.5 kg
[~2025-05-09 11:22] MED LIST changes: +CEFD300C3 PO; +FLUC150T PO; +PHEN-704 PO
[2025-05-09] MEDS ORDERED: diphenhydrAMINE 50 MG/1 ML VIAL ONE ×5 (11:57→15:25)
[2025-05-09] MEDS ORDERED: HYDROMORPHONE 2 MG/1 ML DISP.SYRIN ONE ×4 (11:57→15:25)
[2025-05-09] MEDS ORDERED: PANTOPRAZOLE SODIUM 40 MG VIAL ONE (11:57)
[2025-05-09] MEDS ORDERED: ONDANSETRON 4 MG/2 ML VIAL ONE ×3 (11:57→14:22)
[2025-05-09] MEDS: ONDANSETRON 4 MG/2 ML VIAL IV ONE ×3 (11:58→14:24)
[2025-05-09] MEDS: HYDROMORPHONE 1 MG/1 ML DISP.SYRIN IV ONE ×4 (11:58→15:28)
[2025-05-09] MEDS: diphenhydrAMINE 50 MG/1 ML VIAL IV ONE ×4 (11:58→15:28)
[2025-05-09] MEDS: PANTOPRAZOLE SODIUM 40 MG VIAL IV ONE (11:58)
[2025-05-09] MEDS ORDERED: GENTAMICIN SULFATE 80 MG/2 ML VIAL ONE (14:22)
[2025-05-09] MEDS: GENTAMICIN SULFATE INJ 80 MG in IV DEXTROSE 5% 100 ML IV ONE (14:42)
[2025-05-09 15:32] VITALS: BP 116/67; O2SAT 98
== END 2025-05-09 16:00 | disposition home or self-care (01) ==
LOC: ER 11:22
DX: F11.20 Opioid dependence, uncomplicated (principal); N39.0 Urinary tract infection, site not specified; R11.2 Nausea with vomiting, unspecified; R19.7 Diarrhea, unspecified; E78.5 Hyperlipidemia, unspecified; M79.7 Fibromyalgia; C79.9 Secondary malignant neoplasm of unspecified site; Z79.51 Long term (current) use of inhaled steroids; Z79.84 Long term (current) use of oral hypoglycemic drugs; Z85.3 Personal history of malignant neoplasm of breast; Z88.0 Allergy status to penicillin; Z88.2 Allergy status to sulfonamides; Z88.7 Allergy status to serum and vaccine; Z90.710 Acquired absence of both cervix and uterus; Z79.899 Other long term (current) drug therapy
CPT/HCPCS: 99284; 96365; 96375; 96376; J1200 ×5; J1580 ×2; J2405 ×3; J2470; J1171 ×4; A4606; A4663

== ENCOUNTER 2025-05-12 08:02 | Emergency (ER) | payer MEDICARE, BC ==
[~2025-05-12] VITALS: Ht 162.6 cm; Wt 63.5 kg
[2025-05-12] MEDS: HYDROMORPHONE 1 MG/1 ML DISP.SYRIN IV ONE ×4 (08:53→12:08)
[2025-05-12] MEDS: diphenhydrAMINE 50 MG/1 ML VIAL IV ONE ×4 (08:53→12:08)
[2025-05-12] MEDS ORDERED: HYDROMORPHONE 2 MG/1 ML DISP.SYRIN ONE ×4 (08:53→12:06)
[2025-05-12] MEDS ORDERED: ONDANSETRON 4 MG/2 ML VIAL ONE ×2 (08:53→09:56)
[2025-05-12] MEDS ORDERED: diphenhydrAMINE 50 MG/1 ML VIAL ONE ×4 (08:53→12:05)
[2025-05-12] MEDS: ONDANSETRON 4 MG/2 ML VIAL IV ONE ×2 (08:54→09:57)
[2025-05-12 12:11] VITALS: BP 124/77; O2SAT 98
== END 2025-05-12 12:12 | disposition home or self-care (01) ==
LOC: ER 08:02
DX: G89.4 Chronic pain syndrome (principal); R10.31 Right lower quadrant pain; R10.32 Left lower quadrant pain; R11.2 Nausea with vomiting, unspecified; R19.7 Diarrhea, unspecified; E78.5 Hyperlipidemia, unspecified; F11.20 Opioid dependence, uncomplicated; M79.7 Fibromyalgia; Z79.51 Long term (current) use of inhaled steroids; Z79.84 Long term (current) use of oral hypoglycemic drugs; Z79.899 Other long term (current) drug therapy; Z85.3 Personal history of malignant neoplasm of breast; Z88.0 Allergy status to penicillin; Z88.2 Allergy status to sulfonamides; Z88.7 Allergy status to serum and vaccine; Z90.11 Acquired absence of right breast and nipple; Z90.49 Acquired absence of other specified parts of digestive tract; Z90.710 Acquired absence of both cervix and uterus
CPT/HCPCS: 99284; 96374; 96375; 96376; J1200 ×4; J2405 ×2; J1171 ×4; A4606; A4663

== ENCOUNTER 2025-05-20 08:24 | Emergency (ER) | payer MEDICARE, BC ==
[~2025-05-20] VITALS: Ht 162.6 cm; Wt 63.5 kg
[2025-05-20] MEDS: HYDROMORPHONE 1 MG/1 ML DISP.SYRIN IV ONE ×4 (08:52→12:11)
[2025-05-20] MEDS: diphenhydrAMINE 50 MG/1 ML VIAL IV ONE ×4 (08:52→12:11)
[2025-05-20] MEDS ORDERED: diphenhydrAMINE 50 MG/1 ML VIAL ONE ×5 (08:52→12:18)
[2025-05-20] MEDS ORDERED: HYDROMORPHONE 2 MG/1 ML DISP.SYRIN ONE ×4 (08:52→12:10)
[2025-05-20] MEDS ORDERED: ONDANSETRON 4 MG/2 ML VIAL ONE ×4 (08:52→12:10)
[2025-05-20] MEDS: ONDANSETRON 4 MG/2 ML VIAL IV ONE ×4 (08:53→12:11)
[2025-05-20 12:16] VITALS: BP 123/71; O2SAT 98
== END 2025-05-20 12:19 | disposition home or self-care (01) ==
LOC: ER 08:24
DX: F11.20 Opioid dependence, uncomplicated (principal); T45.1X5A Adverse effect of antineoplastic and immunosuppressive drugs, initial encounter; R11.2 Nausea with vomiting, unspecified; I50.9 Heart failure, unspecified; E78.5 Hyperlipidemia, unspecified; M79.7 Fibromyalgia; Z79.51 Long term (current) use of inhaled steroids; Z79.84 Long term (current) use of oral hypoglycemic drugs; Z79.890 Hormone replacement therapy; Z79.899 Other long term (current) drug therapy; Z85.3 Personal history of malignant neoplasm of breast; Z88.0 Allergy status to penicillin; Z88.2 Allergy status to sulfonamides; Z88.7 Allergy status to serum and vaccine; Z90.11 Acquired absence of right breast and nipple; Z90.49 Acquired absence of other specified parts of digestive tract; Z90.710 Acquired absence of both cervix and uterus
CPT/HCPCS: 99284; 96374; 96375; 96376; J1200 ×5; J2405 ×4; J1171 ×4; A4606; A4663

== ENCOUNTER 2025-05-21 11:52 | Emergency (ER) | payer MEDICARE, BC ==
[~2025-05-21] VITALS: Ht 162.6 cm; Wt 63.5 kg
[2025-05-21] MEDS ORDERED: diphenhydrAMINE 50 MG/1 ML VIAL ONE ×7 (12:27→16:09)
[2025-05-21] MEDS ORDERED: HYDROMORPHONE 2 MG/1 ML DISP.SYRIN ONE ×5 (12:27→16:09)
[2025-05-21] MEDS: HYDROMORPHONE 1 MG/1 ML DISP.SYRIN IV ONE ×5 (12:27→16:10)
[2025-05-21] MEDS ORDERED: ONDANSETRON 4 MG/2 ML VIAL ONE ×4 (12:27→15:17)
[2025-05-21] MEDS: diphenhydrAMINE 50 MG/1 ML VIAL IV ONE ×5 (12:27→16:09)
[2025-05-21] MEDS: ONDANSETRON 4 MG/2 ML VIAL IV ONE ×4 (12:27→15:18)
[2025-05-21 16:10] VITALS: BP 115/70; O2SAT 98
== END 2025-05-21 16:11 | disposition home or self-care (01) ==
LOC: ER 12:01
DX: R11.2 Nausea with vomiting, unspecified (principal); F11.20 Opioid dependence, uncomplicated; E03.9 Hypothyroidism, unspecified; E78.5 Hyperlipidemia, unspecified; I50.9 Heart failure, unspecified; M79.7 Fibromyalgia; Z79.51 Long term (current) use of inhaled steroids; Z79.84 Long term (current) use of oral hypoglycemic drugs; Z79.890 Hormone replacement therapy; Z79.899 Other long term (current) drug therapy; Z85.3 Personal history of malignant neoplasm of breast; Z88.0 Allergy status to penicillin; Z88.2 Allergy status to sulfonamides; Z88.7 Allergy status to serum and vaccine; Z90.11 Acquired absence of right breast and nipple; Z90.49 Acquired absence of other specified parts of digestive tract; Z90.710 Acquired absence of both cervix and uterus
CPT/HCPCS: 99284; 96374; 96375; 96376; J1200 ×7; J2405 ×4; J1171 ×5; A4606; A4663

== ENCOUNTER 2025-05-27 07:47 | Emergency (ER) | payer MEDICARE, BC ==
[~2025-05-27] VITALS: Ht 162.6 cm; Wt 63.5 kg
[2025-05-27] MEDS ORDERED: diphenhydrAMINE 50 MG/1 ML VIAL ONE ×5 (08:32→11:37)
[2025-05-27] MEDS ORDERED: ONDANSETRON 4 MG/2 ML VIAL ONE ×3 (08:32→10:39)
[2025-05-27] MEDS ORDERED: HYDROMORPHONE 2 MG/1 ML DISP.SYRIN ONE ×4 (08:32→11:25)
[2025-05-27] MEDS: ONDANSETRON 4 MG/2 ML VIAL IV ONE ×3 (08:33→10:40)
[2025-05-27] MEDS: IV NS 1000 ML 1,000 ML IV ONE (08:33)
[2025-05-27] MEDS: diphenhydrAMINE 50 MG/1 ML VIAL IV ONE ×4 (08:33→11:25)
[2025-05-27] MEDS: HYDROMORPHONE 1 MG/1 ML DISP.SYRIN IV ONE ×4 (08:33→11:25)
[2025-05-27 08:54] LABS: PLATELET COUNT (AUTO) 155 K/uL (179-408); RED BLOOD CELL COUNT(AUTO) 3.78 MIL/uL (3.63-4.92); RED CELL DISTRIBUTION WIDTH 17.0 % (12.3-17.7); WHITE BLOOD COUNT (AUTO) 6.8 K/uL (3.8-11.8)
[2025-05-27 09:02] LABS: CREATININE 0.8 mg/dL (0.6-1.3); SODIUM SERUM 139.0 mmol/L (136-145); UREA NITROGEN, BLOOD 10.0 mg/dL (7-18)
[2025-05-27 11:35] VITALS: BP 119/78; O2SAT 97
== END 2025-05-27 11:39 | disposition home or self-care (01) ==
LOC: ER 07:47
DX: R10.31 Right lower quadrant pain (principal); T45.1X5A Adverse effect of antineoplastic and immunosuppressive drugs, initial encounter; R10.32 Left lower quadrant pain; R11.2 Nausea with vomiting, unspecified; M25.562 Pain in left knee; D64.9 Anemia, unspecified; E78.5 Hyperlipidemia, unspecified; M79.7 Fibromyalgia; Z79.51 Long term (current) use of inhaled steroids; Z79.84 Long term (current) use of oral hypoglycemic drugs; Z79.899 Other long term (current) drug therapy; Z85.3 Personal history of malignant neoplasm of breast; Z88.0 Allergy status to penicillin; Z88.2 Allergy status to sulfonamides; Z88.7 Allergy status to serum and vaccine; Z90.11 Acquired absence of right breast and nipple; Z90.49 Acquired absence of other specified parts of digestive tract; Z90.710 Acquired absence of both cervix and uterus; Y92.89 Other specified places as the place of occurrence of the external cause
CPT/HCPCS: 99284; 96374; 96375; 96361; 80048; 85025; 36415; 73562; 96376; J1200 ×5; J2405 ×3; J1171 ×4; A4606; A4663

== ENCOUNTER 2025-05-30 08:03 | Emergency (ER) | payer MEDICARE, BC ==
[~2025-05-30] VITALS: Ht 162.6 cm; Wt 63.5 kg
[2025-05-30] MEDS ORDERED: ONDANSETRON 4 MG/2 ML VIAL ONE ×4 (08:26→11:48)
[2025-05-30] MEDS: diphenhydrAMINE 50 MG/1 ML VIAL IV ONE ×5 (08:26→12:42)
[2025-05-30] MEDS ORDERED: diphenhydrAMINE 50 MG/1 ML VIAL ONE ×6 (08:26→12:42)
[2025-05-30] MEDS ORDERED: HYDROMORPHONE 2 MG/1 ML DISP.SYRIN ONE ×5 (08:26→12:42)
[2025-05-30] MEDS: HYDROMORPHONE 1 MG/1 ML DISP.SYRIN IV ONE ×5 (08:27→12:42)
[2025-05-30] MEDS: ONDANSETRON 4 MG/2 ML VIAL IV ONE ×4 (08:27→11:50)
[2025-05-30 12:45] VITALS: BP 127/84; O2SAT 98
[2025-06-05] MEDS ORDERED: METH-806 PO (09:01)
== END 2025-05-30 12:46 | disposition home or self-care (01) ==
LOC: ER 08:03
DX: R11.2 Nausea with vomiting, unspecified (principal); T45.1X5A Adverse effect of antineoplastic and immunosuppressive drugs, initial encounter; F11.20 Opioid dependence, uncomplicated; R10.32 Left lower quadrant pain; R10.31 Right lower quadrant pain; E03.9 Hypothyroidism, unspecified; E78.5 Hyperlipidemia, unspecified; I50.9 Heart failure, unspecified; M79.7 Fibromyalgia; Z79.51 Long term (current) use of inhaled steroids; Z79.84 Long term (current) use of oral hypoglycemic drugs; Z79.890 Hormone replacement therapy; Z79.899 Other long term (current) drug therapy; Z85.3 Personal history of malignant neoplasm of breast; Z88.0 Allergy status to penicillin; Z88.2 Allergy status to sulfonamides; Z88.7 Allergy status to serum and vaccine; Z90.11 Acquired absence of right breast and nipple; Z90.49 Acquired absence of other specified parts of digestive tract; Z90.710 Acquired absence of both cervix and uterus; Y92.89 Other specified places as the place of occurrence of the external cause
CPT/HCPCS: 99284; 96374; 96375; 96376; J1200 ×6; J2405 ×4; J1171 ×5; A4606; A4663

== ENCOUNTER 2025-06-03 08:23 | Emergency (ER) | payer MEDICARE, BC ==
[~2025-06-03] VITALS: Ht 162.6 cm; Wt 63.5 kg
[2025-06-03] MEDS ORDERED: HYDROMORPHONE 2 MG/1 ML DISP.SYRIN ONE ×4 (09:30→12:50)
[2025-06-03] MEDS ORDERED: ONDANSETRON 4 MG/2 ML VIAL ONE ×3 (09:30→11:58)
[2025-06-03] MEDS ORDERED: diphenhydrAMINE 50 MG/1 ML VIAL ONE ×5 (09:30→12:50)
[2025-06-03] MEDS: ONDANSETRON 4 MG/2 ML VIAL IV ONE ×3 (09:31→11:59)
[2025-06-03] MEDS: HYDROMORPHONE 1 MG/1 ML DISP.SYRIN IV ONE ×4 (09:31→12:52)
[2025-06-03] MEDS: diphenhydrAMINE 50 MG/1 ML VIAL IV ONE ×4 (09:31→12:52)
[2025-06-03] MEDS ORDERED: TRAM100T23 PO (12:54)
[2025-06-03] MEDS ORDERED: ONDA4TAB11 PO (12:54)
[2025-06-03 13:13] VITALS: BP 126/84; O2SAT 98
[2025-06-05] MEDS ORDERED: METH-806 PO (09:01)
== END 2025-06-03 14:02 | disposition home or self-care (01) ==
LOC: ER 08:23
DX: R10.31 Right lower quadrant pain (principal); T45.1X5A Adverse effect of antineoplastic and immunosuppressive drugs, initial encounter; R10.32 Left lower quadrant pain; R11.2 Nausea with vomiting, unspecified; E78.5 Hyperlipidemia, unspecified; F11.20 Opioid dependence, uncomplicated; M79.7 Fibromyalgia; Z79.51 Long term (current) use of inhaled steroids; Z79.84 Long term (current) use of oral hypoglycemic drugs; Z79.899 Other long term (current) drug therapy; Z85.3 Personal history of malignant neoplasm of breast; Z88.0 Allergy status to penicillin; Z88.2 Allergy status to sulfonamides; Z88.7 Allergy status to serum and vaccine; Z90.11 Acquired absence of right breast and nipple; Z90.49 Acquired absence of other specified parts of digestive tract; Z90.710 Acquired absence of both cervix and uterus; Y92.89 Other specified places as the place of occurrence of the external cause
CPT/HCPCS: 99284; 96374; 96375; 96376; J1200 ×5; J2405 ×3; J1171 ×4; A4606; A4663

== ENCOUNTER 2025-06-04 17:25 | Inpatient (IN) | payer MEDICARE, BC ==
[~2025-06-04] VITALS: Ht 162.6 cm; Wt 63.5 kg
[~2025-06-04 17:25] MED LIST changes: +ONDA4TAB11 PO
[2025-06-04] MEDS ORDERED: diphenhydrAMINE 50 MG/1 ML VIAL ONE ×2 (17:42→18:52)
[2025-06-04] MEDS ORDERED: HYDROMORPHONE 2 MG/1 ML DISP.SYRIN ONE ×3 (17:42→21:01)
[2025-06-04] MEDS ORDERED: ONDANSETRON 4 MG/2 ML VIAL ONE ×2 (17:42→18:52)
[2025-06-04] MEDS: IV NS 1000 ML 1,000 ML IV ONE (17:49)
[2025-06-04] MEDS: ONDANSETRON 4 MG/2 ML VIAL IV ONE ×2 (17:51→19:03)
[2025-06-04] MEDS: HYDROMORPHONE 1 MG/1 ML DISP.SYRIN IV ONE ×2 (17:51→18:59)
[2025-06-04] MEDS: diphenhydrAMINE 50 MG/1 ML VIAL IV ONE ×2 (17:51→19:03)
[2025-06-04] MEDS ORDERED: PANTOPRAZOLE SODIUM 40 MG VIAL ONE (17:51)
[2025-06-04] MEDS: PANTOPRAZOLE SODIUM 40 MG VIAL IV ONE (17:53)
[2025-06-04 18:44] LABS: PLATELET COUNT (AUTO) 184 K/uL (179-408); RED BLOOD CELL COUNT(AUTO) 3.74 MIL/uL (3.63-4.92); RED CELL DISTRIBUTION WIDTH 16.8 % (12.3-17.7); WHITE BLOOD COUNT (AUTO) 9.8 K/uL (3.8-11.8)
[2025-06-04 18:49] LABS: CREATININE 1.1 mg/dL (0.6-1.3); SODIUM SERUM 135.0 mmol/L (136-145); UREA NITROGEN, BLOOD 27.0 mg/dL (7-18)
[2025-06-04 20:27] VITALS: BP 153/65
[2025-06-04] MEDS: HYDROMORPHONE 2 MG/1 ML DISP.SYRIN IV PRN (21:10)
[2025-06-04] MEDS ORDERED: ACETAMINOPHEN 325 MG TABLET PO PRN (21:30)
[2025-06-04] MEDS ORDERED: TEMAZEPAM 15 MG CAPSULE PO PRN (21:30)
[2025-06-04] MEDS ORDERED: ONDANSETRON 4 MG/2 ML VIAL IV PRN (21:30)
[2025-06-04] MEDS ORDERED: HYDROMORPHONE 1 MG/1 ML DISP.SYRIN IV PRN (21:30)
[2025-06-04 21:35] VITALS: BP 159/97; TEMP 98.1; O2SAT 98
[2025-06-04] MEDS: IV 1/2NS 1000 ML 1,000 ML IV PRN (23:02)
[2025-06-05] MEDS: diphenhydrAMINE 50 MG/1 ML VIAL IV PRN (00:03)
[2025-06-05] MEDS: HYDROMORPHONE 1 MG/1 ML DISP.SYRIN IV PRN (00:04)
[2025-06-05 04:00] VITALS: BP 163/79; TEMP 99.6; O2SAT 99
[2025-06-05] MEDS: PANTOPRAZOLE SODIUM 40 MG TABLET.DR PO SCH (06:11)
[2025-06-05 06:54] LABS: PLATELET COUNT (AUTO) 204 K/uL (179-408); RED BLOOD CELL COUNT(AUTO) 3.66 MIL/uL (3.63-4.92); RED CELL DISTRIBUTION WIDTH 16.9 % (12.3-17.7); WHITE BLOOD COUNT (AUTO) 10.5 K/uL (3.8-11.8)
[2025-06-05 07:04] LABS: ASPARTATE AMINOTRANSFERASE 50.0 U/L (15-37); CREATININE 1.5 mg/dL (0.6-1.3); SODIUM SERUM 135.0 mmol/L (136-145); TOTAL PROTEIN, SERUM 7.8 g/dL (6.4-8.2); UREA NITROGEN, BLOOD 30.0 mg/dL (7-18)
[2025-06-05 08:00] VITALS: BP 154/79; TEMP 97.9; O2SAT 96
[2025-06-05] MEDS ORDERED: METHOCARBAMOL 500 MG TABLET PO PRN (09:00)
[2025-06-05] MEDS ORDERED: BUPRENORPHINE HCL 2 MG TAB.SUBL SL SCH (09:00)
[2025-06-05] MEDS ORDERED: METH-806 PO (09:01)
[2025-06-05 10:30] VITALS: BP 122/59; TEMP 99; O2SAT 96
== END 2025-06-05 10:45 | disposition home or self-care (01) | DRG 392 ==
LOC: ER 17:25 → MEDSURG3 20:53
PROVIDERS: ADMIT Internal Medicine; ATTEND Nurse Practitioner Family
DX: R10.32 Left lower quadrant pain (principal); N17.9 Acute kidney failure, unspecified; E87.1 Hypo-osmolality and hyponatremia; C79.9 Secondary malignant neoplasm of unspecified site; I50.32 Chronic diastolic (congestive) heart failure; F11.20 Opioid dependence, uncomplicated; Z76.5 Malingerer [conscious simulation]; T45.1X5A Adverse effect of antineoplastic and immunosuppressive drugs, initial encounter; M79.7 Fibromyalgia; R10.31 Right lower quadrant pain; R11.2 Nausea with vomiting, unspecified; Z90.11 Acquired absence of right breast and nipple; Y92.89 Other specified places as the place of occurrence of the external cause; Z90.710 Acquired absence of both cervix and uterus; Z85.3 Personal history of malignant neoplasm of breast; D64.9 Anemia, unspecified; E78.5 Hyperlipidemia, unspecified; E03.9 Hypothyroidism, unspecified; Z79.890 Hormone replacement therapy; Z79.899 Other long term (current) drug therapy; Z88.0 Allergy status to penicillin; Z88.2 Allergy status to sulfonamides; R19.7 Diarrhea, unspecified
CPT/HCPCS: 36415; 83735; 84100; 85025; A4606; A4663; G0378; J1171; J1200; J2405; J2470; J7040

== ENCOUNTER 2025-06-08 10:57 | Emergency (ER) | payer MEDICARE, BC ==
[~2025-06-08] VITALS: Ht 162.6 cm; Wt 63.5 kg
[~2025-06-08 10:57] MED LIST changes: -CEFD300C3 PO; -FLUC150T PO; +METH-806 PO; -PHEN-704 PO; -TRAM50TA2 PO; -TRAZ150T75 PO; -VENL150C2 PO
[2025-06-08] MEDS ORDERED: ONDANSETRON 4 MG/2 ML VIAL ONE ×3 (11:46→13:56)
[2025-06-08] MEDS: HYDROMORPHONE 1 MG/1 ML DISP.SYRIN IV ONE ×3 (11:47→13:58)
[2025-06-08] MEDS: ONDANSETRON 4 MG/2 ML VIAL IV ONE ×3 (11:47→13:58)
[2025-06-08] MEDS: diphenhydrAMINE 50 MG/1 ML VIAL IV ONE ×3 (11:47→13:57)
[2025-06-08] MEDS ORDERED: HYDROMORPHONE 2 MG/1 ML DISP.SYRIN ONE ×3 (11:47→13:57)
[2025-06-08] MEDS ORDERED: diphenhydrAMINE 50 MG/1 ML VIAL ONE ×4 (11:47→14:15)
[2025-06-08 14:30] VITALS: BP 117/70; O2SAT 97
== END 2025-06-08 15:23 | disposition home or self-care (01) ==
LOC: ER 10:57
DX: C50.919 Malignant neoplasm of unspecified site of unspecified female breast (principal); T45.1X5A Adverse effect of antineoplastic and immunosuppressive drugs, initial encounter; C78.7 Secondary malignant neoplasm of liver and intrahepatic bile duct; R11.2 Nausea with vomiting, unspecified; R10.32 Left lower quadrant pain; R10.31 Right lower quadrant pain; E78.5 Hyperlipidemia, unspecified; F11.20 Opioid dependence, uncomplicated; F32.A Depression, unspecified; I11.0 Hypertensive heart disease with heart failure; I50.9 Heart failure, unspecified; M79.7 Fibromyalgia; Z79.51 Long term (current) use of inhaled steroids; Z79.84 Long term (current) use of oral hypoglycemic drugs; Z79.899 Other long term (current) drug therapy; Z85.3 Personal history of malignant neoplasm of breast; Z88.0 Allergy status to penicillin; Z88.2 Allergy status to sulfonamides; Z88.7 Allergy status to serum and vaccine; Z90.710 Acquired absence of both cervix and uterus; Y92.89 Other specified places as the place of occurrence of the external cause
CPT/HCPCS: 99284; 96374; 96375; 96376; J1200 ×4; J2405 ×3; J1171 ×3; A4606; A4663